=== PATIENT | female | born 1970 | race Caucasian/White ===

== ENCOUNTER 2022-12-25 12:17 | Outpatient (REF) | payer SELFPAY ==
[2022-12-25 13:23] LABS: Bilirubin Urine NEGATIVE (NEGATIVE); Blood Urine NEGATIVE (NEGATIVE); Color Urine YELLOW (YELLOW); Glucose Urine UA NEGATIVE (NEGATIVE); Ketones Urine NEGATIVE (NEGATIVE); Leukocyte Esterase Urine NEGATIVE (NEGATIVE); Nitrite Urine POSITIVE (NEGATIVE); Protein Urine NEGATIVE (NEG/TRACE); Specific Gravity Urine >=1.030 (1.005-1.025); Urobilinogen Urine 0.2 EU/dL (0.2-1.0); pH Urine 5.5 (5.0-9.0)
[2022-12-25 13:24] LABS: Clarity Urine SLIGHTLY CLOUDY (CLEAR); Urine Microscopic Indicated YES
[2022-12-25 13:31] LABS: RBC Urine NONE SEEN #/HPF (0-2); WBC Urine 0-2 #/HPF (NONE SEEN)
[2022-12-25 13:32] LABS: Bacteria Urine LARGE #/HPF (NONE SEEN); Cast Seen? NONE SEEN #/LPF (NONE SEEN); Crystals Seen? None Seen #/HPF (None Seen); Mucus Urine NONE SEEN (NONE SEEN); Squamous Epithelial Cell Urine FEW #/LPF (NONE/RARE); Urine Culture Indicated YES
== END 2022-12-25 12:18 | disposition home or self-care (01) ==
LOC: LAB 12:17
PROVIDERS: PCP Internal Medicine; Visit Provider Internal Medicine
DX: N39.0 Urinary tract infection, site not specified (principal)
CPT/HCPCS: 81001; 87086; 87150; 87186

== ENCOUNTER 2023-12-14 12:29 | Outpatient (OUT) | payer OTHER, SELFPAY ==
--- NOTE | 2023-12-14 12:31 | MM_ITS ---
Patient Name: IAN ROBBINS MR#: [id number] : 1970 Exam Date: 12/14/2023 Ordering Doctor: SHAIKH Karen KIM . RADIOLOGY REPORT PROCEDURE: MM TOMOSYNTHESIS SCREENING BI COMPARISON: MG MAMM SCREEN CHARLINE W CAD, 06/18/2017. MG MAMM SCREEN CHARLINE W CAD, 06/17/2016. INDICATIONS: Screening Calculator Name NCI Breast Cancer Risk Assessment Tool 5 Year Breast Cancer Risk Not Reported. Lifetime Breast Cancer Risk Not Reported. Personal Breast Cancer No Personal Ovarian Cancer No Treatments None Family Cancers None LOCATION: The [facility] BREAST COMPOSITION: The breasts are heterogeneously dense,which may obscure small masses. FINDINGS: DIAGNOSTIC CATEGORY 2--BENIGN FINDING: RIGHT BREAST: No significant suspicious finding. This exam includes additional mammographic views for implant evaluation and shows no visible implant abnormality. No significant change has occurred. LEFT BREAST: No significant suspicious finding. This exam includes additional mammographic views for implant evaluation and shows no visible implant abnormality. No significant change has occurred. RECOMMENDATIONS: ROUTINE MAMMOGRAM AND CLINICAL EVALUATION IN 12 MONTHS. PLEASE NOTE: A NORMAL MAMMOGRAM DOES NOT EXCLUDE THE POSSIBILITY OF BREAST CANCER. A CLINICALLY SUSPICIOUS PALPABLE LUMP SHOULD BE BIOPSIED. Dictated by: Ace Ramos M.D. on 12/14/2023 at 16:25 Approved by: Ace Ramos M.D. on 12/14/2023 at 16:28
== END 2023-12-14 12:30 | disposition home or self-care (01) ==
LOC: MAMMO 12:29
PROVIDERS: PCP Internal Medicine; Visit Provider Internal Medicine
DX: Z12.31 Encounter for screening mammogram for malignant neoplasm of breast (principal)
CPT/HCPCS: 77063; 77067

== ENCOUNTER 2025-01-09 14:30 | Outpatient (OUT) | payer OTHER, SELFPAY ==
--- OUTSIDE RECORDS SUMMARY | 2023-08-03 05:30 | XMS_ITS ---
Author Organization [facility] Address [address] [place] [id number] Care Team Providers Care Assisted Living Assistant Name Role Phone Seema Tobar Unavailable [phone] REASON FOR VISIT Recall (A) (51) Social History Sex Assigned At : Social History Observation Description Sex Assigned At Female Encounters Encounter Location Date Provider Diagnosis [facility] [address], [place] [id number] 08/03/2023 Seema Tobar Plan Of Treatment No Information Progress Notes * Denisse GALARZA MDOB: 3 (54 yo F)Acc No.[id number]:08/03/2023 Patient: Denisse CORREA Provider: Kin Tobar DDS :1970 A ge:53 Y S ex:Female Date:08/03/2023 [id number] Subjective: * Chief Complaints: * 1 . Recall (A) (53). * Medical History: Objective: * Vitals: Assessment: Plan: * Treatment: * Billing Information: * Visit Code: * Procedure Codes: * Electronic signature of Cici Tobar DDS on 01/09/2025 at 06:40 AM EDT Sign off status: Pending * Provider: Kin Tobar DDS Date: 08/03/2023 Generated for Kulwinder cameron/Tri/eTransmitting on: 0 01/09/2025 06:40 AM EDT
--- OUTSIDE RECORDS SUMMARY | 2025-01-09 13:00 | XMS_ITS | Encounter Summary ---
Author Organization [facility] Address [address] [place] [address] Care Team Providers Care Landfill Attendant Name Role Phone Seema Victoria RECRUITER COORDINATOR Unavailable Johnson Lorenz MD Primary Care Provider [phone] Reason for Visit * Reason Comments Follow-up Encounter Details Date Type Department Care Team (Late st Contact Info) Description 01/09/2025 1:00 PM EDT Office Visit [facility] [address] [place] [address] Thea Sood NP [address] [place] [address] Multiple sclerosis (HCC) (Primary Dx); Neurogenic bladder; Recurrent major depressive disorder, in full remission ; Muscle spasms of both lower extremities Social History Tobacco Use Types Packs/Day Years Used Date Smoking Tobacco: Never Passive Smoke Exposure: Never Smokeless Tobacco: Never Alcohol Use Standard Drinks/Week Comments Never 0 (1 standard drink = 0.6 oz pur e alcohol) PHQ-2 Answer Date Recorded Patient Health Questionnaire-2 Score 2 02/22/2024 Comments No Sex and Gender Information Value Date Recorded Sex Assigned at Not on file Legal Sex Female 11:40 PM EDT Gender Identity Not on file Sexual Orientation Not on file documented as of this encounter Last Filed Vital Signs Vital Sign Reading Time Taken Comments Blood Pressure 108/80 01/09/2025 1:06 PM EDT Pulse 85 01/09/2025 1:06 PM EDT Temperature 36.7 C (98.1 F) 01/09/2025 1:06 PM EDT Respiratory Rate 18 01/09/2025 1:06 PM EDT Oxygen Saturation 95% 01/09/2025 1:06 PM EDT Inhaled Oxygen Concentration - - Weight - - Height - - Body Mass Index - - documented in this encounter Patient Instructions * Patient Instructions* Thea Sood NP - 01/09/2025 1:00 PM EDT Restarted baclofen 10mg three times daily Need labs checked too documented in this encounter Progress Notes * Thea Sood NP - 01/09/2025 6:43 AM EDTAssociated Problem(s): Recurrent major depressive disorder, in full remission Current meds: wellbutrin XL, fluoxetine as well * Thea Sood NP - 01/09/2025 6:42 AM EDTAssociated Problem(s): Neurogenic bladder Has seen urology, Lin Nair tmeds: vesicare S.O. states that used to take this 2-3 times daily will need to look at med records * Thea Sood NP - 01/09/2025 6:42 AM EDTAssociated Problem(s): Multiple sclerosis (HCC) Under the care of dr Bains Current meds: lioresal, Vumerity documented in this encounter Plan of Treatment Scheduled Orders Name Type Priority Associated Diagnoses Orde r Schedule Magnesium Lab Routine Muscle spasms of both lower extremities Expected: 01/09/2025 (Approximate), Expires: 01/09/2026 documented as of this encounter Visit Diagnoses Diagnosis Multiple sclerosis (HCC)- Primary Multiple sclerosis Neurogenic bladder Neurogenic bladder, NOS Recurrent major depressive disorder, in full remission Muscle spasms of both lower extremities documented in this encounter Additional Health Concerns Assessment Noted Time PHQ-9 Depression Total Score: 8 02/22/20 24 1:00 PM EDT documented as of this encounter Care Teams Landfill Attendant Relationship Specialty Start Date End Date Johnson Lorenz MD [address] [place] [address] PCP - General Family Medicine 04/04/24 Seema Victoria NP Nurse Practitioner Family Medicine 12/28/23 documented as of this encounter
--- OUTSIDE RECORDS SUMMARY | 2025-01-09 14:33 | XMS_ITS | Clinical Summary ---
Author Organization [facility] Address [address] [place] [address] Care Team Providers Care Airline Reservationist Name Role Phone Seema Victoria NP Unavailable [phone] Johnson Lorenz MD Primary Care Provider [phone] Allergies No known active allergies Medications modafinil (Provigil) 200 MG tablet Take 200 mg by mouth in the morning. Active aspirin 81 MG EC tablet Take 81 mg by mouth in the morning. Active albuterol HFA (Ventolin HFA) 90 mcg/act inhalerIndicati ons:Wheezing Inhale 2 puffs every 4 (four) hours if needed for wheezing 18 g 11 02/22/20 24 025 Active Vumerity 231 MG capsule delayed-release 09/30/19 25 Active alendronate (Fosamax) 35 MG tabletIndicatio ns:Osteopenia, unspecified location Take 1 tablet (35 mg) by mouth every 7 (seven) days Take in the morning with a full glass of water, on an empty stomach, and do not take anything else by mouth or lie down for the next 30 min. 12 tablet 11/15/19 25 025 Active buPROPion XL (Wellbutrin XL) 150 MG 24 hr tabletIndicatio ns:Recurrent major depressive disorder, in full remission Take 1 tablet (150 mg) by mouth Daily Do not crush, chew, or split. 90 tablet 11/15/19 25 025 Active cholecalciferol (Vitamin D-3) 50 MCG (1999 UT) tabletIndicatio ns:Major depressive disorder, single episode, in full remission Take 1 tablet (50 mcg) by mouth Daily 90 tablet 11/15/19 25 025 Active montelukast (Singulair) 10 MG tabletIndicatio ns:Non-seasonal allergic rhinitis, unspecified trigger Take 1 tablet (10 mg) by mouth at bedtime 90 tablet 1 11/15/19 25 025 Active FLUoxetine (PROzac) 40 MG capsuleIndicati ons:Major depressive disorder, single episode, in full remission Take 1 capsule (40 mg) by mouth Daily 90 capsule 11/15/19 25 025 Active solifenacin (VESIcare) 5 MG tabletIndicatio ns:Neurogenic bladder Take 1 tablet (5 mg) by mouth Daily Swallow tablet whole; do not crush, chew, or split. 90 tablet 1 12/26/19 25 025 Active baclofen (Lioresal) 10 MG tabletIndicatio ns:Multiple sclerosis (HCC) Take 1 tablet (10 mg) by mouth in the morning and 1 tablet (10 mg) in the evening and 1 tablet (10 mg) before bedtime. 270 tablet 1 01/10/20 25 025 Active baclofen (Lioresal) 10 MG tabletIndicatio ns:Multiple sclerosis (HCC) Take 1 tablet (10 mg) by mouth in the morning and 1 tablet (10 mg) in the evening and 1 tablet (10 mg) before bedtime. 270 tablet 1 04/04/20 24 025 Discontinued(Re order) solifenacin (VESIcare) 5 MG tabletIndicatio ns:Neurogenic bladder Take 1 tablet (5 mg) by mouth Daily Swallow tablet whole; do not crush, chew, or split. 90 tablet 11/15/19 25 025 Discontinued Active Problems Problem Noted Date Diagnosed Date Muscle spasms of both lower extremities 01/10/20 Encounter for wellness examination 10/11/2024 Assessment & Plan (10/11/2024 7:17 AM EDT): No exam, just labs Pap smear for cervical cancer screening 10/12/19 Wheezing 02/22/2024 History of UTI 11/09/2023 Recurrent major depressive disorder, in full rem ission 11/09/2023 Assessment & Plan (01/09/2025 6:43 AM EDT): Current meds: wellbutrin XL, fluoxetine as well Assessment & Plan (10/11/2024 2:29 PM EDT): Current meds: wellbutrin XL, fluoxetine as well PHQ 9=4 Assessment & Plan (04/04/2024 8:57 AM EST): Currently taking Prozac and Wellbutrin. Feels symptoms are well controlled. Denies SI/HI. Assessment & Plan (11/09/2023 3:51 PM EDT): Doing well overall. On Prozac and Bupropion. Stable mood. Encounter for screening for malignant neoplasm o f colon 11/09/2023 Assessment & Plan (10/11/2024 7:15 AM EDT): Colon cancer screening options were discussed with patient, as well as why colon cancer screening is indicated. Options are Colonoscopy: direct visualization, every 10 years (unless indicated more frequently), risks and benefits were discussed Cologuard: every 3 years, risks and benefits were discussed , contraindications were discussed (family hx of colon cancer, colon polyps) Patient has elected to: Screening mammogram, encounter for 11/09/2023 Assessment & Plan (10/11/2024 7:15 AM EDT): Due November 2024 Chronic fatigue 05/14/2022 Assessment & Plan (11/09/2023 3:51 PM EDT): Due to MS. On modafinil. Gait instability 05/14/2022 Multiple sclerosis 05/14/2022 Assessment & Plan (01/09/2025 6:42 AM EDT): Under the care of dr Bains Current meds: lioresal, Vumerity Assessment & Plan (10/11/2024 7:13 AM EDT): Under the care of dr Bains Current meds: lioresal, Vumerity Assessment & Plan (04/04/2024 8:56 AM EST): Follows with Dr. Canales, Neurology. Currently taking Vumerity and Modafinine. She is wheelchair bound - able to stand on her feet, but does not ambulate due to unsteady gait/fear of fall. Has cognitive slowing/chronic fatigue due to MS Assessment & Plan (11/09/2023 3:49 PM EDT): Hx of MS. On Vumerity and Modafinine. Follows Dr Canales. She is wheelchair bound - able to stand on her feet, but does not ambulate due to unsteady gait/fear of fall. Has cognitive slowing/chronic fatigue due to MS. Short-term memory loss 05/14/2022 Wheelchair dependence 05/14/2022 Overview (11/09/2023): replacing diagnoses that were inactivated after the 02/15 regulatory import Neurogenic bladder 07/23/2016 Overview (11/09/2023): ==== 07/23/2016 ==== has MS. ==== 09/08/2016 ==== urinary incontinence. Workup demonstrated hyperactive or overactive bladder with uncontrolled uninhibited bladder contractions. Lower volumes. She is on Detrol 2 mg. Urodynamic study reviewed. Unreliable study. Ultrasound within the last year no hydro. Plan: Increased Detrol to 4 mg. Return to clinic. Could be headed toward Botox. Last Assessment & Plan: Still unsure whether not she is on the meds. She is with her significant other today. Negative for years. This first-time of minimum. Plan would be then diligent in persistent use of the medication over 2 months and then return to clinic in determine how we need to proceed. Assessment & Plan (01/09/2025 6:42 AM EDT): Has seen urology, Lin Nair tmeds: vesicare S.O. states that used to take this 2-3 times daily will need to look at med records Assessment & Plan (10/11/2024 5:15 PM EDT): Has seen urology, Lin Nair tmeds: vesicare S.O. states that used to take this 2-3 times daily will need to look at med records Assessment & Plan (11/09/2023 3:50 PM EDT): On Vesicare. Seems to be working for her overall. Renal cyst 07/14/2016 Overview (11/09/2023): +++++++++ 07/14/2016 ALLSCRIPTS SUMMARY +++++++++++ November 2014 Bosniak 2 cyst on MRI Subsequent ultrasound stable Bosniak 2 cyst--most recent ultrasound summer 2016 stable Last Assessment & Plan: Ordered repeat ultrasound Osteoporosis Assessment & Plan (10/11/2024 5:16 PM EDT): Current meds: fosamax DEXA: will order with mammogram in December Resolved Problems Problem Noted Date Diagnosed Date Resolved Date Pap smear of cervix not needed 10/11/2024 10/11/2024 Encounters Date Type Department Care Team Description 01/09/2025 1:00 PM EDT Office Visit [facility] [address] [place] [address] Thea Sood NP Multiple sclerosis (HCC) (Primary Dx); Neurogenic bladder; Recurrent major depressive disorder, in full remission ; Muscle spasms of both lower extremities 01/09/2025 Bamboo flowsheet [facility] [address] [place] [address] Thea Sood NP 12/26/2024 Telephone [facility] [address] [place] [address] Thea Sood NP Medication Question 12/24/2024 Refill [facility] [address] [place] [address] Thea Sood NP Neurogenic bladder 11/28/2024 Travel 11/14/2024 Refill [facility] [address] [place] [address] Thea Sood NP Osteopenia, unspecified location; Recurrent major depressive disorder, in full remission ; Major depressive disorder, single episode, in full remission ; Non-seasonal allergic rhinitis, unspecified trigger; Neurogenic bladder 11/14/2024 Telephone [facility] [address] [place] [address] Thea Sood NP 10/24/2024 Telephone [facility] [address] [place] [address] Thea Sood NP reporting a fall 10/17/2024 Telephone [facility] [address] [place] [address] Thea Sood NP 10/12/2024 Refill [facility] [address] [place] [address] Thea Sood NP Neurogenic bladder; Recurrent major depressive disorder, in full remission 10/11/2024 1:20 PM EDT Office Visit [facility] [address] [place] [address] Thea Sood NP Multiple sclerosis (HCC) (Primary Dx); Neurogenic bladder; Osteoporosis, unspecified osteoporosis type, unspecified pathological fracture presence ; Recurrent major depressive disorder, in full remission ; Screening mammogram, encounter for; Encounter for wellness examination; Pap smear for cervical cancer screening; Wheelchair dependence from Last 3 Months Immunizations Immunization Administration Dates Next Due Influenza, injectable, MDCK, preservative free, quadrivalent 04/28/2021 Family History Medical History Relation Name Comments No Known Problems Brother Alcohol abuse Father Mental illness Mother Paranoid disorder Mother No Known Problems Sister Relation Name Status Comments Brother Father Mother Sister Social History Tobacco Use Types Packs/Day Years Used Date Smoking Tobacco: Never Passive Smoke Exposure: Never Smokeless Tobacco: Never Tobacco Cessation:Counseling Given: Not Answered Alcohol Use Standard Drinks/Week Comments Never 0 (1 standard drink = 0.6 oz pur e alcohol) PHQ-2 Answer Date Recorded Patient Health Questionnaire-2 Score 2 02/22/2024 Comments No Sex and Gender Information Value Date Recorded Sex Assigned at Not on file Legal Sex Female 11:40 PM EDT Gender Identity Not on file Sexual Orientation Not on file Last Filed Vital Signs Vital Sign Reading Time Taken Comments Blood Pressure 108/80 01/09/2025 1:06 PM EDT Pulse 85 01/09/2025 1:06 PM EDT Temperature 36.7 C (98.1 F) 01/09/2025 1:06 PM EDT Respiratory Rate 18 01/09/2025 1:06 PM EDT Oxygen Saturation 95% 01/09/2025 1:06 PM EDT Inhaled Oxygen Concentration - - Weight 68 kg (150 lb) 04/04/2024 8:28 AM EST Height 152.4 cm (5') 04/04/2024 8:28 AM EST Body Mass Index 29.29 04/04/2024 8:28 AM EST Plan of Treatment Health Maintenance Due Date Last Done Comments CT Colonography 1972 Colonoscopy 1972 Colorectal Cancer Screening 1972 FIT-DNA 1972 FIT 1972 FOBT 1972 Sigmoidoscopy 1972 Pap Smear 1993 Cervical Cancer Screening 2002 HPV/Cotest 2002 Mammogram 12/13/2024 12/14/2023, 03/14/2015 Influenza Vaccine (#1) 2025 04/28/2021 Medicare Annual Wellness (AWV) 02/21/2025 02/22/2024 Procedures Procedure Name Priority Date/Time Associated Diagnosis Comments MM TOMOSYNTHESIS SCREENING BI 12/14/2023 4:28 PM EDT from Last 3 Months or Most Recently Relevant to Health Maintenance Results * MM TOMOSYNTHESIS SCREENING BI (12/14/2023 4:28 PM EDT) Anatomical Region Laterality Modality Other 12/14/2023 4:28 PM EDT Narrative 12/15/2023 9:47 AM EDT [facility] [place] [id number] Mammography Report Signed Patient: IAN FRENCH MR#: [id number] : 1970 Acct:[id number] Age/Sex: 53 / F ADM Date: 12/14/23 Loc: MAMMO Attending Dr: Shaikh Desiree Gaston Ordering Physician: Shaikh Alek Ramírez Results: Date of Service: 12/14/23 Follow Up: Procedure(s): MM tomosynthesis screening BI Accession Number(s): [id number] cc: Shaikh Alek Ramírez Patient Name: IAN FRENCH MR#: [id number] : 1970 Exam Date: 12/14/2023 Ordering Doctor: SHAIKH Karen Allison RADIOLOGY REPORT PROCEDURE: MM TOMOSYNTHESIS SCREENING BI COMPARISON: MG MAMM SCREEN CHARLINE W CAD, 06/18/2017. MG MAMM SCREEN CHARLINE W CAD, 06/17/2016. INDICATIONS: Screening Calculator Name NCI Breast Cancer Risk Assessment Tool 5 Year Breast Cancer Risk Not Reported. Lifetime Breast Cancer Risk Not Reported. Personal Breast Cancer No Personal Ovarian Cancer No Treatments None Family Cancers None LOCATION: The [facility] BREAST COMPOSITION: The breasts are heterogeneously dense,which may obscure small masses. FINDINGS: DIAGNOSTIC CATEGORY 2--BENIGN FINDING: RIGHT BREAST: No significant suspicious finding. This exam includes additional mammographic views for implant evaluation and shows no visible implant abnormality. No significant change has occurred. LEFT BREAST: No significant suspicious finding. This exam includes additional mammographic views for implant evaluation and shows no visible implant abnormality. No significant change has occurred. RECOMMENDATIONS: ROUTINE MAMMOGRAM AND CLINICAL EVALUATION IN 12 MONTHS. PLEASE NOTE: A NORMAL MAMMOGRAM DOES NOT EXCLUDE THE POSSIBILITY OF BREAST CANCER. A CLINICALLY SUSPICIOUS PALPABLE LUMP SHOULD BE BIOPSIED. Dictated by: Ace Ramos M.D. on 12/14/2023 at 16:25 Approved by: Ace Ramos M.D. on 12/14/2023 at 16:28 Dictated By: Ace Ramos M.D. Signed By: 12/15/23 0947 DD/ 1628 TD/TT: Rod Puller And Coiler: Procedure Note Radiology, Radiologist, MD - 12/15/2023 [facility] [place] [id number] Mammography Report Signed Patient: IAN FRENCH MMR#: [id number] : 1970Acct:[id number] Age/Sex: 53 / FADM Date: 12/14/23 Loc: MAMMO Attending Dr: Shaikh Desiree Gaston Ordering Physician: Shaikh Alek RamírezResults: Date of Service: 12/14/23Follow Up: Procedure(s): MM tomosynthesis screening BI Accession Number(s): [id number] cc: Shaikh Alek Ramírez Patient Name: IAN FRENCH MR#: [id number] : 1970 Exam Date: 12/14/2023 Ordering Doctor: SHAIKH Karen Allison RADIOLOGY REPORT PROCEDURE: MM TOMOSYNTHESIS SCREENING BI COMPARISON: MG MAMM SCREEN CHARLINE W CAD, 06/18/2017. MG MAMM SCREEN CHARLINE W CAD, 06/17/2016. INDICATIONS: Screening Calculator Name NCI Breast Cancer Risk Assessment Tool 5 Year Breast Cancer Risk Not Reported. Lifetime Breast Cancer Risk Not Reported. Personal Breast Cancer No Personal Ovarian Cancer No Treatments None Family Cancers None LOCATION: The [facility] BREAST COMPOSITION: The breasts are heterogeneously dense,which may obscure small masses. FINDINGS: DIAGNOSTIC CATEGORY 2--BENIGN FINDING: RIGHT BREAST: No significant suspicious finding. This exam includes additional mammographic views for implant evaluation and shows no visible implant abnormality. No significant change has occurred. LEFT BREAST: No significant suspicious finding. This exam includes additional mammographic views for implant evaluation and shows no visible implant abnormality. No significant change has occurred. RECOMMENDATIONS: ROUTINE MAMMOGRAM AND CLINICAL EVALUATION IN 12 MONTHS. PLEASE NOTE: A NORMAL MAMMOGRAM DOES NOT EXCLUDE THE POSSIBILITY OFBREAST CANCER. A CLINICALLY SUSPICIOUS PALPABLE LUMP SHOULD BE BIOPSIED. Dictated by: Ace Ramos M.D. on 12/14/2023 at 16:25 Approved by: Ace Ramos M.D. on 12/14/2023 at 16:28 Dictated By: Ace Ramos M.D. Signed By:12/15/23 0947 DD/ 1628 TD/TT: Rod Puller [employer] Coiler: us Shaikh Desiree [facility] Final Result from Last 3 Months or Most Recently Relevant to Health Maintenance [place] [address] [facility] Member Subscriber Plan / Payer (Ef fective 2023-Present) Name:Ian French Relation to Subscriber:Self Name:Ian French Payer ID:[id number] (NAIC) Type:Not on file Address: [place] [id number] [employer] MED[employer]ARE ADVANTAGE Advance Directives Documents on File Type Date Recorded Patient Bus Monitor Expl anation Power of Handicraft Or Hobby Shop Manager 02/22/2024 3:23 PM power of real estate associate attorney Care Teams Airline Reservationist Relationship Specialty Start Date End Date Johnson Lorenz MD [address] [facility] [place] [phone] PCP - General Family Medicine 04/04/24 Seema Victoria NP Nurse Practitioner Family Medicine 12/28/23
--- OUTSIDE RECORDS SUMMARY | 2025-01-09 14:33 | XMS_ITS | Encounter Summary ---
Author Organization [facility] Address [id number] [address] [place] [address] Care Team Providers Care Hand Suture Winder Name Role Phone Ashley Gale MD Primary Care Provider [phone] Reason for Visit * Reason Comments Med Refill Encounter Details Date Type Department Care Team ([facility] Contact Info) Description 03/05/2022 Refill [facility] - Family Medicine [address] [place] [address] Froylan Cline DO [address] [place] [address] Dysthymic disorder; Vitamin D deficiency, unspecified Social History Tobacco Use Types Packs/Day Years Used Date Smoking Tobacco: Never Smokeless Tobacco: Never Childcare Answer Date Recorded Childcare Unknown 10/27/2018 Employment Answer Date Recorded Employment Unknown 10/27/2018 Purpose - Life Answer Date Recorded Purpose and direction in life Unknown Comments Unknown Sex and Gender Information Value Date Recorded Sex Assigned at Not on file Legal Sex Female 12:11 PM EDT Gender Identity Not on file Sexual Orientation Not on file documented as of this encounter Miscellaneous Notes * Telephone Encounter - Froylan Cline DO - 03/05/2022 1:13 PM EDT Not a pt here documented in this encounter Plan of Treatment Upcoming Encounters Date Type Department Care Team ([facility] Contact Info) Description 01/31/2025 2:30 PM EDT Office Visit [facility] [place] [address] Aquiles Canales MD [address] [place] [address] [address] [place] [address] documented as of this encounter Visit Diagnoses Diagnosis Dysthymic disorder Vitamin D deficiency, unspecified documented in this encounter Care Teams Hand Suture Winder Relationship Specialty Start Date End Date Ashley Gale MD [address] [place], [place] [id number] PCP - General Family Medicine 10/20/17 documented as of this encounter
--- OUTSIDE RECORDS SUMMARY | 2025-01-09 14:33 | XMS_ITS | Encounter Summary ---
[facility] Organization [facility] Address [id number] [address] [place] [address] Care Team Providers Care Foundry Molder Name Role Phone Ashley Gale MD Primary Care Provider [phone] Reason for Visit * Reason Onset Date Comments Med Refill 12/26/2022 Encounter Details Date Type Department Care Team (Late st Contact Info) Description 12/26/2022 Refill [facility] [address] [place] [phone] Ramo Coleman CMA Multiple sclerosis ([facility]); Chronic fatigue; Depressed mood Social History Tobacco Use Types Packs/Day Years Used Date Smoking Tobacco: Never Smokeless Tobacco: Never Alcohol Use Standard Drinks/Week Comments Never 0 (1 standard drink = 0.6 oz pur e alcohol) PHQ-2 Answer Date Recorded Total Score 4 10/24/2022 Childcare Answer Date Recorded Childcare Unknown 10/27/2018 [...] encounter Miscellaneous Notes * Telephone Encounter - Ramo Coleman CMA - 12/26/2022 11:05 AM EDT Medication refill received via fax from [facility] Medication Requested: Modafinil 200mg tablet take one table by mouth in the morning Last seen:10/24/2022 Next appt:02/24/2023 Last filled: 11/30/2022 Medication Requested:Bupropion HCL SR 150 MG Tablet, one tablet twice daily Last Filled: 11/23/2022 * Telephone Encounter - Summer Rothman - 12/26/2022 11:05 AM EDT Received call today 12/29/22 3:12 from patient's roommate, Len (HIPAA/PHI contact), who stated that patient needs Modafinil script and is completely out of medication. I informed him that we received request late Thursday morning, 12/26/22 and clinical staff have up to 48 hours to receive message and we are closed on weekends. I told him I will route message to staff to let them know she is out ofthis medication and he voiced understanding. * Telephone Encounter - Ramo Coleman CMA - 12/26/2022 11:05 AM EDT FYI documented in this encounter Plan of Treatment Upcoming Encounters Date Type Department Care Team (Late Contact Info) Description 01/31/2025 2:30 PM EDT Office Visit [facility] [place] [place] [address] Aquiles Canales MD [address] [place] [address] [address] [place] [address] documented as of this encounter Visit Diagnoses Diagnosis Multiple sclerosis ([facility]) Multiple sclerosis Chronic fatigue Other malaise and fatigue Depressed mood documented in this encounter Additional Health Concerns Assessment Noted Time PHQ-9 Depression Total Score: 4 10/25/19 9:43 AM EDT A Body Mass Index follow-up plan has been documented for the patient 10/24/2022 5:55 PM EDT documented as of this encounter Care Teams Foundry Molder Relationship Specialty Start Date End Date Ashley Gale MD [address] [place] [address] PCP - General Family Medicine 10/20/17 documented as of this encounter
--- OUTSIDE RECORDS SUMMARY | 2025-01-09 14:33 | XMS_ITS | Encounter Summary ---
Author Organization [facility] [facility] Address [facility][id number] [address] [place] [address] Care Team Providers Care Cloud Administrator Name Role Phone Ashley Gale MD Primary Care Provider Encounter Details Date Type Department Care Team (Late st Contact Info) Description 12/12/2024 Results Follow-Up [facility] [place] [address] Aquiles Canales MD [address] [place] [address] [address], [address] [place] [address] MR brain with and without contrast, MR cervical spine with and without contrast Social History Tobacco Use Types Packs/Day Years Used Date Smoking Tobacco: Never Smokeless Tobacco: Never Alcohol Use Standard Drinks/Week Comments Never 0 (1 standard drink = 0.6 oz pur e alcohol) PHQ-2 Answer Date Recorded Total Score 0 10/25/2024 Childcare Answer Date Recorded Childcare Unknown 10/27/2018 Employment Answer Date Recorded Employment Unknown 10/27/2018 Hunger Screening Answer Date Recorded Within the past 12 months we worried whether our food would run out before we got money to buy more. Never True 10/25/2024 Within the past 12 months th e food we bought just didn't last and we didn't have money to get more. Never True 10/25/2024 Purpose - Life Answer Date Recorded Purpose and direction in life Unknown Comments Unknown Sex and Gender Information Value Date Recorded Sex Assigned at Not on file Legal Sex Female 12:11 PM EDT Gender Identity Not on file Sexual Orientation Not on file documented as of this encounter Plan of Treatment Upcoming Encounters Date Type Department Care Team (Late st Contact Info) Description 01/31/2025 2:30 PM EDT Office Visit [facility] [place] [address] [place] [address] Aquiles Canales MD [address] [place] [address] [address], [address], [address] [place] [address] documented as of this encounter Visit Diagnoses Not on filedocumented in this encounter Additional Health Concerns Assessment Noted Time PHQ-9 Depression Total Score: 0 10/26/19 25 3:33 PM EDT A Body Mass Index follow-up plan has been documented for the patient 06/30/2023 1:51 PM EST documented as of this encounter Care Teams Cloud Administrator Relationship Specialty Start Date End Date Ashley Gale MD [address] [place] [address] PCP - General Family Medicine 10/20/17 documented as of this encounter
--- OUTSIDE RECORDS SUMMARY | 2025-01-09 14:33 | XMS_ITS | Encounter Summary ---
Author Organization [employer] Address [id number] [address] [place] [address] Care Team Providers Care Warehouse Shipping Clerk Name Role Phone Ashley Gale MD Primary Care Provider [phone] Reason for Visit * Reason Comments Med Refill Encounter Details Date Type Department Care Team (Late Contact Info) Description 03/10/2022 Refill [facility] - Family Medicine [address] [place] [address] Froylan Cline, DO [address] [facility], [place] [address] Other allergy, subsequent encounter Social History Tobacco Use Types Packs/Day Years [...] Upcoming Encounters Date Type Department Care Team ([facility] Contact Info) Description 01/31/2025 2:30 PM EDT Office Visit [facility] [place] [address] Aquiles Canales MD [address] [place] [address] 101, [address], [address] [place] [address] documented as of this encounter Visit Diagnoses Diagnosis Other allergy, subsequent encounter documented in this encounter Care Teams Warehouse Shipping Clerk Relationship Specialty Start Date End Date Ashley Gale MD [address] [place] [address] PCP - General Family Medicine 10/20/17 documented as of this encounter
--- OUTSIDE RECORDS SUMMARY | 2025-01-09 14:34 | XMS_ITS | Encounter Summary ---
Author Organization [employer] Address [facility][id number] [facility] [place] [address] Care Team Providers Care Technical Customer Support Specialist Name Role Phone Ashley Gale MD Primary Care Provider [phone] Reason for Referral * Consultation (Routine) - Closed Specialty Diagnoses / Procedures Referred By Contac t Referred To Contact Psychiatry Diagnoses Depressed mood Aquiles Canales MD [address] [place] [address] [address], [address] [place] [address] Phone: tel: fax: Randa Hatch MD [address] [facility], [address] [address] Phone: tel: fax: Referral ID Status Reason Start Date Expiration Date V isits Requested Visits Authorized [id number] Closed Specialty Services Required 10/29/2022 10/29/2023 1 1 * Consultation (Routine) - Closed Specialty Diagnoses / Procedures Referred By Contac t Referred To Contact Ophthalmology Diagnoses Multiple sclerosis ([facility]) Demyelinating disease of central nervous system ([facility]) Aquiles Canales MD [address] [place] [address] 101, [address], [address] [place] [address] Phone: tel: fax: Low Granados MD [address] [address] Phone: tel: fax: Referral ID Status Reason Start Date Expiration Date V isits Requested Visits Authorized [id number] Closed Specialty Services Required 10/29/2022 10/29/2023 1 1 Reason for Visit * Reason Onset Date Comments Referral Issue 10/29/2022 Encounter Details Date Type Department Care Team (Late st Contact Info) Description 10/29/2022 Telephone [facility] [address] [place] [address] Tika Martins Referral Issue Social History Tobacco Use Types Packs/Day Years [...] encounter Miscellaneous Notes * Telephone Encounter - Tika Martins - 10/29/2022 1:54 PM EDT ECLen, stated need an updated Referral for Neurophthalmology. Need reason and diagnosis. The referral on file is dated 05/08/22. Also, the referral for psychiatry, Dr. Roland Arrington office stated they do not have anyone for consultation. Patient need to know what the next steps are. * Telephone Encounter - Ramo Coleman CMA - 10/29/2022 1:54 PM EDT Attempted to call patient no answer, no voicemail on either phone number in chart. If Patient callsback please give above message * Telephone Encounter - Ramo Coleman CMA - 10/29/2022 1:54 PM EDT Attempted to call patient again, no answer, no voicemail. Printing referrals and mailing to patient documented in this encounter Plan of Treatment Upcoming Encounters Date Type Department Care Team (Late st Contact Info) Description 01/31/2025 2:30 PM EDT Office Visit [facility] [place] [address] [place] [address] Aquiles Canales MD [address] [place] [address] 101, [address], [address] [place] [address] Scheduled Referrals Name Type Priority Associated Diagnoses Order Schedule [facility] - [place], [place] Outpatient Referral Routine Multiple sclerosis (CMS-HCC) Demyelinating disease of central nervous system (CMS-HCC) 1 Occurrences starting 10/29/2022 until 10/30/2023 Ambulatory referral to Psychiatry Outpatient Referral Routine Depressed mood 1 Occurrences starting 10/29/2022 until 10/30/2023 documented as of this encounter Visit Diagnoses Diagnosis Multiple sclerosis (CMS-HCC)- Primary Multiple sclerosis Demyelinating disease of central nervous system (CMS-HCC) Unspecified demyelinating disease of central nervous system Depressed mood documented in this encounter Additional Health Concerns Assessment Noted Time PHQ-9 Depression Total Score: 4 10/25/19 23 9:43 AM EDT A Body Mass Index follow-up plan has been documented for the patient 10/24/2022 5:55 PM EDT documented as of this encounter Care Teams Technical Customer Support Specialist Relationship Specialty Start Date End Date Ashley Gale MD [address] [place], [place] [id number] PCP - General Family Medicine 10/20/17 documented as of this encounter
--- OUTSIDE RECORDS SUMMARY | 2025-01-09 14:34 | XMS_ITS | Encounter Summary ---
Author Organization [facility] Address [id number] [address] [place] [address] Care Team Providers Care Front Office Attendant Name Role Phone Ashley Gale MD Primary Care Provider [phone] Reason for Visit * Reason Onset Date Comments Med Refill 06/26/2023 Encounter Details Date Type Department Care Team (Late st Contact Info) Description 06/26/2023 Refill [facility] [address] [place] [address] Ramo Coleman CMA Multiple sclerosis ([facility]); Depressed mood Social History Tobacco Use Types Packs/Day Years Used Date Smoking Tobacco: Never Smokeless Tobacco: Never Alcohol Use Standard Drinks/Week Comments Never 0 (1 standard drink = 0.6 oz pur e alcohol) PHQ-2 Answer Date Recorded Total Score 4 02/24/2023 Childcare Answer Date Recorded Childcare Unknown 10/27/2018 Employment Answer Date Recorded Employment Unknown 10/27/2018 Hunger Screening Answer Date Recorded Within the past 12 months we worried whether our food would run out before we got money to buy more. Never True 02/24/2023 Within the past 12 months th e food we bought just didn't last and we didn't have money to get more. Never True 02/24/2023 Purpose - Life Answer Date Recorded Purpose and direction in life Unknown Comments Unknown Sex and Gender Information Value Date Recorded Sex Assigned at Not on file Legal Sex Female 12:11 PM EDT Gender Identity Not on file Sexual Orientation Not on file documented as of this encounter Miscellaneous Notes * Telephone Encounter - Ramo Coleman CMA - 06/26/2023 12:17 PM EST XM Radiot message sent documented in this encounter Plan of Treatment Upcoming Encounters Date Type Department Care Team (Late st Contact Info) Description 01/31/2025 2:30 PM EDT Office Visit [facility] [place] [address] [place] [address] Aquiles Canales MD [address] [place] [address] 101, [address], [address] [place] [address] documented as of this encounter Visit Diagnoses Diagnosis Multiple sclerosis ([facility]) Multiple sclerosis Depressed mood documented in this encounter Additional Health Concerns Assessment Noted Time PHQ-9 Depression Total Score: 4 02/25/20 23 10:01 AM EDT A Body Mass Index follow-up plan has been documented for the patient 02/24/2023 5:53 PM EDT documented as of this encounter Care Teams Front Office Attendant Relationship Specialty Start Date End Date Ashley Gale MD [address] [place] [address] PCP - General Family Medicine 10/20/17 documented as of this encounter
--- OUTSIDE RECORDS SUMMARY | 2025-01-09 14:34 | XMS_ITS | Encounter Summary ---
Author Organization [facility] Address [address] [place] [address] Care Team Providers Care Motor Coach Driver Name Role Phone Seema Victoria NP Unavailable [phone] Johnson Lorenz MD Primary Care Provider [phone] Encounter Details Date Type Department Care Team (Late st Contact Info) Description 03/03/2024 Orders Only [facility] [address] [place] [address] Seema Victoria NP Social History Tobacco Use Types Packs/Day Years Used Date Smoking Tobacco: Never Passive Smoke Exposure: Never Smokeless Tobacco: Never Alcohol Use Standard Drinks/Week Comments Never 0 (1 standard drink = 0.6 oz pur e alcohol) PHQ-2 Answer Date Recorded Patient Health Questionnaire-2 Score 2 02/22/2024 Comments Unknown Sex and Gender Information Value Date Recorded Sex Assigned at Not on file Legal Sex Female 11:40 PM EDT Gender Identity Not on file Sexual Orientation Not on file documented as of this encounter Plan of Treatment Not on file documented as of this encounter Procedures Procedure Name Priority Date/Time Associated Diagnosis Comments SCANNED LABS Routine 03/03/2024 1:52 PM EDT documented in this encounter Results * SCANNED LABS (03/03/2024 1:52 PM EDT) Seema Victoria LARD TUB WASHER LAB CHG PERFORMABLES Fin al Result documented in this encounter Visit Diagnoses Not on filedocumented in this encounter Additional Health Concerns Assessment Noted Time PHQ-9 Depression Total Score: 8 02/22/20 24 1:00 PM EDT documented as of this encounter Care Teams Motor Coach Driver Relationship Specialty Start Date End Date Johnson Lorenz MD [address] [place] [address] PCP - General Family Medicine 04/04/24 Seema Victoria NP Nurse Practitioner Family Medicine 12/28/23 documented as of this encounter
--- OUTSIDE RECORDS SUMMARY | 2025-01-09 14:34 | XMS_ITS | Encounter Summary ---
Author Organization [facility] Address [address] [place] [address] Care Team Providers Care Patent Legal Assistant Name Role Phone Shaikh BONY Ramírez Unavailable [phone] Shaikh BONY Ramírez Primary Care Provider [phone] Johnson Lorenz MD Primary Care Provider [phone] Seema Victoria NP Unavailable [phone] Johnson Lorenz MD Primary Care Provider [phone] Encounter Details Date Type Department Care Team (Late st Contact Info) Description 12/14/2023 Clinisync Result Encounter [facility] Department Unsolicited Shaikh Ramírez MD [address] [place] [address] Social History Tobacco Use Types Packs/Day Years Used Date Smoking Tobacco: Never Passive Smoke Exposure: Never Smokeless Tobacco: Never Alcohol Use Standard Drinks/Week Comments Never 0 (1 standard drink = 0.6 oz pur e alcohol) PHQ-2 Answer Date Recorded Patient Health Questionnaire-2 Score 0 11/09/2023 Comments Unknown Sex and Gender Information Value Date Recorded Sex Assigned at Not on file Legal Sex Female 11:40 PM EDT Gender Identity Not on file Sexual Orientation Not on file documented as of this encounter Plan of Treatment Not on file documented as of this encounter Procedures Procedure Name Priority Date/Time Associated Diagnosis Comments MM TOMOSYNTHESIS SCREENING BI 12/14/2023 4:28 PM EDT documented in this encounter Results * MM TOMOSYNTHESIS SCREENING BI (12/14/2023 4:28 PM EDT) Anatomical Region Laterality Modality Other 12/14/2023 4:28 PM EDT Narrative 12/15/2023 9:47 [place] [address] Mammography Report Signed Patient: IAN FRENCH MR#: [id number] : 1970 Acct:[id number] Age/Sex: 53 / F ADM Date: 12/14/23 Loc: MAMMO Attending Dr: Shaikh Desiree Gaston Ordering Physician: Shaikh Alek Ramírez Results: Date of Service: 12/14/23 Follow Up: Procedure(s): MM tomosynthesis screening BI Accession Number(s): [id number] cc: Shaikh Alek Ramírez Patient Name: IAN FRENCH MR#: [id number] : 1970 Exam Date: 12/14/2023 Ordering Doctor: [...] Treatments None Family Cancers None LOCATION: [facility] BREAST COMPOSITION: The breasts are heterogeneously dense,which [...] Signed By: 12/15/23 0947 DD/ 1628 TD/TT: Kelp Gatherer: Procedure Note Radiology, Radiologist, MD - 12/15/2023 [facility] [place] [id number] Mammography Report Signed Patient: IAN FRENCH MMR#: [id number] : 1970Acct:[id number] Age/Sex: 53 / FADM Date: 12/14/23 Loc: MAMMO Attending Dr: Shaikh Desiree Gaston Ordering Physician: Shaikh Alek RamírezResults: Date of Service: 12/14/23Follow Up: Procedure(s): MM tomosynthesis screening BI Accession Number(s): [id number] cc: Shaikh Alek Ramírez Patient Name: IAN FRENCH MR#: [id number] : 1970 Exam Date: 12/14/2023 Ordering Doctor: [...] Treatments None Family Cancers None LOCATION: [facility] BREAST COMPOSITION: The breasts are heterogeneously dense,which [...] M.D. Signed By:12/15/23 0947 DD/ 1628 TD/TT: Kelp Gatherer: us Shaikh Desiree [facility] Final Result documented in this encounter Visit Diagnoses Not on filedocumented in this encounter Care Teams Patent Legal Assistant Relationship Specialty Start Date End Date Shaikh Ramírez MD [address] [place] [address] PCP - Devoted 09/15/22 12/16/23 Shaikh Ramírez MD [address] [place] [address] PCP - General Internal Medicine 06/23/23 12/27/23 Johnson Lorenz MD [address] [place] [address] PCP - General Family Medicine 12/28/23 03/01/24 Johnson Lorenz MD [address] [place] [address] PCP - General Family Medicine 04/04/24 Seema Victoria NP [address] [place] [address] Nurse Practitioner Family Medicine 12/28/23 documented as of this encounter
--- OUTSIDE RECORDS SUMMARY | 2025-01-09 14:34 | XMS_ITS | Encounter Summary ---
Author Organization [facility] Address [address] [place] [address] Care Team Providers Care Grants Analyst Name Role Phone Seema Victoria HAND BANDER Unavailable [phone] Johnson Lorenz MD Primary Care Provider [phone] Reason for Visit * Reason Onset Date Comments Medication Question 12/26/2024 Encounter Details Date Type Department Care Team (Late st Contact Info) Description 12/26/2024 Telephone [facility] [address] [place] [address] Thea Sood NP [address] [place] [address] Medication Question Social History Tobacco Use Types Packs/Day Years [...] encounter Miscellaneous Notes * Telephone Encounter - Alla Hernandez - 12/26/2024 3:21 PM EDT Patient's caregiver/partner is asking if you can send in a muscle relaxer for patient. She fights to be changed and is too hard to fight when changing her. etc. JN documented in this encounter Plan of Treatment Not on file documented as of this encounter Visit Diagnoses Not on filedocumented in this encounter Additional Health Concerns Assessment Noted Time PHQ-9 Depression Total Score: 8 02/22/20 24 1:00 PM EDT documented as of this encounter Care Teams Grants Analyst Relationship Specialty Start Date End Date Johnson Lorenz MD [address] [place] [address] PCP - General Family Medicine 04/04/24 Seema Victoria NP Nurse Practitioner Family Medicine 12/28/23 documented as of this encounter
--- OUTSIDE RECORDS SUMMARY | 2025-01-09 14:34 | XMS_ITS | Encounter Summary ---
Author Organization [facility] Address [address] [place] [address] Care Team Providers Care Electrotype Caster Name Role Phone Shaikh BONY Ramírez Unavailable [phone] Shaikh BONY Ramírez Primary Care Provider [phone] Johnson Lorenz MD Primary Care Provider [phone] Seema Victoria MUSEUM TECHNICIAN Unavailable [phone] Johnson Lorenz MD Primary Care Provider [phone] Encounter Details Date Type Department Care Team (Late st Contact Info) Description 12/07/2023 Orders Only [facility] [address] [place] [address] Shaikh Ramírez MD [address] [place] [address] Social History Tobacco Use Types Packs/Day Years [...] Date/Time Associated Diagnosis Comments SCANNED LABS Routine 12/07/2023 11:55 AM EDT documented in this encounter Results * SCANNED LABS (12/07/2023 11:55 AM EDT) Shaikh Desiree L[facility] LAB CHG PERFORMABLES Final Resu lt documented in this encounter Visit Diagnoses Not on filedocumented in this encounter Care Teams Electrotype Caster Relationship Specialty Start Date End Date Shaikh Ramírez MD [address] [place] [address] PCP - Devoted 09/15/22 12/16/23 Shaikh Ramírez MD [address] [place] [address] PCP - General Internal Medicine 06/23/23 12/27/23 Johnson Lorenz MD [address] [place] [address] PCP - General Family Medicine 12/28/23 03/01/24 Johnson Lorenz MD [address] [place] [address] PCP - General Family Medicine 04/04/24 Seema Victoria NP [address] [place] [address] Nurse Practitioner Family Medicine 12/28/23 documented as of this encounter
--- OUTSIDE RECORDS SUMMARY | 2025-01-09 14:34 | XMS_ITS | Encounter Summary ---
Author Organization [facility] Address [address] [place] [address] Care Team Providers Care Structural Steel Painter Name Role Phone Seema Victoria NP Unavailable [phone] Johnson Lorenz MD Primary Care Provider [phone] Encounter Details Date Type Department Care Team (Late st Contact Info) Description 03/02/2024 Orders Only [facility] [address] [place] [address] Seema Victoria NP Social History [...] Date/Time Associated Diagnosis Comments SCANNED LABS Routine 03/02/2024 1:52 PM EDT documented in this encounter Results * SCANNED LABS (03/02/2024 1:52 PM EDT) Seema Victoria TABLEMAN LAB CHG PERFORMABLES Fin al Result documented in this encounter Visit Diagnoses Not on filedocumented in this encounter Additional Health Concerns Assessment Noted Time PHQ-9 Depression Total Score: 8 02/22/20 24 1:00 PM EDT documented as of this encounter Care Teams Structural Steel Painter Relationship Specialty Start Date End Date Johnson Lorenz MD [address] [place] [address] PCP - General Family Medicine 04/04/24 Seema Victoria NP Nurse Practitioner Family Medicine 12/28/23 documented as of this encounter
--- OUTSIDE RECORDS SUMMARY | 2025-01-09 14:34 | XMS_ITS | Encounter Summary ---
Author Organization [facility] Address [facility] [id number] [address] [place] [address] Care Team Providers Care Classified Advertising Supervisor Name Role Phone Ashley Gale MD Primary Care Provider [phone] Reason for Visit * Reason Onset Date Comments VUMERITY RE-ENROLLMENT 06/15/2023 Encounter Details Date Type Department Care Team (Late st Contact Info) Description 06/15/2023 Telephone [facility] [address] [place] [address] Eva Dash VUMERITY RE-ENROLLMENT Social History Tobacco Use Types Packs/Day Years [...] encounter Miscellaneous Notes * Telephone Encounter - Eva Dash - 06/15/2023 2:31 PM EST Patients friend Lori, contacted our office stating that the VUMERITY 231 mg capsule, the pharmaceutical company is stating that she is in need of a new enrollment period. Now the medication is on hold until she can be re-enrolled. Patients friend is requesting a call back to discuss the issues they are having further. Please advise. Lori- [phone] Phone # for [facility]- [phone] * Telephone Encounter - Ramo Coleman CMA - 06/15/2023 2:31 PM EST Tried to call [facility] the number listed is disconnected. Spoke with lori he will be calling the [employer] and asking them to fax over the paperwork needed for medication. documented in this encounter Plan of Treatment Upcoming Encounters Date Type Department Care Team (Late st Contact Info) Description 01/31/2025 2:30 PM EDT Office Visit [facility] [place] [address] [place] [address] Aquiles Canales MD [address] [place] [address] [address] [place] [address] documented as of this encounter Visit Diagnoses Not on filedocumented in this encounter Additional Health Concerns Assessment Noted Time PHQ-9 Depression Total Score: 4 02/25/20 23 10:01 AM EDT A Body Mass Index follow-up plan has been documented for the patient 02/24/2023 5:53 PM EDT documented as of this encounter Care Teams Classified Advertising Supervisor Relationship Specialty Start Date End Date Ashley Gale MD [address] [place] [address] PCP - General Family Medicine 10/20/17 documented as of this encounter
--- OUTSIDE RECORDS SUMMARY | 2025-01-09 14:34 | XMS_ITS | Encounter Summary ---
Author Organization [facility] Address [facility] [id number] [address] [place] [address] Care Team Providers Care Driver Wheelchair Name Role Phone Ashley Gale MD Primary Care Provider [phone] Reason for Visit * Reason Onset Date Comments Medication Problem 03/11/2023 Encounter Details Date Type Department Care Team (Late st Contact Info) Description 03/11/2023 Telephone [facility] [address] [place] [phone] Tika Martins Medication Problem Social History Tobacco Use Types Packs/Day Years [...] * Telephone Encounter - Tika Martins - 03/11/2023 2:38 PM EDT Roommate, Len, stated medication diroximel fumarate (VUMERITY) 231 mg capsule,delayed release(DR/EC) should have gone to [facility] [phone]. Fax#: [phone] Patient will be out of medication on this THURSDAY. Script was sent to [facility]. * Telephone Encounter - Ramo Coleman CMA - 03/11/2023 2:38 PM EDT Script has been faxed, lvm for patient telling her script was faxed and to call with any questions. documented in this encounter Plan of Treatment Upcoming Encounters Date Type Department Care Team (Late st Contact Info) Description 01/31/2025 2:30 PM EDT [facility] [place] [address] [place] [address] Aquiles Canales MD [address] [place] [address], [facility] [address] [place] [address] documented as of this encounter Visit Diagnoses Diagnosis Multiple sclerosis (CMS-HCC)- Primary Multiple sclerosis Demyelinating disease of central nervous system (CMS-HCC) Unspecified demyelinating disease of central nervous system documented in this encounter Additional Health Concerns Assessment Noted Time PHQ-9 Depression Total Score: 4 02/25/20 23 10:01 AM EDT A Body Mass Index follow-up plan has been documented for the patient 02/24/2023 5:53 PM EDT documented as of this encounter Care Teams Driver Wheelchair Relationship Specialty Start Date End Date Ashley Gale MD [address] [place] [address] PCP - General Family Medicine 10/20/17 documented as of this encounter
--- OUTSIDE RECORDS SUMMARY | 2025-01-09 14:34 | XMS_ITS | Encounter Summary ---
Author Organization [facility] Address [address] [place] [address] Care Team Providers Care Petroleum Sampler Name Role Phone Seema Victoria LOW PRESSURE BOILER TENDER Unavailable [phone] Johnson Lorenz MD Primary Care Provider [phone] Encounter Details Date Type Department Care Team (Late st Contact Info) Description 01/09/2025 Bamboo flowsheet [facility] [address] [place] [id number] Thea Sood NP [address] [place] [phone] Social History Tobacco Use Types Packs/Day Years [...] documented as of this encounter Care Teams Petroleum Sampler Relationship Specialty Start Date End Date Johnson Lorenz MD [address] [place] [id number] PCP - General Family Medicine 04/04/24 Seema Victoria NP Nurse Practitioner Family Medicine 12/28/23 documented as of this encounter
--- OUTSIDE RECORDS SUMMARY | 2025-01-09 14:41 | XMS_ITS | CCD ---
Author Organization [facility] Care Team Providers Care Land Planner Name Role Phone LAUREN LEIGH Consulting Unavailable FAWWAD, YOUNG H Primary Care Unavailable LAUREN LEIGH Attending Unavailable LAUREN LEIGH Admitting Unavailable Srinath Guevara Consulting Unavailable FAWWAD, YOUNG H Primary Care Unavailable FAWWAD, YOUNG H Attending Unavailable FAWWAD, YOUNG H Admitting Unavailable FAWWAD, YOUNG H Consulting Unavailable ORANGE, DR JUVENAL Meng Consulting Unavailable FABrianWAD, YOUNG H Primary Care Unavailable BERTO FONSECA Attending Unavailable BERTO FONSECA Admitting Unavailable BERTO FONSECA Consulting Unavailable ANNA ., ALFONSO CORNEJO Consulting UnavailAicha Allison, DR MYERS Attending Unavailable AGUEDA ., DR MYERS Admitting Unavailable KRISTIN, DR DELFINA Shepherd Primary Care Unavailable BERTO CARROLL Consulting Unavailable Srinath Guevara Consulting Unavailable FAWWAD, YOUNG H Primary Care Unavailable ANT DOLL Attending Unavailable ANT DOLL Admitting Unavailable ANT DOLL Consulting Unavailable LAUREN LEIGH Consulting Unavailable CHIWWAD, YOUNG H Primary Care Unavailable LAUREN LEIGH Attending Unavailable LAUREN LEIGH Admitting Unavailable Srinath Guevara Consulting Unavailable CHIWWAD, YOUNG H Primary Care Unavailable BERTO FONSECA Attending Unavailable BERTO FONSECA Admitting Unavailable BERTO FONSECA Consulting Unavailable Srinath Guevara Consulting [facility]available [facility] Primary Care Unavailable ANT DOLL Attending Unavailable ANT DOLL Admitting Unavailable NORMA DOLLBERLY Consulting Unavailable CECYWAD, YOUNG H Primary Care Unavailable BERTO FONSECA Attending Unavailable BERTO FONSECA Admitting Unavailable DYAND, YOUNG Primary Care Physician Desiree LOVETT, Unavailable Desiree LOVETT, Primary Care Provider Kelechi LOVETT, Johnson Primary Care Provider Esme BUSINESS PROCESS ANALYST, [facility] Unavailable [phone] ESME, [place]. [facility] Primary Care P hysician ESME, [facility] UnavailLin Wright Attending Unavailable [facility] Unavail[facility] Wright Attending Unavailable Lin Ward Admitting Unavailable Kelechi LOVETT, Johnson Primary Care Provider [phone] Baljinder LOVETT, Ashley Primary Care Provider Baljinder LOVETT, Ashley Primary Care Provider [phone] Esme BUSINESS PROCESS ANALYST, [facility] Unavailable THEA SOOD Attending Unavailable SHAIKH RAMÍREZ Attending Unavailable ESME, [facility] Attending Unavailabl e VICTORIA, [facility] Attending Unavailabl e VICTORIA, [facility] Unavailabl Lin Yeager Attending Unavailable Lin Ward Attending [facility] UnavailLin Wright Attending Unavailable Lin Ward Admitting Unavailable [facility] UnavailLin Wright Referring Unavailable Lin Ward Attending Unavailable Lin Ward Attending Unavailable Lin Ward Admitting Unavailable Lin Ward Attending Unavailable THEA SOOD Primary Care Physician [phone] BEE, EHAD Attending Unavailable GALE, ASHLEY Referring Unavailable GALE, ASHLEY Primary Care Unavailable BEE, EHAD Attending Unavailable BEE, EHAD Referring Unavailable GALE, ASHLEY Primary Care Unavailable Allergies Allergy Classification Reported Allergen(s) Allergy Type Date of Onset Reaction(s) Facility (3 sources) No Known Medication Allergies; Translations: [No Known Medication Allergies] Propensity to adverse reactions (disorder) [facility] Repository Medications Current Medications Medication Drug Class(es) Dates Sig (Normalized) Sig (Original) [id number] 200 actuat albuterol 0.09 mg/actuat metered dose inhaler (15 sources) beta2-Adrenergic Agonist Start: 02-22-2024 End: 02-21-2025 take 2 puff(s) by inhalation every four hours for wheezing albuterol HFA (Ventolin HFA) 90 mcg/act inhaler Indications: Wheezing Inhale 2 puffs every 4 (four) hours if needed for wheezing 18 g 11 02/22/2024 02/21/2025 Active alendronic acid 35 mg oral tablet (20 sources) Bisphosphonate Start: 01-13-2023 End: 02-06-2025 take 1 tablet by mouth in the morning alendronate (Fosamax) 35 MG tablet Indications: Osteopenia, unspecified location Take 1 tablet (35 mg) by mouth every 7 (seven) days Take in the morning with a full glass of water, on an empty stomach, and do not take anything else by mouth or lie down for the next 30 min. 12 tablet 11/14/2024 02/06/2025 Active Start: 03-08-2022 take 1 tablet by laurel th every week alendronate (FOSAMAX) 35 mg tablet Take 1 tablet (35 mg total) by mouth once a week. 03/08/2022 Active aspirin 81 mg oral capsule (20 sources) Platelet Aggregation Inhibitor, Nonsteroidal Anti-inflammatory Drug Start: 01-13-2023 take 1 mg by mouth every twenty-four hours aspirin 81 mg oral capsule mg cap(s), Oral, q24hr, Refills(s) 0 Start Date: 01/13/23 Status: Ordered Repeat number: 1 take 1 tablet by mouth in the mo rning aspirin 81 MG EC tablet Take 81 mg by mouth in the morning. Active baclofen 10 mg oral tablet (20 sources) gamma-Aminobutyric Acid-ergic Agonist Start: 03-17-2023 End: 10-01-2024 take 1 tablet by mouth twice daily as needed for muscle spasms baclofen (LIORESAL) 10 mg tablet Indications: Multiple sclerosis (CMS-HCC) , Spasticity Take 1 tablet (10 mg total) by mouth 2 (two) times a day as needed for muscle spasms (CC: spasticity from MS). 60 tablet 5 03/17/2023 Active Start: 01-13-2023 baclofen 10 mg tablet baclofen 10 mg tablet Start Date: 01/13/23 Status: Ordered Repeat number: 1 Start: 01-13-2023 baclofen 10 mg tablet baclofen 10 mg tablet Start Date: 01/13/23 Status: Ordered 24 hr buPROPion hydrochloride 150 mg extended release oral tablet (20 sources) Aminoketone Start: 11-05-2023 End: 02-12-2025 take 1 tablet by mouth once daily buPROPion XL (Wellbutrin XL) 150 MG 24 hr tablet Indications: Recurrent major depressive disorder, in full remission Take 1 tablet (150 mg) by mouth Daily Do not crush, chew, or split. 90 tablet 11/14/2024 02/12/2025 Active Start: 06-26-2023 buPROPion SR ( WELLBUTRIN SR) 150 mg 12 hr tablet Indications: Multiple sclerosis ([facility]) , Depressed mood Take 1 tab twice daily. 60 tablet 5 06/26/2023 Active take 1 tablet by laurel th once daily buPROPion SR (Wellbutrin SR) 100 MG 12 hr tablet Take 100 mg by mouth 1 (one) time each day Do not crush, chew, or split. 0 Active BuPROPion (Eqv-Wellbutrin SR) 150 mg/12 hours oral tablet, extended release (14 sources) Start: 01-13-2023 take 1 tablet by mouth every hour BuPROPion (Eqv-Wellbutrin SR) 150 mg/12 hours oral tablet, extended release Refills(s) 0 Start Date: 01/13/23 Status: Ordered Repeat number: 1 Start: 01-13-2023 BuPROPion (Eqv -Wellbutrin SR) 150 mg/12 hours oral tablet, extended release Refills(s) 0 Start Date: 01/13/23 Status: Ordered calcium carbonate 1500 mg oral tablet (13 sources) take 1 tablet by mouth in the morning calcium carbonate (OS-DARRELL) 600 mg (1,500 mg) tablet Take 1 tablet (600 mg total) by mouth in the morning. Active cefuroxime 500 mg oral tablet (15 sources) Cephalosporin Antibacterial Start: 022 End: 024 cefuroxime 500 mg oral tablet Refills(s) 0 Start Date: 01/13/23 Status: Ordered Repeat number: 1 cholecalciferol 0.05 mg oral tablet (20 sources) Vitamin D Start: End: take 1 tablet by mouth once daily cholecalciferol (Vitamin D-3) 50 MCG (1999 UT) tablet Indications: Major depressive disorder, single episode, in full remission Take 1 tablet (50 mcg) by mouth Daily 90 tablet 11/14/2024 02/12/2025 Active Start: 02-22-2024 End: 06-27-2024 take 1 tablet by mouth once daily cholecalciferol (Vitamin D-3) 50 MCG (1999 UT) tablet Indications: Major depressive disorder, single episode, in full remission (CMS/HCC) TAKE 1 TABLET BY MOUTH DAILY 30 tablet 2 06/27/2024 Active Start: 03-10-2022 End: 02-22-2024 take 1 tablet by mouth in the morning cholecalciferol, vitamin D3, 2,000 units tablet Take 1 tablet (2,000 Units total) by mouth in the morning. 03/10/2022 Active DDM Vitamin D 2000 IU (14 sources) Start: 01-13-2023 DDM Vitamin D 2000 IU DDM Vitamin D 2000 IU Start Date: 01/13/23 Status: Ordered Repeat number: 1 Start: 01-13-2023 DDM Vitamin D 2000 IU DDM Vitamin D 2000 IU Start Date: 01/13/23 Status: Ordered Tecfidera (20 sources) Start: 01-13-2023 Tecfidera Oral , BID, Refills(s) 0 Start Date: 01/13/23 Status: Ordered Repeat number: 1 Start: 01-13-2023 Tecfidera Oral , BID, Refills(s) 0 Start Date: 01/13/23 Status: Ordered End: 10-11-2024 Dimethyl Fumarate (TECFIDERA PO) Take by mouth 10/11/2024 Discontinued (Therapy completed) Dimethyl Fumarat e (TECFIDERA PO) Take by mouth Active Dimethyl Fumarat e (TECFIDERA PO) Take by mouth 0 Active diroximel fumarate 231 mg delayed release oral capsule (20 sources) Start: 04-22-2023 End: 12-14-2024 take 2 capsules by mouth in the morning diroximel fumarate (VUMERITY) 231 mg capsule,delayed release(DR/EC) Indications: Multiple sclerosis (CMS-HCC) Take 462 mg by mouth in the morning and 462 mg before bedtime. 360 capsule 3 12/14/2024 Active Start: 01-13-2023 Vumerity 231 M G capsule delayed-release 09/29/2024 Active FLUoxetine 40 mg oral capsule (20 sources) Serotonin Reuptake Inhibitor Start: 03-10-2022 End: 02-12-2025 take 1 capsule by mouth once daily FLUoxetine (PROzac) 40 MG capsule Indications: Major depressive disorder, single episode, in full remission Take 1 capsule (40 mg) by mouth Daily 90 capsule 11/14/2024 02/12/2025 Active ibuprofen 200 mg oral tablet (14 sources) Nonsteroidal Anti-inflammatory Drug Start: 01-13-2023 take 1 mg by mouth every six hours Motrin IB 200 mg oral tablet mg tab(s), Oral, q6hr, Refills(s) 0 Start Date: 01/13/23 Status: Ordered Repeat number: 1 24 hr mirabegron 50 mg extended release oral tablet (3 sources) beta3-Adrenergic Agonist Start: 01-13-2023 take 1 tablet by mouth once daily Myrbetriq 50 mg oral tablet, extended release 50 mg = 1 tab(s), Oral, Daily, # 30 tab(s), Refills(s) 11, Pharmacy: [id number], 153, cm, 01/13/23 10:50:00 EDT, Height/Length Dosing, 74.8, kg, 01/13/23 10:50:00 EDT, Weight Dosing Start Date: 01/13/23 Status: Ordered modafinil 200 mg oral tablet (20 sources) Sympathomimetic-lik e Agent Start: 12-30-2022 End: 09-12-2024 take 1 tablet by mouth in the morning modafiniL (PROVIGIL) 200 mg tablet Indications: Multiple sclerosis (CMS-HCC) , Chronic fatigue Take 1 tablet (200 mg total) by mouth in the morning. 30 tablet 5 09/13/2024 Active montelukast 10 mg oral tablet (20 sources) Leukotriene Receptor Antagonist Start: 03-10-2022 End: 02-12-2025 take 1 tablet by mouth at bedtime montelukast (Singulair) 10 MG tablet Indications: Non-seasonal allergic rhinitis, unspecified trigger Take 1 tablet (10 mg) by mouth at bedtime 90 tablet 1 11/14/2024 02/12/2025 Active nitrofurantoin, macrocrystals 25 mg / nitrofurantoin, monohydrate 75 mg oral capsule (2 sources) Nitrofuran Antibacterial Start: 02-29-2024 End: 03-05-2024 take 1 capsule by mouth twice daily Macrobid 100 mg Cap 100 mg = 1 cap(s), Oral, BID, X 5 day(s), # 10 cap(s), Refills(s) 0, Pharmacy: [facility] #[id number], 153, cm, 12/02/23 11:10:00 EDT, Height/Length Dosing, 74, kg, 12/02/23 11:10:00 EDT, Weight Dosing Start Date: 02/29/24 Stop Date: 03/05/24 Status: Ordered Sprintec (14 sources) Start: 01-13-2023 Sprintec Oral, Daily, Refill(s) 0 Start Date: 01/13/23 Status: Ordered Repeat number: 1 Start: 01-13-2023 Sprintec Oral, Daily, Refill(s) 0 Start Date: 01/13/23 Status: Ordered sulfamethoxazole 800 mg / trimethoprim 160 mg oral tablet (2 sources) Dihydrofolate Reductase Inhibitor Antibacterial, Sulfonamide Antimicrobial Start: 02-09-2023 End: 02-12-2023 Bactrim D.S. 800 mg-160 mg Tab 1 tab(s), Oral, BID for 3 day(s), 6 tab(s), Refill(s) 0, [facility] #[id number], 153, cm, 02/05/23 10:41:00 EDT, Height/Length Dosing, 74.8, kg, 01/13/23 10:50:00 EDT, Weight Dosing Start Date: 02/09/23 Stop Date: 02/12/23 Status: Ordered Vitamin D3 2000 intl units oral tablet (14 sources) Start: 01-13-2023 Vitamin D3 200 0 intl units oral tablet Refills(s) 0 Start Date: 01/13/23 Status: Ordered Repeat number: 1 Start: 01-13-2023 Vitamin D3 200 0 intl units oral tablet Refills(s) 0 Start Date: 01/13/23 Status: Ordered Completed/Discontinued Medications Medication Drug Class(es) Dates Sig (Normalized) Sig (Original) ethinyl estradiol 0.035 mg / norgestimate 0.25 mg oral tablet (7 sources) Progestin, Estrogen End: 04-04-2024 take 1 tablet by mouth in the morning norgestimate-ethin yl estradiol (Sprintec 28) 0.25-35 MG-MCG tablet Take 1 tablet by mouth in the morning. 04/04/2024 Discontinued (Med list cleanup) naproxen 500 mg oral tablet (14 sources) Nonsteroidal Anti-inflammatory Drug End: 10-11-2024 naproxen (Naprosyn) 500 MG tablet Take 500 mg by mouth every 12 (twelve) hours if needed for mild pain 10/11/2024 Discontinued (Therapy completed) solifenacin succinate 5 mg oral tablet (20 sources) Cholinergic Muscarinic Antagonist Start: 04-04-2024 End: 03-25-2025 take 1 tablet by mouth once daily solifenacin (VESIcare) 5 MG tablet Indications: Neurogenic bladder Take 1 tablet (5 mg) by mouth Daily Swallow tablet whole; do not crush, chew, or split. 90 tablet 11/14/2024 12/25/2024 Discontinued Start: 03-17-2023 End: 09-22-2023 take 2 tablets by mouth in the morning solifenacin (VESICARE) 5 mg tablet Indications: Multiple sclerosis ([facility]) Take 2 tablets (10 mg total) by mouth in the morning. 60 tablet 5 09/22/2023 Active Problems Active Problems Problem Classification Problem Date Documented Date Episodic/Chronic Administrative/social admission (2 sources) Repeated prescription; Translations: [Encounter for issue of repeat prescription] 02-22-2024 Episodic Blindness and vision defects (2 sources) Other visual disturbances; Translations: [Blurring of visual image] Onset: 5 10-25-2024 Episodic E Codes: Adverse effects of medical drugs (1 source) Adverse effect of antineoplastic and immunosuppressive drugs, initial encounter; Translations: [Adverse effect of antineoplastic and immunosuppressive drugs, initial encounter] Onset: 06-10-202 5 Episodic Endometriosis (14 sources) Endometriosis (clinical) 01-13-2023 Chronic Malaise and fatigue (20 sources) Fatigue; Translations: [Chronic fatigue, unspecified] Onset: 2 11-09-2023 Chronic Miscellaneous mental health disorders (2 sources) Other symptoms and signs involving emotional state; Translations: [Depressed mood] Onset: 5 10-25-2024 Episodic Mood disorders (20 sources) Recurrent major depression in full remission; Translations: [Major depressive disorder, recurrent, in full remission] Onset: 4 11-09-2023 Chronic Multiple sclerosis (20 sources) Multiple sclerosis; Translations: [Multiple sclerosis] Onset: 2 Chronic Osteoporosis (19 sources) Age-related osteoporosis without current pathological fracture; Translations: [Osteoporosis] Onset: 2 Chronic Other bone disease and musculoskeletal deformities (7 sources) Osteopenia; Translations: [Other specified disorders of bone density and structure, unspecified site] 07-02-2023 Episodic Other connective tissue disease (1 source) Cramp and spasm; Translations: [Cramp and spasm] Onset: 5 Episodic Other connective tissue disease (1 source) Repeated falls; Translations: [Repeated falls] Onset: 5 Episodic Other connective tissue disease (1 source) Recurrent falls ; Translations: [Repeated falls] Onset: 5 10-25-2024 Episodic Other diseases of bladder and urethra (20 sources) Neurogenic bladder; Translations: [Neuromuscular dysfunction of bladder, unspecified] Onset: 7 11-09-2023 Chronic Other diseases of bladder and urethra (1 source) Neuromuscular dysfunction of bladder, unspecified; Translations: [Neuromuscular dysfunction of bladder, unspecified] Onset: 1 Chronic Other nervous system disorders (14 sources) Demyelinating disease of central nervous system; Translations: [Demyelinating disease of central nervous system, unspecified] Onset: 3 10-29-2022 Chronic Other nervous system disorders (1 source) Demyelination of spinal cord; Translations: [Demyelinating disease of central nervous system, unspecified] 06-30-2023 Chronic Other nervous system disorders (2 sources) Demyelinating disease of central nervous system, unspecified; Translations: [Demyelinating disease of central nervous system, unspecified] Onset: 3 Chronic Other nutritional; endocrine; and metabolic disorders (14 sources) Body mass index 30+ - obesity; Translations: [Obesity, unspecified] Onset: 2 05-14-2022 Chronic Other nutritional; endocrine; and metabolic disorders (1 source) Obesity, unspecified; Translations: [Obesity, unspecified] Onset: 2 Chronic Other screening for suspected conditions (not mental disorders or infectious disease) (20 sources) Patient encounter status; Translations: [Encounter for screening for malignant neoplasm of colon] Onset: 4 11-09-2023 Episodic Other upper respiratory disease (6 sources) Allergic rhinitis; Translations: [Other allergic rhinitis] 02-22-2024 Chronic Residual codes; unclassified (20 sources) Dependence on wheelchair; Translations: [Dependence on wheelchair] Onset: 2 11-09-2023 Chronic Residual codes; unclassified (1 source) Dependence on wheelchair; Translations: [Dependence on wheelchair] Onset: 3 Chronic Unclassified (1 source) Immunodeficiency due to drugs; 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] Onset: 5 Unclassified (1 source) manager long term care (current) use of other immunomodulators and immunosuppressants; Translations: [USP (current) use of other immunomodulators and immunosuppressants] Onset: 5 Urinary tract infections (7 sources) Urinary tract infectious disease; Translations: [Urinary tract infection, site not specified] Onset: 3 Episodic Past or Other Problems Problem Classification Problem Date Documented Da te Episodic/Chronic E Codes: Fall (1 source) Unspecified fall, initial encounter; Translations: [UNSPECIFIED FALL INITIAL ENCOUNTER] Onset: 2 Episodic Fracture of lower limb (3 sources) Other fracture of upper and lower end of right fibula, initial encounter for closed fracture; Translations: [Displaced fracture of first metatarsal bone, right foot, initial encounter for closed fracture] Onset: 2 Episodic Genitourinary symptoms and ill-defined conditions (20 sources) Urge incontinence; Translations: [Urge incontinence of urine] Onset: 7 Resolved: 7 Chronic Genitourinary symptoms and ill-defined conditions (20 sources) History of urinary tract infection; Translations: [Personal history of urinary (tract) infections] Onset: 7 Episodic Joint disorders and dislocations; trauma-related (4 sources) Dislocation of tarsometatarsal joint of right foot, initial encounter; Translations: [DISLOC TMT JOINT RT FOOT INITIAL] Onset: 2 Episodic Mood disorders (20 sources) Mood disorders Onset: 4 Resolved: 5 02-22-2024 Other aftercare (1 source) USP (current) use of aspirin; Translations: [HALFWAY CURRENT USE OF ASPIRIN] Onset: 2 Episodic Other aftercare (1 source) Other manager long term care (current) drug therapy; Translations: [OTH HALFWAY CURRENT DRUG THERAPY] Onset: 2 Episodic Other aftercare (1 source) Immunodeficiency secondary to chemotherapy ; Translations: [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[facility])] 06-30-2023 Episodic Other bone disease and musculoskeletal deformities (1 source) Other specified disorders of bone density and structure, right lower leg; Translations: [OTH D/O BONE DEN STRUCT RT LOW LEG] Onset: 2 Episodic Other connective tissue disease (4 sources) Pain in right foot; Translations: [PAIN IN RIGHT FOOT] Onset: 2 Episodic Other connective tissue disease (1 source) Spasticity; Translations: [Cramp and spasm] 06-30-2023 Episodic Other diseases of kidney and ureters (20 sources) Cyst of kidney; Translations: [Cyst of kidney, acquired] Onset: 7 11-09-2023 Episodic Other gastrointestinal disorders (1 source) Dysphagia, oropharyngeal phase; Translations: [DYSPHAGIA OROPHARYNGEAL PHASE] Onset: 2 Episodic Other gastrointestinal disorders (14 sources) Dysphagia; Translations: [Dysphagia, unspecified] Onset: 2 05-14-2022 Episodic Other gastrointestinal disorders (1 source) Dysphagia, unspecified; Translations: [Dysphagia, unspecified] Onset: 2 Episodic Other injuries and conditions due to external causes (1 source) History of falling; Translations: [HISTORY OF FALLING] Onset: 2 Episodic Other lower respiratory disease (17 sources) Wheezing; Translations: [Wheezing] Onset: 4 02-22-2024 Episodic Other nervous system disorders (20 sources) Abnormal gait; Translations: [Unsteadiness on feet] Onset: 2 11-09-2023 Episodic Other nervous system disorders (14 sources) Sensory ataxia ; Translations: [Other lack of coordination] Onset: 2 05-14-2022 Episodic Other nervous system disorders (1 source) Unsteadiness on feet; Translations: [Unsteadiness on feet] Onset: 2 Episodic Other nervous system disorders (1 source) Other lack of coordination; Translations: [Other lack of coordination] Onset: 2 Episodic Other non-traumatic joint disorders (4 sources) Pain in right ankle and joints of right foot; Translations: [PAIN IN RIGHT ANKLE] Onset: 2 Episodic Residual codes; unclassified (20 sources) Poor short-term memory ; Translations: [Other amnesia] Onset: 2 11-09-2023 Episodic Residual codes; unclassified (5 sources) Cancer cervix screening - not needed; Translations: [Procedure and treatment not carried out for other reasons] Onset: 5 Resolved: 5 10-11-2024 Episodic Unclassified (13 sources) Onset: 4 06-30-2023 Unclassified (2 sources) Patient encounter status 10-11-2024 Results Test Name Value Interpretation Reference Range Facility MR CERVICAL SPINE W WO CONTo n 12-10-2024 MR CERVICAL SPINE W WO CONT MR CERVICAL SPINE W WO CONT MR CERVICAL SPINE W WO CONT: 12/05/2024 2:39 PM Clinical: Demyelinating disease. Ataxia. Multiple falls. EXAM: MRI CERVICAL SPINE without and with contrast. Procedure: Multiplanar spin echo MRI cervical spine performed without and with Prohance IV. Comparison: MRI cervical spine 04/30/2023 Findings: Examination is markedly limited by motion artifact. Some sequences were repeated but motion artifact persisted. Cervical vertebral body heights and alignment and signal are normal. Craniocervical junction is normal. There continues to be T2 and STIR weighted signal abnormality in the brainstem at multiple locations in the cervical spine, notably at the C2 level and the C6-7 levels. These are nearly stable but difficult to compare due to significant motion on the current exam. Multilevel degenerative changes with disc bulge and posterior spurring again noted without high-grade spinal stenosis. Some levels of foraminal narrowing also nearly stable. No abnormal enhancement seen; however, enhanced sequences are more degraded from motion than the other sequences. Impression: * Multifocal cervical spinal cord signal changes from known demyelinating disease is relatively stable but difficult to compare due to extensive motion artifact. No convincing areas of abnormal enhancement. Finalized by Paul Adams MD on 12/10/2024 10:54 AM Normal [facility] MR BRAIN W WO CONTon 07-25-2 025 MR BRAIN W WO CONT MR BRAIN W WO CONT MR BRAIN W WO CONT HISTORY: Increasing falls and incoordination with balance problems. Demyelinating disease. Follow-up examination. COMPARISON: 04/30/2023 TECHNIQUE: Multisequence, multiplanar MR images of the brain were obtained. 14.34 mL of IV ProHance is used for the postcontrast part of the study FINDINGS: Evaluation is somewhat compromised due to significant motion artifacts. DWI: No diffusion signal abnormalities. Intracranial hemorrhage: None. Midline shift: None. Extra-axial spaces: Normal in size and morphology for patient's age. Ventricular system: Normal in size and morphology for patient's age. Basal cisterns: Normal in appearance. Cerebral parenchyma: Multiple foci of increased signal intensity in the periventricular region consistent with MS plaques similar to prior study with no evidence of focal restricted diffusion or postcontrast pathologic enhancement to suggest active disease. No evidence of new lesions. Cerebellum: Normal in appearance. Cerebellopontine angle: Symmetric and normal in appearance without identifiable lesions. Brainstem: Normal. Vascular system: Normal flow voids of the major cerebral vasculature. Paranasal sinuses and mastoid air cells: Clear. Visualized orbits: Symmetric and normal in appearance without identifiable lesions. Midline Structures: The corpus callosum, posterior fossa and cerebellar tonsils are normal. Multiple multiple sclerosis plaques perpendicular to the corpus callosum are similar to prior exam considering limitation due to motion artifact Osseous structures: Normal in appearance. IMPRESSION: Stable multiple sclerosis inactive plaques similar to prior study. No focal restricted diffusion or postcontrast pathologic enhancement to suggest active disease and no interval change since prior study. Somewhat limited examination due to significant motion artifacts. Finalized by Sarahi Ruiz MD on 12/09/2024 8:47 PM Normal [facility] Provider Letteron 10-20-2024 Provider Letter Provider Letter October 20, 2024 [place] [address] : 1970 Dear Denisse , We have been trying to reach you with no success. It is important that you return our call regarding a message from your provider upon receiving this letter. Also, at the time of your call, please provide us with your current information. Thank you for your prompt attention to this matter. Sincerely, [facility] [address] [place] [address] [facility] Ambulatory Visit Summaryon 0 10-18-2024 Ambulatory Visit Summary Ambulatory Visit Summary ITZEL, DENISSE Iona :1970 Visit Date:09/15/2022 Ambulatory Visit Instructions Your Care Team Primary Care Physician - THEA SOOD CNP This Is Your Medications List Misc Prescription (DDM Vitamin D 2000 IU) Misc Prescription (baclofen 10 mg tablet) alendronate (alendronate 35 mg Tab) aspirin (aspirin 81 mg oral capsule) buPROPion (BuPROPion (Eqv-Wellbutrin SR) 150 mg/12 hours oral tablet, extended release) cefuroxime (cefuroxime 500 mg oral tablet) cholecalciferol (Vitamin D3 2000 intl units oral tablet) dimethyl fumarate (Tecfidera) diroximel fumarate (Vumerity 231 mg oral delayed release capsule) ethinyl estradiol-norgestimat e (Sprintec) fluoxetine (FLUoxetine 40 mg Cap) ibuprofen (Motrin IB 200 mg oral tablet) modafinil (modafinil 200 mg Tab) montelukast (montelukast 10 mg Tab) Procedures Performed Injection of botulinum toxin type A into detrusor muscle of urinary bladder (02/16/2023), Ablation (09/01/2014), Ovarian cystectomy (2014), Breast augmentation. What to do next Scheduled Follow-Up Appointments Thursday 9:30 AM EDT Where: [facility] Thursday 10:30 AM EDT Where: [facility] Medications What How Much When Instructions Unchanged alendronate (alendronate 35 mg Tab) Unchanged aspirin (aspirin 81 mg oral capsule) By Mouth Every 24 hours Unchanged buPROPion (BuPROPion (Eqv-Wellbutrin SR) 150 mg/ 12 hours oral tablet, extended release) Unchanged cefuroxime (cefuroxime 500 mg oral tablet) Unchanged cholecalciferol (Vitamin D3 2000 intl units oral tablet) Unchanged dimethyl fumarate (Tecfidera) By Mouth 2 times a day Unchanged diroximel fumarate (Vumerity 231 mg oral delayed release capsule) By Mouth 2 times a day Unchanged ethinyl estradiol-norgestimat e (Sprintec) By Mouth Every day Unchanged fluoxetine (FLUoxetine 40 mg Cap) Unchanged ibuprofen (Motrin IB 200 mg oral tablet) By Mouth Every 6 hours Unchanged Misc Prescription (baclofen 10 mg tablet) 0 Unchanged Misc Prescription (DDM Vitamin D 2000 IU) 0 Unchanged modafinil (modafinil 200 mg Tab) Unchanged montelukast (montelukast 10 mg Tab) Allergies No Known Medication Allergies Problems Ongoing - Any problem that you are currently receiving treatment for. Endometriosis History of UTI Multiple sclerosis Urge incontinence Patient Survey You may receive a survey via text or e-mail asking about your office visit. Please share your experience with us by completing your survey. We appreciate your feedback and thank you for choosing us for your care. Normal [facility] Patient Letter [facility] October 17, 2024 DENISSE GALARZA [address] [place] [id number] : 1970 Dear Ms. Denisse Galarza, You missed your scheduled appointment on: 10/17/2024. Please note our appointment slots fill quickly. When you fail to cancel or reschedule an appointment the office is unable to fill the appointment slot that was reserved for you. In the future, we ask that you call 24 hours in advance to cancel your appointment. Our current reminder system gives you the opportunity to cancel by responding to our reminder text, phone call or email. You can also call the office to reschedule during normal business hours or use our on-line scheduling portal at your convenience. Our goal is to provide convenient and quality care to all of our patients. We appreciate your consideration regarding any future cancellations. Please call and get this appointment rescheduled as soon as able as this appointment is urgent. Sincerely, [place] [address] ext.3 [facility] Office/Clinic Noteon 09-21-2024 Urology Office/Clinic Note Urology Office/Clinic Note Chief Complaint follow up from botox HPI Staff F/u to having cystoscopy with Botox done 03/07/24. Patient brought in bladder diary from 03/10-04/10 Dx: Urge incontinence and hx of UTI Denies hematuria, denies dysuria, denies abdominal pain/flank pain BBSQ: 19 PVR: 141 History of Present Illness Tests reviewed: reviewed UA, PVR, operative note, voiding diary I have reviewed the previous health record information and history for this patient from Dr. Ward. I have reviewed and verified the staff HPI to be accurate for this encounter. Review of Systems PHQ Score Initial Depression Screen Score: 0 SCORE ROS - Provider Constitutional: denies weight loss, denies hot flashes. Eyes: denies eye problems. Gastrointestinal: denies nausea, denies vomiting. Cardiovascular: denies chest pain or angina. Integumentary: no dryness Musculoskeletal: denies musculoskeletal symptoms. ENMT: denies otolaryngeal symptoms. Respiratory: no shortness of breath. Heme/Lymph: denies easy bleeding tendency, denies easy bruising tendency. Psychiatric: no confusion, no anxiety. Genitourinary: See HPI. Physical Exam Vitals & Measurements T: 36.1 ???C(Temporal Artery) HR: 67(Peripheral) RR: 16 BP: 115/81 HT: 60 in HT: 153 cm WT: 162.04 lb WT: 73.5 kg BMI: 31.4 General Appearance: alert , no acute distress, well nourished, well developed female. Assessment/Plan 54 yo WF initially referred by Dr. Ramírez for urge incontinence here for follow-up Hx of multiple sclerosis resulting in memory impairment, dysphagia, poor balance, b/l LE weakness. Currently in wheelchair. Sees Neurology ([facility]). Patient's partner/caregiver reports pt's neurologist does not think she has MS (believes it is neural scar tissue), has upcoming appt. Present w/ partner today, POA, caregiver and historian 1. Urge incontinence (N39.41: Urge incontinence) S/p Botox 100u 02/16/23 and 03/07/24. PVR (cc): 01/13/23 - 83 04/15/23 - 131 12/02/23 - unable to perform bladder scan due to being out for maintenance 09/21/24 - 141 BBS 19 (16). Failed Myrbetriq 50mg qd due to cost. Took Vesicare previously. Had improvement initially after most recent Botox she thinks. However urinary sxs have become bothersome again, pt unable to indicate exactly when sxs worsened. Feels she is leaking more, changing depends more. UA today negative for blood and infection. Per voiding diary (completed after Botox), pt voiding q1.5-2hrs. However voiding diary appears incomplete as there are periods that pt did not void over a 12 hour period despite patient saying she did. Again discussed SNM and risks/benefits in detail. Risk of not properly controlling or being responsive to implant effects given pt's cognitive impairment. Difficult for her to explain her symptoms, chronicity or bother. Educated pt and partner on stage I and II, and care associated with it, various batteries. Pt is willing to redo voiding diary as this is necessary to complete prior to proceeding with SNM. Discussed repeat Botox while waiting to proceed with SNM, however will need voiding diary while off of botox. Mentioned increased dosage however has risk of urinary retention. Pt would like to proceed with another Botox, no change in dose. -Repeat voiding diary over 3 days, will continue to reassess to see if she is able to do this appropriately -Will schedule Botox 100u. The procedural risks, benefits, details, and treatment alternatives have been discussed with the patient. These include bleeding, infection, continued problems with overactive bladder, inability to empty the bladder which could require an indwelling catheter or need for in/out catheterization to empty the bladder, and need for repeat procedures over time (usually lasts up to six months), as well as fatigue and insomnia, among others. There is a minimal risk of Botox entering the blood stream and causing neurological problems, which is quite rare. Full informed consent has been obtained. Will order Local anesthesia. Follow-up With When Contact Information Ed LOVETT, Lin Casanova, URL, [facility] [address], [place] [address]- [phone] Additional Instructions: sched Botox Patient Education Botulinum Toxin Bladder Injection Sacral Nerve Stimulator Implantation I, Briseyda Mejia, personally scribed for Dr. Ward on 09/21/2024 11:13:33. . Documentation recorded by the scribeBriseyda, accurately reflects the services(s) I performed and decisions made by me. Authenticated by Dr. Ward on 09/21/2024 13:48:10. Problem List/Past Medical History Ongoing Endometriosis History of UTI Multiple sclerosis Urge incontinence Historical No qualifying data Procedure/Surgical History Injection of botulinum toxin type A into detrusor muscle of urinary bladder (02/16/2023), Ablation (09/01/2014), Ovarian cystectomy (2014), Breast augmentation. Medications alendr (more content not included)... Normal [facility] Comment on above: Result Comment: Elec tronically Signed By: Lin Ward MD\.br\Date and Time Signed: 09/21/24 13:49 EDT Inpatient Patient Summaryon 03-07-2024 Inpatient Patient Summary Inpatient Patient Summary [address] [address] Clinical Summary Person Information Name: DENISSE GALARZA Age: 53 Years : 1970 Sex: Female PCP: MARISEL VICTORIA Marital Status: Single Race: White Ethnicity: Non- or Language: Barbadian Visit Id: Visit Reason: URGE INCONTINENCE Speciality: Acuity: Enc Type: Outpatient Med Service: Surgery Arrival: 03/07/2024 07:29:54 Discharge: Dispo Type: Address: [place] [id number] Provider Notes: Diagnosis: Urge incontinence Problems Active History of UTI Urge incontinence Endometriosis Multiple sclerosis Smoking Status: Functional Status: Sensory Deficits: History of Falls: Mobility Assistance Prior to Admission: ADLs: Current Level of Assistance for Self-Care/Mobility: Cognitive Status: Allergies No Known Medication Allergies Laboratory or Other Results This Visit (last charted value for your 03/07/2024 visit) No Laboratory or Other Results This Visit Measurements: Height: Weight: Blood Pressure: Not Valued / Not Valued BMI: Procedures No Procedures Documented Immunizations No Immunizations Documented This Visit Final Med List: alendronate (alendronate 35 mg Tab) aspirin (aspirin 81 mg oral capsule) By Mouth every 24 hours. buPROPion (BuPROPion (Eqv-Wellbutrin SR) 150 mg/12 hours oral tablet, extended release) cefuroxime (cefuroxime 500 mg oral tablet) cholecalciferol (Vitamin D3 2000 intl units oral tablet) dimethyl fumarate (Tecfidera) By Mouth 2 times a day. diroximel fumarate (Vumerity 231 mg oral delayed release capsule) By Mouth 2 times a day. ethinyl estradiol-norgestimat e (Sprintec) By Mouth every day. fluoxetine (FLUoxetine 40 mg Cap) ibuprofen (Motrin IB 200 mg oral tablet) By Mouth every 6 hours. Misc Prescription (baclofen 10 mg tablet) 0. Misc Prescription (DDM Vitamin D 2000 IU) 0. modafinil (modafinil 200 mg Tab) montelukast (montelukast 10 mg Tab) Care Team Members: Attending Physician: Lin Ward MD Consulting Physician: Referring Physician: Lin Ward MD Follow up: With: Address: When: Lin Ward [address] [place], [place] [address], [place] [address], [address] [phone] Business (1) Comments: Call for followup appointment to discuss Axonics if desired, bring voiding diary Patient Education Information: EU - Cystoscopy with Botox Injection Discharge Instructions (CUSTOM) Rosa Maria [facility] Main OR Intraoperative Recor don 03-07-2024 Main OR Intraoperative Record Main OR Intraoperative Record IntraOp Document Type FTURO Summary Primary Physician: Lin Ward MD Finalized Date/Time: 03/07/24 09:20:19 Pt. Name: DENISSE GALARZA /Sex: 1970 Female Med Rec #: [id number] Physician: Lin Ward MD Financial #: [id number] Pt. Type: O Room/Bed: / Admit/Disch: 03/07/24 07:29:54 - Institution: Case Times FTURO Entry 1 Patient Times In Room 03/07/24 08:51:00 Out Room 03/07/24 09:14:00 Procedure Times Start 03/07/24 09:01:00 Stop 03/07/24 09:06:00 Anesthesia Times Last Modified By: Tamela Lopez RN 03/07/24 09:14:47 Case Attendance FTURO Entry 1 Entry 2 Entry 3 Case Attendee Lin Ward MD, RN, María Elena Moeller Role Performed Surgeon - Primary Sales Representative Health Insurance - Primary Scrub - Primary Time In 03/07/24 08:51:00 03/07/24 08:51:00 03/07/24 08:51:00 Time Out 03/07/24 09:14:00 03/07/24 09:14:00 03/07/24 09:14:00 Procedure CYSTOSCOPY LOCAL BOTOX CYSTOSCOPY LOCAL BOTOX CYSTOSCOPY LOCAL BOTOX INJECTION(.) INJECTION(.) INJECTION(.) Comments Last Modified By: Tamela Lopez RN, RN, Tamela Edgar RN 03/07/24 09:14:48 03/07/24 09:14:48 03/07/24 09:14:48 Surgical Procedures FTURO Entry 1 Procedure Description Procedure CYSTOSCOPY LOCAL BOTOX Modifiers . INJECTION Surgeon Description CYSTOSCOPY WITH BOTOX 100 UNITS Primary Procedure Yes Primary Surgeon Lin Ward MD Start 03/07/24 09:01:00 Stop 03/07/24 09:06:00 Anesthesia Type Local Surgical Service Urology Wound Class 2 - Clean-Contaminated Last Modified By: Tamela Lopez RN 03/07/24 09:14:49 General Comments: BOTOX 100 UNITS LOT # [id number], EXPIRES 11/2025. DIGNA BRAGA General Case Data FTURO Pre-Care Text: Classifies surgical wound, implements aseptic technique, initiates traffic control Entry 1 Case Information OR URO 1 FT Case Level None Wound Class 2 - Clean-Contaminated Specialty Urology Preop Diagnosis URGE INCONTINENCE Postop Same As Preop Yes Postop Diagnosis URGE INCONTINENCE Outcomes Met? Yes Last Modified By: Tamela Lopez RN 03/07/24 09:03:03 Post-Care Text: The patient is free from signs and symptoms of infection EU IntraOp - FTURO Pre-Care Text: Implements protective measures prior to operative or invasive procedure, confirms identity before the operative or invasive procedure, verifies operative procedure, surgical site, and laterality Entry 1 EU Perioperative Protocols Procedure(s) CYSTOSCOPY LOCAL BOTOX Patient Identity Birthday, ID Band INJECTION(.) Verified (select at Check, Patient least 2): Participation Consents / H and P H&P, Surgery/Procedure Operative Site N/A Verified Consent Marking Verified Surgical Site Yes Laterality Verified n/a Verified Procedure Verified Yes Correct Patient Yes Position Verified Availability Equipment, Medication Time Out Ed LOVETT, Lin Casanova, Verified (If Participants Tamela Lopez RN, Applicable) María Elena Bae Time Out Complete 03/07/24 09:01:00 Allergies Reviewed? Yes Allergies Reviewed Self/Patient With Body Position Low Lithotomy Prep Area PERINEUM Prep Agents Betasept, Saline Rinse Skin. Condition Intact, Bertrand, Warm, & Dry Additional None Specimens Collected Vitals - EU Blood Pressure 124/76 Pulse 68 bpm Respirations 18 br/min SPO2 97 % EBL 0 I&O - EU Total Intake 0 mL Total Output 0 mL Outcomes Met? Yes Last Modified By: Tamela Lopez RN 03/07/24 09:01:40 Post-Care Text: The patient is free from signs and symptoms of injury caused by extraneous objects Sign Out FTURO Entry 1 Before Patient Leaves OR Nurse verbally Yes Nurse verbally n/a confirms with the confirms with the team the name of team that the procedure(s) instrument, sponge, recorded and needle counts are correct (or N/A) Nurse verbally n/a Nurse verbally n/a confirms with the confirms with the team how the team whether there specimen is labeled are any equipment (including patient problems to be name), if applicable addressed Sign Out Complete 03/07/24 09:06:00 Last Modified By: Tamela Lopez RN 03/07/24 09:06:26 Case Comments Finalized By: Tamela Lopez RN Document Signatures Signed By: Tamela Lopez RN 03/07/24 09:20 Normal [facility] Main OR Preoperative Recordo n 03-07-2024 Main OR Preoperative Record Main OR Preoperative Record Holding Area Document Type FTURO Summary Primary Physician: Lin Ward MD Finalized Date/Time: 03/07/24 08:44:40 Pt. Name: DENISSE GALARZA /Sex: 1970 Female Med Rec #: [id number] Physician: Lin Ward MD Financial #: [id number] Pt. Type: O Room/Bed: / Admit/Disch: 03/07/24 07:29:54 - Institution: Case Times Holding FTURO Pre-Care Text: Verifies consent for planned procedure, identifies individual values and wishes concerning care, includes family members in perioperative teaching Secures patient's records' belongings, and valuables, maintains patient's dignity and privacy, and maintains patient confidentiality Entry 1 In Holding 03/07/24 08:05:00 Outcomes Met? Yes Last Modified By: Roxana Ivory LPN 03/07/24 08:09:09 Post-Care Text: The patient participates in decisions affecting his or her perioperative plan of care The patient's right to privacy is maintained Surgery Checklist FTURO Entry 1 Patient Birthday, ID Band Procedure History and Physical, Identification: Check, Patient Verification: Surgical Consent, With Participation Patient NPO after Midnight: No Personal Items black purse Comment: Limitations: stand pivot/ whhelchair Complaints of Pain: No Skin Integrity Intact, Bertrand, Warm, & Dry Vitals - EU Blood Pressure 124/70 Pulse 68 bpm Respirations 18 br/min SPO2 97 % Additional None RN Reviewed Yes Specimens Collected Last Modified By: Tamela Lopez RN 03/07/24 08:44:39 Finalized By: Tamela Lopez RN Document Signatures Signed By: Roxana Ivory LPN 03/07/24 08:11 Tamela Lopez RN 03/07/24 08:44 Normal [facility] Operative Reporton Operative Report Operative Report Patient: DENISSE GALARZA Age: 53 years Sex: Female : 1970 Associated Diagnoses: None Author: Lin Ward MD Procedure Operative Information Details: Date/ Time: 03/07/2024 09:11:00. Pre-Op Dx: Urge incontinence ([id number] N39.41, Discharge, Medical). Post-Op Dx: Same. Anesthesia Type: Local. Procedure: Local Cystoscopy with botox injection, 100 units. Complications: None. Risks/Benefits/Inform ed Consent: Surgical risks, benefits, details of the procedure have been explained to the patient, Full informed consent has been obtained. Intraoperative Information Prepped: Patient is brought back to the endoscopy suite, Female Prep (Patient is placed in modified dorso/lithotomy position, 5 cc 2% Xylocaine Jelly is placed per Urethra, Straight cath inserted to obtain urine specimen, 60 cc 2% Xylocaine liquid inserted into bladder, 5 additional cc 2% Xylocaine Jelly is placed per Urethra, Patient in sitting position for 20 min dwell), Urine Specimen Results Negative for infection, Patient prepped in the usual fashion with Betadine solution, After waiting several minutes the Cystoscope is introduced. Procedure: The trigone was identified and evaluated. The bladder was instilled with enough saline to achieve adequate visualization for the injections. The needle was inserted approximately 2 mm into the detrusor. A total of 11 injections with 1 ml volume was delivered at each site, total 100 units including 1 ml saline flush at the end, evenly spaced out throughout the bladder taking care to avoid the ureteral orficies. There was excellent hemostasis at the end of the procedure. The cystoscope was removed and the patient tolerated the procedure well without immediate complications. . The Urethra is: Normal. The Bladder is: Normal, Trabeculated 2-3 trabeculations, right superior wide mouth diverticulum, No bladder tumors, lesions, stones or foreign bodies.. Postoperative Information Discharge: Patient is discharged home with antibiotic coverage, Follow up arranged. Follow up with voiding diaries (provided) to discuss Axonics.Pt has no recollection of wanting to discuss this, was from pt's roommate. Pt's roommate was previously told to us as and POA. Pt states ok to discuss her medical care with him, however did not think he was POA. Pt/roommate to bring documentation for POA if he is to make/sign medical consents due to pts poor memory. . Normal [facility] Comment on above: Result Comment: Elec tronically Signed By: Lin Ward MD\.br\Date and Time Signed: 03/07/24 10:16 EDT Outpatient Surgery Discharge Instructionon 03-07-2024 Outpatient Surgery Discharge Instruction Outpatient Surgery Discharge Instruction [address] [address] Patient Discharge Instructions PERSON INFORMATION Name: DENISSE GALARZA Date of : 1970 Current Date: 03/07/2024 09:10:18 PHYSICIANS Admitting Physician: Lin Ward MD Comment: Discharge Diagnosis: Urge incontinence DENISSE GALARZA has been given the following list of follow-up instructions, prescriptions, and patient education materials: IF UNABLE TO CONTACT YOUR PHYSICIAN AND YOU FEEL IT IS AN EMERGENCY, GO TO THE NEAREST EMERGENCY ROOM OR CALL 911 Follow up: With: Address: When: Lin Ward [address] [place] [address], [address] [employer] [place] [phone] [facility] (1) Comments: Call for followup appointment to discuss Axonics if desired, bring voiding diary Comment: PATIENT EDUCATION INFORMATION Instructions: Cystoscopy with Botox injection ? Voiding after the procedure: there may be some pain, burning, urgency, frequency and blood tinged urine following the procedure. These symptoms usually resolve within 2-5 days. Drink the amount of fluid it takes to keep the urine pink to yellow or clear in color. Drinking enough water and fluids will help to ease any discomfort after your procedure. ? It may take a few days to a week to notice a gradual improvement in the overactive bladder symptoms. ? If you are having problems that seem out of the ordinary, please call. ? If unable to contact your physician and you feel it is an emergency, go to the nearest emergency room or call 911 ? Do not lift more than fifteen pounds for 1-2 days. If you see a lot of blood, you probably did too much. ? Diet ? you may resume your normal diet. ? Pain control ? You may take extra strength Tylenol or Motrin for discomfort. ? Call if you have a fever over 100 degrees. I, DENISSE GALARZA, have received the attached patient education materials/instruction s and have verbalized understanding: May we do a follow up call? Yes No I was present when discharge instructions were given Patient Signature Date Clinican/Nurse Signature Date You may receive a survey from Nehemias Gonzalez asking you to rate your care experience. Your feedback is important and will help us understand what we do well and how we can improve the quality of care we provide to you, your loved ones and our community. It?s an honor to serve you. Thank you for choosing [facility] Normal [facility] Provider Letteron 03-04-2024 Provider Letter Provider Letter March 04, 2024 DENISSE GALARZA [address] [place] [address] : 1970 Dear Denisse Galarza, We have been trying to reach you with no success. It is important that you return our call regarding your results upon receiving this letter. Also, at the time of your call, please provide us with your current information. Thank you for your prompt attention to this matter. Sincerely, Lin Ward M.D. [facility] [address] [place] [phone] [facility] C Urineon 03-02-2024 Bacteria identified Cx Nom (U) Microbiology PROCEDURE: Urine Culture [R1] SOURCE: U CleanCatch BODY SITE: COLLECTED DATE/TIME: 02/29/2024 13:59 EDT RECEIVED DATE/TIME: 02/29/2024 19:31 EDT START DATE/TIME: 02/29/2024 19:31 EDT FREE TEXT SOURCE: Ed LOVETT, Lin Ward MD, Lin Casanova FINAL REPORTS Final Report [] Verified Date/Time: 03/02/2024 10:14 EDT >100,000 cfu/ml Escherichia coli SUSCEPTIBILITY RESULTS LEGEND: S=Susceptible, N/R=Not Reported, Blank=Data not available, or drug not advisable or tested, I=Intermediate, ESBL=Extended spectrum beta-lactamase, R=Resistant, TFG=Thymidine-depende nt strain, NORMA=Beta-lactamase positive, ELOINA=mcg/m;(mg/L), S*=Predicted susceptible interp, R*=Predicted resistant interp EC Antibiotic ELOINA Dilutn ELOINA Interp Ampicillin >16 R Ampicillin/ 16/8 I Sulbactam Aztreonam <=4 S Cefazolin 4 S Cefepime <=2 S Ceftazidime <=1 S Ceftazidime/ <=8 S Avibactam Ceftriaxone <=1 S Cefuroxime 8 S Ciprofloxacin <=0.25 S Ertapenem <=0.5 S Gentamicin >8 R Levofloxacin <=0.5 S Meropenem <=1 S Nitrofurantoin <=32 S Piperacillin/ <=8 S Tazobactam Tetracycline >8 R Tobramycin 4 S Trimethoprim/ >2/38 R Sulfa Performing Locations R1: This test was performed at: [facility], [address] [place] [address], [id number] , , [facility] Comment on above: Performed By: #### [id number] #### [facility] [address] [place] [id number] Interdisciplinary Note - Soc ial Workeron 12-18-2023 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 Chart notes that patient wanted a referral to psych, however referral is not seen in chart. This SW sent referral to [facility] for follow up. SW will remain available. Normal [facility] C Urineon 12-04-2023 Bacteria identified Cx Nom (U) Microbiology PROCEDURE: Urine Culture [R1] SOURCE: U Random BODY SITE: COLLECTED DATE/TIME: 12/02/2023 11:56 EDT RECEIVED DATE/TIME: 12/02/2023 17:54 EDT START DATE/TIME: 12/02/2023 17:54 EDT FREE TEXT SOURCE: Ed LOVETT, Lin Ward MD, Lin Casanova FINAL REPORTS Final Report [] Verified Date/Time: 12/04/2023 09:31 EDT >100,000 cfu/ml Escherichia coli SUSCEPTIBILITY RESULTS LEGEND: S=Susceptible, N/R=Not Reported, Blank=Data not available, or drug not advisable or tested, I=Intermediate, ESBL=Extended spectrum beta-lactamase, R=Resistant, TFG=Thymidine-depende nt strain, NORMA=Beta-lactamase positive, ELOINA=mcg/m;(mg/L), S*=Predicted susceptible interp, R*=Predicted resistant interp EC Antibiotic ELOINA Dilutn ELOINA Interp Ampicillin >16 R Ampicillin/ 16/8 I Sulbactam Aztreonam <=4 S Cefazolin <=2 S Cefepime <=2 S Ceftazidime <=1 S Ceftazidime/ <=8 S Avibactam Ceftriaxone <=1 S Cefuroxime <=4 S Ciprofloxacin <=0.25 S Ertapenem <=0.5 S Gentamicin >8 R Levofloxacin <=0.5 S Meropenem <=1 S Nitrofurantoin <=32 S Piperacillin/ <=8 S Tazobactam Tetracycline >8 R Tobramycin 4 S Trimethoprim/ >2/38 R Sulfa Performing Locations R1: This test was performed at: [facility], [address] [place] [address], [id number] , , [facility] Comment on above: Performed By: #### [id number] #### [facility] [address] [place] [address] Urology Office/Clinic Noteon 12-02-2023 Urology Office/Clinic Note Urology Office/Clinic Note Chief Complaint 6m HPI Staff 53 year old female patient presents today for a 8 month follow up. Previous Dx: urge incontinence, history of UTIs. S/P Botox 100 u 02/16/23 *VESIcare dc'd at time of last encounter. Does not notice any changes.. PVR 05/13/24- 131ml Denies UTI since last encounter. Denies current pain and burning. Still leaking. With urgency/activity & w/o awareness. Per pt's POA, motivation is the reason for leaking. Pt states she wants to be more motivated. Also blames the leaking on aging. Did have + Depression screening. Does want to have referral to Psych. ([employer] should be reaching out to her based on screening performed) History of Present Illness Tests reviewed: UA I have reviewed the previous health record information and history for this patient from Dr. Ward. I have reviewed and verified the staff HPI to be accurate for this encounter. Review of Systems PHQ Score Initial Depression Screen Score: 6 SCORE Detailed Depression Screen Score: 13 Total Depression Screen Score: 19 ROS - Provider Constitutional: denies weight loss, denies hot flashes. Eyes: denies eye problems. Gastrointestinal: denies nausea, denies vomiting. Cardiovascular: denies chest pain or angina. Integumentary: no dryness Musculoskeletal: denies musculoskeletal symptoms. ENMT: denies otolaryngeal symptoms. Respiratory: no shortness of breath. Heme/Lymph: denies easy bleeding tendency, denies easy bruising tendency. Psychiatric: no confusion, no anxiety. Genitourinary: See HPI. Physical Exam Vitals & Measurements HR: 84(Peripheral) RR: 16 BP: 103/73 HT: 60 in HT: 153 cm WT: 74 kg WT: 162.8 lb BMI: 31.61 General Appearance: alert , no acute distress, well nourished, well developed female. Wheelchair, slow speech Assessment/Plan 53 yo WF initially referred by Dr. Ramírez for urge incontinence here for follow-up Hx of multiple sclerosis resulting in memory impairment, dysphagia, poor balance, b/l LE weakness. Currently in wheelchair. Sees Neurology ([facility]). Present w/ today, POA, caregiver and historian 1. Urge incontinence (N39.41: Urge incontinence) S/p Botox 100u 02/16/23. PVR (cc): 01/13/23 - 83 04/15/23 - 131 12/02/23 - unable to perform bladder scan due to being out for maintenance BBS 16 (22). Failed Myrbetriq 50mg qd due to cost. Stopped Vesicare at prior OV. Fred Botox helped initially but is starting to wear off. Feels frequency and leakage are starting to worsen again, its been 8 mths Would like to repeat Botox at this time. Inquired if worsening urinary sxs was related to age. States she was able to wait hours to void in the past. Educated pt this can cause bladder damage. Sacral nerve modulation (SNM) was discussed for treatment of urinary urge incontinence, urgency-frequency syndrome, and non-obstructive urinary retention refractory to conventional therapy. Achieved by direct stimulation of the S3 sacral nerve by placing a metal lead into the nerve. It helps to modulate the reflexes that influence the bladder, sphincter and pelvic floor. Mild electrical pulses help to improve normal voiding function. The first stage is the implantation of a temporary lead and if >50% improvement in voiding diaries for the 1-2 week trial period, the permanent lead and implant are inserted. Efficacy rates are close to 60-90% for urgency urinary incontinence. Advised pt a voiding diary would need done prior. -Will schedule repeat Botox 100U. The procedural risks, benefits, details, and treatment alternatives have been discussed with the patient. These include bleeding, infection, continued problems with overactive bladder, inability to empty the bladder which could require an indwelling catheter or need for in/out catheterization to empty the bladder, and need for repeat procedures over time (usually lasts up to six months), as well as fatigue and insomnia, among others. There is a minimal risk of Botox entering the blood stream and causing neurological problems, which is quite rare. Full informed consent has been obtained. Will order Local anesthesia. -Submit urine sample prior to leaving office today - Positive nitrites, will send for culture and treat prior to botox -Increase fluids -Timed Voids -Regular BM's -Consider SNM. Educational pamphlets provided. 2. History of UTI (Z87.440: Personal history of urinary (tract) infections) + cultures: 04/28/22- >100k E Coli 12/25/22- >100k E Coli Pt denies any infections. -Increase fluids, bowel regimen. Consider adding supplements if UTIs persist after #1 -Asx today, will treat based on culture given upcoming botox Follow-up With When Contact Information Ed LOVETT, Lin Casanova, URL, [facility] [address] [place] [phone] Additional Instructions: sched Botox Patient Education Botulinum Toxin Bladder Injection Urinary Incontinence I, Briseyda Mejia, personally scribed for Dr. Ward on (more content not included)... Normal [facility] Comment on above: Result Comment: Elec tronically Signed By: Ed LOVETT, Lin Casanova\.br\Date and Time Signed: 12/02/23 12:02 EDT URINALYSISOrdered By: Jessica loyola on 02-09-2023 Bacteria LM Ql (Urine sed) 3+ /HPF Invalid Interpretation Code Trace/HPF [facility] UA Auto SS Bilirubin Ql (U) Negative (02/09/23 11:42 AM) Normal Negative [facility] UA Auto SS Clarity (U) Cloudy *ABN* (02/09/23 11:42 AM) Invalid Interpretation Code Clear [facility] UA Auto SS Color (U) Yellow (02/09/23 11:42 AM) Normal Yellow [facility] UA Auto SS Crystals LM Ql (Urine sed) Present (02/09/23 11:42 AM) Normal [facility] UA Auto SS Epithelial cells.squamous LM.HPF (Urine sed) [#/Area] 3-4 /HPF Normal 0-2/HPF [facility] UA Aut o SS Glucose Test strip (U) [Mass/Vol] Negative (02/09/23 11:42 AM) Normal Negative [facility] UA Auto SS Hemoglobin Ql (U) Negative (02/09/23 11:42 AM) Normal Negative [facility] UA Auto SS Ketones (U) [Mass/Vol] Negative (02/09/23 11:42 AM) Normal Negative [facility] UA Auto SS [place].plasma/Lithiu m.RBC (Bld) [Mass ratio] 0-3 /HPF Normal 0-3/HPF [facility] UA Auto SS Mucus Ql (Urine sed) Trace (02/09/23 11:42 AM) Normal [facility] UA Auto SS Nitrite Ql (U) Positive *ABN* (02/09/23 11:42 AM) Invalid Interpretation Code Negative [facility] UA Auto SS pH (U) 7.0 *NA* (02/09/23 11:42 AM) Invalid Interpretation Code 5.0 - 9.0 [facility] U[facility] Auto SS Protein (U) [Mass/Vol] Negative (02/09/23 11:42 AM) Normal Negative [facility] UA Auto SS Specific gravity (U) [Rel density] 1.020 *NA* (02/09/23 11:42 AM) Invalid Interpretation Code 1.005 - 1.030 [facility] UA Auto SS UA Spec Desc Clean Catch (02/09/23 11:42 AM) Normal [facility] UA Auto SS Urobilinogen Qn (U) [id number] {Yissel'U}/dL Normal 0.0 - 1.0 EU/dL [facility] UA Auto SS WBC Auto Ql (U) Negative (02/09/23 11:42 AM) Normal Negative [facility] UA Auto SS WBC LM.HPF (Urine sed) [#/Area] 6-15 /HPF Invalid Interpretation Code 0-5/HPF [facility] UA Auto SS CULTURE URINEon 04-30-2022 CULTURE URINE Isolate 1 Escherichia coli >100,000 cfu/mL of ORGANISM 1 Escherichia coli ANTIBIOTIC M.I.C RX STATUS Ampicillin <=2 S F Ampicillin/Sulbactam <=2 S F Piperacillin/Tazobact am <=4 S F Cefazolin <=4 S F Ceftazidime <=1 S F Ceftriaxone <=1 S F Ertapenem <=0.5 S F Imipenem <=0.25 S F Amikacin 4 S F Gentamicin <=1 S F Tobramycin <=1 S F Ciprofloxacin <=0.25 S F Levofloxacin <=0.12 S F Nitrofurantoin <=16 S F Trimethoprim/Sulfamet hoxazole <=20 S F Normal [facility] Comment on above: Performed By: #### U RCX ####[facility] [address] [place], [place] [address]VhDr. Robby George CBC AUTO DIFFon 04-28-2022 BASO # 0.0 103/ul Normal 0.0-0.1 [facility] Comment on above: Performed By: #### C BC #### [facility] [address] [place], [place] [address] Dr. Robby George Basophils/100 WBC (Bld) 0.6 % Normal 0.2-2.0 [facility] Comment on above: Performed By: #### C BC #### [facility] [address] [place] [address] Dr. Robby George EO # 0.2 103/ul Normal 0.0-0.7 [facility] Comment on above: Performed By: #### C BC #### [facility] [address] [place] [address] Dr. Robby George Eosinophils/100 WBC (Bld) 7.0 % Normal 0.9-7.0 [facility] Comment on above: Performed By: #### C BC #### [facility] [address] [place] [address] Dr. Robby George Erythrocyte distribution width (RBC) [Ratio] 13.2 % Normal 11.0-15.0 [facility] Comment on above: Performed By: #### C BC #### [facility] [address] [place] [address] Dr. Robby George Hematocrit (Bld) [Volume fraction] 43.5 % Normal 36.0-48.0 [facility] Comment on above: Performed By: #### C BC #### [facility] [address] [place] [address] Dr. Robby George Hemoglobin (Bld) [Mass/Vol] 14.8 g/dL Normal 12.0-16.0 [facility] Comment on above: Performed By: #### C BC #### [facility] [address] [place] [address] Dr. Robby George IG # 0.01 10e3/ul Normal 0.00-0.03 [facility] Comment on above: Performed By: #### C BC #### [facility] [address] [place] [address] Dr. Robby George IG % 0.3 % Normal 0.0-0.5 [facility] Comment on above: Performed By: #### C BC #### [facility] [address] [place] [address] Dr. Robby George LYMPH # 0.4 103/ul Critically low 1.2-3.[address] [facility] Comment on above: Performed By: #### C BC #### [facility] [address] [place] [address] Dr. Robby George Lymphocytes/100 WBC (Bld) 11.3 % Critically low 20.5-60.0 [facility] Comment on above: Performed By: #### C BC #### [facility] [address] [place] [address] Dr. Robby George MANUAL DIFF REQ NO Normal [facility] Comment on above: Performed By: #### C BC #### [facility] [address] [place] [address] Dr. Robby George MCH (RBC) [Entitic mass] 28.0 pg Normal 26.7-34.0 [facility] Comment on above: Performed By: #### C BC #### [facility] [address] [place] [address] Dr. Robby George MCHC (RBC) [Mass/Vol] 34.0 g/dL Normal 29.9-35.2 [facility] Comment on above: Performed By: #### C BC #### [facility] [address] [place] [address] Dr. Robby George MCV (RBC) [Entitic vol] 82.4 fL Normal 81.0-99.0 [facility] Comment on above: Performed By: #### C BC #### [facility] [address] [place] [address] Dr. Robby George MONO # 0.4 103/ul Normal 0.3-0.8 [facility] Comment on above: Performed By: #### C BC #### [facility] [address] [place] [address] Dr. Robby Georeg Monocytes/100 WBC (Bld) 11.6 % Normal 1.7-12.0 [facility] Comment on above: Performed By: #### C BC #### [facility] [address] [place] [address] Dr. Robby George NEUT # 2.3 103/ul Normal 1.4-6.5 [facility] Comment on above: Performed By: #### C BC #### [facility] [address] [place] [address] Dr. Robby George Neutrophils/100 WBC (Bld) 69.2 % Normal 43.0-75.0 [facility] Comment on above: Performed By: #### C BC #### [facility] [address] [place] [address] Dr. Robby George Platelet mean volume (Bld) [Entitic vol] 8.4 fL Critically low 9.5-13.5 [facility] Comment on above: Performed By: #### C BC #### [facility] [address] [place] [address] Dr. Robby George PLT 235 103/ul Normal 150-450 [facility] Comment on above: Performed By: #### C BC #### [facility] [address] [place] [address] Dr. Robby George RBC 5.28 106/ul Normal 4.20-5.40 [facility] Comment on above: Performed By: #### C BC #### [facility] [address] [place] [address] Dr. Robby George WBC 3.3 103/ul Critically low 4.0-11.[address] [facility] Comment on above: Performed By: #### C BC #### [facility] [address] [place] [address] Dr. Robby George PROF 14(COMP METB)on 022 Albumin [Mass/Vol] 4.2 g/dL Normal 3.4-5.[address] [facility] Comment on above: Performed By: #### C MP #### [facility] [address] [place] [address] Dr. Robby George Albumin/Globulin [Mass ratio] 1.1 {ratio} Normal [facility] Comment on above: Performed By: #### C MP #### [facility] [address] [place] [address] Dr. Robby George ALP [Catalytic activity/Vol] 118 U/L Critically high 46-116 [facility] Comment on above: Performed By: #### C MP #### [facility] [address] [place] [address] [address] Robby George ALT [Catalytic activity/Vol] 37 U/L Normal 14-59 [facility] Comment on above: Performed By: #### C MP #### [facility] [address] [place] [address] [address] Robby George Anion gap [Moles/Vol] 9.0 mmol/L Normal [facility] Comment on above: Performed By: #### C MP #### [facility] [address] [place] [address] [address] Robby George AST [Catalytic activity/Vol] 20 U/L Normal 15-37 [facility] Comment on above: Performed By: #### C MP #### [facility] [address] [place] [address] [address] Robby George Bilirubin [Mass/Vol] 0.4 mg/dL Normal 0.2-1.0 [facility] Comment on above: Performed By: #### C MP #### [facility] [address] [place] [address] [address] Robby George Calcium [Mass/Vol] 9.4 mg/dL Normal 8.5-10.[address] [facility] Comment on above: Performed By: #### C MP #### [facility] [address] [place] [address] [address] Robby George Chloride [Moles/Vol] 101 mmol/L Normal 98-107 [facility] Comment on above: Performed By: #### C MP #### [facility] [address] [place] [address] [address] Robby George CO2 [Moles/Vol] 30.6 mmol/L Normal 21.0-32.0 [facility] Comment on above: Performed By: #### C MP #### [facility] [address] [place] [address] [address] Robby George Creatinine [Mass/Vol] 0.66 mg/dL Normal 0.55-1.02 [facility] Comment on above: Performed By: #### C MP #### [facility] [address] [place] [address] [address] Robby George EGFR-AF BRITISH >60 Normal >=60 [facility] Comment on above: Performed By: #### C MP #### [facility] [address] [place] [address] [address] Robby George EGFR-NON AF BRITISH >60 Normal >=60 [facility] Comment on above: Performed By: #### C MP #### [facility] [address] [place] [address] [address] Robby George Globulin (S) [Mass/Vol] 3.9 g/dL Normal [facility] Comment on above: Performed By: #### C MP #### [facility] [address] [place] [address] [address] Robby George Glucose [Mass/Vol] 84 mg/dL Normal 74-106 [facility] Comment on above: Performed By: #### C MP #### [facility] [address] [place] [address] [address] Robby George Potassium [Moles/Vol] 3.6 mmol/L Normal 3.5-5.1 [facility] Comment on above: Performed By: #### C MP #### [facility] [address] [place] [address] [address] Robby George Protein [Mass/Vol] 8.1 g/dL Normal 6.4-8.2 [facility] Comment on above: Performed By: #### C MP #### [facility] [address] [place] [address] [address] Robby George Sodium [Moles/Vol] 137 mmol/L Normal 136-145 [facility] Comment on above: Performed By: #### C MP #### [facility] [address] [place] [address] [address] Robby George Urea nitrogen [Mass/Vol] 18.0 mg/dL Normal 7.0-18.0 [facility] Comment on above: Performed By: #### C MP #### [facility] [address] [place] [address] [address] Robby George Urea nitrogen/Creatinine [Mass ratio] 27.3 mg/mg Normal [facility] Comment on above: Performed By: #### C MP #### [facility] [address] [place] [address] [address] Robby George UA RANDOMon 04-28-2022 Bilirubin Ql (U) Negative Normal NEGATIVE [facility] Comment on above: Performed By: #### U A ####[facility] [address] [place], [place] [address]Dr. Robby George Clarity (U) CLOUDY Abnormal CLEAR [facility] Comment on above: Performed By: #### U A ####[facility] [address] [place], [place] [address]Dr. Robby George Color (U) LT. YELLOW Normal YELLOW [facility] Comment on above: Performed By: #### U A ####[facility] [address] [place], [place] [address]Dr. Robby George Glucose Ql (U) Negative Normal NEGATIVE [facility] Comment on above: Performed By: #### U A ####[facility] [address] [place], [place] [address]Dr. Robby George Hemoglobin Ql (U) Negative Normal NEGATIVE [facility] Comment on above: Performed By: #### U A ####[facility] [address] [place], [place] [address]Dr. Robby George Ketones Ql (U) Negative Normal NEGATIVE [facility] Comment on above: Performed By: #### U A ####[facility] [address] [place], [place] [address]Dr. Robby George LEUKOCYTES SMALL Abnormal NEGATIVE [facility] Comment on above: Performed By: #### U A ####[facility] [address] [place], [place] [address]Dr. Robby George Nitrite Ql (U) Positive Abnormal NEGATIVE [facility] Comment on above: Performed By: #### U A ####[facility] [address] [place], [place] [address]Dr. Robby George pH (U) 6.0 [pH] Normal 5-9 [facility] Comment on above: Performed By: #### U A ####[facility] [address] [place] [address]Dr. Robby George SPEC GRAVITY 1.025 Normal 1.005-<=1.025 [facility] Comment on above: Performed By: #### U A ####[facility] [address] [place] [address]Dr. Robby George UA PROTEIN Negative Normal NEGATIVE/ TRACE [facility] Comment on above: Performed By: #### U A ####[facility] [address] [place] [address]Dr. Robby George Urobilinogen Qn (U) 0.2 {Yissel'U}/dL Normal 0.2 - 1. 0 [facility] Comment on above: Performed By: #### U A ####[facility] [address] [place], [place] [address]Dr. Robby George XR DEXA BONE DENSITYon 10-31 XR DEXA BONE DENSITY EXAMINATION: XR DEX A BONE DENSITY, 10/31/2021 8:07 AM EDT HISTORY: Senile osteoporosis COMPARISON: None. TECHNIQUE: Dual-energy X-ray absorptiometry (DEXA) bone density study performed for the axial skeleton. FINDINGS: SPINE ANALYSIS: Average bone mineral density is 0.957 g/cm2. T-score (standard deviation relative to young adult mean): -1.9 . HIP ANALYSIS: Lowest bone mineral density is within the left femoral neck, 0.671 g/cm2. T-score (standard deviation relative to young adult mean): -2.6 . IMPRESSION: World [employer] Classification: Osteoporosis - High Fracture Risk Electronically authenticated by: SRINATH GUEVARA Date: 2021-10-31 16:24 Normal [facility] XR MODIFIED BARIUM SWALLOWon 10-31-2021 XR MODIFIED BARIUM SWALLOW EXAMINATION: XR MODIFIED BARIUM SWALLOW HISTORY: Oropharyngeal dysphagia COMPARISON: No relevant comparison available. TECHNIQUE: A swallowing evaluation was performed with fluoroscopy in the usual manner. Standard level fluoroscopic mode of operation utilized. FINDINGS: ORAL PHASE: Normal deglutition. PHARYNGEAL PHASE: Normal swallowing. ASPIRATION: None. STRUCTURE: Normal. No visible obstruction, stricture, or dilatation. OTHER: Negative. IMPRESSION: 1. Normal examination. 2. Please see speech pathologist's report for further discussion and recommendations. Electronically authenticated by: SRINATH GUEVARA Date: 2021-10-31 16:26 Normal [facility] CBC W MANUAL DIFFon 10-23-19 22 ATYPICAL LYMPH # Normal [facility] Comment on above: Performed By: #### C BCMAN #### [facility] [address] [place] [address] Dr. Robby George ATYPICAL LYMPH % Normal [facility] Comment on above: Performed By: #### C BCMAN #### [facility] [address] [place] [address] Dr. Robby George BAND # Normal 0.0-0.3 [facility] Comment on above: Performed By: #### C BCMAN #### [facility] [address] [place] [address] Dr. Robby George BAND % Normal 0-5 [facility] Comment on above: Performed By: #### C BCMAN #### [facility] [address] [place] [address] Dr. Robby George BASOM # 0.00 103/ul Normal 0.00-0.10 [facility] Comment on above: Performed By: #### C BCMAN #### [facility] [address] [place] [address] Dr. Robby George BASOM % 0.0 % Critically low 0.2-2.0 [facility] Comment on above: Performed By: #### C BCMAN #### [facility] [address] [place] [address] Dr. Robby George BLAST # Normal [facility] Comment on above: Performed By: #### C BCMAN #### [facility] [address] [place] [address] Dr. Robby George BLAST % Normal [facility] Comment on above: Performed By: #### C BCMAN #### [facility] [address] [place] [address] Dr. Robby George CORRECTED WBC Normal 4.0-11.0 [facility] Comment on above: Performed By: #### C BCKJ #### [facility] [address] [address] [address] Robby George EOS # 0.15 103/ul Normal 0.00-0.70 [facility] Comment on above: Performed By: #### C BCKJ #### [facility] [address] [address] [address] Robby George EOS% 4.0 % Normal 0.9-7.0 [facility] Comment on above: Performed By: #### C LAI #### [facility] [address] [address] [address] Robby George HCT 42.0 % Normal 36.0-48.0 [facility] Comment on above: Performed By: #### C LAI #### [facility] [address] [place] [address] Dr. Robby George HGB 14.3 g/dl Normal 12.0-16.0 [facility] Comment on above: Performed By: #### C LAI #### [facility] [address] [address] [address] Robby George LYMPHM # 0.52 103/ul Critically low 1.20-3.80 [facility] Comment on above: Performed By: #### C LAI #### [facility] [address] [address] [address] Robby George LYMPHM% 14.0 % Critically low 20.5-60.0 [facility] Comment on above: Performed By: #### C BCKJ #### [facility] [address] [address] [address] Robby George MCH 28.5 pg Normal 26.7-34.0 [facility] Comment on above: Performed By: #### C LAI #### [facility] [address] [place] [address] Dr. Robby George MCHC 34.0 g/dl Normal 29.9-35.2 [facility] Comment on above: Performed By: #### C BCMAN #### [facility] [address] [place] [address] Dr. Robby George MCV 83.7 fL Normal 81.0-99.0 [facility] Comment on above: Performed By: #### C DANNYMAN #### [facility] [address] [place] [address] Dr. Robby George METAMYELOCYTE # Normal [facility] Comment on above: Performed By: #### C LAI #### [facility] [address] [place] [address] Dr. Robby George METAMYELOCYTE % Normal [facility] Comment on above: Performed By: #### C ALI #### [facility] [address] [place] [address] Dr. Robby George MONOM# 0.41 103/ul Normal 0.30-0.80 [facility] Comment on above: Performed By: #### C LAI #### [facility] [address] [place] [address] Dr. Robby George MONOM% 11.0 % Normal 1.7-12.0 [facility] Comment on above: Performed By: #### C LAI #### [facility] [address] [place] [address] Dr. Robby George MPV 8.6 fL Critically low 9.5-13.[address] [facility] Comment on above: Performed By: #### C LAI #### [facility] [address] [place] [address] Dr. Robby George MYELOCYTE # Normal [facility] Comment on above: Performed By: #### C LAI #### [facility] [address] [place] [address] Dr. Robby George MYELOCYTE % Normal [facility] Comment on above: Performed By: #### C LAI #### [facility] [address] [place] [address] Dr. Robby George NRBC Normal [facility] Comment on above: Performed By: #### C LAI #### [facility] [address] [place] [address] Dr. Robby George PLT 220 103/ul Normal 150-450 [facility] Comment on above: Performed By: #### C LAI #### [facility] [address] [place] [address] Dr. Robby George RBC 5.02 106/ul Normal 4.20-5.40 [facility] Comment on above: Performed By: #### C LAI #### [facility] [address] [place] [address] Dr. Robby George RDW 13.4 % Normal 11.0-15.0 [facility] Comment on above: Performed By: #### C LAI #### [facility] [address] [place] [address] Dr. Robby George SEG # 2.63 103/ul Normal 1.40-6.50 [facility] Comment on above: Performed By: #### C LAI #### [facility] [address] [place] [address] Dr. Robby George SEG % 71.0 % Normal 43.0-75.0 [facility] Comment on above: Performed By: #### C LAI #### [facility] [address] [place] [address] Dr. Robby George WBC 3.7 103/ul Critically low 4.0-11.[address] [facility] Comment on above: Performed By: #### C LAI #### [facility] [address] [place] [address] Dr. Robby George PROF 14(COMP METB)on 022 Albumin [Mass/Vol] 4.3 g/dL Normal 3.4-5.[address] [facility] Comment on above: Performed By: #### C MP #### [facility] [address] [place] [address] Dr. Robby George Albumin/Globulin [Mass ratio] 1.2 {ratio} Normal [facility] Comment on above: Performed By: #### C MP #### [facility] [address] [place] [address] Dr. Robby George ALP [Catalytic activity/Vol] 126 U/L Critically high 46-116 [facility] Comment on above: Performed By: #### C MP #### [facility] [address] [address] [address] Robby George ALT [Catalytic activity/Vol] 39 U/L Normal 14-59 [facility] Comment on above: Performed By: #### C MP #### [facility] [address] [address] [address] Robby George Anion gap [Moles/Vol] 15.2 mmol/L Normal [facility] Comment on above: Performed By: #### C MP #### [facility] [address] [address] [address] Robby George AST [Catalytic activity/Vol] 16 U/L Normal 15-37 [facility] Comment on above: Performed By: #### C MP #### [facility] [address] [address] [address] Robby George Bilirubin [Mass/Vol] 0.4 mg/dL Normal 0.2-1.0 [facility] Comment on above: Performed By: #### C MP #### [facility] [address] [address] [address] Robby George Calcium [Mass/Vol] 9.3 mg/dL Normal 8.5-10.[address] [facility] Comment on above: Performed By: #### C MP #### [facility] [address] [address] [address] Robby George Chloride [Moles/Vol] 103 mmol/L Normal 98-107 [facility] Comment on above: Performed By: #### C MP #### [facility] [address] [address] [address] Robby George CO2 [Moles/Vol] 25.6 mmol/L Normal 21.0-32.0 [facility] Comment on above: Performed By: #### C MP #### [facility] [address] [address] [address] Robby George Creatinine [Mass/Vol] 0.58 mg/dL Normal 0.55-1.02 [facility] Comment on above: Performed By: #### C MP #### [facility] [address] [address] [address] Robby George EGFR-AF BRITISH >60 Normal >=60 [facility] Comment on above: Performed By: #### C MP #### [facility] [address] [address] [address] Robby George EGFR-NON AF BRITISH >60 Normal >=60 [facility] Comment on above: Performed By: #### C MP #### [facility] [address] [address] [address] Robby George Globulin (S) [Mass/Vol] 3.5 g/dL Normal [facility] Comment on above: Performed By: #### C MP #### [facility] [address] [place] [address] Dr. Robby George Glucose [Mass/Vol] 84 mg/dL Normal 74-106 [facility] Comment on above: Performed By: #### C MP #### [facility] [address] [address] [address] Robby George Potassium [Moles/Vol] 3.8 mmol/L Normal 3.5-5.1 [facility] Comment on above: Performed By: #### C MP #### [facility] [address] [place] [address] Dr. Robby George Protein [Mass/Vol] 7.8 g/dL Normal 6.4-8.2 [facility] Comment on above: Performed By: #### C MP #### [facility] [address] [place] [address] Dr. Robby George Sodium [Moles/Vol] 140 mmol/L Normal 136-145 [facility] Comment on above: Performed By: #### C MP #### [facility] [address] [address] [address] Robby George Urea nitrogen [Mass/Vol] 13.0 mg/dL Normal 7.0-18.0 [facility] Comment on above: Performed By: #### C MP #### [facility] [address] [address] [address] Robby George Urea nitrogen/Creatinine [Mass ratio] 22.4 mg/mg Normal [facility] Comment on above: Performed By: #### C MP #### [facility] [id number] Robby George CT ANKLE RT WO CONon 022 CT ANKLE RT WO CON EXAMINATION: CT ANKL E RT WO CON HISTORY: Traumatic dislocation of tarsometatarsal joint COMPARISON: No relevant comparison available. TECHNIQUE: Multi-planar CT images were created without IV contrast. Dose reduction techniques were achieved by using automated exposure control and/or adjustment of mA and/or kV according to patient size and/or use of iterative reconstruction technique. FINDINGS: BONES: Nondisplaced slightly comminuted fracture of the distal fibula near the diametaphyseal junction. Large corner fracture from the proximal plantar corner of the first metatarsal. Comminuted fracture of the second metatarsal at the proximal diametaphyseal junction extending into the articular surface. Several tiny fragments along the plantar medial distal margin of the lateral cuneiform. No fracture of the third metatarsal. SOFT TISSUES: Soft tissue swelling of the foot and ankle. No radio opaque foreign body. EFFUSION: None visible. OTHER: Negative. IMPRESSION: 1. Multiple acute, nondisplaced fractures as detailed above. 2. Prominent soft tissue swelling and edema of the foot and ankle. Electronically authenticated by: SRINATH GUEVARA Date: 2021-10-04 16:40 Normal [facility] PREG HCG QUALon 09-19-2021 , QUAL Negative Normal NEGATIVE [facility] Comment on above: Performed By: #### P REG ####[facility] [address] [id number] Robby George XR FOOT RT MIN 3 VIEWSon XR FOOT RT MIN 3 VIEWS EXAM: XR FOOT RT MIN 3 VIEWS HISTORY: Unspecified fall COMPARISON: None. TECHNIQUE: 3 views of the right foot were obtained. FINDINGS: There is a minimally displaced small fracture fragment seen along the medial aspect of the base of the first metatarsal bone. This may involve the articular surface at the joint space. An additional fracture is present involving the proximal metaphysis of the second metatarsal bone. The distal fracture fragment is displaced 2 mm laterally. The fracture lines do not extend to the articular surface at the tarsometatarsal joint. There is no other evidence of an acute fracture or dislocation. The remainder the joint spaces are intact. Soft tissue swelling is seen diffusely about the mid and distal foot. IMPRESSION: There is a fracture seen at the base of the first metatarsal bone, extending to the articular surface. There is additional fracture with slight displacement of the proximal aspect of the second metatarsal bone, without apparent extension to an articular surface. No other acute fracture is identified. Diffuse soft tissue swelling is noted. If further evaluation is clinically indicated then perhaps a CT study of the foot utilizing thin sections and three-dimensional rendering with be helpful. Electronically authenticated by: BERTO CARROLL Date: 2021-09-19 18:08 Normal [facility] XR TIB_FIB RT 2Von 2 XR TIB_FIB RT 2V EXAM: XR TIB_FIB RT 2V HISTORY: Unspecified fall COMPARISON: None. TECHNIQUE: AP and lateral views of the tibia and fibula were obtained. FINDINGS: There is no evidence of an acute fracture or dislocation. No significant osseous abnormality is identified. The joint spaces at the knee and ankle are intact. No abnormal soft tissue calcifications are present. IMPRESSION: No acute fracture, dislocation or significant degenerative change. Electronically authenticated by: BERTO CARROLL Date: 2021-09-19 18:03 Normal [facility] Complete Blood Count Auto Di ffon 12-11-2020 Basophils (Bld) [#/Vol] 0.0 10*3/uL Normal 0.0-0.2 [facility] Comment on above: Result Comment: PERF ORMED BY: [place] [address] PATHOLOGIST BODY SANDER ALBARO UNGER M.D. Performed By: #### C BC, CMP #### [address] Basophils/100 WBC (Bld) 0.7 % Normal . [facility] Comment on above: Performed By: #### C BC, CMP #### [facility] [address] Eosinophils (Bld) [#/Vol] 0.1 10*3/uL Normal 0.0-0.45 [facility] Comment on above: Performed By: #### C BC, CMP #### [facility] [address] [place] [address] [place] Eosinophils/100 WBC (Bld) 2.9 % Normal . [facility] Comment on above: Performed By: #### C BC, CMP #### [facility] [address] Erythrocyte distribution width (RBC) [Ratio] 13.6 % Normal 11.9-15.3 [facility] Comment on above: Performed By: #### C BC, CMP #### [facility] [address] Hematocrit (Bld) [Volume fraction] 41.9 % Normal 34.0-46.4 [facility] Comment on above: Performed By: #### C BC, CMP #### [facility] [address] Hemoglobin (Bld) [Mass/Vol] 14.2 g/dL Normal 11.8-15.4 [facility] Comment on above: Performed By: #### C BC, CMP #### [facility] [address] Lymphocytes (Bld) [#/Vol] 0.8 10*3/uL Low 1.00-4.8 [facility] Comment on above: Performed By: #### C BC, CMP #### [facility] [address] [place] [address] [place] Lymphocytes/100 WBC (Bld) 18.2 % Normal . [facility] Comment on above: Performed By: #### C BC, CMP #### [facility] [address] [place] [address] [place] MCH (RBC) [Entitic mass] 28.0 pg Normal 24.7-34.3 [facility] Comment on above: Performed By: #### C BC, CMP #### [facility] [address] MCV (RBC) [Entitic vol] 82.5 fL Normal 80-100 [facility] Comment on above: Performed By: #### C BC, CMP #### [facility] [address] [id number] [place] Mean Corpuscular HGB Conc 33.9 g/dL Normal 32.0-35.0 [facility] Comment on above: Performed By: #### C BC, CMP #### [facility] [address] [place] [address] [place] Monocytes (Bld) [#/Vol] 0.5 10*3/uL Normal 0.0-0.8 [facility] Comment on above: Performed By: #### C BC, CMP #### [facility] [address] [id number] [place] Monocytes/100 WBC (Bld) 11.5 % Normal . [facility] Comment on above: Performed By: #### C BC, CMP #### [facility] [address] [place] [address] [place] Neutrophils (Bld) [#/Vol] 3.1 10*3/uL Normal 1.8-7.7 [facility] Comment on above: Performed By: #### C BC, CMP #### [facility] [address] [id number] [place] Neutrophils/100 WBC (Bld) 66.7 % Normal . [facility] Comment on above: Performed By: #### C BC, CMP #### [facility] [address] [id number] [place] Nucleated RBC/100 WBC (Bld) [Ratio] 0.1 % Normal 0-0.5 [facility] Comment on above: Performed By: #### C BC, CMP #### [facility] [address] [id number] [place] Platelet mean volume (Bld) [Entitic vol] 6.7 fL Normal 6.3-10.7 [facility] Comment on above: Performed By: #### C BC, CMP #### [facility] [address] [id number] [place] Platelets (Bld) [#/Vol] 265 10*3/uL Normal 150-450 [facility] Comment on above: Performed By: #### C BC, CMP #### [facility] [address] RBC (Bld) [#/Vol] 5.08 10*6/uL High 3.60-5.00 [facility] Comment on above: Performed By: #### C BC, CMP #### [facility] [address] WBC (Bld) [#/Vol] 4.6 10*3/uL Normal 4.5-11.0 [facility] Comment on above: Performed By: #### C BC, CMP #### [facility] [address] Comprehensive Metabolic Pane johan 12-11-2020 Albumin [Mass/Vol] 4.1 g/dL Normal 3.2-5.5 [facility] Comment on above: Performed By: #### C BC, CMP #### [facility] [address] [place] [address] Albumin/Globulin [Mass ratio] 1.5 {ratio} Normal [facility] Comment on above: Performed By: #### C BC, CMP #### [address] ALP [Catalytic activity/Vol] 97 U/L High 32-92 [facility] Comment on above: Performed By: #### C BC, CMP #### [facility] [address] [place] [address] ALT [Catalytic activity/Vol] 18 U/L Normal 10-60 [facility] Comment on above: Performed By: #### C BC, CMP #### [facility] [address] [place], [place] [id number] [facility] AST [Catalytic activity/Vol] 18 U/L Normal 10-42 [facility] Comment on above: Performed By: #### C BC, CMP #### [facility] [address] [place] [address] Bilirubin [Mass/Vol] 0.7 mg/dL Normal 0.3-1.[address] [facility] Comment on above: Performed By: #### C BC, CMP #### [facility] [address] Calcium [Mass/Vol] 9.6 mg/dL Normal 8.2-10.2 [facility] Comment on above: Performed By: #### C BC, CMP #### [facility] [address] Chloride [Moles/Vol] 101 mmol/L Normal 95-[address] [facility] Comment on above: Performed By: #### C BC, CMP #### [facility] [address] CO2 [Moles/Vol] 22.7 mmol/L Normal 22.0-30.0 [facility] Comment on above: Performed By: #### C BC, CMP #### [address] Creatinine [Mass/Vol] 0.63 mg/dL Normal 0.44-1.03 [facility] Comment on above: Performed By: #### C BC, CMP #### [address] Creatinine Clr Calc Pharmacy 97.99 [facility] Comment on above: Result Comment: PERF ORMED BY: [place] [address] PATHOLOGIST BODY SANDER ALBARO UNGER M.D. Performed By: #### C BC, CMP #### [address] Estimated GFR ( Loree > 60 [facility] Comment on above: Result Comment: GFR estimated reference range: According to KDOQI guidelines, <60 ml/min/1.73m2 is sufficient to diagnose a patient with chronic kidney disease. Performed By: #### C BC, CMP #### [address] Estimated GFR (Non- Am > 60 [facility] Comment on above: Performed By: #### C BC, CMP #### [place] [address] [place] Globulin (S) [Mass/Vol] 2.7 g/dL Normal [facility] Comment on above: Performed By: #### C BC, CMP #### [facility] [address] Glucose [Mass/Vol] 97 mg/dL Normal 70-100 [facility] Comment on above: Result Comment: [place] Glucose Reference Range is dependent on time and content of last meal. Glucose of more than 200 mg/dL in a nonstressed, ambulatory subject supports the diagnosis of Diabetes Mellitus. ADA recommended reference range Performed By: #### C BC, CMP #### [facility] [address] Potassium [Moles/Vol] 4.0 mmol/L Normal 3.5-5.1 [facility] Comment on above: Performed By: #### C BC, CMP #### [facility] [address] [place] [address] [place] Protein [Mass/Vol] 6.8 g/dL Normal 6.1-7.9 [facility] Comment on above: Performed By: #### C BC, CMP #### [facility] [address] [place] [address] [place] Sodium [Moles/Vol] 136 mmol/L Normal 136-146 [facility] Comment on above: Performed By: #### C BC, CMP #### [facility] [address] [id number] [place] Urea nitrogen [Mass/Vol] 13 mg/dL Normal 9-23 [facility] Comment on above: Performed By: #### C BC, CMP #### [facility] [address] MR thoracic spine wo/w conon 12-11-2020 MR thoracic spine wo/w con [facility] [place] [address] [place] [address] MRI Report Signed Patient: Denisse Galarza MR#: [id number] 56 : 1970 Acct:[id number] Age/Sex: 50 / F ADM Date: 12/11/20 Loc: MR Room: Type: [facility] Attending Dr: Lauren Leigh PA-C Ordering Provider: Lauren Leigh PAC Date of Service: 12/11/20 MR/MR thoracic spine wo/w con: [id number] Copies to: Lauren Leigh PAC MR thoracic spine wo/w con 12/11/2020 1:23 PM SIGNS AND SYMPTOMS: Personal history of multiple sclerosis, follow-up PROTOCOL: Multiplanar multisequence MR images of the thoracic spine were obtained with and without IV contrast. CONTRAST: 13 mL of intravenous ProHance COMPARISON: 12/02/2018 FINDINGS: The bones of the thoracic spine are in anatomic alignment. There is anterior wedging of the T4 vertebral body similar to the prior exam. There is preservation of vertebral body heights and intervertebral disc spaces, otherwise. The marrow signal is within normal limits. There is increased T2 signal within the cord at T7 and at the T9 and T10 levels similar to the prior exam. There is also increased T2 signal at the T12 vertebral body level. This is better visualized on the current exam, possibly secondary to use of a 3 Giana imaging system. No epidural or paraspinous fluid collection is appreciated. The visualized paraspinous soft tissues are within normal limits. There is no abnormal postcontrast enhancement. Incidental note is made of a simple cyst in the right renal cortex which is unchanged when compared to the prior exam. This requires no further follow-up. At T1-T2: There is a normal disc, central canal, and neural foramen. At T2-T3: There is a normal disc, central canal, and neural foramen. At T3-T4: There is a normal disc, central canal, and neural foramen. At T4-T5: There is a normal disc, central canal, and neural foramen. At T5-T6: There is a normal disc, central canal, and neural foramen. At T6-T7: There is a normal disc, central canal, and neural foramen. At T7-T8: There is a normal disc, central canal, and neural foramen. At T8-T9: There is a normal disc, central canal, and neural foramen. At T9-T10: There is a normal disc, central canal, and neural foramen. At T10-T11: There is a normal disc, central canal, and neural foramen. At T11-T12: There is a normal disc, central canal, and neural foramen. At T12-L1: There is a normal disc, central canal, and neural foramen. MR/MR thoracic spine wo/w con IMPRESSION: There is increased T2 signal within the cord at T7 and at the T9 and T10 levels similar to the prior exam. There is also increased T2 signal at the T12 vertebral body level. This is better visualized on the current exam, possibly secondary to use of a 3 Giana imaging system. No definite new demyelinating lesions. No abnormal postcontrast enhancement. Impression dictated by: Jason Harding M.D.12/11/2020 4:20 PM Dictation Location: [place] [address] Transcribed By: [facility] 12/11/20 1620 Dictated By: Jason Harding II, MD 12/11/20 1608 Signed By: 12/11/20 1620 [facility] MR head/brain wo/w conon MR head/brain wo/w con [facility] [place] [address] MRI Report Signed Patient: Denisse Galarza MR#: [id number] 56 : 1970 Acct:[id number] Age/Sex: 50 / F ADM Date: 12/08/20 Loc: Room: Type: [facility] Attending Dr: Lauren Leigh PA-C Ordering Provider: Lauren PANDYA Date of Service: 12/08/20 MR/MR head/brain wo/w con: G35 Copies to: aLuren Leigh PAC MR head/brain wo/w con 12/08/2020 7:42 AM SIGN AND SYMPTOMS: History of multiple sclerosis, follow-up PROTOCOL: Multiplanar multisequence MR images of the brain were obtained with and without IV contrast. CONTRAST: 13 mL of intravenous ProHance COMPARISON: 01/06/2020 FINDINGS: Extra axial spaces: There is similar diffuse volume loss. Hemorrhage: None. Ventricular system: Within normal limits. Basal cisterns: Within normal limits and not effaced. Cerebral parenchyma: Similar demyelinating lesions are noted in the periventricular and subcortical white matter as well as the corpus callosum. There is no diffusion restriction or abnormal postcontrast enhancement to suggest active demyelination. No new demyelinating plaques are appreciated. Midline shift: None.. Cerebellum: Within normal limits. Brainstem: Similar T2 and T2 FLAIR hyperintense foci are noted in the brainstem and midbrain. OTHER: Calvarium: Normal marrow signal. Vascular system: Satisfactory flow voids within the anterior and posterior circulation. Visualized Paranasal sinuses: Within normal limits. Visualized Orbits: Within normal limits. Visualized upper cervical spine: Within normal limits. Sella and skull base: Within normal limits. MR/MR head/brain wo/w con IMPRESSION: Unchanged demyelinating disease without evidence of disease progression or active demyelination on the current study. No acute intracranial pathology. Impression dictated by: Jason Harding M.D.12/08/2020 10:29 AM Dictation Location: [place] [address] Transcribed By: [facility] 12/08/20 1029 Dictated By: Jason Harding II, MD 12/08/20 1022 Signed By: 12/08/20 1029 Normal [facility] XR pre/post mri xrayon 12-08 XR pre/post mri xray [facility] [place] [address] MRI Report Signed Patient: Denisse Galarza MR#: [id number] 56 : 1970 Acct:[id number] Age/Sex: 50 / F ADM Date: 12/08/20 Loc: MR Room: Type: [facility] Attending Dr: Lauren Leigh PA-C Ordering Provider: Lauren PANDYA Date of Service: 12/08/20 MR/MR cervical spine wo/w con: G35 ([id number]) XR/XR pre/post mri xray: G35 Copies to: Lauren Leigh PAC MR cervical spine wo/w con, XR pre/post mri xray 12/08/2020 7:42 AM SIGNS AND SYMPTOMS: History of multiple sclerosis, follow-up PROTOCOL: Multiplanar multisequence MR images of the cervical spine were obtained with and without IV contrast. Lateral and bilateral oblique radiographs of the cervical spine were obtained. CONTRAST: 13 mL of intravenous ProHance COMPARISON: 11/12/2018 FINDINGS: Radiographs of the cervical spine: There is straightening of the normal cervical lordosis with preservation of vertebral body heights. There is mild disc height loss at C5-C6 and C6-C7 with minimal anterior osteophyte formation. There is mild uncovertebral joint spurring and facet hypertrophy contributing to neural foraminal narrowing predominantly at C4-C5 and C5-C6. MRI cervical spine: Images are compromised by patient movement. Disc height loss and alignment is as noted above. This preservation of vertebral body heights. 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 The marrow signal is within normal limits. There are similar areas of increased T2 and STIR signal measuring approximately 1 cm in length at the C2-C3 intervertebral disc level and approximately 5 mm in length at the C5-C6 intervertebral disc level. No epidural or paraspinous fluid collection is appreciated. The visualized paraspinous soft tissues are within normal limits. The prevertebral soft tissues are within normal limits. At C2-C3: There is a normal disc, central canal, and neural foramen. At C3-C4: There is a broad-based disc bulge with facet hypertrophy contributing to mild left neural foraminal narrowing. At C4-C5: There is uncovertebral joint spurring left greater than right contributing to moderate left and mild right neural foraminal narrowing. At C5-C6: There is uncovertebral joint spurring contributing to mild bilateral neural foraminal narrowing. At C6-C7: There is a normal disc, central canal, and neural foramen. At C7-T1: There is a normal disc, central canal, and neural foramen. MR/MR cervical spine wo/w con IMPRESSION: There are similar areas of increased T2 and STIR signal measuring approximately 1 cm in length at the C2-C3 intervertebral disc level and approximately 5 mm in length at the C5-C6 intervertebral disc level. No evidence of disease progression. No abnormal postcontrast enhancement. Degenerative changes are noted similar to the prior exam. Impression dictated by: Jason Harding M.D.12/08/2020 10:16 AM Dictation Location: [place] [address] Transcribed By: [facility] 12/08/20 1016 Dictated By: Jason Harding II, MD 12/08/20 1009 Signed By: 12/08/20 1016 [facility] Vital Signs Date Time Vital Sign Value Performing Clinician [place] 10-11-2024 13:47-0400 Body temperature 97.81 [degF] Thea Sood BUSINESS PROCESS ANALYST Work Phone: [facility] 10-11-2024 13:47-0400 Diastolic blood pressure 74 mm[Hg] Thea Sood BUSINESS PROCESS ANALYST Work Phone: [facility] 10-11-2024 13:47-0400 Heart rate 91 /min Thea Sood BUSINESS PROCESS ANALYST Work Phone: [facility] 10-11-2024 13:47-0400 Respiratory rate 18 /min Thea Sood BUSINESS PROCESS ANALYST Work Phone: [facility] 10-11-2024 13:47-0400 SaO2% (BldA) [Mass fraction] 98 % Thea Sood BUSINESS PROCESS ANALYST Work Phone: [facility] 10-11-2024 13:47-0400 Systolic blood pressure 102 mm[Hg] Thea Sood BUSINESS PROCESS ANALYST Work Phone: [facility] 04-04-2024 08:28-0500 Body height 152.4 cm Marisel Victoria BUSINESS PROCESS ANALYST Work Phone: [facility] 04-04-2024 08:28-0500 Body mass index (BMI) [Ratio] 29.29 kg/m2 Mairsel Victoria BUSINESS PROCESS ANALYST Work Phone: [facility] 04-04-2024 08:28-0500 Body temperature 96.69 [degF] Marisel Victoria BUSINESS PROCESS ANALYST Work Phone: [facility] 04-04-2024 08:28-0500 Body weight 68.04 kg Marisel Victoria BUSINESS PROCESS ANALYST Work Phone: [facility] 04-04-2024 08:28-0500 Diastolic blood pressure 70 mm[Hg] Marisel Victoria BUSINESS PROCESS ANALYST Work Phone: [facility] 04-04-2024 08:28-0500 Heart rate 84 /min Marisel Victoria BUSINESS PROCESS ANALYST Work Phone: [address]2024 08:28-0500 Respiratory rate 16 /min Marisel Victoria BUSINESS PROCESS ANALYST Work Phone: [facility] 04-04-2024 08:28-0500 SaO2% (BldA) [Mass fraction] 95 % Marisel Victoria BUSINESS PROCESS ANALYST Work Phone: [facility] 04-04-2024 08:28-0500 Systolic blood pressure 110 mm[Hg] Marisel Victoria BUSINESS PROCESS ANALYST Work Phone: [facility] 02-22-2024 13:25-0400 Body temperature 97.7 [degF] Marisel Victoria BUSINESS PROCESS ANALYST Work Phone: [facility] 02-22-2024 13:25-0400 Diastolic blood pressure 74 mm[Hg] Marisel Victoria BUSINESS PROCESS ANALYST Work Phone: [facility] 02-22-2024 13:25-0400 Heart rate 81 /min Marisel Victoria BUSINESS PROCESS ANALYST Work Phone: [facility] 02-22-2024 13:25-0400 SaO2% (BldA) [Mass fraction] 97 % Marisel Victoria BUSINESS PROCESS ANALYST Work Phone: [facility] 02-22-2024 13:25-0400 Systolic blood pressure 110 mm[Hg] Marisel Victoria BUSINESS PROCESS ANALYST Work Phone: [facility] 12-02-2023 11:04-0400 Blood Pressure Location Lin Lue [facility] 12-02-2023 11:04-0400 Diastolic blood pressure 73 mm[Hg] Lin Lue [facility] 12-02-2023 11:04-0400 Heart rate 84 /min Lin Lue [facility] 12-02-2023 11:04-0400 Respiratory rate 16 /min Lin Lue [facility] 12-02-2023 11:04-0400 Systolic blood pressure 103 mm[Hg] Lin Lue [facility] 06-30-2023 12:50-0500 Body height 152.4 cm Aquiles Canales MD Work Phone: [facility] 06-30-2023 12:50-0500 Body mass index (BMI) [Ratio] 30.47 kg/m2 Aquiles Canales MD Work Phone: [facility] 06-30-2023 12:50-0500 Body weight 70.76 kg Aquiles Canales MD Work Phone: [facility] 06-30-2023 12:50-0500 Diastolic blood pressure 69 mm[Hg] Aquiles Canales MD Work Phone: [facility] 06-30-2023 12:50-0500 Heart rate 84 /min Aquiles Canales MD Work Phone: [facility] 06-30-2023 12:50-0500 Systolic blood pressure 136 mm[Hg] Aquiles Canales MD Work Phone: [facility] 04-15-2023 11:26-0500 Blood Pressure Location Lin Lue [facility] 04-15-2023 11:26-0500 Diastolic blood pressure 74 mm[Hg] Lin Lue [facility] 04-15-2023 11:26-0500 Heart rate 80 /min Lin Lue [facility] 04-15-2023 11:26-0500 Respiratory rate 16 /min Lin Lue [facility] 04-15-2023 11:26-0500 Systolic blood pressure 130 mm[Hg] Lin Ward [facility] 01-13-2023 10:37-0400 Blood Pressure Location ALLA TAYLOR [facility] 01-13-2023 10:37-0400 Diastolic blood pressure 86 mm[Hg] ALLA TAYLOR [facility] 01-13-2023 10:37-0400 Heart rate 73 /min ALAL TAYLOR [facility] 01-13-2023 10:37-0400 Systolic blood pressure 120 mm[Hg] ALLA TAYLOR [facility] Encounters Encounter Date Encounter Type Care Provider Facility Start: 12-24-2024 End: 12-25-2024 Refill Thea Sood BUSINESS PROCESS ANALYST Work Phone: [facility] Comment on above: Neurogenic bladder Start: 12-13-2024 End: 12-14-2024 Telephone encounter Milly Reich [facility], A Department of [facility] Comment on above: Med Refill Start: 12-05-2024 End: 12-05-2024 ambulatory [facility] Start: 11-14-2024 End: 11-14-2024 Refill Thea Sood BUSINESS PROCESS ANALYST Work Phone: [facility] Comment on above: Osteopenia, unspecif ied location; Recurrent major depressive disorder, in full remission ; Major depressive disorder, single episode, in full remission ; Non-seasonal allergic rhinitis, unspecified trigger; Neurogenic bladder Start: 10-25-2024 End: 10-25-2024 ambulatory [facility] Start: 10-18-2024 End: 10-18-2024 ambulatory Lin Ward Facility:[facility] Start: 10-18-2024 End: 10-18-2024 Patient encounter procedure Lin MonsonEstefany Martinezlondon [facility] Start: 10-17-2024 ambulatory MARISEL VICTORIA Fa cility:[facility] Start: 10-12-2024 End: 10-12-2024 Refill Thea Sood NP Work Phone: [facility] Comment on above: Neurogenic bladder; Recurrent major depressive disorder, in full remission (CMS/HCC) Start: 10-11-2024 End: 10-11-2024 ambulatory THEA SOOD Not Available Start: 10-11-2024 End: 10-11-2024 Office outpatient visit 25 minutes Thea Sood NP Work Phone: [facility] Comment on above: Multiple sclerosis ( CMS/HCC) (Primary Dx); Neurogenic bladder; Osteoporosis, unspecified osteoporosis type, unspecified pathological fracture presence (CMS/HCC); Recurrent major depressive disorder, in full remission (CMS/HCC); Screening mammogram, encounter for; Encounter for wellness examination; Pap smear for cervical cancer screening; Wheelchair dependence Start: 10-11-2024 End: 10-11-2024 Patient encounter status Thea Sood NP Work Phone: [facility] Start: 09-26-2024 End: 09-26-2024 Refill Johnson Lorenz MD Work Phone: [facility] Comment on above: Neurogenic bladder; Osteopenia, unspecified location; Recurrent major depressive disorder, in full remission (CMS/HCC) Start: 09-21-2024 End: 10-25-2024 Pre-admission assessment Lin Ward [facility] Start: 09-21-2024 End: 09-21-2024 ambulatory MARISEL VICTORIA Facility:[facility] Start: 09-12-2024 End: 09-13-2024 Refill La John [facility], [facility] Department of [facility] Comment on above: Multiple sclerosis ( [facility]); Chronic fatigue Start: 08-09-2024 End: 08-09-2024 Telephone encounter [facility]ren[facility] Lopes [facility] Start: 07-18-2024 End: 07-20-2024 Refill Jessica Forte [facility] Comment on above: Multiple sclerosis ( [facility]) Start: 06-30-2024 End: 07-04-2024 Refill Marisel Victoria BUSINESS PROCESS ANALYST Work Phone: [facility] Comment on above: Neurogenic bladder Start: 06-28-2024 End: 06-28-2024 Refill Desirae Gonzalez MA [facility] Comment on above: Non-seasonal allergi c rhinitis, unspecified trigger Start: 06-26-2024 End: 06-27-2024 Refill Marisel Victoria BUSINESS PROCESS ANALYST Work Phone: [facility] Comment on above: Major depressive dis order, single episode, in full remission ([facility]) Start: 04-07-2024 End: 04-07-2024 Refill Marisel Victoria BUSINESS PROCESS ANALYST Work Phone: [facility] Comment on above: Major depressive dis order, single episode, in full remission ([facility] Start: 04-04-2024 End: 04-04-2024 Bamboo flowsheet Marisel Victoria BUSINESS PROCESS ANALYST Work Phone: [facility] Start: 04-04-2024 End: 04-04-2024 Bamboo flowsheet Marisel Victoria BUSINESS PROCESS ANALYST Work Phone: [facility] Start: 04-04-2024 End: 04-04-2024 Office outpatient visit 15 minutes Marisel Victoria BUSINESS PROCESS ANALYST Work Phone: [facility] Comment on above: Multiple sclerosis ( CMS/HCC) (Primary Dx); Recurrent major depressive disorder, in full remission (CMS/HCC); Osteopenia, unspecified location; Major depressive disorder, single episode, in full remission (CMS/HCC); Non-seasonal allergic rhinitis, unspecified trigger; Neurogenic bladder Start: 04-04-2024 End: 04-04-2024 ambulatory MARISEL VICTORIA Not Available Start: 03-07-2024 End: 03-07-2024 ambulatory Lin IonaEstefany Ward Facility:[facility] Start: 03-07-2024 End: 03-07-2024 Patient encounter procedure Lin Ward [facility] Start: 02-29-2024 End: 02-29-2024 ambulatory MARISEL VICTORIA Facility:[facility] Start: 02-29-2024 End: 02-29-2024 Lab Drop off Lin MonsonEstefany Ward [facility] Start: 02-29-2024 End: 02-29-2024 ambulatory MARISEL VICTORIA Facility: [facility] Start: 02-29-2024 End: 02-29-2024 Patient encounter procedure Lin MonsonEstefany Ed [facility] Start: 02-22-2024 End: 02-22-2024 Bamboo flowsheet Marisel Victoria BUSINESS PROCESS ANALYST Work Phone: [facility] Start: 02-22-2024 End: 02-22-2024 Bamboo flowsheet Marisel Victoria BUSINESS PROCESS ANALYST Work Phone: [facility] Start: 02-22-2024 End: 02-22-2024 Patient encounter procedure Marisel Victoria BUSINESS PROCESS ANALYST Work Phone: [facility] Comment on above: Encounter for medica tion refill (Primary Dx); Encounter for Medicare annual wellness exam; Osteopenia, unspecified location; Multiple sclerosis ([facility]); Recurrent major depressive disorder, in full remission ([facility]); Major depressive disorder, single episode, in full remission ([facility]); Non-seasonal allergic rhinitis, unspecified trigger; Wheezing Start: 02-22-2024 End: 02-22-2024 ambulatory MARISEL VICTORIA Not Available Start: 02-16-2024 End: 02-17-2024 Refill Hyun Darby MD Work Phone: [facility] Comment on above: Multiple sclerosis ( [facility]) (Primary Dx); Chronic fatigue Start: 02-02-2024 End: 02-03-2024 Telephone encounter Karen [facility] Comment on above: 05/06 Bee Start: 01-12-2024 End: 01-14-2024 Refill Tika Martins [facility] Comment on above: Multiple sclerosis ( [facility]); Chronic fatigue Med Refill Start: 12-02-2023 End: 12-22-2023 Pre-admission assessment Lin Ward [facility] Start: 12-02-2023 End: 12-02-2023 ambulatory Lin Ward Facility:[facility] Start: 12-02-2023 End: 12-02-2023 Lab Drop off Lin Ward [facility] Start: 12-02-2023 End: 12-02-2023 ambulatory Lin Ward Facility:[facility] Start: 12-02-2023 End: 12-02-2023 Patient encounter procedure Lin Ward [facility] Start: 11-09-2023 End: 11-09-2023 ambulatory SHAIKH DESIREE Not Available Start: 11-04-2023 End: 11-11-2023 Telephone encounter Karen [facility] Comment on above: 12/24 Bee Start: 09-30-2023 End: 09-30-2023 Telephone encounter Tika [facility] Comment on above: Valid Contact Info Start: 09-22-2023 End: 09-22-2023 [facility]ill [facility] Comment on above: Multiple sclerosis ( CMS-HCC) Start: 07-02-2023 Orders Only Shaikh Desiree LOVETT Work Phone: [facility] Comment on above: Osteopenia, unspecif ied location (Primary Dx) Start: 07-01-2023 Refill Alla Chi [facility] Comment on above: Multiple sclerosis ( CMS-HCC); Chronic fatigue Start: 06-30-2023 End: 06-30-2023 Office outpatient visit 40 minutes Ehad Bee LOVETT Work Phone: [facility] Comment on above: Multiple sclerosis ( CMS-HCC) (Primary Dx); Obesity (BMI 30-39.9); Dysphagia, unspecified type; Demyelinating disease of central nervous system (CMS-HCC); Neurogenic bladder; Wheelchair confinement status; Gait instability; Sensory ataxia; Chronic fatigue; Short-term memory loss; Spasticity; 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 Start: 03-18-2023 End: 03-18-2023 Patient encounter procedure Lin Ward [facility] Start: 02-16-2023 End: 02-16-2023 Patient encounter procedure Lin Ward [facility] Start: 02-09-2023 End: 02-09-2023 Lab Drop off ALLA TAYLOR [facility] Start: 02-09-2023 End: 02-09-2023 Patient encounter procedure Lin Ward [facility] Start: 01-13-2023 End: 01-13-2023 Patient encounter procedure ALLA TAYLOR [facility] Start: 11-04-2022 End: 11-04-2022 Patient encounter procedure ALLA TAYLOR [facility] Start: 04-28-2022 End: 04-29-2022 ambulatory LAUREN LEIGH Facility:[facility] Start: 04-02-2022 ambulatory SHAIKH Avi Darby y:[facility] Start: 01-09-2022 End: 01-10-2022 ambulatory Srinath Guevara Facility:[facility] Start: 12-11-2021 End: 12-12-[address] JUVENAL BAPTISTE Facility:[facility] Start: 11-01-2021 End: 11-02-2021 ambulatory Srinath Guevara Facility:[facility] Start: 10-31-2021 End: 11-01-2021 ambulatory Srinath Guevara Facility:[facility] Start: 10-22-2021 End: 10-23-2021 ambulatory LAUREN LEIGH Facility:[facility] Start: 10-04-2021 End: 10-05-2021 ambulatory Srinath Guevara Facility:[facility] Start: 09-19-2021 End: 09-19-2021 ambulatory ALFONSO CASTILLO . Facility: Procedures Date Procedure Procedure Detail Performing Clinician Start: 10-25-2024 Follow-up visit Follow-up EHAD AF REEN Start: 10-25-2024 Adult depression scr eening assessment Milly Reich Start: 12-14-2023 Mammography Marisel Mukesh lorraine WU Work Phone: Start: 02-24-2023 Adult depression scr eening assessment Aquiles Canales MD Work Phone: Start: 02-16-2023 Injection of botulin um toxin type A into detrusor muscle of urinary bladder Lin Ward Start: 03-14-2015 Mammography Shaikh Cecy pereira MD Work Phone: Start: 09-01-2014 Destructive procedure J GISELLE TAYLOR Start: 05-18-2014 Excision of cyst of ovary ALLA TAYLOR Augmentation mammoplasty RUDY TAYLOR Plan of Treatment Date Care Activity Detail Author Start: 12-05-2025 Adult BMI Screening Adult BMI Screen ing [facility] Start: 10-25-2025 Depression Screening Depression Scre ening [facility] [employer] Start: 10-25-2025 Tobacco Screening Tobacco Screening [facility] [employer] Start: 02-21-2025 Medicare Annual Well ness (AWV) Medicare Annual Wellness (AWV) [facility] Start: 01-31-2025 End: 01-31-2025 Patient encounter procedure 01/31/2025 2:30 PM EDT Office Visit [facility] [place] [address] Aquiles Canales MD [address] [place] [address] [address] [place] [address] [facility] [place] Start: 01-16-2025 [facility] Start: 01-09-2025 End: 01-09-2025 Patient encounter procedure 01/09/2025 1:00 PM EDT Office Visit [facility] [address] [place] [id number] Thea Sood, BRY[place] [address] [place] [address] [facility] Start: 12-14-2024 End: 12-11-2025 MG Breast - bilateral Screening Bilateral screening mammogram Imaging Routine Screening mammogram, encounter for Expected: 12/14/2024 (Approximate), Expires: 12/11/2025 [facility] Comment on above: Expected: 12/14/2024 (Approximate), Expires: 12/11/2025 Start: 12-13-2024 End: 10-11-2025 DXA Skeletal system Views for bone density DEXA bone density Imaging Routine Osteoporosis, unspecified osteoporosis type, unspecified pathological fracture presence ([facility]) Expected: 12/13/2024 (Approximate), Expires: 10/11/2025 [facility] Comment on above: Expected: 12/13/2024 (Approximate), Expires: 10/11/2025 Start: 12-13-2024 Screening for malign ant neoplasm of breast Mammogram [facility] Start: 11-28-2024 End: 11-28-2024 Patient encounter procedure 11/28/2024 1:20 PM EDT Office Visit [facility] B[facility] OB [address] [place], [place] [address] Jason Engle DO [address] [place], [place] [id number] [facility] Start: 11-14-2024 Influenza vaccination Influenza Vacc ine (#1) [facility] Comment on above: Postponed from 01/16 (Patient Refused) Start: 10-25-2024 End: 10-25-2024 Patient encounter procedure [facility] [place] Start: 10-11-2024 End: 10-11-2025 CBC W Auto Differential panel - Blood CBC and differential Lab Routine Encounter for wellness examination Expected: 10/11/2024 (Approximate), Expires: 10/11/2025 [facility] Work Phone: Comment on above: Expected: 10/11/2024 (Approximate), Expires: 10/11/2025 Start: 10-11-2024 End: 10-11-2025 Comprehensive metabolic 2000 panel - Serum or Plasma Comprehensive metabolic panel Lab Routine Encounter for wellness examination Expected: 10/11/2024 (Approximate), Expires: 10/11/2025 [facility] Comment on above: Expected: 10/11/2024 (Approximate), Expires: 10/11/2025 Start: 10-11-2024 End: 10-11-2025 Lipid 1996 panel - Serum or Plasma Lipid panel Lab Routine Encounter for wellness examination Expected: 10/11/2024 (Approximate), Expires: 10/11/2025 [facility] Comment on above: Expected: 10/11/2024 (Approximate), Expires: 10/11/2025 Start: 10-11-2024 End: 10-11-2025 Thyrotropin [Units/volume] in Serum or Plasma TSH Lab Routine Encounter for wellness examination Expected: 10/11/2024 (Approximate), Expires: 10/11/2025 [facility] Comment on above: Expected: 10/11/2024 (Approximate), Expires: 10/11/2025 Start: 10-11-2024 End: 10-11-2024 Patient encounter procedure 10/11/2024 1:20 PM EDT Office Visit [facility] [address] [place] [address] Thea Sood NP [address] [place] [address] [facility] Start: 10-03-2024 End: 10-03-2024 Patient encounter procedure 10/03/2024 9:00 AM EDT Office Visit [facility] [address] [place] [address] Marisel Victoria NP [address] [place] [address] [facility] Start: 06-30-2024 Adult BMI Follow Up Plan Adult BMI Follow Up Plan [facility] Start: 02-13-2025 Adult BMI Screening Adult BMI Screen ing [facility] Start: 06-30-2024 Tobacco Screening Tobacco Screening [facility] Start: 05-06-2024 End: 05-06-2024 Patient encounter procedure 05/06/2024 2:00 PM EST [facility] [address] [place] [phone] Aquiles Canales MD [address] [place] [address], [address] [address] [facility] Start: 04-04-2024 End: 04-04-2024 Patient encounter procedure 04/04/2024 8:30 AM EST Office Visit [facility] [address] [place] [phone] Marisel Victoria NP [address] [place] [phone] [facility] Start: 02-25-2024 Adult BMI Follow Up Plan Adult BMI Follow Up Plan [facility] Start: 02-25-2024 [facility] Start: 02-22-2024 End: 02-22-2024 Patient encounter procedure 02/22/2024 1:30 PM EDT Office Visit [facility] [address] [place] [phone] Marisel Victoria NP [address] [place] [phone] Arrived [facility] Comment on above: Arrived Start: 01-17-2024 COVID-19 Vaccine ( season) COVID-19 Vaccine ( season) [facility] Start: 01-17-2024 COVID-19 Vaccine ( season) COVID-19 Vaccine ( season) [facility] Start: 01-17-2024 Influenza vaccination N [facility] Start: 12-25-2023 End: 12-25-2023 Patient encounter procedure 12/25/2023 2:00 PM EDT Office Visit [facility] [address] [place] [phone] Aquiles Canales MD [address] [place] [address], [address] [place] [phone] [facility] Start: 08-10-2023 End: 08-10-2023 Patient encounter procedure 08/10/2023 1:30 PM EDT Office Visit [facility] [address] [place] [phone] Shaikh Ramírez MD [address] [place] [phone] [facility] Start: 01-16-2023 COVID-19 Vaccine ( season) COVID-19 Vaccine ( season) [facility] Start: 01-16-2023 Influenza vaccination [facility] Start: 2022 Administration of varicella zoster vaccine Zoster (Shingles) Vaccine (1 of 2) [facility] Start: 03-14-2016 Screening for malign ant neoplasm of breast Mammogram [facility] Start: 2002 Screening for malign ant neoplasm of cervix [facility] Start: 1993 Screening for malign ant neoplasm of cervix Pap Smear [facility] Start: 1991 DTaP,Tdap and Td Vaccines (1 - Tdap) DTaP,Tdap and Td Vaccines (1 - Tdap) [facility] Start: 1972 Medicare Annual Well ness (AWV) Medicare Annual Wellness (AWV) [facility] Start: 1972 Screening for malign ant neoplasm of colon [facility] CBC W Auto Different ial panel - Blood CBC and differential Lab Routine Multiple sclerosis (CMS/HCC) Neurogenic bladder Ordered: 04/04/2024 [facility] Work Phone: Comment on above: Ordered: 04/04/2024 Comprehensive metabo lic 2000 panel - Serum or Plasma Comprehensive metabolic panel Lab Routine Multiple sclerosis (CMS/HCC) Neurogenic bladder Ordered: 04/04/2024 [facility] Comment on above: Ordered: 04/04/2024 Immunizations Immunization Date Immunization Notes Care Provider Chi salazar 04-28-2021 influenza virus vaccine, unspecified formulation ALLA TAYLOR [facility] 04-28-2021 Influenza, injectabl e, Madin Lisa Canine Kidney, preservative free, quadrivalent Mariselitalo Starkk BUSINESS PROCESS ANALYST Work Phone: [facility] 10-26-2020 SARS-CoV-2 (COVID-19 ) mRNA-1273 vaccine ALLA TAYLOR [facility] 09-28-2020 SARS-CoV-2 (COVID-19 ) mRNA-1273 vaccine ALLA TAYLOR [facility] Payers Date Payer Category Payer Medicare (Managed Care) [employer]IC[employer] ADVANTAGE [id number] 2024 Medicare HMO [id number] 2023 Private Health Insurance [id number] 2023 Private Health Insurance [id number] 2022 Unknown [id number] 1.13.693.2 .[id number] 2022 Unknown [id number] 1972 Unknown [id number] 2.16.840.1.381167.3.579.2 .593 1972 Unknown [id number] 2.16.840.1.319552.3.579.2 .593 1972 Unknown [id number] 2.16.840.1.048782.3.579.2 .593 1972 Unknown [id number] 2.16.840.1.633104.3.579.2 .593 1972 Unknown [id number] 2.16.840.1.221649.3.579.2 .593 1972 Unknown [id number] 2.16.840.1.642854.3.579.2 .593 1972 Unknown [id number] 2.16.840.1.384132.3.579.2 .593 1972 Unknown [id number] 2.16.840.1.416427.3.579.2 .593 1972 Unknown [id number] 2.16.840.1.866252.3.579.2 .593 1972 Unknown [id number] 2.16.840.1.586102.3.579.2 .727 1972 Unknown [id number] 2.16.840.1.663229.3.579.2 .727 1972 Unknown [id number] 2.16.840.1.632105.3.579.2 .1259 1972 Unknown [id number] 2.16.840.1.270497.3.579.2 .1259 1972 Unknown [id number] 2.16.840.1.076816.3.579.2 .1259 1972 Unknown [id number] 2.16.840.1.697027.3.579.2 .1259 1972 Unknown [id number] 2.16.840.1.023526.3.579.2 .727 1972 Unknown [id number] 2.16.840.1.878979.3.579.2 .727 1972 Unknown [id number] 2.16.840.1.483894.3.579.2 .727 1972 Unknown [id number] 2.16.840.1.228020.3.579.2 .727 1972 Unknown [id number] 2.16.840.1.538497.3.579.2 .727 1972 Unknown [id number] 2.16.840.1.441148.3.579.2 .727 1972 Unknown [id number] 2.16.840.1.799063.3.579.2 .1286 1972 Unknown [id number] 2.16.840.1.560131.3.579.2 .1286 1972 Unknown [id number] 2.16.840.1.474694.3.579.[address] .[address] [facility] MEDICARE DEVOTED [employer] MEDICARE ADVANTAGE [id number] Effective for all dates [phone] [address] [place] [address] [id number] .7.3.355675.315 Unknown [id number] Social History Date Type Detail Facility Tobacco smoking status [facility] Start: 06-29-2023 End: 02-22-2024 Sex Assigned At Female [facility] Start: 01-13-2023 End: 11-09-2023 Tobacco smoking status Never smoked tobacco (finding) [facility] [place] Tobacco smoking status Never [facility] Start: 06-29-2023 End: 02-22-2024 History of Social function [facility] Start: 1970 Sex Assigned At Not on file P [facility] Start: 05-14-2022 End: 11-09-2023 Tobacco use and exposure Smokeless tobacco non-user [facility] Start: 11-09-2023 End: 10-11-2024 Alcoholic beverage intake Lifetime non-drinker (finding) [facility] Start: 12-21-2014 Sex Female (finding) [facility] NEGATED: Highlighted rowStart: NINF History of tobacco use Passive smoker [facility] Functional Status Date Assessment Result Facility 03-07-2024 Functional Status N/A [facility] 12-02-2023 Functional Status N/A [facility] 04-15-2023 Functional Status N/A [facility] 01-13-2023 Functional Status N/A [facility] Clinical Notes 11-01-2021 to 12-13-2024 Telephone Encounter - Milly Reich - 12/13/2024 1:22 PM EDTTelephone Encounter - Alla Chi CMA - 12/13/2024 1:22 PM EDTTelephone Encounter - Aquiles Canales MD - 12/13/2024 1:22 PM EDT Note Date & Type Note Facility 12-13-2024 Miscellaneous Notes Medication Refill request: Medication Name and Strength: diroximel fumarate (VUMERITY) 231 mg capsule,delayed release(DR/EC) Current dose & Frequency: Patient takes 462 mg by mouth in the morning and 462 mg before bedtime Pharmacy Name: [facility] Mail Delivery Request was made by: Patient's roommate Len Follow up appointment: 01/31/2025 Please review, Thanks Refills were sent! documented in this encounter [facility] 12-13-2024 Telephone encounter Note Medication Refill request: Medication Name and Strength: diroximel fumarate (VUMERITY) 231 mg capsule,delayed release(DR/EC) Current dose & Frequency: Patient takes 462 mg by mouth in the morning and 462 mg before bedtime Pharmacy Name: [facility] Mail Delivery Request was made by: Patient's roommate Len Follow up appointment: 01/31/2025 [facility] 12-13-2024 Telephone encounter Note Please review, Thanks [facility] 12-13-2024 Telephone encounter Note Refills were sent! [facility] 10-11-2024 History of Present illness Narrative Botox procedure next week. Pt is suppose to get atb from dr norma ward and start that the day before her procedure Pt is needing refill on all medications. Solifenacin 5mg was 2 tablets daily now 1 tablet daily can pt go back to two Images from the original note were not included. Denisse Galarza is a 54 y.o. female presents with chief complaint of Multiple Sclerosis HPI: Depression/anxiety: takes wellbutrin and floxetine as well, controls sxs , no SI/HI/hallucinations Multiple Sclerosis This is a chronic problem. The current episode started more than 1 year ago. The problem occurs daily. The problem has been waxing and waning. Associated symptoms include a change in bowel habit, fatigue, myalgias and urinary symptoms. Pertinent negatives include no abdominal pain, arthralgias, chest pain, chills, congestion, coughing, fever, headaches, joint swelling, nausea, rash, sore throat or vomiting. Nothing aggravates the symptoms. Treatments tried: sees neurology. The treatment provided moderate relief. SUBJECTIVE: MEDICATIONS: Current Outpatient Medications Medication Instructions albuterol HFA (Ventolin HFA) 90 mcg/act inhaler 2 puffs, Inhalation, Every 4 hours PRN alendronate (FOSAMAX) 35 mg, Oral, Every 7 days, Take in the morning with a full glass of water, on an empty stomach, and do not take anything else by mouth or lie down for the next 30 min. aspirin 81 mg, Daily baclofen (LIORESAL) 10 mg, Oral, 3 times daily buPROPion XL (WELLBUTRIN XL) 150 mg, Oral, Daily, Do not crush, chew, or split. cholecalciferol (Vitamin D-3) 50 MCG (1999 UT) tablet Oral, Daily FLUoxetine (PROZAC) 40 mg, Oral, Daily modafinil (PROVIGIL) 200 mg, Daily montelukast (SINGULAIR) 10 mg, Oral, Nightly solifenacin (VESICARE) 5 mg, Oral, Daily, Swallow tablet whole; do not crush, chew, or split. Vumerity 231 MG capsule delayed-release ALLERGIES: No Known Allergies REVIEW OF SYMPTOMS: Review of Systems Constitutional: Positive for fatigue. Negative for appetite change, chills and fever. HENT: Negative for congestion, ear pain and sore throat. Eyes: Negative for pain, discharge, redness and visual disturbance. Respiratory: Negative for cough, shortness of breath and wheezing. Cardiovascular: Negative for chest pain, palpitations and leg swelling. Gastrointestinal: Positive for change in bowel habit. Negative for abdominal pain, blood in stool, constipation, diarrhea, nausea and vomiting. Genitourinary: Negative for difficulty urinating, dysuria and frequency. Musculoskeletal: Positive for myalgias. Negative for arthralgias, back pain and joint swelling. Skin: Negative for rash and wound. Neurological: Negative for dizziness, tremors, seizures, syncope and headaches. Psychiatric/Behavioral: Negative for behavioral problems, self-injury and suicidal ideas. The patient is not nervous/anxious. Hematological: Does not bruise/bleed easily. Endocrine: Negative for polydipsia, polyphagia and polyuria. Allergic/Immunologic: Negative for environmental allergies and food allergies. PAST MEDICAL HISTORY Past Medical History: Diagnosis Date Allergic rhinitis Ambulatory dysfunction At high risk for falls Bipolar disorder Depression (CMS/HCC) Endometriosis Fatigue Lisfranc dislocation, right, subsequent encounter Memory impairment Multiple sclerosis (CMS/HCC) Oropharyngeal dysphagia Osteoporosis (CMS/HCC) Other closed fracture of distal end of right fibula with routine healing, subsequent encounter Right ankle pain Right fibular fracture Right foot pain Urge incontinence Vitamin D deficiency Past Surgical History: Procedure Laterality Date SECTION, LOW TRANSVERSE SECTION, LOW TRANSVERSE SECTION, LOW TRANSVERSE FEMINIZING AUGMENTATION MAMMOPLASTY x2 OTHER SURGICAL HISTORY Ablation, Endometriosis implants OVARIAN CYST REMOVAL Right family history includes Alcohol abuse in her father; Mental illness in her mother; No Known Problems in her brother and sister; Paranoid disorder in her mother. OBJECTIVE: Visit Vitals BP 102/74 Pulse 91 Temp 97.8 F (Temporal) Resp 18 SpO2 98% OB Status No Periods Smoking Status Never Physical Exam Vitals and nursing note reviewed. Constitutional: General: She is not in acute distress. Appearance: Normal appearance. HENT: Head: Normocephalic and atraumatic. Right Ear: External ear normal. Left Ear: External ear normal. Nose: Nose normal. Mouth/Throat: Mouth: Mucous membranes are moist. Eyes: Extraocular Movements: Extraocular movements intact. Conjunctiva/sclera: Conjunctivae normal. Neck: Vascular: No carotid bruit. Cardiovascular: Rate and Rhythm: Normal rate and regular rhythm. Pulses: Normal pulses. Heart sounds: Normal heart sounds. Pulmonary: Effort: Pulmonary effort is normal. Breath sounds: Normal breath sounds. No wheezing or rhonchi. Abdominal: General: Bowel sounds are normal. There is no distension. Palpations: Abdomen is soft. There is no mass. Tenderness: There is no abdominal tenderness. Musculoskeletal: Cervical back: Normal range of motion and neck supple. Right lower leg: No edema. Left lower leg: No edema. Comments: In a W/C Generalized weakness to UE/LE Lymphadenopathy: Cervical: No cervical adenopathy. Skin: General: Skin is warm and dry. Capillary Refill: Capillary refill takes 2 to 3 seconds. Findings: No rash. Neurological: General: No focal deficit present. Mental Status: She is alert and oriented to person, place, and time. Psychiatric: Mood and Affect: Mood normal. Behavior: Behavior normal. Thought Content: Thought content normal. Judgment: Judgment normal. ASSESSMENT AND PLAN: No follow-ups on file. Problem List Items Addressed This Visit Multiple sclerosis ([facility]) - Primary Under the care of dr Bains Current meds: lioresal, Vumerity Relevant Orders Ambulatory referral to Home Health Neurogenic bladder Has seen urology, Lin Nair tmeds: vesicare S.O. states that used to take this 2-3 times daily will need to look at med records Relevant Orders Ambulatory referral to Home Health Wheelchair dependence Relevant Orders Ambulatory referral to Home Health Recurrent major depressive disorder, in full remission ([facility]) Current meds: wellbutrin XL, fluoxetine as well PHQ 9=4 Screening mammogram, encounter for Due November 2024 Relevant Orders Bilateral screening mammogram Osteoporosis ([facility]) Current meds: fosamax DEXA: will order with mammogram in December Relevant Orders DEXA bone density Encounter for wellness examination No exam, just labs Relevant Orders CBC and differential Comprehensive metabolic panel Lipid panel TSH Pap smear for cervical cancer screening Relevant Orders Ambulatory referral to Obstetrics / Gynecology Associated Problem(s): Encounter for wellness examination No exam, just labs Associated Problem(s): Screening mammogram, encounter for Due November 2024 Associated Problem(s): Encounter for screening for malignant neoplasm of colon Colon cancer screening options were discussed with patient, as well as why colon cancer screening is indicated. Options are Colonoscopy: direct visualization, every 10 years (unless indicated more frequently), risks and benefits were discussed Cologuard: every 3 years, risks and benefits were discussed , contraindications were discussed (family hx of colon cancer, colon polyps) Patient has elected to: Associated Problem(s): Recurrent major depressive disorder, in full remission (CMS/HCC) Current meds: wellbutrin XL, fluoxetine as well PHQ 9=4 Associated Problem(s): Osteoporosis (CMS/HCC) Current meds: fosamax DEXA: will order with mammogram in December Associated Problem(s): Neurogenic bladder Has seen urology, Lin Nair tmeds: vesicare S.O. states that used to take this 2-3 times daily will need to look at med records Associated Problem(s): Multiple sclerosis (CMS/HCC) Under the care of dr Bains Current meds: lioresal, Vumerity documented in this encounter [facility] 10-11-2024 Instructions Thea Sood NP - 10/11/2024 1:20 PM EDT I will send orders for Bone Density test and Mammogram: due late November ([facility]) I will order Home Health for evaluation Referred to SOCIAL AND HUMAN SERVICES ASSISTANT: Dr Engle in [place] for PAP smear Labs: fasting 8 hours documented in this encounter [facility] 09-21-2024 Note Patient Education Urology Botulinum Toxin Bladder Injection A botulinum toxin bladder injection is a procedure to treat an overactive bladder. During the procedure, a drug called botulinum toxin is injected into the bladder through a long, thin needle. This drug relaxes the bladder muscles and reduces overactivity. You may need this procedure if your medicines are not working or you cannot take them. The procedure may be repeated as needed. The treatment is done once and it usually lasts for 6 months. Your health care provider will monitor you to see how well you respond. Tell a health care provider about: ??? Any allergies you have. ??? All medicines you are taking, including vitamins, herbs, eye drops, creams, and vlvi-qia-iucapxm medicines. ??? Any problems you or family members have had with anesthetic medicines. ??? Any bleeding problems you have. ??? Any surgeries you have had. ??? Any medical conditions you have. ??? Any previous reactions to a botulinum toxin injection. ??? Any symptoms of urinary tract infection. These include chills, fever, a burning feeling when passing urine, and needing to pass urine often. ??? Whether you are or may be . What are the risks? Generally this is a safe procedure. However, problems may occur, including: ??? Not being able to pass urine. If this happens, you may need to have your bladder emptied with a thin tube (urinary catheter). ??? Bleeding. ??? Urinary tract infection. ??? Allergic reaction to the botulinum toxin. ??? Pain or burning when passing urine. ??? Damage to nearby structures or organs. What happens before the procedure? When to stop eating and drinking Follow instructions from your health care provider about what you may eat and drink before your procedure. These may include: ??? 8 hours before the procedure ? Stop eating most foods. Do not eat meat, fried foods, or fatty foods. ? Eat only light foods, such as toast or crackers. ? All liquids are okay except energy drinks and alcohol. ??? 6 hours before the procedure ? Stop eating. ? Drink only clear liquids, such as water, clear fruit juice, black coffee, plain tea, and sports drinks. ? Do not drink energy drinks or alcohol. ??? 2 hours before the procedure ? Stop drinking all liquids. ? You may be allowed to take medicines with small sips of water. If you do not follow your health care provider's instructions, your procedure may be delayed or canceled. Medicines Ask your health care provider about: ??? Changing or stopping your regular medicines. This is especially important if you are taking diabetes medicines or blood thinners. ??? Taking medicines such as aspirin and ibuprofen. These medicines can thin your blood. Do not take these medicines unless your health care provider tells you to take them. ??? Taking jwtb-kcv-kkwvmnj medicines, vitamins, herbs, and supplements. General instructions ??? Ask your health care provider what steps will be taken to help prevent infection. These steps may include: ? Removing hair at the procedure site. ? Washing skin with a germ-killing soap. ? Taking antibiotic medicine. ??? If you will be going home right after the procedure, plan to have a responsible adult: ? Take you home from the hospital or clinic. You will not be allowed to drive. ? Care for you for the time you are told. What happens during the procedure? You will be asked to empty your bladder. ??? An IV will be inserted into one of your veins. ??? You will be given one or more of the following: ? A medicine to help you relax (sedative). ? A medicine to numb the area (local anesthetic). ? A medicine to make you fall asleep (general anesthetic). ??? A long, thin scope called a cystoscope will be passed into your bladder through the part of the body that carries urine from your bladder (urethra). ??? The cystoscope will be used to fill your bladder with water. ??? A long needle will be passed through the cystoscope and into the bladder. ??? The botulinum toxin will be injected into your bladder. It may be injected into multiple areas of your bladder. ??? The cystoscope will be removed and your bladder will be emptied with a urinary catheter. The procedure may vary among health care providers and hospitals. What can I expect after the procedure? After your procedure, it is common to have: ??? Blood-tinged urine. ??? Burning or soreness when you pass urine. Follow these instructions at home: Medicines ??? Take xyhq-hzf-mvlqdsx and prescription medicines only as told by your health care provider. ??? If you were prescribed an antibiotic medicine, take it as told by your health care provider. Do not stop using the antibiotic even if you start to feel better. General instructions ??? If you were given a sedative during the procedure, (more content not included)... [facility] 09-12-2024 Miscellaneous Notes Medication Refill request: Medication Name and Strength:modafiniL (PROVIGIL) 200 mg tablet Current dose & Frequency:Take 1 tablet (200 mg total) by mouth in the morning. actually taking - not what is listed on the prescription label 30 day or 90 day supply preferred:30 Pharmacy Name:[facility] Mail Delivery - [facility] [address] If already on preferred pharmacy list - name only If new pharmacy - specify address & phone number Request was made by: Roxana with pharmacy [phone] RN reviewed refill request for Provigil. Dosage and directions verified. Prescription pended for physician to review and sign. Last appt: 06/30/23 Next appt: 10/25/24 ([place] patient) Last refilled: 08/02/24 Last prescription: 02/17/24 30 day supply with 5 refills documented in this encounter [facility] 09-12-2024 Telephone encounter Note Medication Refill request: Medication Name and Strength:modafiniL (PROVIGIL) 200 mg tablet Current dose & Frequency:Take 1 tablet (200 mg total) by mouth in the morning. actually taking - not what is listed on the prescription label 30 day or 90 day supply preferred:30 Pharmacy Name:[facility] - [facility] [address] If already on preferred pharmacy list - name only If new pharmacy - specify address & phone number Request was made by: Roxana with pharmacy [phone] [facility] 09-12-2024 Telephone encounter Note RN reviewed refill request for Provigil. Dosage and directions verified. Prescription pended for physician to review and sign. Last appt: 06/30/23 Next appt: 10/25/24 ([place] patient) Last refilled: 08/02/24 Last prescription: 02/17/24 30 day supply with 5 refills [facility] 08-09-2024 Miscellaneous Notes Faxed printed prescription of Vumerity 231 mg ER/EC [facility] ([place], [place]) documented in this encounter [facility] 08-09-2024 Telephone encounter Note Faxed printed prescription of Vumerity 231 mg ER/EC to [facility] ([place], [place]) [facility] 07-18-2024 Miscellaneous Notes Medication Refill request: Medication Name and Strength:diroximel fumarate (VUMERITY) 231 mg capsule,delayed release(DR/EC) Current dose & Frequency: Take 462 mg by mouth in the morning and 462 mg before bedtime. 30 day or 90 day supply preferred: Pharmacy Name: [facility] - [place], [place] - [address] [facility] [address] Hours: Not open 24 hours Request was made by: Patient friend Len RN reviewed refill request for Vumerity. Dosage and directions verified. Prescription pended for physician to review and sign. Last appt: 06/30/23 Next appt: 10/25/24 Last refilled: not listed Last prescription: 01/13/24 90 day with 3 refills documented in this encounter [facility] 07-18-2024 Telephone encounter Note Medication Refill request: Medication Name and Strength:diroximel fumarate (VUMERITY) 231 mg capsule,delayed release(DR/EC) Current dose & Frequency: Take 462 mg by mouth in the morning and 462 mg before bedtime. 30 day or 90 day supply preferred: Pharmacy Name: [facility] - [place], [place] - [address] [place] [phone] Hours: Not open 24 hours Request was made by: Patient friend Len [facility] 07-18-2024 Telephone encounter Note RN reviewed refill request for Vumerity. Dosage and directions verified. Prescription pended for physician to review and sign. Last appt: 06/30/23 Next appt: 10/25/24 Last refilled: not listed Last prescription: 01/13/24 90 day with 3 refills [facility] 04-04-2024 History of Present illness Narrative Associated Problem(s): Recurrent major depressive disorder, in full remission (CMS/HCC) Currently taking Prozac and Wellbutrin. Feels symptoms are well controlled. Denies SI/HI. Associated Problem(s): Multiple sclerosis (CMS/HCC) Follows with Dr. Canales, Neurology. Currently taking Vumerity and Modafinine. She is wheelchair bound - able to stand on her feet, but does not ambulate due to unsteady gait/fear of fall. Has cognitive slowing/chronic fatigue due to MS Images from the original note were not included. Subjective Patient ID: Denisse Galarza is a 53 y.o. female who presents for Follow-up. HPI Specialists: Neurology- Dr. Canales MS: Depression: Currently taking Prozac and Wellbutrin. Feels symptoms are well control,ed. Denies SI/HI. Review of Systems Constitutional: Negative for activity change, appetite change, chills, diaphoresis, fatigue, fever and unexpected weight change. HENT: Negative for congestion, ear pain, rhinorrhea, sinus pressure, sinus pain, sneezing, sore throat, trouble swallowing and voice change. Eyes: Negative for visual disturbance. Respiratory: Negative for cough, chest tightness, shortness of breath and wheezing. Cardiovascular: Negative for chest pain, palpitations and leg swelling. Gastrointestinal: Negative for abdominal distention, abdominal pain, blood in stool, constipation, diarrhea and vomiting. Genitourinary: Negative for decreased urine volume, dysuria, flank pain, frequency, hematuria and urgency. Musculoskeletal: Negative for arthralgias, gait problem, joint swelling and myalgias. Skin: Negative for rash. Neurological: Negative for dizziness, tremors, syncope, weakness, light-headedness and headaches. Psychiatric/Behavioral: Negative for decreased concentration and suicidal ideas. The patient is not nervous/anxious. Hematological: Does not bruise/bleed easily. Endocrine: Negative for cold intolerance, heat intolerance, polydipsia, polyphagia and polyuria. Objective Physical Exam Vitals reviewed. Constitutional: Appearance: Normal appearance. HENT: Head: Normocephalic and atraumatic. Right Ear: Tympanic membrane normal. Left Ear: Tympanic membrane normal. Nose: Nose normal. Mouth/Throat: Mouth: Mucous membranes are moist. Pharynx: Oropharynx is clear. Eyes: Pupils: Pupils are equal, round, and reactive to light. Cardiovascular: Rate and Rhythm: Normal rate and regular rhythm. Pulses: Normal pulses. Heart sounds: Normal heart sounds. Pulmonary: Effort: Pulmonary effort is normal. Breath sounds: Normal breath sounds. Abdominal: General: Abdomen is flat. Bowel sounds are normal. Palpations: Abdomen is soft. Musculoskeletal: General: Normal range of motion. Cervical back: Normal range of motion. Skin: General: Skin is warm and dry. Capillary Refill: Capillary refill takes less than 2 seconds. Neurological: General: No focal deficit present. Mental Status: She is alert and oriented to person, place, and time. Motor: Weakness present. Comments: Decreased muscle strength in BLE; Baseline for pt Psychiatric: Mood and Affect: Mood normal. Behavior: Behavior normal. Assessment/Plan Problem List Items Addressed This Visit Multiple sclerosis ([facility]) - Primary Follows with Dr. Canales, Neurology. Currently taking Vumerity and Modafinine. She is wheelchair bound - able to stand on her feet, but does not ambulate due to unsteady gait/fear of fall. Has cognitive slowing/chronic fatigue due to MS Relevant Medications baclofen (Lioresal) 10 MG tablet Neurogenic bladder Relevant Medications solifenacin (VESIcare) 5 MG tablet Recurrent major depressive disorder, in full remission ([facility]) Currently taking Prozac and Wellbutrin. Feels symptoms are well controlled. Denies SI/HI. Relevant Medications buPROPion XL (Wellbutrin XL) 150 MG 24 hr tablet Other Visit Diagnoses Osteopenia, unspecified location Relevant Medications alendronate (Fosamax) 35 MG tablet Major depressive disorder, single episode, in full remission ([facility]) Relevant Medications cholecalciferol (Vitamin D-3) 50 MCG (1999 UT) tablet FLUoxetine (PROzac) 40 MG capsule Non-seasonal allergic rhinitis, unspecified trigger Relevant Medications montelukast (Singulair) 10 MG tablet documented in this encounter [facility] 03-07-2024 Hospital Discharge instructions Patient Education 03/07/2024 09:10:16 EU - Cystoscopy with Botox Injection Discharge Instructions (CUSTOM) Cystoscopy with Botox injection Voiding after the procedure: there may be some pain, burning, urgency, frequency and blood tinged urine following the procedure. These symptoms usually resolve within 2-5 days. Drink the amount of fluid it takes to keep the urine pink to yellow or clear in color. Drinking enough water and fluids will help to ease any discomfort after your procedure. It may take a few days to a week to notice a gradual improvement in the overactive bladder symptoms. If you are having problems that seem out of the ordinary, please call. If unable to contact your physician and you feel it is an emergency, go to the nearest emergency room or call 911 Do not lift more than fifteen pounds for 1-2 days. If you see a lot of blood, you probably did too much. Diet you may resume your normal diet. Pain control You may take extra strength Tylenol or Motrin for discomfort. Call if you have a fever over 100 degrees. Follow Up Care 02/01/2024 10:06:25 With:Lin Ward Address: [facility] [place] [address] [phone] Business (1) When: Unknown Comments:Call for followup appointment to discuss [employer] if desired, bring voiding diary [facility] 03-07-2024 Note Patient Education Cystoscopy with Botox injection ? Voiding after the procedure: there may be some pain, burning, urgency, frequency and blood tinged urine following the procedure. These symptoms usually resolve within 2-5 days. Drink the amount of fluid it takes to keep the urine pink to yellow or clear in color. Drinking enough water and fluids will help to ease any discomfort after your procedure. ? It may take a few days to a week to notice a gradual improvement in the overactive bladder symptoms. ? If you are having problems that seem out of the ordinary, please call. ? If unable to contact your physician and you feel it is an emergency, go to the nearest emergency room or call 911 ? Do not lift more than fifteen pounds for 1-2 days. If you see a lot of blood, you probably did too much. ? Diet ? you may resume your normal diet. ? Pain control ? You may take extra strength Tylenol or Motrin for discomfort. ? Call if you have a fever over 100 degrees. [facility] 02-22-2024 History of Present illness Narrative Images from the original note were not included. Subjective : Chief Complaint: Denisse Galarza is an 53 y.o. female here for an annual wellness visit. I have reviewed and reconciled the history and medication list with the patient today. Current Outpatient Medications Medication Sig Dispense Refill alendronate (Fosamax) 35 MG tablet Take 1 tablet (35 mg) by mouth every 7 (seven) days Take in the morning with a full glass of water, on an empty stomach, and do not take anything else by mouth or lie down for the next 30 min. 12 tablet 1 aspirin 81 MG EC tablet Take 81 mg by mouth in the morning. baclofen (Lioresal) 10 MG tablet Take 1 tablet (10 mg) by mouth in the morning and 1 tablet (10 mg) in the evening and 1 tablet (10 mg) before bedtime. 270 tablet 1 buPROPion XL (Wellbutrin XL) 150 MG 24 hr tablet Take 1 tablet (150 mg) by mouth Daily Do not crush, chew, or split. 90 tablet 0 cholecalciferol 50 MCG (2000 UT) tablet Take 2,000 Units by mouth in the morning. Dimethyl Fumarate (TECFIDERA PO) Take by mouth FLUoxetine (PROzac) 40 MG capsule Take 1 capsule (40 mg) by mouth Daily 90 capsule 1 modafinil (Provigil) 200 MG tablet Take 200 mg by mouth in the morning. montelukast (Singulair) 10 MG tablet Take 1 tablet (10 mg) by mouth at bedtime 90 tablet 1 naproxen (Naprosyn) 500 MG tablet Take 500 mg by mouth every 12 (twelve) hours if needed for mild pain norgestimate-ethinyl estradiol (Sprintec 28) 0.25-35 MG-MCG tablet Take 1 tablet by mouth in the morning. solifenacin (VESIcare) 5 MG tablet Take 5 mg by mouth in the morning. Swallow tablet whole; do not crush, chew, or split.. No current facility-administered medications for this visit. Review of Systems Constitutional: Negative for activity change, appetite change, chills, diaphoresis, fatigue, fever and unexpected weight change. HENT: Negative for congestion, ear pain, rhinorrhea, sinus pressure, sinus pain, sneezing, sore throat, trouble swallowing and voice change. Eyes: Negative for visual disturbance. Respiratory: Positive for wheezing. Negative for cough, chest tightness and shortness of breath. Reports intermittent wheezing with secondhand smoke Cardiovascular: Negative for chest pain, palpitations and leg swelling. Gastrointestinal: Negative for abdominal distention, abdominal pain, blood in stool, constipation, diarrhea and vomiting. Genitourinary: Negative for decreased urine volume, dysuria, flank pain, frequency, hematuria and urgency. Musculoskeletal: Negative for arthralgias, gait problem, joint swelling and myalgias. Skin: Negative for rash. Neurological: Negative for dizziness, tremors, syncope, weakness, light-headedness and headaches. Psychiatric/Behavioral: Negative for decreased concentration and suicidal ideas. The patient is not nervous/anxious. Hematological: Does not bruise/bleed easily. Endocrine: Negative for cold intolerance, heat intolerance, polydipsia, polyphagia and polyuria. List of current healthcare providers: Patient Care Team: Johnson Lorenz MD as PCP - General (Family Medicine) Marisel Victoria NP as Nurse Practitioner (Family Medicine) Medicare Annual Visit Over the past 2 weeks, how often have you been bothered by any of the following problems? Little interest or pleasure in doing things: Not at all Feeling down, depressed, or hopeless: More than half the days Patient Health Questionnaire-2 Score: 2 Over the past 2 weeks, how often have you been bothered by any of the following problems? Trouble falling or staying asleep, or sleeping too much: Several days Feeling tired or having little energy: Nearly every day Poor appetite or overeating: Several days Feeling bad about yourself - or that you are a failure or have let yourself or your family down: Several days Trouble concentrating on things, such as reading the newspaper or watching television: Not at all Moving or speaking so slowly that other people could have noticed? Or the opposite - being so fidgety or restless that you have been moving around a lot more than usual.: Not at all Thoughts that you would be better off or hurting yourself in some way: Not at all Patient Health Questionnaire-9 Score: 8 John Fall Risk History of Falling, Immediate or Within 3 Months: Yes Secondary Diagnosis: Yes Ambulatory Aid: Crutches/cane/walker Intravenous Therapy/Heparin Lock: No Gait/Transferring: Impaired Mental Status: Oriented to own ability John Fall Risk Score: 75 Health Risk Assessment Form Do you need help eating, bathing, using the toilet, dressing, or getting around your home?: No Can you prepare your own meals?: No Can you do your own housework without help?: Yes Can you shop for groceries or clothes without help?: Yes Do you exercise for about 20 minutes 3 or more days a week?: No How confident are you that you can control and manage most of your health problems?: Somewhat confident Can you mange your money, credit cards and accounts, pay bills and taxes?: No Cognitive Screening Self Assessment: No overt cognitive deficiency is apparent by direct observation Three Word Registration: Sujit, Nation, Finger Clock Drawing: Partial Clock - 1 Three Word Recall: 0 words correct - 0 Total Score (0-5 Points): 1 Cognitive Screening Not Completed: Cognitive impairment present Pain Assessment Pain Score: 0 - No pain Advance Care Planning Do you have a living will?: Yes Do you have a medical power of enamel dipper?: Yes Who is your medical power of enamel dipper?: Len Guadalupe Objective : BP 110/74 Pulse 81 Temp 97.7 F (Temporal) SpO2 97% No results found. Physical Exam Vitals reviewed. Constitutional: Appearance: Normal appearance. HENT: Head: Normocephalic and atraumatic. Right Ear: Tympanic membrane normal. Left Ear: Tympanic membrane normal. Nose: Nose normal. Mouth/Throat: Mouth: Mucous membranes are moist. Pharynx: Oropharynx is clear. Eyes: Pupils: Pupils are equal, round, and reactive to light. Cardiovascular: Rate and Rhythm: Normal rate and regular rhythm. Pulses: Normal pulses. Heart sounds: Normal heart sounds. Pulmonary: Effort: Pulmonary effort is normal. Breath sounds: Normal breath sounds. Abdominal: General: Abdomen is flat. Bowel sounds are normal. Palpations: Abdomen is soft. Musculoskeletal: General: Normal range of motion. Cervical back: Normal range of motion. Skin: General: Skin is warm and dry. Capillary Refill: Capillary refill takes less than 2 seconds. Neurological: Mental Status: She is alert and oriented to person, place, and time. Mental status is at baseline. Motor: Weakness present. Gait: Gait abnormal. Psychiatric: Mood and Affect: Mood normal. Behavior: Behavior normal. Assessment/Plan : The following health maintenance schedule was reviewed with the patient and provided in printed form in the after visit summary: Health Maintenance Topic Date Due Colorectal Cancer Screening Never done Cervical Cancer Screening Never done Influenza Vaccine (1) 01/17/2024 Mammogram 12/13/2024 Advance Care Planning Has advanced care directives-scanned into chart today; No orders of the defined types were placed in this encounter. Electronically signed by Marisel Victoria NP on February 22, 2024 documented in this encounter [facility] 02-02-2024 Miscellaneous Notes Patient's appointment needs to be rescheduled at this time due to provider out of clinic. Called and left message Date: 05/06 Provider: Dr Canales Rescheduling Instructions: move to same time on 05/03/24 2nd attempt: [employer] attempted to contact patient once more and leave a voicemail instructing them to call us back at [phone] to reschedule their upcoming appointment that has been cancelled due to their provider being out of office this day. Unable to reach patient or leave a voicemail - received an automated message stating voicemail box is full. documented in this encounter [facility] 02-02-2024 Telephone encounter Note Patient's appointment needs to be rescheduled at this time due to provider out of clinic. Called and left message Date: 05/06 Provider: Dr Canales Rescheduling Instructions: move to same time on 05/03/24 [facility] 02-02-2024 Telephone encounter Note 2nd attempt: [employer] attempted to contact patient once more and leave a voicemail instructing them to call us back at [phone] to reschedule their upcoming appointment that has been cancelled due to their provider being out of office this day. Unable to reach patient or leave a voicemail - received an automated message stating voicemail box is full. [facility] 01-12-2024 Miscellaneous Notes Medication Refill request: Medication Name and Strength: diroximel fumarate (VUMERITY) 231 mg capsule,delayed release(/EC) Current dose & Frequency: 2 tablets in the morning and two tablets in the afternoon 30 day or 90 day supply preferred: 90 Pharmacy Name: [facility] Request was made by: Len JOHNSON). Patient has 5 days left. [employer] [facility] called to confirm that a medication refill request was obtained. [employer] confirmed that the clinical staff is working on the medication refill. Rx for modafinil 200 mg, 30 day supply with no refill sent electronically It looks like the initial request is for Vumerity Rx for Vumerity printed and signed. Vumerity prescription faxed to [facility] at [phone]. Fax confirmation received. Message in routing comment: PA request received on CMM under yo # [id number] This is Dr Uriarte patient, Dr Pereira is covering for him. Apparently modafinil needs a PA. YO: [id number] Received a call from [employer] in regards to previous message below. Pharmacy is requesting refill be sent over to them IVAN patient is currently almost out of medication. Please advise To clarify (since there are 2 medications mentioned below) [facility] was calling regarding Vumerity. Spoke with Dahlia at [facility] to inform them we faxed a prescription yesterday. Dahlia states they did not get it. Spoke with Henrietta [facility] to provide verbal order from the written prescription so patient care is not delayed: Vumerity 213 mg cap. Take 2 caps (462 mg ) BID, #360 for 90 days + 3 refills. documented in this encounter [facility] 01-12-2024 Telephone encounter Note Medication Refill request: Medication Name and Strength: diroximel fumarate (VUMERITY) 231 mg capsule,delayed release(/YULY) Current dose & Frequency: 2 tablets in the morning and two tablets in the afternoon 30 day or 90 day supply preferred: 90 Pharmacy Name: [facility] Request was made by: Len (YULY). Patient has 5 days left[facility] Telephone encounter Note [employer] called to confirm that a medication refill request was obtained. [employer] confirmed that the clinical staff is working on the medication refill. [facility] 01-12-2024 Telephone encounter Note Rx for modafinil 200 mg, 30 day supply with no refill sent electronically [facility] Work Phone: 01-12-2024 Telephone encounter Note It looks like the initial request is for Vumerity [facility] 01-12-2024 Telephone encounter Note Rx for Vumerity printed and signed. [facility] 01-12-2024 Telephone encounter Note Vumerity prescription faxed to [facility] at [phone]. Fax confirmation received. Message in routing comment: PA [facility] under yo # [id number] [facility] [employer] [facility] 01-12-2024 Telephone encounter Note This is Dr Uriarte patient, Dr Pereira is covering for him. Apparently modafinil needs a PA. YO: [id number] [facility] [employer] [facility] 01-12-2024 Telephone encounter Note Received a call from [employer] in regards to previous message below. Pharmacy is requesting refill be sent over to them IVAN patient is currently almost out of medication. Please advise [facility] 01-12-2024 Telephone encounter Note To clarify (since there are 2 medications mentioned below) [facility] was calling regarding Vumerity. Spoke with Dahlia at [facility] to inform them we faxed a prescription yesterday. Dahlia states they did not get it. Spoke with Henrietta [facility] to provide verbal order from the written prescription so patient care is not delayed: Vumerity 213 mg cap. Take 2 caps (462 mg ) BID, #360 for 90 days + 3 refills. [facility] 01-12-2024 Miscellaneous Notes Medication Refill request: Medication Name and Strength: modafiniL (PROVIGIL) 200 mg tablet Current dose & Frequency: One tablet once a day 30 day or 90 day supply preferred: 30 NEW Pharmacy Name: [facility] Request was made by: Len (YULY). Len stated patient only has one dosage left. documented in this encounter [facility] 01-12-2024 Telephone encounter Note Medication Refill request: Medication Name and Strength: modafiniL (PROVIGIL) 200 mg tablet Current dose & Frequency: One tablet once a day 30 day or 90 day supply preferred: 30 NEW Pharmacy Name: [facility] Request was made by: ALEX Harrington). Len stated patient only has one dosage left. [facility] 12-02-2023 Hospital Discharge instructions Patient Education 12/02/2023 11:31:46 Botulinum Toxin Bladder Injection Botulinum Toxin Bladder Injection A botulinum toxin bladder injection is a procedure to treat an overactive bladder. During the procedure, a drug called botulinum toxin is injected into the bladder through a long, thin needle. This drug relaxes the bladder muscles and reduces overactivity. You may need this procedure if your medicines are not working or you cannot take them. The procedure may be repeated as needed. The treatment is done once and it usually lasts for 6 months. Your health care provider will monitor you to see how well you respond. Tell a health care provider about: Any allergies you have. All medicines you are taking, including vitamins, herbs, eye drops, creams, and awdg-qyf-lbgdvkv medicines. Any problems you or family members have had with anesthetic medicines. Any bleeding problems you have. Any surgeries you have had. Any medical conditions you have. Any previous reactions to a botulinum toxin injection. Any symptoms of urinary tract infection. These include chills, fever, a burning feeling when passing urine, and needing to pass urine often. Whether you are or may be . What are the risks? Generally this is a safe procedure. However, problems may occur, including: Not being able to pass urine. If this happens, you may need to have your bladder emptied with a thin tube (urinary catheter). Bleeding. Urinary tract infection. Allergic reaction to the botulinum toxin. Pain or burning when passing urine. Damage to nearby structures or organs. What happens before the procedure? When to stop eating and drinking Follow instructions from your health care provider about what you may eat and drink before your procedure. These may include: 8 hours before the procedure ?Stop eating most foods. Do not eat meat, fried foods, or fatty foods. ?Eat only light foods, such as toast or crackers. ?All liquids are okay except energy drinks and alcohol. 6 hours before the procedure ?Stop eating. ?Drink only clear liquids, such as water, clear fruit juice, black coffee, plain tea, and sports drinks. ?Do not drink energy drinks or alcohol. 2 hours before the procedure ?Stop drinking all liquids. ?You may be allowed to take medicines with small sips of water. If you do not follow your health care provider's instructions, your procedure may be delayed or canceled. Medicines Ask your health care provider about: Changing or stopping your regular medicines. This is especially important if you are taking diabetes medicines or blood thinners. Taking medicines such as aspirin and ibuprofen. These medicines can thin your blood. Do not take these medicines unless your health care provider tells you to take them. Taking upht-jjq-ktepieh medicines, vitamins, herbs, and supplements. General instructions Ask your health care provider what steps will be taken to help prevent infection. These steps may include: ?Removing hair at the procedure site. ?Washing skin with a germ-killing soap. ?Taking antibiotic medicine. If you will be going home right after the procedure, plan to have a responsible adult: ?Take you home from the hospital or clinic. You will not be allowed to drive. ?Care for you for the time you are told. What happens during the procedure? You will be asked to empty your bladder. An IV will be inserted into one of your veins. You will be given one or more of the following: ?A medicine to help you relax (sedative). ?A medicine to numb the area (local anesthetic). ?A medicine to make you fall asleep (general anesthetic). A long, thin scope called a cystoscope will be passed into your bladder through the part of the body that carries urine from your bladder (urethra). The cystoscope will be used to fill your bladder with water. A long needle will be passed through the cystoscope and into the bladder. The botulinum toxin will be injected into your bladder. It may be injected into multiple areas of your bladder. The cystoscope will be removed and your bladder will be emptied with a urinary catheter. The procedure may vary among health care providers and hospitals. What can I expect after the procedure? After your procedure, it is common to have: Blood-tinged urine. Burning or soreness when you pass urine. Follow these instructions at home: Medicines Take ytvd-bqi-tfhvjcz and prescription medicines only as told by your health care provider. If you were prescribed an antibiotic medicine, take it as told by your health care provider. Do not stop using the antibiotic even if you start to feel better. General instructions If you were given a sedative during the procedure, it can affect you for several hours. Do not drive or operate machinery until your health care provider says that it is safe. Drink enough fluid to keep your urine pale yellow. Return to your normal activities as told by your health care provider. Ask your health care provider what activities are safe for you. Keep all follow-up visits. Contact a health care provider if you have: A fever or chills. Blood-tinged urine for more than one day after your procedure. Worsening pain or burning when you pass urine. Pain or burning when passing urine for more than two days after your procedure. Trouble emptying your bladder. Get help right away if you: Have bright red blood in your urine. Are unable to pass urine. Summary A botulinum toxin bladder injection is a procedure to treat an overactive bladder. This is generally a safe procedure. However, problems may occur, including not being able to pass urine, bleeding, infection, pain, and an allergic reaction to the botulinum toxin. You will be told when to stop eating and drinking, and what medicines to change or stop. Follow instructions carefully. After the procedure, it is common to have blood in your urine and to have soreness or burning when passing urine. Contact a health care provider if you have a fever, blood in your urine for more than a few days, or trouble passing urine. Get help right away if you have bright red blood in your urine, or if you are unable to pass urine. This information is not intended to replace advice given to you by your health care provider. Make sure you discuss any questions you have with your health care provider. Document Revised: 11/08/2021 Document Reviewed: 11/08/2021 [employer] ([employer]) Patient Education 2022 [employer]. 12/02/2023 11:27:21 Urinary Incontinence Urinary Incontinence Urinary incontinence refers to a condition in which a person is unable to control where and when to pass urine. A person with this condition will urinate involuntarily. This means that the person urinates when he or she does not mean to. What are the causes? This condition may be caused by: Medicines. Infections. Constipation. Overactive bladder muscles. Weak bladder muscles. Weak pelvic floor muscles. These muscles provide support for the bladder, intestine, and, in women, the uterus. Enlarged prostate in men. The prostate is a gland near the bladder. When it gets too big, it can pinch the urethra. With the urethra blocked, the bladder can weaken and lose the ability to empty properly. Surgery. Emotional factors, such as anxiety, stress, or post-traumatic stress disorder (PTSD). Spinal cord injury, nerve injury, or other neurological conditions. Pelvic organ prolapse. This happens in women when organs move out of place and into the vagina. This movement can prevent the bladder and urethra from working properly. What increases the risk? The following factors may make you more likely to develop this condition: Age. The older you are, the higher the risk. Obesity. Being physically inactive. and childbirth. Menopause. Diseases that affect the nerves or spinal cord. Long-term, or chronic, coughing. This can increase pressure on the bladder and pelvic floor muscles. What are the signs or symptoms? Symptoms may vary depending on the type of urinary incontinence you have. They include: A sudden urge to urinate, and passing urine involuntarily before you can get to a bathroom (urge incontinence). Suddenly passing urine when doing activities that force urine to pass, such as coughing, laughing, exercising, or sneezing (stress incontinence). Needing to urinate often but urinating only a small amount, or constantly dribbling urine (overflow incontinence). Urinating because you cannot get to the bathroom in time due to a physical disability, such as arthritis or injury, or due to a communication or thinking problem, such as Alzheimer's disease (functional incontinence). How is this diagnosed? This condition may be diagnosed based on: Your medical history. A physical exam. Tests, such as: ?Urine tests. ?X-rays of your kidney and bladder. ?Ultrasound. ?CT scan. ?Cystoscopy. In this procedure, a health care provider inserts a tube with a light and camera (cystoscope) through the urethra and into the bladder to check for problems. ?Urodynamic testing. These tests assess how well the bladder, urethra, and sphincter can store and release urine. There are different types of urodynamic tests, and they vary depending on what the test is measuring. To help diagnose your condition, your health care provider may recommend that you keep a log of when you urinate and how much you urinate. How is this treated? Treatment for this condition depends on the type of incontinence that you have and its cause. Treatment may include: Lifestyle changes, such as: ?Quitting smoking. ?Maintaining a healthy weight. ?Staying active. Try to get 150 minutes of moderate-intensity exercise every week. Ask your health care provider which activities are safe for you. ?Eating a healthy diet. ?Avoid high-fat foods, like fried foods. ?Avoid refined carbohydrates like white bread and white rice. ?Limit how much alcohol and caffeine you drink. ?Increase your fiber intake. Healthy sources of fiber include beans, whole grains, and fresh fruits and vegetables. Behavioral changes, such as: ?Pelvic floor muscle exercises. ?Bladder training, such as lengthening the amount of time between bathroom breaks, or using the bathroom at regular intervals. ?Using techniques to suppress bladder urges. This can include distraction techniques or controlled breathing exercises. Medicines, such as: ?Medicines to relax the bladder muscles and prevent bladder spasms. ?Medicines to help slow or prevent the growth of a man's prostate. ?Botox injections. These can help relax the bladder muscles. Treatments, such as: ?Using pulses of electricity to help change bladder reflexes (electrical nerve stimulation). ?For women, using a medical technologist prn to prevent urine leaks. This is a small, tampon-like, disposable device that is inserted into the urethra. ?Injecting collagen or carbon beads (bulking agents) into the urinary sphincter. These can help thicken tissue and close the bladder opening. ?Surgery. Follow these instructions at home: Lifestyle Limit alcohol and caffeine. These can fill your bladder quickly and irritate it. Keep yourself clean to help prevent odors and skin damage. Ask your health care provider about special skin creams and cleansers that can protect the skin from urine. Consider wearing pads or adult diapers. Make sure to change them regularly, and always change them right after experiencing incontinence. General instructions Take zngz-gyn-gzxmkww and prescription medicines only as told by your health care provider. Use the bathroom about every 3 4 hours, even if you do not feel the need to urinate. Try to empty your bladder completely every time. After urinating, wait a minute. Then try to urinate again. Make sure you are in a relaxed position while urinating. If your incontinence is caused by nerve problems, keep a log of the medicines you take and the times you go to the bathroom. Keep all follow-up visits. This is important. Where to find more information [employer] [place] [employer]estive [employer] Kidney Diseases: www.niddk.nih.gov [employer] [employer]: www.urologyhealth.org Contact a health care provider if: You have pain that gets worse. Your incontinence gets worse. Get help right away if: You have a fever or chills. You are unable to urinate. You have redness in your groin area or down your legs. Summary Urinary incontinence refers to a condition in which a person is unable to control where and when to pass urine. This condition may be caused by medicines, infection, weak bladder muscles, weak pelvic floor muscles, enlargement of the prostate (in men), or surgery. Factors such as older age, obesity, and childbirth, menopause, neurological diseases, and chronic coughing may increase your risk for developing this condition. Types of urinary incontinence include urge incontinence, stress incontinence, overflow incontinence, and functional incontinence. This condition is usually treated first with lifestyle and behavioral changes, such as quitting smoking, eating a healthier diet, and doing regular pelvic floor exercises. Other treatment options include medicines, bulking agents, medical devices, electrical nerve stimulation, or surgery. This information is not intended to replace advice given to you by your health care provider. Make sure you discuss any questions you have with your health care provider. Document Revised: 12/07/2020 Document Reviewed: 12/07/2020 [employer] ([employer]) Patient Education 2022 [employer]. Follow Up Care 04/15/2023 12:07:01 With:Ed LOVETT, Lin Casanova, URL, [facility] Address: [address], [place] [phone] [phone] When: Unknown Comments:bran [facility] 12-02-2023 Note Patient Education Urology Botulinum Toxin Bladder Injection A botulinum toxin bladder injection is a procedure to treat an overactive bladder. During the procedure, a drug called botulinum toxin is injected into the bladder through a long, thin needle. This drug relaxes the bladder muscles and reduces overactivity. You may need this procedure if your medicines are not working or you cannot take them. The procedure may be repeated as needed. The treatment is done once and it usually lasts for 6 months. Your health care provider will monitor you to see how well you respond. Tell a health care provider about: ? Any allergies you have. ? All medicines you are taking, including vitamins, herbs, eye drops, creams, and hqag-lwr-hvdiffy medicines. ? Any problems you or family members have had with anesthetic medicines. ? Any bleeding problems you have. ? Any surgeries you have had. ? Any medical conditions you have. ? Any previous reactions to a botulinum toxin injection. ? Any symptoms of urinary tract infection. These include chills, fever, a burning feeling when passing urine, and needing to pass urine often. ? Whether you are or may be . What are the risks? Generally this is a safe procedure. However, problems may occur, including: ? Not being able to pass urine. If this happens, you may need to have your bladder emptied with a thin tube (urinary catheter). ? Bleeding. ? Urinary tract infection. ? Allergic reaction to the botulinum toxin. ? Pain or burning when passing urine. ? Damage to nearby structures or organs. What happens before the procedure? When to stop eating and drinking Follow instructions from your health care provider about what you may eat and drink before your procedure. These may include: ? 8 hours before the procedure ? Stop eating most foods. Do not eat meat, fried foods, or fatty foods. ? Eat only light foods, such as toast or crackers. ? All liquids are okay except energy drinks and alcohol. ? 6 hours before the procedure ? Stop eating. ? Drink only clear liquids, such as water, clear fruit juice, black coffee, plain tea, and sports drinks. ? Do not drink energy drinks or alcohol. ? 2 hours before the procedure ? Stop drinking all liquids. ? You may be allowed to take medicines with small sips of water. If you do not follow your health care provider's instructions, your procedure may be delayed or canceled. Medicines Ask your health care provider about: ? Changing or stopping your regular medicines. This is especially important if you are taking diabetes medicines or blood thinners. ? Taking medicines such as aspirin and ibuprofen. These medicines can thin your blood. Do not take these medicines unless your health care provider tells you to take them. ? Taking pfcw-net-yxjzgim medicines, vitamins, herbs, and supplements. General instructions ? Ask your health care provider what steps will be taken to help prevent infection. These steps may include: ? Removing hair at the procedure site. ? Washing skin with a germ-killing soap. ? Taking antibiotic medicine. ? If you will be going home right after the procedure, plan to have a responsible adult: ? Take you home from the hospital or clinic. You will not be allowed to drive. ? Care for you for the time you are told. What happens during the procedure? ? You will be asked to empty your bladder. ? An IV will be inserted into one of your veins. ? You will be given one or more of the following: ? A medicine to help you relax (sedative). ? A medicine to numb the area (local anesthetic). ? A medicine to make you fall asleep (general anesthetic). ? A long, thin scope called a cystoscope will be passed into your bladder through the part of the body that carries urine from your bladder (urethra). ? The cystoscope will be used to fill your bladder with water. ? A long needle will be passed through the cystoscope and into the bladder. ? The botulinum toxin will be injected into your bladder. It may be injected into multiple areas of your bladder. ? The cystoscope will be removed and your bladder will be emptied with a urinary catheter. The procedure may vary among health care providers and hospitals. What can I expect after the procedure? After your procedure, it is common to have: ? Blood-tinged urine. ? Burning or soreness when you pass urine. Follow these instructions at home: Medicines ? Take ojvj-hhh-ndjjetq and prescription medicines only as told by your health care provider. ? If you were prescribed an antibiotic medicine, take it as told by your health care provider. Do not stop using the antibiotic even if you start to feel better. General instructions ? If you were given a sedative during the procedure, it can affect you for several hours. Do not drive or operate machinery (more content not included)... [facility] 11-04-2023 Miscellaneous Notes Patient's appointment needs to be rescheduled at this time due to provider out of clinic. Called and left message Date: 12/24 Provider: Dr Canales Rescheduling Instructions: next available 2nd attempt: Frozen [employer] Maker attempted to contact patient once more and leave a voicemail instructing them to call us back at [phone] to reschedule their upcoming appointment that has been cancelled due to their provider being out of office this day. Patient answered call but call immediately disconnected. Please see scheduling instructions below. 3rd and final attempt: Frozen [employer] Maker unable to make contact with patient by phone - Appointment has been cancelled / reschedule request letter mailed to patient requesting a call back so we are able to schedule them in for a follow up appointment and update their contact information. Letter mailed to patient on: 11/11/2023 - MMV. documented in this encounter [facility] 11-04-2023 Telephone encounter Note Patient's appointment needs to be rescheduled at this time due to provider out of clinic. Called and left message Date: 12/24 Provider: Dr Canales Rescheduling Instructions: next available [facility] 11-04-2023 Telephone encounter Note 2nd attempt: Frozen [employer] Maker attempted to contact patient once more and leave a voicemail instructing them to call us back at [phone] to reschedule their upcoming appointment that has been cancelled due to their provider being out of office this day. Patient answered call but call immediately disconnected. Please see scheduling instructions below. [facility] 11-04-2023 Telephone encounter Note 3rd and final attempt: Frozen [employer] Maker unable to make contact with patient by phone - Appointment has been cancelled / reschedule request letter mailed to patient requesting a call back so we are able to schedule them in for a follow up appointment and update their contact information. Letter mailed to patient on: 11/11/2023 - MMV. [facility] 09-30-2023 Miscellaneous Notes [facility] to see if there was an additional phone# to contact patient. Frozen [employer] Maker verified the phone# is the only contact information we have. Monique voiced understanding. documented in this encounter [facility] 09-30-2023 Telephone encounter Note Monique, [facility] [place], called to see if there was an additional phone# to contact patient. [employer]zen [employer] Maker verified the phone# is the only contact information we have. Monique voiced understanding. [facility] 09-22-2023 Miscellaneous Notes Medication refill request received via fax from [facility] Medication solifenacin 10 mg Last filled: 06/24/23 Last ssen: 07/01/23 Next appt: 12/25/23 documented in this encounter [facility] 09-22-2023 Telephone encounter Note Medication refill request received via fax from [facility] Medication solifenacin 10 mg Last filled: 06/24/23 Last ssen: 07/01/23 Next appt: 12/25/23 [facility] 07-01-2023 Miscellaneous Notes [facility] [place] [place]. Medication: MODAFINIL 200 MG TAB SIG: Take 1 tablet daily Patient last seen in clinic on 06/30/23 documented in this encounter [facility] 07-01-2023 Telephone encounter Note [facility] [place] [place]. Medication: MODAFINIL 200 MG TAB SIG: Take 1 tablet daily Patient last seen in clinic on 06/30/23 [facility] 06-30-2023 History of Present illness Narrative Images from the original note were not included. [address] [place] [id number] Patient: Denisse Galarza Date of : 1970 Encounter Date: 06/30/2023 Patient Care Team: Ashley Gale MD as PCP - General (Family Medicine) Jason Parker MD as Referring Physician (Neurology) DEDRICK Blas as Nurse Practitioner (Neurology) History of Present Illness: The patient is a 52 y.o. female, an established patient, and is here for management of MS. She is currently accompanied to the clinic by her significant other. She was last seen in clinic on 02/24/2023. Summary of Condition: The patient is a right-handed female with past medical history of osteoporosis, anxiety, depression, who presents to the neurology clinic today for management of central nervous system demyelination syndrome. Patient reports being diagnosed with MS based off clinical history and radiographic evidence and 2017. She reports subacute onset of gait instability and short-term memory problems roughly 10 years ago. The problem seemed to get worse gradually with the passage of time, however patient denies having acute or subacute clinical exacerbations as far she remembers. About 5-6 years ago she apparently had subacute onset of right-sided weakness, worsening of gait and short-term memory. Subsequently saw a neurologist at [facility], diagnosed her with multiple sclerosis based off MRI brain and spine findings. MRI brain with without contrast from October 2015 showed moderate to severe burden of demyelinating lesions within the supratentorial(ovoid lesions perpendicular to the lateral ventricles, callosal lesions with callosal thinning) and infratentorial(right and left ventral aurelio, left brachium pontis, left medulla) brain. Mild cortical atrophy was seen. No enhancing lesion was present to suggest acute demyelination at the time of the scan. MRI cervical spine from October 2015 showed multifocal signal abnormalities within the cervical spinal cord, most focal at the C2 level. No enhancing lesion is present to suggest acute demyelination. MRI thoracic spine from October 2015 shows multifocal signal abnormalities within the thoracic spine. No enhancing lesion was present to suggest acute demyelination. She was eventually started on Tecfidera as disease modifying therapy for MS. She was on it for about 1.5- 2 years, and was getting it through a financial program provided by the company producing Tecfidera. Eventually had to stop taking the Tecfidera as the drug program coverage apparently ran out. She was then started on Vumerity, roughly 2 years ago, and is currently on 462 mg b.i.d.. Denies having any exacerbations since being on the Vumerity. Had been following up with Dr. Ford at [facility], however recently requested to change neurologists. Was eventually referred to me by her PCP. MS checklist 06/30/2023: - Dx: [id number]. Based off clinical history and MRI scans. No csf studies have been performed, per patient.. - initial symptoms: Subacute onset of gait instability/stumbling, and short-term memory problems roughly 10 years ago. - MS DMT: Currently on Vumerity p.o. 462 mg b.i.d., has been on it since 2020. Currently getting the medication through Free drug program. Without the drug program her co-pay for the month is at least 450 dollars. She would not be able to afford the medication if the drug program stops covering for it. Was previously on Tecfidera, which had to be switched as the free drug program ran out. After reviewing previous neurology notes, it seems she was having significant leukopenia with Tecfidera. She was taken off of it, and as soon as her WBC count normalized, she was started on Vemurity in mid-2020. There was 2 periods, in early 2020 and between December 2017 and September 2018, where she was off all DMT's. Currently having some problems with getting Vemurity approved by her insurance. [employer] recently changed certain policies, and it appears for the patient to obtain her current disease modifying therapy. For some weird reason, the patient was sent a letter advising that the patient does not enroll in next years patient assistance program as she will not be approved. They recommended that she reach out to them when she was left with just a few tablets of Vemurity for further instructions. Unfortunately they were never informed about how they were going to get the medication after the supply had ended. - currently on disability. Patient uses a wheelchair and automated scooter for outdoor ambulation, uses a walker for indoor ambulation.. Does not drive. Is fairly independent with ADLs and IADLs, except for managing finances, outdoor transportation. - Memory/cognition/fatigue/depress ion: Reports subacute onset of short-term memory problems roughly 10 years ago. Seemed to get significantly worse roughly 5 years ago, with the last reported exacerbation for MS. Her significant other helps her with keeping track of appointments, and other tasks. Has longstanding history of depression and anxiety, currently on fluoxetine 40 mg q.h.s., bupropion SR 150 mg bid. Patient's reports mood has been better over the last 6 months. Patient has not been able to establish care with a psychologist/psychiatrist. The clinic for which the referral was provided a few months ago, was not accepting new patients anymore. Gait/falls/motor: Patient uses a wheelchair and automated scooter for outdoor ambulation, uses a walker for indoor ambulation.. Does not drive. Is fairly independent with ADLs and IADLs, except for managing finances, outdoor transportation. Since starting baclofen 10 mg b.i.d. has reported mild improvement in ease of walking. Denies having any falls since the last clinic visit. Previously had home health care services with PT/OT. However the sessions eventually . Bowel/bladder: Has had Hyperactive/neurogenic bladder for more than 5 years. Is currently taking solifenacin 10 mg q.d., was previously on oxybutynin, tolterodine which seemed to help mildly at best. Since increasing the dose of solifenacin, the frequency and severity of urgency and associated incontinence has decreased significantly. Patient has continued to wear diapers for involuntary urinary leakage, which is usually not that much in quantity. Hyperactive bladder does not seem to cause significant pain for the patient. Patient has established care with a urologist in [place], and had her 1st session of Botox for bladder spasms on the 16 of February. Since that time the patient and have reported decreased urinary incontinence in to the adult diapers. Goes back to see urology for a possible 2nd Botox session in November 2023. - chronic fatigue/lethargy: Currently well controlled on modafinil 200 mg q.d.. - Dysphagia: Reports having difficulty swallowing with liquids. Speech evaluation 2 years ago, and was recommended to not use straws for liquids. Appears to have been stable since the last clinic visit. Denies any choking or aspiration - Driving: Does not drive. - Work: Unemployed: On disability - Exercise: Does not exercise regularly. Appears to have a sedentary lifestyle and attributes that to chronic gait instability and spasticity affecting the right side. Is currently doing PT/OT with home health care services. - over the last 5 years has noticed spasticity/muscle spasms affecting the right upper and lower extremity which tend to come on as the patient tries to use the right-sided extremities. Is currently on baclofen 10 mg b.i.d.prn and reports mild improvement in spasticity. - denies any new neurological symptoms or worsening of previous neurological deficits since the last clinic visit. Currently denies any neck pain, blurred vision, visual field loss, a, nausea, vomiting, chest pain, shortness of breath, fever, rash, abdominal complaints, difficulty initiating and maintaining sleep, behavioral disturbances, hallucinations, agitation, impulsive behavior, suicidal thoughts. - Patient was able to see Dr Granados in the [facility] on 12/04/2022. Patient was identified to have Mild decrease in retinal nerve fiber layer suggestive of optic nerve atrophy, bilaterally. He documents presence of dysconjugate pursuit and a bilateral internuclear ophthalmoplegia.. No specific treatments are available. Visual acuity OD 20/30, OS 20/40. Mild temporal pallor identified in bilateral optic nerves. MRI brain with and without contrast 05/29/2022: IMPRESSION: * Multiple areas of white matter signal abnormality which appears similar in the cerebrum with suggestion of new or more prominent lesion in the left cerebral peduncle. There is also involvement of the posterior fossa and partially visualized cervical spinal cord. This has a typical appearance for demyelinating disease. * No definite diffusion restriction or abnormal postcontrast enhancement is noted to suggest active demyelination. * hyperintensity in the left cerebral peduncle was also seen on the MRI brain from 2016 however it appears to be more prominent with the most recent scan. Of note the patient was off DMT's for a few months in 2020. MRI brain with and without contrast 04/30/2023: Impression: Overall, comparison to the prior 05/29/2022 MR of the brain is limited because of different scanning parameters. There is been no definite new lesion. There is no pathologic contrast enhancement to suggest an acute abnormality MRI cervical spine with without contrast 04/30/2023: Impression: Is difficult to compare the current examination with the prior 2016 examination, which was of lower technical quality. At least 2 areas of abnormal signal within the cord are grossly stable. There may be a new area of abnormal signal in the dorsal left C7 area that was not definitely seen on the prior examination. There is no pathologic contrast enhancement within the cord on the current study. Deformity of the T4 vertebral body is again noted. Review records from previous neurologist([facility]); - Patient was apparently off Tecfidera between December 2017 and September 2018 due to unknown reasons. Subsequent MRI brain with without contrast from October 2018 showed increased white matter lesions and signs of active demyelination. MRI of the C and T-spine at the time did not show signs of active demyelination however did show increased white matter lesions. Subsequent MRI scans(latest from November 2020) of the brain, C-spine and T-spine not shown progression of white matter disease ever since she has been on the Vemurity. - It seems she was having significant leukopenia/lymphopenia with Tecfidera. She was taken off of it, and as soon as her WBC count normalized, she was started on Vemurity in mid-2020. Last CBC from October 2020 shows WBC count of 2.5 x10E9/L, absolute neutrophil count 1.5 x10E9/L, absolute lymphocyte count 0.7 x10E9/L. She was asked to get CBC and CMP at the last clinic visit however has not been do. - patient has apparently had a polysomnogram for evaluation of chronic fatigue and excessive daytime sleepiness which did not show any evidence of AMY. Currently on modafinil 200 mg q.d.. - 72 hour ambulatory EEG monitoring from January 2019 was a normal study. Allergies: Patient has no known allergies. Review of Relevant Patient Questionnaires: HIT 6: No data to display PHQ-9: 02/24/2023 10:01 AM 10/24/2022 9:43 AM 05/14/2022 1:14 PM PM AMB PHQ 9 Little interest or pleasure in doing things 1 1 1 Feeling down, depressed, or hopeless 1 1 0 Trouble falling or staying asleep, or sleeping too much 1 0 1 Feeling tired or having little energy 1 0 1 Poor appetite or overeating 0 0 1 Feeling bad about yourself - or that you are a failure or have let yourself or your family down 0 0 0 Trouble concentrating on things, such as reading the newspaper or watching television 0 1 0 Moving or speaking so slowly that other people could have noticed. Or the opposite - being so fidgety or restless that you have been moving around a lot more than usual 0 1 0 Thoughts that you would be better off , or of hurting yourself in some way 0 0 0 Total Score 4 4 4 If you checked off any problems, how difficult have these problems made it for you to do your work, take care of things at home, or get along with other people? Not difficult at all Not difficult at all Not difficult at all PHQ-15: No data to display TOMÁS-7: No data to display PTSD: No data to display [place]: No data to display MELIA-10: No data to display Past Medical, Family, Surgical, and Social History Update: The following portions of the patient's history were reviewed and updated as appropriate: allergies, current medications, past family history, past medical history, past social history, past surgical history and problem list. Past Medical History: Diagnosis Date Cholelithiases Depression MS (multiple sclerosis) ([facility]) Ovarian cyst Renal cyst Urge incontinence History reviewed. No pertinent family history. Past Surgical History: Procedure Laterality Date BREAST SURGERY augmentation SECTION Current Outpatient Medications Medication Sig Dispense Refill alendronate (FOSAMAX) 35 mg tablet Take 1 tablet (35 mg total) by mouth once a week. aspirin (KHALIF LOW DOSE ASPIRIN) 81 mg Take 1 tablet (81 mg total) by mouth in the morning. baclofen (LIORESAL) 10 mg tablet Take 1 tablet (10 mg total) by mouth 2 (two) times a day as needed for muscle spasms (CC: spasticity from MS). 60 tablet 5 buPROPion SR (WELLBUTRIN SR) 150 mg 12 hr tablet Take 1 tab twice daily. 60 tablet 5 calcium carbonate (OS-DARRELL) 600 mg (1,500 mg) tablet Take 1 tablet (600 mg total) by mouth in the morning. cholecalciferol, vitamin D3, 2,000 units tablet Take 1 tablet (2,000 Units total) by mouth in the morning. diroximel fumarate (VUMERITY) 231 mg capsule,delayed release(DR/EC) Take 462 mg by mouth in the morning and 462 mg before bedtime. 360 capsule 3 FLUoxetine (PROzac) 40 mg capsule Take 1 capsule (40 mg total) by mouth in the morning. modafiniL (PROVIGIL) 200 mg tablet Take 1 tablet (200 mg total) by mouth in the morning. 30 tablet 5 montelukast (SINGULAIR) 10 mg tablet Take 1 tablet (10 mg total) by mouth nightly. solifenacin (VESICARE) 5 mg tablet Take 2 tablets (10 mg total) by mouth in the morning. 60 tablet 5 No current facility-administered medications for this visit. (All medications reviewed and updated by provider since last office visit or hospitalization) Tobacco History: Social History Tobacco Use Smoking Status Never Smokeless Tobacco Never (If patient a smoker, smoking cessation counseling offered) Social History: Social History Substance and Sexual Activity Alcohol Use Never Review of Systems: 14 systems were reviewed and negative except those mentioned in HPI . Physical Exam: Vitals: Vitals: 06/30/23 1250 BP: 136/69 Pulse: 84 Weight: 70.8 kg (156 lb) Height: 152.4 cm (5') Patient consulted for exercise: encouragement to exercise. Neurological Physical Exam: Physical Exam: Mental Status: Orientation: Oriented. Level of consciousness: alert. Follows commands: 3 step. Knowledge: good. Short-term memory not intact and long-term memory not intact. Vocabulary is normal. Memory: Repeats 3 of 3 objects. Attention span is normal. Concentration is normal. Speech: Normal quality and patient has normal vocabulary. Language: Normal. No anomia, no paraphasic errors and not repetition impaired. Cranial Nerves: CN II: Visual manuel full to confrontation. CN II - Visual Acuity: Normal in right eye and left eye. Pupils: Relative afferent pupillary defect absent. CN III, IV, : CN III: PERRLA, no ptosis and no ALVA. Pupils: right pupil regular and left pupil regular. Pupil Size: right = left. Pupil reactivity: Right and left pupil constrict(s) to light. Right and left pupil appropriately dilates in dark. Consensual response intact on right and Consensual response intact on left. Nystagmus: Gaze induced horizontal nystagmus.. ALVA: partial left ALVA and Mild limitation of left eye on abduction. CN V: Facial sensation intact to pin. CN VII: lower facial weakness on right. Mild right-sided nasolabial fold flattening.. CN VIII: CN VIII normal. Hearing intact. CN IX, X: CN IX and X normal. CN XI: CN XI normal. CN XII: CN XII normal. Tongue protrudes midline. Cranial Nerve comments: Smooth and saccadic pursuits are hypometric. . Motor: Muscle Bulk: Normal. Muscle Tone: Right upper extremity spasticity present. Right lower extremity spasticity present. Left lower extremity spasticity present. Power: Normal strength throughout. Right arm pronator drift. Bradykinesia: None. Fasciculations: No Myotonia: No myotonia. Sensory: Light touch normal in upper and lower extremities. Vibration normal in upper and lower extremities. Proprioception: Normal in upper and lower extremities. Pinprick normal in upper and lower extremities. Gait/Coord/DTR: Abnormal Gait: unsteady, apratic and abnormal gait. Unable to tandem walk, unable to heel walk on right, unable to heel walk on left, and . Coordination: Balance is poor. Romberg's sign: falls with eyes closed. Finger to nose normal on right. Finger to nose abnormal on left. Tremor: Absent. Involuntary Movements: no abnormal movement. Myoclonus: None. Reflexes: Right brachioradialis 3+ Left brachioradialis 2+ Right biceps 3+ Left biceps 2+ Right patellar 3+ Left patellar 3+ Right achilles 4+ Left achilles 3+ Right plantar equivocal Left plantar equivocal Right Osorio reflex absent and left Osorio reflex absent Right ankle clonus present. Left ankle clonus absent. Right pendular knee jerk absent and left pendular knee jerk absent. General Exam: Constitutional: Overweight . Eyes: Normal appearance, no icterus. Right Ear: Hearing normal. Left Ear: Hearing normal. Neck: Normal appearance. Cardiovascular: Normal rate and regular rhythm. Skin: Warm and dry Psychiatric: Normal mood/affect, good eye contact, behaving normally, normal thought content, normal judgment and psychomotor slowing. Musculoskeletal: No tenderness noted in cervical spine and thoracic spinePulmonary: Effort: Pulmonary effort is normal. Data Reviewed: Lab Results Component Value Date CREATININE 0.63 10/29/2020 BUN 14 10/29/2020 K 3.8 10/29/2020 CL 104 10/29/2020 CO2 27 10/29/2020 Lab Results Component Value Date WBC 2.5 (L) 10/29/2020 HGB 14.3 10/29/2020 HCT 39.9 10/29/2020 MCV 84 10/29/2020 PLT 205 10/29/2020 Lab Results Component Value Date ALT 22 10/29/2020 AST 19 10/29/2020 ALKPHOS 85 10/29/2020 No results found for: INR , PROTIME No results found for: PTT Diagnostic Study Results: Refer to HPI Assessment and Plan: Denisse was seen today for follow-up. 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 Her clinical syndrome seems to have started with subacute onset of gait instability and short-term memory problems, roughly 10 years ago. The deficits seemed to be gradually progressive. She was subsequently diagnosed with remitting relapsing form of multiple sclerosis in 2015, when she had presented with right-sided weakness, worsening gait, neurogenic bladder, worsening fatigue and cognitive function. MRI brain, C-spine and T-spine had shown evidence of moderate to severe white matter disease suggestive of central demyelination. She was started on disease modifying therapy, Tecfidera at the time and had been on it mid 2019. There were 2 periods of time, between December 2017 and September 2018, when she was off Tecfedira due to unforeseen reasons: With subsequent MRI brain from October 2018 showing worsening of white matter lesions and active inflammation/demyelination. Per patient's significant other, he recalls that the patient had worsening of right-sided weakness and right facial droop at the time. The Tecfidera was eventually resumed and she has not had any clinical exacerbations since that time. The Tecfidera had to be switched to Vemurity mid-2020, due to persistent lymphopenia/leukopenia, last CBC from October 2020 showed WBC count of 2.5 x10E9/L, absolute neutrophil count 1.5 x10E9/L, absolute lymphocyte count 0.7 x10E9/L. Per notes from his previous neurologist, subsequent MRI brain, C and T-spine(most recent ones from October-November 2020) had not shown evidence of worsening demyelination radiographically. The patient was eventually referred to me for further management of MS. She was seen as a new patient in the neurology clinic on 05/14/2022. At the initial clinic visit, she was recommended to get a repeat MRI brain with & without contrast. I personally reviewed the MRI brain scans, and did not see a significant change in white matter lesions compared to the MRI brain scan from 2016. Unfortunately the MRI scans between 2015 and 2022 are not available the PACS system, however the reports are available under the medial link. Radiologist suggest new lesion in the left cerebral peduncle in the midbrain, however a less prominent hyperintensity was present in the left cerebral peduncle the scan on 2015 as well. Based on the reports from 12/08/2020 of the MRI brain with without contrast, ordered by the previous neurologist at [facility], the patient had midbrain lesions at that time. In addition, clinically the patient denies new neurological symptoms or worsening of previous neurological deficits since the last clinic visit to suggest that she had an exacerbation. MRI brain from May 2022 does not show evidence of active inflammation/abnormal enhancement. The patient had repeat MRI brain and MRI cervical spine on 04/30/2023 which did not show any evidence of it matter disease progression or active inflammation. At this point I believe the patient's central demyelination syndrome is fairly well controlled on Vemurity. * Has longstanding history of depression and anxiety, Currently on fluoxetine 40 mg q.h.s., bupropion SR 150 mg bid. Patient's reports mood has been better over the last 3 months. Patient has not been able to establish care with a psychologist/psychiatrist. Was reminded to do that as soon as possible. * Has had Hyperactive/neurogenic bladder for more than 5 years. Has had Hyperactive/neurogenic bladder for more than 5 years. Is currently taking solifenacin 10 mg q.d., was previously on oxybutynin, tolterodine which seemed to help mildly at best. Since increasing the dose of solifenacin, the frequency and severity of urgency and associated incontinence has decreased significantly. Patient has continued to wear diapers for involuntary urinary leakage, which is usually not that much in quantity. Hyperactive bladder does not seem to cause significant pain for the patient. Patient has established care with a urologist in [place], and had her 1st session of Botox for bladder spasms on the 16 of February. Since that time the patient and have reported decreased urgency/urinary incontinence in to the adult diapers. They go back to urology for reassessment for a 2nd Botox session in November 2023 * over the last 5 years has noticed spasticity/muscle spasms affecting the right upper and lower extremity which tend to come on as the patient tries to use the right-sided extremities. Is currently on baclofen 10 mg b.i.d. p.r.n. and reports mild improvement in spasticity after starting the medication. Currently having some problems with getting Vemurity approved by her insurance. [employer] recently changed certain policies, and it appears for the patient to obtain her current disease modifying therapy. For some weird reason, the patient was sent a letter advising that the patient does not enroll in next years patient assistance program as she will not be approved. They recommended that she reach out to them when she was left with just a few tablets of Vemurity for further instructions. Unfortunately they were never informed about how they were going to get the medication after the supply had ended. Current neurological examination has been stable and continues to shows mild right-sided facial droop, normal strength and sensation in all 4 extremities, mild left upper extremity dysmetria on [id number] testing, mild to moderate spasticity in right upper/right lower/left lower extremities, significant sensory ataxia on standing up. She is currently on a wheelchair, however can use a walker and/or an automated scooter at home. She is fairly independent with ADLs and IADLs, can bathe herself and dress herself. Is currently not driving. Needs some assistance from her significant other, for managing finances, medications supervision, remembering appointments and other tasks Clinical impression: Relapsing remitting MS versus secondary progressive MS Recommendations: - continue Vemurity EC, PO, 462 mg b.i.d.. Patient does not appear to have any side effects at this time. Unfortunately, at this point the patient is having some difficulty with continuing the current disease modifying therapy. I have reached out to Our social research assistant at [facility] to see if they can assist. I have advised the patient's fiancee to contact [employer]/insurance to get a concrete answer as to how exactly the Vemurity will be represcribed., or if it can be represcribed at all. It would be a travesty to change her disease modifying therapy, especially as it seems to be working well. - patient reminded to blood drawn for CBC and CMP. - continue solifenacin 10 mg q.d.. Regular follow-up with urology Clinic for Botox for overactive bladder and urinary urgency. - will have repeat OCT/RN\FL in 2 years to look for progression of disease. - advised regular exercise, avoiding sedentary lifestyle. Patient has been strongly encouraged to avoid sedentary lifestyle and try to be more mobile at home. - patient reminded to see psychiatrist/psychologist at [facility]. - continue baclofen 10 mg b.i.d. p.r.n. for spasticity. - supportive care. - continue modafinil 200 mg q.d.. - regular follow-up with PCP. - disability placard provided on request. - return to neurology clinic in 4-6 months. Problem List Digestive Obesity (BMI 30-39.9) Dysphagia Nervous and Auditory Multiple sclerosis (CMS-HCC) - Primary Demyelinating disease of central nervous system (CMS-HCC) Genitourinary Urologic disorder Overview +++++++++ 07/14/2016 ALLSCRIPTS SUMMARY +++++++++++ May 2015 addressed left ovarian cyst. Patient sees Dr. Torres. She was to follow up with Dr. Torres ==== 07/23/2016 ==== Did not f/u. Will send to [facility] Neurogenic bladder Overview ==== 07/23/2016 ==== has MS. ==== 09/08/2016 ==== urinary incontinence. Workup demonstrated hyperactive or overactive bladder with uncontrolled uninhibited bladder contractions. Lower volumes. She is on Detrol 2 mg. Urodynamic study reviewed. Unreliable study. Ultrasound within the last year no hydro. Plan: Increased Detrol to 4 mg. Return to clinic. Could be headed toward Botox. Other Wheelchair confinement status Overview replacing diagnoses that were inactivated after the 02/15 regulatory import Gait instability Sensory ataxia Chronic fatigue Short-term memory loss Follow-up: 4 months. Aquiles Canales MD Vascular Neurologist [facility] ([facility]) I have personally participated in the care of this patient. I have reviewed all pertinent clinical information, including history, physical exam, investigation results and plan. I spent 40 minutes caring for this patient, and more than 50% of that time was spent on counseling the patient/analysis evaluator/care team and coordinating care. Important Notice: This note was created with the assistance of a speech recognition program. While intending to generate a timely document that accurately reflects the content of the encounter, no guarantee can be provided that every grammatical or spelling mistake has been or will be identified or corrected. Thank you for your understanding. documented in this encounter [facility] 04-15-2023 Hospital Discharge instructions Patient Education 04/15/2023 11:48:50 Kegel Exercises Kegel Exercises Kegel exercises can help strengthen your pelvic floor muscles. The pelvic floor is a group of muscles that support your rectum, small intestine, and bladder. In females, pelvic floor muscles also help support the uterus. These muscles help you control the flow of urine and stool (feces). Kegel exercises are painless and simple. They do not require any equipment. Your provider may suggest Kegel exercises to: Improve bladder and bowel control. Improve sexual response. Improve weak pelvic floor muscles after surgery to remove the uterus (hysterectomy) or after , in females. Improve weak pelvic floor muscles after prostate gland removal or surgery, in males. Kegel exercises involve squeezing your pelvic floor muscles. These are the same muscles you squeeze when you try to stop the flow of urine or keep from passing gas. The exercises can be done while sitting, standing, or lying down, but it is best to vary your position. Ask your health care provider which exercises are safe for you. Do exercises exactly as told by your health care provider and adjust them as directed. Do not begin these exercises until told by your health care provider. Exercises How to do Kegel exercises: 1.Squeeze your pelvic floor muscles tight. You should feel a tight lift in your rectal area. If you are a female, you should also feel a tightness in your vaginal area. Keep your stomach, buttocks, and legs relaxed. 2.Hold the muscles tight for up to 10 seconds. 3.Breathe normally. 4.Relax your muscles for up to 10 seconds. 5.Repeat as told by your health care provider. Repeat this exercise daily as told by your health care provider. Continue to do this exercise for at least 4 6 weeks, or for as long as told by your health care provider. You may be referred to a physical therapist who can help you learn more about how to do Kegel exercises. Depending on your condition, your health care provider may recommend: Varying how long you squeeze your muscles. Doing several sets of exercises every day. Doing exercises for several weeks. Making Kegel exercises a part of your regular exercise routine. This information is not intended to replace advice given to you by your health care provider. Make sure you discuss any questions you have with your health care provider. Document Revised: 09/12/2021 Document Reviewed: 09/12/2021 [employer] ([employer]) Patient Education 2022 [employer]. Follow Up Care 03/18/2023 10:02:42 With:Ed LOVETT, JUVE Glez, URO Address: When:Within 6 Month(s) [facility] [place] 02-16-2023 Hospital Discharge instructions Patient Education 02/16/2023 08:47:48 EU - Cystoscopy with Botox Injection Discharge Instructions (CUSTOM) Cystoscopy with Botox injection Voiding after the procedure: there may be some pain, burning, urgency, frequency and blood tinged urine following the procedure. These symptoms usually resolve within 2-5 days. Drink the amount of fluid it takes to keep the urine pink to yellow or clear in color. Drinking enough water and fluids will help to ease any discomfort after your procedure. It may take a few days to a week to notice a gradual improvement in the overactive bladder symptoms. If you are having problems that seem out of the ordinary, please call. If unable to contact your physician and you feel it is an emergency, go to the nearest emergency room or call 911 Do not lift more than fifteen pounds for 1-2 days. If you see a lot of blood, you probably did too much. Diet you may resume your normal diet. Pain control You may take extra strength Tylenol or Motrin for discomfort. Call if you have a fever over 100 degrees. Follow Up Care 01/22/2023 15:23:33 With:Lin Ward Address: [address], [place] [address] [phone] [facility] ([employer] [address] [place] [address] Katheryn, [address] [phone]- [phone] Business (1) When: Unknown Comments:Office to schedule follow up in 1 month with [facility] 01-13-2023 Hospital Discharge instructions Patient Education 01/13/2023 11:09:03 Urinary Incontinence Urinary Incontinence Urinary incontinence refers to a condition in which a person is unable to control where and when to pass urine. A person with this condition will urinate involuntarily. This means that the person urinates when he or she does not mean to. What are the causes? This condition may be caused by: Medicines. Infections. Constipation. Overactive bladder muscles. Weak bladder muscles. Weak pelvic floor muscles. These muscles provide support for the bladder, intestine, and, in women, the uterus. Enlarged prostate in men. The prostate is a gland near the bladder. When it gets too big, it can pinch the urethra. With the urethra blocked, the bladder can weaken and lose the ability to empty properly. Surgery. Emotional factors, such as anxiety, stress, or post-traumatic stress disorder (PTSD). Spinal cord injury, nerve injury, or other neurological conditions. Pelvic organ prolapse. This happens in women when organs move out of place and into the vagina. This movement can prevent the bladder and urethra from working properly. What increases the risk? The following factors may make you more likely to develop this condition: Age. The older you are, the higher the risk. Obesity. Being physically inactive. and childbirth. Menopause. Diseases that affect the nerves or spinal cord. Long-term, or chronic, coughing. This can increase pressure on the bladder and pelvic floor muscles. What are the signs or symptoms? Symptoms may vary depending on the type of urinary incontinence you have. They include: A sudden urge to urinate, and passing urine involuntarily before you can get to a bathroom (urge incontinence). Suddenly passing urine when doing activities that force urine to pass, such as coughing, laughing, exercising, or sneezing (stress incontinence). Needing to urinate often but urinating only a small amount, or constantly dribbling urine (overflow incontinence). Urinating because you cannot get to the bathroom in time due to a physical disability, such as arthritis or injury, or due to a communication or thinking problem, such as Alzheimer's disease (functional incontinence). How is this diagnosed? This condition may be diagnosed based on: Your medical history. A physical exam. Tests, such as: ?Urine tests. ?X-rays of your kidney and bladder. ?Ultrasound. ?CT scan. ?Cystoscopy. In this procedure, a health care provider inserts a tube with a light and camera (cystoscope) through the urethra and into the bladder to check for problems. ?Urodynamic testing. These tests assess how well the bladder, urethra, and sphincter can store and release urine. There are different types of urodynamic tests, and they vary depending on what the test is measuring. To help diagnose your condition, your health care provider may recommend that you keep a log of when you urinate and how much you urinate. How is this treated? Treatment for this condition depends on the type of incontinence that you have and its cause. Treatment may include: Lifestyle changes, such as: ?Quitting smoking. ?Maintaining a healthy weight. ?Staying active. Try to get 150 minutes of moderate-intensity exercise every week. Ask your health care provider which activities are safe for you. ?Eating a healthy diet. ?Avoid high-fat foods, like fried foods. ?Avoid refined carbohydrates like white bread and white rice. ?Limit how much alcohol and caffeine you drink. ?Increase your fiber intake. Healthy sources of fiber include beans, whole grains, and fresh fruits and vegetables. Behavioral changes, such as: ?Pelvic floor muscle exercises. ?Bladder training, such as lengthening the amount of time between bathroom breaks, or using the bathroom at regular intervals. ?Using techniques to suppress bladder urges. This can include distraction techniques or controlled breathing exercises. Medicines, such as: ?Medicines to relax the bladder muscles and prevent bladder spasms. ?Medicines to help slow or prevent the growth of a man's prostate. ?Botox injections. These can help relax the bladder muscles. Treatments, such as: ?Using pulses of electricity to help change bladder reflexes (electrical nerve stimulation). ?For women, using a medical technologist prn to prevent urine leaks. This is a small, tampon-like, disposable device that is inserted into the urethra. ?Injecting collagen or carbon beads (bulking agents) into the urinary sphincter. These can help thicken tissue and close the bladder opening. ?Surgery. Follow these instructions at home: Lifestyle Limit alcohol and caffeine. These can fill your bladder quickly and irritate it. Keep yourself clean to help prevent odors and skin damage. Ask your health care provider about special skin creams and cleansers that can protect the skin from urine. Consider wearing pads or adult diapers. Make sure to change them regularly, and always change them right after experiencing incontinence. General instructions Take [id number] and prescription medicines only as told by your health care provider. Use the bathroom about every 3 4 hours, even if you do not feel the need to urinate. Try to empty your bladder completely every time. After urinating, wait a minute. Then try to urinate again. Make sure you are in a relaxed position while urinating. If your incontinence is caused by nerve problems, keep a log of the medicines you take and the times you go to the bathroom. Keep all follow-up visits. This is important. Where to find more information [employer] [place] of [employer] and Digestive and Kidney Diseases: www.niddk.nih.gov [employer] [employer]: www.urologyhealth.org Contact a health care provider if: You have pain that gets worse. Your incontinence gets worse. Get help right away if: You have a fever or chills. You are unable to urinate. You have redness in your groin area or down your legs. Summary Urinary incontinence refers to a condition in which a person is unable to control where and when to pass urine. This condition may be caused by medicines, infection, weak bladder muscles, weak pelvic floor muscles, enlargement of the prostate (in men), or surgery. Factors such as older age, obesity, and childbirth, menopause, neurological diseases, and chronic coughing may increase your risk for developing this condition. Types of urinary incontinence include urge incontinence, stress incontinence, overflow incontinence, and functional incontinence. This condition is usually treated first with lifestyle and behavioral changes, such as quitting smoking, eating a healthier diet, and doing regular pelvic floor exercises. Other treatment options include medicines, bulking agents, medical devices, electrical nerve stimulation, or surgery. This information is not intended to replace advice given to you by your health care provider. Make sure you discuss any questions you have with your health care provider. Document Revised: 12/07/2020 Document Reviewed: 12/07/2020 [employer] ([employer]) Patient Education 2022 [employer]. Follow Up Care 11/05/2022 14:34:58 With:BRANDON STEWART, ALLA Callahan, URL Address: [address] [place] [address] When: Unknown [facility] 01-10-2022 Note PROCEDURE: XR ANKLE RT MIN 3 VIEWS, XR FOOT RT MIN 3 VIEWS HISTORY: Pain of right ankle joint ; follow-up distal right fibula fracture and right second metatarsal fracture. COMPARISON: XR right ankle and foot 12/11/2021 FINDINGS: BONES:Normal alignment of the distal fibula fracture increasing density of the fracture line and surrounding callus. Normal appearing tibiotalar joint. Normal alignment with increasing density of the base of second metatarsal fracture. SOFT TISSUES:No visible soft tissue swelling. EFFUSION:None visible. OTHER: Negative. IMPRESSION: 1. Ongoing bone healing of the right distal fibula fracture and base of second metatarsal fracture. Electronically authenticated by: SRINATH GUEVARA Date: 2022-01-10 09:50 [facility] 01-10-2022 Note PROCEDURE: XR ANKLE RT MIN 3 VIEWS, XR FOOT RT MIN 3 VIEWS HISTORY: Pain of right ankle joint ; follow-up distal right fibula fracture and right second metatarsal fracture. COMPARISON: XR right ankle and foot 12/11/2021 FINDINGS: BONES:Normal alignment of the distal fibula fracture increasing density of the fracture line and surrounding callus. Normal appearing tibiotalar joint. Normal alignment with increasing density of the base of second metatarsal fracture. SOFT TISSUES:No visible soft tissue swelling. EFFUSION:None visible. OTHER: Negative. IMPRESSION: 1. Ongoing bone healing of the right distal fibula fracture and base of second metatarsal fracture. Electronically authenticated by: SRINATH GUEVARA Date: 2022-01-10 09:50 [facility] 12-12-2021 Note PROCEDURE: XR ANKLE RT MIN 3 VIEWS, XR FOOT RT MIN 3 VIEWS COMPARISON: 11/01/2021 HISTORY: Pain of right ankle joint FINDINGS: BONES:Again demonstrated is a fracture of the distal fibular diaphysis with moderate periosteal reaction. Lucency identified along the base of the second metatarsal likely extending to the proximal articular surface. Mixed lytic and sclerotic changes consistent with healing. No new fracture or dislocation. Permeative pattern of the bones with cortical thinning suggests development of osteopenia. SOFT TISSUES:Mild soft tissue swelling EFFUSION:None visible. OTHER: Negative. IMPRESSION: Healing distal fibular and second metatarsal fractures Osteopenia Electronically authenticated by: JUVENAL BAPTISTE Date: 2021-12-12 06:39 [facility] 12-12-2021 Note PROCEDURE: XR ANKLE RT MIN 3 VIEWS, XR FOOT RT MIN 3 VIEWS COMPARISON: 11/01/2021 HISTORY: Pain of right ankle joint FINDINGS: BONES:Again demonstrated is a fracture of the distal fibular diaphysis with moderate periosteal reaction. Lucency identified along the base of the second metatarsal likely extending to the proximal articular surface. Mixed lytic and sclerotic changes consistent with healing. No new fracture or dislocation. Permeative pattern of the bones with cortical thinning suggests development of osteopenia. SOFT TISSUES:Mild soft tissue swelling EFFUSION:None visible. OTHER: Negative. IMPRESSION: Healing distal fibular and second metatarsal fractures Osteopenia Electronically authenticated by: JUVENAL BAPTISTE Date: 2021-12-12 06:39 [facility] 11-01-2021 Note PROCEDURE: XR ANKLE RT MIN 3 VIEWS, XR FOOT RT MIN 3 VIEWS HISTORY: Pain of right ankle joint COMPARISON: XR tib-fib right 09/19/2021, XR foot right 09/19/2021 FINDINGS: BONES:Subacute distal fibular fracture with slight medial displacement, and prominent callus formation consistent with ongoing bone healing. Unremarkable ankle joint. Normal alignment and partial ossification of the previously seen fracture line at base of second metatarsal. SOFT TISSUES:No visible soft tissue swelling. EFFUSION:None visible. OTHER: Negative. IMPRESSION: 1. Alignment is maintained and there is ongoing bone healing of the distal fibular fracture and second metatarsal fracture. Electronically authenticated by: SRINATH GUEVARA Date: 2021-11-01 17:48 [facility] 11-01-2021 Note PROCEDURE: XR ANKLE RT MIN 3 VIEWS, XR FOOT RT MIN 3 VIEWS HISTORY: Pain of right ankle joint COMPARISON: XR tib-fib right 09/19/2021, XR foot right 09/19/2021 FINDINGS: BONES:Subacute distal fibular fracture with slight medial displacement, and prominent callus formation consistent with ongoing bone healing. Unremarkable ankle joint. Normal alignment and partial ossification of the previously seen fracture line at base of second metatarsal. SOFT TISSUES:No visible soft tissue swelling. EFFUSION:None visible. OTHER: Negative. IMPRESSION: 1. Alignment is maintained and there is ongoing bone healing of the distal fibular fracture and second metatarsal fracture. Electronically authenticated by: SRINATH GUEVARA Date: 2021-11-01 17:48 [facility] Evaluation + Plan note No data available for this section [facility] Evaluation + Plan note Future Appointments Appointment Date:03/10/2023 03:00:00 PM Scheduled Provider:ALLA TAYLOR PA-C Location:[facility] Appointment Type:URO Office Visit [facility] Evaluation + Plan note Future Appointments Appointment Date:02/13/2023 08:15:00 AM Scheduled Provider: Location:[facility] Appointment Type:Urology CALL PAT FT Appointment Date:02/16/2023 08:30:00 AM Scheduled Provider: Location:[facility] Appointment Type:Urology FT [facility] Evaluation + Plan note Future Appointments Appointment Date:02/13/2023 08:15:00 AM Scheduled Provider: Location:[facility] Appointment Type:Urology CALL PAT FT Appointment Date:02/16/2023 08:30:00 AM Scheduled Provider: Location:[facility] Appointment Type:Urology FT Diagnostic Tests PendingUrine Culture 02/09/23 [facility] Evaluation + Plan note Future Appointments Appointment Date:03/18/2023 10:45:00 AM Scheduled Provider:Lin Ward MD Location:[facility] Appointment Type:URO Office Visit [facility] Evaluation + Plan note Future Appointments Appointment Date:04/15/2023 11:00:00 AM Scheduled Provider:Lin Ward MD Location:[facility] Appointment Type:URO Office Visit [facility] Evaluation + Plan note Future Appointments Appointment Date:12/02/2023 10:45:00 AM Scheduled Provider:Lin Ward MD Location:[facility] Appointment Type:URO Office Visit [facility] Evaluation + Plan note Future Appointments Appointment Date:12/18/2023 11:30:00 AM Scheduled Provider: Location:[facility] Appointment Type:Urology CALL PAT FT Appointment Date:12/21/2023 10:30:00 AM Scheduled Provider: Location:[facility] Appointment Type:Urology FT [facility] Evaluation + Plan note Future Appointments Appointment Date:12/18/2023 11:30:00 AM Scheduled Provider: Location:[facility] Appointment Type:Urology CALL PAT FT Appointment Date:12/21/2023 10:30:00 AM Scheduled Provider: Location:[facility] Appointment Type:Urology FT Diagnostic Tests PendingUrine Culture 12/02/23 [facility] Evaluation + Plan note Future Appointments Appointment Date:03/02/2024 11:00:00 AM Scheduled Provider: Location:[facility] Appointment Type:Urology CALL PAT FT Appointment Date:03/07/2024 08:30:00 AM Scheduled Provider: Location:[facility] Appointment Type:Urology FT Diagnostic Tests PendingUrine Culture 02/29/24 [facility] Evaluation + Plan note Future Appointments Appointment Date:03/02/2024 11:00:00 AM Scheduled Provider: Location:[facility] Appointment Type:Urology CALL PAT FT Appointment Date:03/07/2024 08:30:00 AM Scheduled Provider: Location:[facility] Appointment Type:Urology FT [facility] Evaluation + Plan note Future Appointments Appointment Date:10/21/2024 09:30:00 AM Scheduled Provider: Location:[facility] Appointment Type:Urology CALL PAT FT Appointment Date:10/24/2024 10:30:00 AM Scheduled Provider: Location:[facility] Appointment Type:Urology FT [facility] Evaluation note Diagnosis Osteopenia, unspecified location- Primary [facility] Diagnosis Encounter for medication refill- Primary Encounter for Medicare annual wellness exam Osteopenia, unspecified location Multiple sclerosis (CMS/HCC) Multiple sclerosis Recurrent major depressive disorder, in full remission (CMS/HCC) Major depressive disorder, single episode, in full remission (CMS/HCC) Major depressive disorder, single episode in full remission Non-seasonal allergic rhinitis, unspecified trigger Wheezing [facility] Diagnosis Multiple sclerosis (CMS/HCC)- Primary Multiple sclerosis Neurogenic bladder Neurogenic bladder, NOS Recurrent major depressive disorder, in full remission (CMS/HCC) Chronic fatigue Other malaise and fatigue Screening mammogram, encounter for Encounter for screening for malignant neoplasm of colon Multiple sclerosis (CMS/HCC)- Primary Multiple sclerosis Recurrent major depressive disorder, in full remission (CMS/HCC) Osteopenia, unspecified location Major depressive disorder, single episode, in full remission (CMS/HCC) Major depressive disorder, single episode in full remission Non-seasonal allergic rhinitis, unspecified trigger Neurogenic bladder Neurogenic bladder, NOS Major depressive disorder, single episode, in full remission (CMS/HCC) Major depressive disorder, single episode in full remission [facility] Diagnosis Multiple sclerosis (CMS/HCC)- Primary Multiple sclerosis Neurogenic bladder Neurogenic bladder, NOS Recurrent major depressive disorder, in full remission (CMS/HCC) Chronic fatigue Other malaise and fatigue Screening mammogram, encounter for Encounter for screening for malignant neoplasm of colon Multiple sclerosis (CMS/HCC)- Primary Multiple sclerosis Recurrent major depressive disorder, in full remission (CMS/HCC) Osteopenia, unspecified location Major depressive disorder, single episode, in full remission (CMS/HCC) Major depressive disorder, single episode in full remission Non-seasonal allergic rhinitis, unspecified trigger Neurogenic bladder Neurogenic bladder, NOS [facility] Diagnosis Multiple [facility] (CMS-HCC) Multiple sclerosis [facility] Multiple [facility] (CMS/HCC)- Primary Multiple sclerosis Neurogenic bladder Neurogenic bladder, NOS Recurrent major depressive disorder, in full remission (CMS/HCC) Chronic fatigue Other malaise and fatigue Screening mammogram, encounter for Encounter for screening for malignant neoplasm of colon Multiple sclerosis (CMS/HCC)- Primary Multiple sclerosis Recurrent major depressive disorder, in full remission (CMS/HCC) Osteopenia, unspecified location Major depressive disorder, single episode, in full remission (CMS/HCC) Major depressive disorder, single episode in full remission Non-seasonal allergic rhinitis, unspecified trigger Neurogenic bladder Neurogenic bladder, NOS Non-seasonal allergic rhinitis, unspecified trigger [facility] Diagnosis Multiple sclerosis (CMS-HCC)- Primary Multiple sclerosis Obesity (BMI 30-39.9) Dysphagia, unspecified type Demyelinating disease of central nervous system (CMS-HCC) Unspecified demyelinating disease of central nervous system Neurogenic bladder Neurogenic bladder, NOS Wheelchair confinement status Wheelchair dependence Gait instability Abnormality of gait Sensory ataxia Lack of coordination Chronic fatigue Other malaise and fatigue Short-term memory loss Memory loss Spasticity Abnormal involuntary movements 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) Other demyelinating diseases of central nervous system Urologic disorder Unspecified disorder of urethra and urinary tract [facility] Diagnosis Multiple sclerosis (CMS-HCC) Multiple sclerosis Chronic fatigue Other malaise and fatigue [facility] Diagnosis Multiple sclerosis (CMS-HCC)- Primary Multiple sclerosis Chronic fatigue Other malaise and fatigue [facility] Diagnosis Multiple sclerosis (CMS/HCC)- Primary Multiple sclerosis Neurogenic bladder Neurogenic bladder, NOS Recurrent major depressive disorder, in full remission (CMS/HCC) Chronic fatigue Other malaise and fatigue Screening mammogram, encounter for Encounter for screening for malignant neoplasm of colon Multiple sclerosis (CMS/HCC)- Primary Multiple sclerosis Recurrent major depressive disorder, in full remission (CMS/HCC) Osteopenia, unspecified location Major depressive disorder, single episode, in full remission (CMS/HCC) Major depressive disorder, single episode in full remission Non-seasonal allergic rhinitis, unspecified trigger Neurogenic bladder Neurogenic bladder, NOS Neurogenic bladder Neurogenic bladder, NOS [facility] Diagnosis Neurogenic bladder- Primary Neurogenic bladder, NOS Neurogenic bladder- Primary Neurogenic bladder, NOS Renal cyst Unspecified congenital cystic kidney disease Neurogenic bladder- Primary Neurogenic bladder, NOS Renal cyst Unspecified congenital cystic kidney disease Neurogenic bladder- Primary Neurogenic bladder, NOS Multiple sclerosis (CMS-HCC) Multiple sclerosis [facility] Diagnosis Neurogenic bladder- Primary Neurogenic bladder, NOS Neurogenic bladder- Primary Neurogenic bladder, NOS Renal cyst Unspecified congenital cystic kidney disease Neurogenic bladder- Primary Neurogenic bladder, NOS Renal cyst Unspecified congenital cystic kidney disease Neurogenic bladder- Primary Neurogenic bladder, NOS Multiple sclerosis (CMS-HCC) Multiple sclerosis Chronic fatigue Other malaise and fatigue [facility] Diagnosis Multiple sclerosis (CMS/HCC)- Primary Multiple sclerosis Neurogenic bladder Neurogenic bladder, NOS Recurrent major depressive disorder, in full remission (CMS/HCC) Chronic fatigue Other malaise and fatigue Screening mammogram, encounter for Encounter for screening for malignant neoplasm of colon Multiple sclerosis (CMS/HCC)- Primary Multiple sclerosis Recurrent major depressive disorder, in full remission (CMS/HCC) Osteopenia, unspecified location Major depressive disorder, single episode, in full remission (CMS/HCC) Major depressive disorder, single episode in full remission Non-seasonal allergic rhinitis, unspecified trigger Neurogenic bladder Neurogenic bladder, NOS Neurogenic bladder Neurogenic bladder, NOS Osteopenia, unspecified location Recurrent major depressive disorder, in full remission (CMS/HCC) [facility] Diagnosis Multiple sclerosis (CMS/HCC)- Primary Multiple sclerosis Neurogenic bladder Neurogenic bladder, NOS Recurrent major depressive disorder, in full remission (CMS/HCC) Chronic fatigue Other malaise and fatigue Screening mammogram, encounter for Encounter for screening for malignant neoplasm of colon Multiple sclerosis (CMS/HCC)- Primary Multiple sclerosis Recurrent major depressive disorder, in full remission (CMS/HCC) Osteopenia, unspecified location Major depressive disorder, single episode, in full remission (CMS/HCC) Major depressive disorder, single episode in full remission Non-seasonal allergic rhinitis, unspecified trigger Neurogenic bladder Neurogenic bladder, NOS Multiple sclerosis (CMS/HCC)- Primary Multiple sclerosis Neurogenic bladder Neurogenic bladder, NOS Osteoporosis, unspecified osteoporosis type, unspecified pathological fracture presence (CMS/HCC) Recurrent major depressive disorder, in full remission (CMS/HCC) Screening mammogram, encounter for Encounter for wellness examination Pap smear for cervical cancer screening Screening for malignant neoplasm of the cervix Wheelchair dependence [facility] Diagnosis Multiple sclerosis (CMS/HCC)- Primary Multiple sclerosis Neurogenic bladder Neurogenic bladder, NOS Recurrent major depressive disorder, in full remission (CMS/HCC) Chronic fatigue Other malaise and fatigue Screening mammogram, encounter for Encounter for screening for malignant neoplasm of colon Multiple sclerosis (CMS/HCC)- Primary Multiple sclerosis Recurrent major depressive disorder, in full remission (CMS/HCC) Osteopenia, unspecified location Major depressive disorder, single episode, in full remission (CMS/HCC) Major depressive disorder, single episode in full remission Non-seasonal allergic rhinitis, unspecified trigger Neurogenic bladder Neurogenic bladder, NOS Multiple sclerosis (CMS/HCC)- Primary Multiple sclerosis Neurogenic bladder Neurogenic bladder, NOS Osteoporosis, unspecified osteoporosis type, unspecified pathological fracture presence (CMS/HCC) Recurrent major depressive disorder, in full remission (CMS/HCC) Screening mammogram, encounter for Encounter for wellness examination Pap smear for cervical cancer screening Screening for malignant neoplasm of the cervix Wheelchair dependence Neurogenic bladder Neurogenic bladder, NOS Recurrent major depressive disorder, in full remission (CMS/HCC) [facility] Diagnosis Multiple sclerosis (HCC)- Primary Multiple sclerosis Neurogenic bladder Neurogenic bladder, NOS Recurrent major depressive disorder, in full remission Chronic fatigue Other malaise and fatigue Screening mammogram, encounter for Encounter for screening for malignant neoplasm of colon Multiple sclerosis (HCC)- Primary Multiple sclerosis Recurrent major depressive disorder, in full remission Osteopenia, unspecified location Major depressive disorder, single episode, in full remission Major depressive disorder, single episode in full remission Non-seasonal allergic rhinitis, unspecified trigger Neurogenic bladder Neurogenic bladder, NOS Multiple sclerosis (HCC)- Primary Multiple sclerosis Neurogenic bladder Neurogenic bladder, NOS Osteoporosis, unspecified osteoporosis type, unspecified pathological fracture presence Recurrent major depressive disorder, in full remission Screening mammogram, encounter for Encounter for wellness examination Pap smear for cervical cancer screening Screening for malignant neoplasm of the cervix Wheelchair dependence Osteopenia, unspecified location Recurrent major depressive disorder, in full remission Major depressive disorder, single episode, in full remission Major depressive disorder, single episode in full remission Non-seasonal allergic rhinitis, unspecified trigger Neurogenic bladder Neurogenic bladder, NOS [facility] Diagnosis Neurogenic bladder- Primary Neurogenic bladder, NOS Neurogenic bladder- Primary Neurogenic bladder, NOS Renal cyst Unspecified congenital cystic kidney disease Neurogenic bladder- Primary Neurogenic bladder, NOS Renal cyst Unspecified congenital cystic kidney disease Neurogenic bladder- Primary Neurogenic bladder, NOS Multiple sclerosis (CMS-HCC) Multiple sclerosis [facility] Diagnosis Multiple sclerosis (HCC)- Primary Multiple sclerosis Neurogenic bladder Neurogenic bladder, NOS Recurrent major depressive disorder, in full remission Chronic fatigue Other malaise and fatigue Screening mammogram, encounter for Encounter for screening for malignant neoplasm of colon Multiple sclerosis (HCC)- Primary Multiple sclerosis Recurrent major depressive disorder, in full remission Osteopenia, unspecified location Major depressive disorder, single episode, in full remission Major depressive disorder, single episode in full remission Non-seasonal allergic rhinitis, unspecified trigger Neurogenic bladder Neurogenic bladder, NOS Multiple sclerosis (HCC)- Primary Multiple sclerosis Neurogenic bladder Neurogenic bladder, NOS Osteoporosis, unspecified osteoporosis type, unspecified pathological fracture presence Recurrent major depressive disorder, in full remission Screening mammogram, encounter for Encounter for wellness examination Pap smear for cervical cancer screening Screening for malignant neoplasm of the cervix Wheelchair dependence Neurogenic bladder Neurogenic bladder, NOS [facility] No data available for this section [facility] InstructionsNot on filedocumented in this encounter [facility] filed[facility]ed in [facility] filedocumented in [facility] filedocumented in this encounter [facility] filedocumented in this encounter [facility] filedocumented in this [facility] filedocumented in [facility] No data available for this section [facility] Summary Purpose Family History No Family History Records FoundNo Family History Records Found No data available for this section No data available for this section No data available for this section No data available for this section No data available for this section No Family History Records Found No data available for this section No data available for this section No data available for this section No Family History Records FoundNo Family History Records Found No data available for this section No Family History Records FoundNo Family History Records FoundNo Family History Records Found No data available for this section No Family History Records Found No data available for this section No Family History Records Found Advance Directives Documents on File Type Date Recorded 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 Power of Parts Representative 02/22/2024 3:23 PM power of enamel dipper Documents on File Type Date Recorded 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 Power of Parts Representative 02/22/2024 3:23 PM power of enamel dipper Reason for Referral Specialty Diagnoses / Procedures Referred By Contac t Referred To Contact Diagnoses Multiple sclerosis ([facility]) Wheelchair dependence Demyelinating disease of the spinal cord ([facility]) Procedures Disability/Handicap Aquiles Zamarripa MD [address] [place] [address], [address] [address] Referral ID Status Reason Start Date Expiration Date V isits Requested Visits Authorized [id number] Pending Review 06/30/2023 06/29/2024 1 1 Additional Source Comments INFORMATION SOURCE (unrecogn ized section and content) DATE CREATED AUTHOR 06/16/2021 [facility] DATE CREATED AUTHOR AUTHOR'S ORGANIZ ATION 07/08/2022 [facility] DATE CREATED AUTHOR AUTHOR'S ORGANIZ ATION 12/07/2023 [facility] DATE CREATED AUTHOR AUTHOR'S ORGANIZ ATION 03/04/2024 [facility] DATE CREATED AUTHOR AUTHOR'S ORGANIZ ATION 03/06/2024 [facility] DATE CREATED AUTHOR AUTHOR'S ORGANIZ ATION 10/14/2024 [facility] DATE CREATED AUTHOR AUTHOR'S ORGANIZ ATION 10/19/2024 [facility] DATE CREATED AUTHOR AUTHOR'S ORGANIZ ATION 10/21/2024 [facility] DATE CREATED AUTHOR AUTHOR'S ORGANIZ ATION 10/27/2024 [facility] DATE CREATED AUTHOR AUTHOR'S ORGANIZ ATION 12/11/2024 [facility] Patient Care team informatio n (unrecognized section and content) Land Planner Relationship Specialty Start Date End Date Shaikh Ramírez MD [address] [facility] [place] [phone] PCP - Devoted 02/15/23 Shaikh Ramírez MD [address] [place] [phone] PCP - General Internal Medicine 06/23/23 Land Planner Relationship Specialty Start Date End Date Johnson Lorenz MD [address] [place] [phone] PCP - General Family Medicine 12/28/23 Marisel Victoria NP [address] [place] [phone] Nurse Practitioner Family Medicine 12/28/23 Land Planner Relationship Specialty Start Date End Date Johnson Lorenz MD [address] [place] [phone] PCP - General Family Medicine 12/28/23 Marisel Victoria NP [address] [place] [phone] Nurse Practitioner Family Medicine 12/28/23 Land Planner Relationship Specialty Start Date End Date Johnson Lorenz MD [address] [place] [phone] PCP - General Family Medicine 04/04/24 Marisel Victoria NP [address] [place] [address] Nurse Practitioner Family Medicine 12/28/23 Land Planner Relationship Specialty Start Date End Date Johnson Lorenz MD [address] [place] [phone] PCP - General Family Medicine 04/04/24 Marisel Victoria NP [address] [place] [address] Nurse Practitioner Family Medicine 12/28/23 Land Planner Relationship Specialty Start Date End Date Johnson Lorenz MD [address] [place] [phone] PCP - General Family Medicine 04/04/24 Marisel Victoria NP [address] [place] [address] Nurse Practitioner Family Medicine 12/28/23 Land Planner Relationship Specialty Start Date End Date Ashley Gale MD [address] [place] [address] PCP - General Family Medicine 10/20/17 Land Planner Relationship Specialty Start Date End Date Ashley Gale MD [address] [place] [address] PCP - General Family Medicine 10/20/17 Land Planner Relationship Specialty Start Date End Date Ashley Gale MD [address] [place] [address] PCP - General Family Medicine 10/20/17 Land Planner Relationship Specialty Start Date End Date Ashley Gale MD [address] [place] [address] PCP - General Family Medicine 10/20/17 Land Planner Relationship Specialty Start Date End Date Ashley Gale MD [address] [place] [address] PCP - General Family Medicine 10/20/17 Land Planner Relationship Specialty Start Date End Date Ashley Gale MD [address] [place] [address] PCP - General Family Medicine 10/20/17 Land Planner Relationship Specialty Start Date End Date Ashley Gale MD [address] [place] [address] PCP - General Family Medicine 10/20/17 Land Planner Relationship Specialty Start Date End Date Ashley Gale MD [address] [place] [address] PCP - General Family Medicine 10/20/17 Land Planner Relationship Specialty Start Date End Date Johnson Lorenz MD [address] [place] [phone] PCP - General Family Medicine 04/04/24 Marisel Victoria NP Nurse Practitioner Family Medicine 12/28/23 Land Planner Relationship Specialty Start Date End Date Johnson Lorenz MD [address] [place] [phone] PCP - General Family Medicine 04/04/24 Marisel Victoria NP Nurse Practitioner Family Medicine 12/28/23 Land Planner Relationship Specialty Start Date End Date Johnson Lorenz MD [address] [place] [phone] PCP - General Family Medicine 04/04/24 Marisel Victoria NP Nurse Practitioner Family Medicine 12/28/23 Land Planner Relationship Specialty Start Date End Date Johnson Lorenz MD [address] [place] [phone] PCP - General Family Medicine 04/04/24 Marisel Victoria NP Nurse Practitioner Family Medicine 12/28/23 Land Planner Relationship Specialty Start Date End Date Ashley Gale MD [address] [place], [place] [phone] PCP - General [facility] 10/20/17 Land Planner Relationship Specialty Start Date End Date Johnson Lorenz MD [address] [place] [phone] PCP - General [facility] 04/04/24 Marisel Victoria NP Nurse Practitioner [facility] Medicine 12/28/23 Reason for Visit (unrecogniz ed section and content) Reason Comments Annual Exam Medicare wellness Reason Comments Med Refill Reason Comments Follow-up Reason Onset Date Comments Med Refill 09/22/2023 Reason Onset Date Comments Med Refill 06/28/2024 Reason Onset Date Comments Valid Contact Info 09/30/2023 Reason Comments Follow-up Patient presents for follow up, Patient is starting to have left leg shake in the morning, would like to talk about prescriptions, and needs handicap placard. Patient has had Botox shot in bladder, it seemed to help some. [facility] [place]. Reason Onset Date Comments Med Refill 07/01/2023 Reason Onset Date Comments 12/24 Bee 11/04/2023 Reason Onset Date Comments Med Refill 01/12/2024 Reason Onset Date Comments 05/06 Bee 02/02/2024 Reason Onset Date Comments Med Refill 07/18/2024 Reason Onset Date Comments Med Refill 09/12/2024 Reason Onset Date Comments Med Refill 09/26/2024 Reason Comments Multiple Sclerosis Reason Onset Date Comments Med Refill 10/12/2024 Reason Onset Date Comments Med Refill 11/14/2024 Reason Onset Date Comments Med Refill 12/13/2024 FOR RECORDS PERTAINING TO PATIENTS WHO ARE OR HAVE BEEN ENROLLED IN A CHEMICAL DEPENDENCY/SUBSTANCEABUSE PROGRAM, SOME INFORMATION MAY BE OMITTED. This clinical summary was aggregated from multiple sources. Caution should be exercised in using it in the provision of clinical care. This summary normalizes information from multiple sources, and as a consequence, information in this document may materially change the coding, format and clinical context of patient data. In addition, data may be omitted in some cases. CLINICAL DECISIONS SHOULD BE BASED ON THE PRIMARY CLINICAL RECORDS. [facility] [employer] provides no warranty or guarantee of the accuracy or completeness of information in this document.
[2025-01-09 15:08] LABS: Hematocrit 42.8 % (36.0-48.0); Hemoglobin 14.6 g/dL (12.0-16.0); Immature Granulocytes Abs Auto 0.02 10^3/uL (0.00-0.03); Immature Granulocytes Pct Auto 0.3 % (0.0-0.5); Lymphocytes Absolute Auto 0.4 10^3/uL (1.2-3.8); Mean Corpuscular HGB Conc 34.1 g/dL (29.9-35.2); Mean Corpuscular Hemoglobin 28.3 pg (26.7-34.0); Mean Corpuscular Volume 83.1 fL (81.0-99.0); Platelet Count 245 10^3/uL (150-450); Red Blood Count 5.15 10^6/uL (4.20-5.40); White Blood Count 6.8 10^3/uL (4.0-11.0)
[2025-01-09 15:27] LABS: Alanine Aminotransferase 31 U/L (14-59); Albumin Globulin Ratio 1.2; Albumin Level 4.1 g/dL (3.4-5.0); Alkaline Phosphatase 105 U/L (46-116); Anion Gap 12.8; Aspartate Amino Transferase 17 U/L (15-37); Blood Urea Nitrogen 13.0 mg/dL (7.0-18.0); Calcium 9.0 mg/dL (8.5-10.1); Carbon Dioxide 26.3 mmol/L (21.0-32.0); Chloride 106 mmol/L (98-107); Cholesterol 237 mg/dL (<=200); Estimated GFR (African America >60 (>=60 mL/min/1.73m^2); Estimated GFR (Non-African Ame >60 (>=60 mL/min/1.73m^2); Globulin 3.5 g/dL; Glucose 84 mg/dL (74-106); HDL Cholesterol 46 mg/dL (40-60); Magnesium 1.8 mg/dL (1.8-2.4); Potassium 4.1 mmol/L (3.5-5.1); Sodium 141 mmol/L (136-145); Thyroid Stimulating Hormone 2.336 uIU/mL (0.358-3.740); Total Protein 7.6 g/dL (6.4-8.2); Triglycerides 123 mg/dL (<=150); VLDL CHOLESTEROL 24.6 mg/dL
== END 2025-01-09 14:31 | disposition home or self-care (01) ==
LOC: LAB 14:31
PROVIDERS: PCP Nurse Practitioner; Visit Provider Nurse Practitioner
DX: Z00.00 Encounter for general adult medical examination without abnormal findings (principal); M62.838 Other muscle spasm
CPT/HCPCS: 36415; 80053; 80061; 83735; 84443; 85025

== ENCOUNTER 2025-04-11 10:47 | Emergency (ER) | payer MEDICARE, SELFPAY ==
[2025-04-11] VITALS (14 sets, daily range): BP systolic 118–124; BP diastolic 80–83; PULSE 85–96; TEMP 36.4–36.7; O2SAT 95–98; BMI 28.3
--- NOTE | 2025-04-11 10:59 | XR_ITS ---
[facility] [place] [id number] Patient Name: IAN ROBBINS MRN: [id number] date: 1970 Sex: F Assigned Patient Location: ER Current Patient Location: ER Accession/Order Number: [id number] Exam Date: 04/11/2025 11:05 Report Date: 04/11/2025 11:22 At the request of: LYNDA WESTON MD Procedure: XR chest 1V PORTABLE AP ERECT CHEST 1050 hours CLINICAL HISTORY: Weakness. Urinary tract infection. COMPARISON: None Evaluation is slightly limited by body habitus and position. The heart is top normal in size. There is no vascular congestion. No focal consolidation is seen. There is no sizable effusion or pneumothorax. The osseous structures are intact. XR/XR chest 1V IMPRESSION: NO ACUTE FINDINGS Impression dictated by: Malgorzata Worthy M.D. 04/11/2025 11:22 AM Dictation Location: [place] [address] Electronically authenticated by: [id number] Y Date: 04/11/2025 11:22
--- NOTE | 2025-04-11 10:59 | ECG_ITS ---
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
--- NOTE | 2025-04-11 11:00 | ED.GENADUL1 ---
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 She is a poor historian. She does not know what year it is and she is not certain of her age. She does not seem to be a good historian. She was transported here by paramedics. Apparently home care nurses took out her catheter for the monthly change and they put a new 1 in but no urine came out so they took it back out. Related Data Home Medications ?Medication ?Instructions ?Recorded ?Confirmed alendronate 35 mg tablet 35 mg PO QWEEK 04/11/25 04/11/25 aspirin 81 mg tablet,delayed 81 mg PO DAILY 04/11/25 04/11/25 release (Adult Aspirin Regimen) baclofen 10 mg tablet 10 mg PO Q12H 04/11/25 04/11/25 bupropion HCl 150 mg 24 hr tablet, 150 mg PO QDAY 04/11/25 04/11/25 extended release calcium carbonate (Calcium 500) 500 mg PO DAILY 04/11/25 04/11/25 diroximel fumarate 231 mg 462 mg PO BID 04/11/25 04/11/25 capsule,delayed release (Vumerity) fluoxetine 40 mg capsule 40 mg PO QDAY 04/11/25 04/11/25 modafinil 200 mg tablet 200 mg PO QDAY 04/11/25 04/11/25 montelukast 10 mg tablet 10 mg PO .qhs 04/11/25 04/11/25 niacin 500 mg tablet,extended 500 mg PO DAILY 04/11/25 04/11/25 release nystatin 100,000 unit/gram topical 1 applic topical QDAY 04/11/25 04/11/25 powder solifenacin 5 mg tablet 5 mg PO QDAY 04/11/25 04/11/25 Previous Rx's ?Medication ?Instructions ?Recorded cephalexin 500 mg capsule 500 mg PO TID 10 days #30 caps 04/11/25 Allergies Allergy/AdvReac Type Severity Reaction Status Date / Time No Known Drug Allergies Allergy Verified 04/11/25 10:48 Review of Systems ROS Narrative Not obtainable, not fully oriented PFSH PFSH Social History (System 12/14/23 @ 13:23 by Randa Dlae) Little interest or pleasure in doing things: not at all Feeling down, depressed, or hopeless: not at all Exam Narrative Exam Narrative: Nurses note and vital signs reviewed General:The patient appears in no apparent distress.Patient is resting comfortably on cart. Skin:Warm, dry, no pallor noted.There is no rash noted. Head:Normocephalic, atraumatic Eye: Normal conjunctiva, no drainage Ears, Nose, Mouth, and Throat: oral mucosa is slightly dry. Nares patent. Cardiovascular:Regular Rate and Rhythm Respiratory:Patient is in no distress, no accessory muscle use, lungs are clear to auscultation, no wheezing, rales or rhonchi GI: Soft and nontender Musculoskeletal: Lower extremities have some contractures Neurological: Awake and alert. She knows her name. She is not certain of her age, she reported 54-quirino and she does not know the year. She knows where she is Psychiatric:Cooperative Constitutional Vital Signs, click to edit/add: Last Vital Signs Temp 98.1 F 04/11/25 10:50 Pulse 88 04/11/25 10:50 Resp 16 04/11/25 10:50 BP 118/80 04/11/25 10:50 Pulse Ox 96 04/11/25 10:50 O2 Del Method Room Air 04/11/25 10:50 Course Vital Signs Vital signs: Vital Signs Temperature 98.1 F 04/11/25 10:50 Pulse Rate 88 04/11/25 10:50 Respiratory Rate 16 04/11/25 10:50 Blood Pressure 118/80 04/11/25 10:50 Pulse Oximetry 96 04/11/25 10:50 Oxygen Delivery Method Room Air 04/11/25 10:50 Temperature 98.1 F 04/11/25 10:50 Pulse Rate 88 04/11/25 10:50 Respiratory Rate 16 04/11/25 10:50 Blood Pressure 118/80 04/11/25 10:50 Pulse Oximetry 96 04/11/25 10:50 Oxygen Delivery Method Room Air 04/11/25 10:50 Medical Decision Making MDM Narrative Medical decision making narrative: UTI is identified and she was given IV Rocephin and prescribed Keflex. She was also given Diflucan. Nurse noted when they placed her Ta catheter that she had a thick white discharge. She does not require admission in the hospital and findings are discussed thoroughly with the patient. Differential Diagnosis Differential Diagnosis: UTI, Ta catheter problem, dehydration Lab Data Lab results reviewed: Yes I reviewed the patient's lab results Labs: Lab Results 04/11/25 04/11/25 Range/Units 11:00 12:00 WBC 6.9 (4.0-11.0) 10^3/uL RBC 4.70 (4.20-5.40) 10^6/uL Hgb 13.4 (12.0-16.0) g/dL Hct 39.0 (36.0-48.0) % MCV 83.0 (81.0-99.0) fL MCH 28.5 (26.7-34.0) pg MCHC 34.4 (29.9-35.2) g/dL RDW 13.2 (11.0-15.0) % Plt Count 277 (150-450) 10^3/uL MPV 8.9 L (9.5-13.5) fL Seg Neuts % (Manual) 81.0 H (43.0-75.0) Lymphocytes % (Manual) 2.0 L (20.5-60.0) % Monocytes % (Manual) 11.0 (1.7-12.0) % Eosinophils % (Manual) 5.0 (0.9-7.0) % Basophils % (Manual) 1.0 (0.2-2.0) % Neutrophils # (Manual) 5.58 (1.4-6.5) 10^3/uL Lymphocytes # (Manual) 0.13 L (1.20-3.80) 10^3/uL Monocytes # (Manual) 0.75 (0.30-0.80) 10^3/uL Eosinophils # (Manual) 0.34 (0.00-0.70) 10^3/uL Basophils # (Manual) 0.06 (0.00-0.10) 10^3/uL Sodium 141 (136-145) mmol/L Potassium 3.8 (3.5-5.1) mmol/L Chloride 103 (98-107) mmol/L Carbon Dioxide 28.3 (21.0-32.0) mmol/L Anion Gap 13.5 BUN 12.0 (7.0-18.0) mg/dL Creatinine 0.55 (0.55-1.02) mg/dL Est GFR ( Amer) >60 (>=60 mL/min/1.73m^2) Est GFR (Non-Af Amer) >60 (>=60 mL/min/1.73m^2) BUN/Creatinine Ratio 21.8 Glucose 89 (74-106) mg/dL Calcium 9.7 (8.5-10.1) mg/dL Urine Color Lt. yellow (YELLOW) Urine Clarity Cloudy A (CLEAR) Urine pH 7.5 (5.0-9.0) Ur Specific [place] 1.025 (1.005-1.025) Urine Protein >=300 A (NEG/TRACE) mg/dL Urine Glucose (UA) Negative (NEGATIVE) mg/dL Urine Ketones Negative (NEGATIVE) mg/dL Urine Occult Blood Large A (NEGATIVE) Urine Nitrite Positive A (NEGATIVE) Urine Bilirubin Negative (NEGATIVE) Urine Urobilinogen 1.0 (0.2-1.0) EU/dL Ur Leukocyte Esterase Large A (NEGATIVE) Urine RBC 5-10 A (0-2) #/HPF Urine WBC 75-100 A (NONE SEEN) #/HPF Ur Squamous Epith Cells Rare (NONE/RARE) #/LPF Urine Crystals None seen (None Seen) #/HPF Urine Bacteria Large A (NONE SEEN) #/HPF Urine Casts None seen (NONE SEEN) #/LPF Urine Mucus Trace A (NONE SEEN) Ur Culture Indicated? Yes-[facility] Discharge Plan Discharge Chief Complaint: Urogenital-Female Clinical Impression: Urinary tract infection, At catheter problem Patient Disposition: Home, Self-Care Time of Disposition Decision: 12:54 Condition: Good Mode of Transportation: Private Vehicle Prescriptions / Home Meds: New cephalexin 500 mg capsule 500 mg PO TID 10 Days Qty: 30 0RF No Action alendronate 35 mg tablet 35 mg PO QWEEK baclofen 10 mg tablet 10 mg PO Q12H bupropion HCl 150 mg tablet extended release 24 hr 150 mg PO QDAY Vumerity 231 mg capsule,delayed release(DR/EC) 462 mg PO BID fluoxetine 40 mg capsule 40 mg PO QDAY modafinil 200 mg tablet 200 mg PO QDAY montelukast 10 mg tablet 10 mg PO .qhs nystatin 100,000 unit/gram powder 1 applic TOPICAL QDAY solifenacin 5 mg tablet 5 mg PO QDAY niacin 500 mg tablet extended release 500 mg PO DAILY aspirin [Adult Aspirin Regimen] 81 mg tablet,delayed release (DR/EC) 81 mg PO DAILY calcium carbonate [Calcium 500] 500 mg calcium (1,250 mg) tablet,chewable 500 mg PO DAILY Print Language: Luxembourgish Instructions: Urinary Tract Infection in Women (ED), Catheter-associated Urinary Tract Infection (ED) Referrals: Thea Sood NP [Primary Care Provider, Family Practice] - 1 week
[2025-04-11 11:12] LABS: Hematocrit 39.0 % (36.0-48.0); Hemoglobin 13.4 g/dL (12.0-16.0); Mean Corpuscular HGB Conc 34.4 g/dL (29.9-35.2); Mean Corpuscular Hemoglobin 28.5 pg (26.7-34.0); Mean Corpuscular Volume 83.0 fL (81.0-99.0); Platelet Count 277 10^3/uL (150-450); Red Blood Count 4.70 10^6/uL (4.20-5.40); White Blood Count 6.9 10^3/uL (4.0-11.0)
[2025-04-11 11:22] LABS: Chloride 103 mmol/L (98-107); Potassium 3.8 mmol/L (3.5-5.1); Sodium 141 mmol/L (136-145)
[2025-04-11 11:23] LABS: Anion Gap 13.5; Blood Urea Nitrogen 12.0 mg/dL (7.0-18.0); Calcium 9.7 mg/dL (8.5-10.1); Carbon Dioxide 28.3 mmol/L (21.0-32.0); Estimated GFR (African America >60 (>=60 mL/min/1.73m^2); Estimated GFR (Non-African Ame >60 (>=60 mL/min/1.73m^2); Glucose 89 mg/dL (74-106)
[2025-04-11 11:59] LABS: Basophils Abs Manual 0.06 10^3/uL (0.00-0.10); Basophils Percent Manual 1.0 % (0.2-2.0); Eosinophils Absolute Manual 0.34 10^3/uL (0.00-0.70); Eosinophils Percent Manual 5.0 % (0.9-7.0); Lymphocytes Absolute Manual 0.13 10^3/uL (1.20-3.80); Lymphocytes Percent Manual 2.0 % (20.5-60.0); Monocytes Absolute Manual 0.75 10^3/uL (0.30-0.80); Monocytes Percent Manual 11.0 % (1.7-12.0); Segmented Neut Absolute Manual 5.58 10^3/uL (1.4-6.5); Segmented Neutrophils % Manual 81.0 (43.0-75.0)
[2025-04-11] MEDS: 0.9 % SODIUM CHLORIDE 1,000 ML 1000 ML IV (12:02)
--- OUTSIDE RECORDS SUMMARY | 2025-04-11 12:02 | XMS_ITS | Clinical Summary ---
Author Organization [employer] [facility] Address [id number] [address] [place] [address] Care Team Providers Care Medical Reception Name Role Phone Aquiles Canales MD Primary Care Provider [phone] Allergies No known active allergies Medications MedicationSigDispense QuantityRefillsLast FilledStart DateEnd DateStatus cholecalciferol, vitamin D3, 2,000 units tablet Take 1 tablet (2,000 Units total) by mouth in the morning.03/10/2022ctive montelukast (SINGULAIR) 10 mg tablet Take 1 tablet (10 mg total) by mouth nightly.03/10/2022ctive FLUoxetine (PROzac) 40 mg capsule Take 1 capsule (40 mg total) by mouth in the morning.03/10/2022ctive alendronate (FOSAMAX) 35 mg tablet Take 1 tablet (35 mg total) by mouth once a week.03/08/2022ctive aspirin (KHALIF LOW DOSE ASPIRIN) 81 mg Take 1 tablet (81 mg total) by mouth in the morning.Active calcium carbonate (OS-DARRELL) 600 mg (1,500 mg) tablet Take 1 tablet (600 mg total) by mouth in the morning.Active buPROPion SR (WELLBUTRIN SR) 150 mg 12 hr tablet Indications:Multiple sclerosis,Depressed moodTake 1 tab twice daily. 60 tablet ctive solifenacin (VESICARE) 5 mg tablet Indications:Multiple sclerosisTake 2 tablets (10 mg total) by mouth in the morning. 60 tablet ctive diroximel fumarate (VUMERITY) 231 mg capsule,delayed release(DR/EC) Indications:Multiple sclerosisTake 462 mg by mouth in the morning and 462 mg before bedtime. 360 capsule 5Active baclofen (LIORESAL) 10 mg tablet Indications:Demyelinating disease of central nervous system (CMS-HCC),Spasticity ,Multiple sclerosisTake 2 tablets (20 mg total) by mouth 3 (three) times a day. 60 tablet 5Active LORazepam (ATIVAN) 1 mg tablet Indications:Claustrophobia,AnxietyTake 1 tablet 60 minutes before the scheduled MRI scan, and if needed take the secondary tablet just before the scan. 2 tablet 5Active modafiniL (PROVIGIL) 200 mg tablet Indications:Multiple sclerosis,Chronic fatigueTake 1 tablet (200 mg total) by mouth in the morning. 30 tablet 5115Active modafiniL (PROVIGIL) 200 mg tablet Indications:Multiple sclerosis,Chronic fatigueTake 1 tablet (200 mg total) by mouth in the morning. 30 tablet Discontinued(Reorder) Active Problems ProblemNoted DateDiagnosed DateWeakness of both lower aalftaaxlxf50/16/2025Falls udxjaodjbb40/10/2025Depressed mood10/25/2024lurred vision, right eye10/25/2024 Demyelinating disease of central nervous tjcvmu3810/29/2022Multiple sclerosis 2Obesity (BMI 30-39.9)05/14/2022Wheelchair confinement jnmftr1205/14/2022 Overview (02/15/2023): replacing diagnoses that were inactivated after the 02/15 regulatory import Djgwmrfdk01/28/2022Gait xobuzitaxxn91/28/2022ensory fyzwrc2905/14/2022hronic pvdywgv3205/14/2022hort-term memory loss05/14/2022Neurogenic ulwhsbg8507/23/2016 Overview (09/08/2016): ==== 07/23/2016 ==== has MS. ==== 09/08/2016 ==== urinary incontinence. Workup demonstrated hyperactive or overactive bladder with uncontrolled uninhibited bladder contractions. Lower volumes. She is on Detrol 2 mg. Urodynamic study reviewed. Unreliable study. Ultrasound within the last year no hydro. Plan: Increased Detrol to 4 mg. Return to clinic. Could be headed toward Botox. Assessment & Plan (03/18/2017 3:43 PM EDT): Still unsure whether not she is on the meds. She is with her significant other today. Negative for years. This first-time of minimum. Plan would be then diligent in persistent use of the medication over 2 months and then return to clinic in determine how we need to proceed. Assessment & Plan (02/04/2017 3:59 PM EDT): Patient poor recollection regarding medications. Therefore she is to bring all of her medications next appointment. This way we can see if she is on tolterodine or not. Then determine how to proceed Assessment & Plan (12/08/2016 1:23 PM EDT): Does not take Detrol LA. Still with urgent urge incontinence. Plan: Obtain baseline serum studies and repeat ultrasound. Return to clinic. Discuss anticholinergic versus Botox at that time. Assessment & Plan (09/08/2016 1:38 PM EDT): Does return to clinic 3 months Renal cyst07/14/2016 Overview (02/04/2017): +++++++++ 07/14/2016 ALLSCRIPTS SUMMARY +++++++++++ November 2014 Bosniak 2 cyst on MRI Subsequent ultrasound stable Bosniak 2 cyst--most recent ultrasound summer 2016 stable Assessment & Plan (12/08/2016 1:23 PM EDT): Ordered repeat ultrasound Urologic yacigpws06/27/2017 Overview (07/23/2016): +++++++++ 07/14/2016 ALLSCRIPTS SUMMARY +++++++++++ May 2015 addressed left ovarian cyst. Patient sees Dr. Torres. She was to follow up with Dr. Torres ==== 07/23/2016 ==== Did not f/u. Will send to [facility] Resolved Problems ProblemNoted DateDiagnosed DateResolved DateMixed stress and urge urinary xkdgbunkauzq84 Overview (07/23/2016): +++++++++ 07/14/2016 ALLSCRIPTS SUMMARY +++++++++++ Workup ordered ==== 07/23/2016 ==== was not completed will reorder Encounters DateTypeDepartmentCare XjgmTtyongxpgof25/24/2025Telephone [facility], [facility] Department of [facility] [address] [place] [address] Tamela Waldrop 03/24/2025Refill [facility], [facility] Department of [facility] [address] [place] [phone] [phone] Milly Reich Multiple sclerosis; Chronic pqqssax3703/20/2025 12:32 PM EST - 03/20/2025 11:59 PM ESTHospital Encounter [facility] [address] [place] [phone] Aquiles Canales MD Demyelinating disease of central nervous system ([facility]-HCC); Neurogenic bladder; Weakness of both lower extremities Discharge Disposition: Home03/20/20255133Ztxleq43/28/2025Lab Requisition [facility] - Lab [address] [place] [phone] Lin Ward MD Unspecified symptoms and signs involving the genitourinary system; Unspecified abnormal findings in urine; Urinary tract infection, site not mxvvfohqk12/27/2025 12:20 PM EDT - 03/13/2025 3:07 PM EDTEmergency [facility] Emergency [address] [place] [phone] Discharge Disposition: Left Without Ispyfqatt79/27/2025Telephone [facility], [facility] Department of [facility] [address] [place] [phone] Inocencio Maradiaga Jnnxiymp04/27/2210Plivor87/24/2025Telephone [facility], [facility] Department of [facility] [address] [place] [phone] Lady Metcalf 02/03/2025Results Follow-Up [facility] [place] [address] [place] [address] Aquiles Canales MD Urinalysis, Urine juppizf6401/31/2025 2:30 PM EDTOffice Visit [facility] [place] [address] [place] [address] Aquiles Canales MD Demyelinating disease of central nervous system (CMS-HCC) (Primary Dx); Dysphagia, unspecified type; Neurogenic bladder; Wheelchair confinement status; Gait instability; Sensory ataxia; Chronic fatigue; Spasticity; Immunosuppressed due to chemotherapy; Depressed mood; Falls frequently; Short-term memory loss; Weakness of both lower extremities; Multiple sclerosis; Dysuria; Acute cystitis without /16/2025Travelfrom Last 3 Months Family History RelationNameStatusCommentsFatherAliveMotherAlive Social History Tobacco UseTypesPacks/DayYears UsedDateSmoking Tobacco: NeverSmokeless Tobacco: Never Tobacco Cessation:Counseling Given: Not Answered Alcohol UseStandard Drinks/WeekCommentsNever0 (1 standard drink = 0.6 oz pure alcohol)PHQ-2AnswerDate RecordedTotal Yehzh2905ChildcareAnswerDate EbomagotWfvmrveaaKgucpgg90/12/2019EmploymentAnswerDate RecordedEmploymentUnknown 10/27/2018Hunger ScreeningAnswerDate RecordedWithin the past 12 months we worried whether our food would run out before we got money to buy more.Never True03/13/2025Within the past 12 months the food we bought just didn't last and we didn't have money to get more.Never True03/13/2025Purpose - LifeAnswerDate RecordedPurpose and direction in ikgmKsejccr79/11/2021CommentsUnknownSex and Gender InformationValueDate RecordedSex Assigned at BirthNot on fileLegal CohKurrtz31/06/2015 12:11 PM EDTGender IdentityNot on fileSexual OrientationNot on file Last Filed Vital Signs Vital SignReadingTime TakenCommentsBlood Ycbadvhr207/801 12:47 PM EDT Cxqis2398/27/2025 12:47 PM WULTtceutahmdb60.5 ??C (97.7 ??F)03/13/2025 12:47 PM EDTRespiratory Fjzy1102 12:47 PM EDTOxygen Gibuuzynup11%03/13/2025 12:47 PM EDTInhaled Oxygen Concentration--Knlshj38 kg (130 lb)03/20/2025 1:14 PM EST Psdaoj297.4 cm (5')03/13/2025 12:47 PM EDTBody Mass Index25.391 12:47 PM EDT Plan of Treatment Health MaintenanceDue DateLast DoneCommentsDTaP,Tdap and Td Vaccines (1 - Tdap) 1991Zoster (Shingles) Vaccine (1 of 2)1991Pap Smear1993COVID- 19 Vaccine (3 - Moderna risk series)/03/2021, 09/28/2020Influenza Aypgxtm31/epression Cnlhsremp20/dult BMI Follow Up Plan/Tobacco Scxadvnqz06/dult BMI Xyvbmtcqm48 Medical Devices Not on file Procedures Procedure NamePriorityDate/TimeAssociated DiagnosisCommentsMR BRAIN W WO CONT Uvxwoji6803/20/2025 2:58 PM EST Demyelinating disease of central nervous system (CMS-HCC) Neurogenic bladder Weakness of both lower extremities JVHFQTXZWEFvnoujq52/28/2025 2:10 PM EDT Unspecified symptoms and signs involving the genitourinary system Unspecified abnormal findings in urine Urinary tract infection, site not specified URINE LACESZQHyylnzv66/28/2025 2:10 PM EDT Unspecified symptoms and signs involving the genitourinary system Unspecified abnormal findings in urine Urinary tract infection, site not specified GGSOECEYIVVvndttt38/16/2025 4:16 PM EDT Dysuria URINE YYLIDWSHjhfwnc62/16/2025 4:16 PM EDT Dysuria from Last 3 Months Results * MR brain with and without contrast (03/20/2025 2:58 PM EST)Anatomical Region LateralityModalityNeuro, Head, Head and Neck, Neuro CoveraN/AMagnetic ResonanceSpecimen (Source)Anatomical Location / LateralityCollection Method / VolumeCollection TimeReceived Time03/20/2025 3:13 PM EST Narrative 03/20/2025 3:16 PM EST EXAM: MR BRAIN W WO CONT TECHNIQUE: Routine multiplanar multisequence MR imaging of the brain was performed prior to and following the uneventful administration of intravenous contrast. CLINICAL HISTORY: Worsening weakness and spasticity in legs. Multiple sclerosis. COMPARISON: 12/05/2024 FINDINGS: There has been no significant interval change in extensive chronic plaques of demyelination throughout the brain. There is no pathologic enhancement associated with any of the chronic white matter abnormalities or elsewhere throughout the brain. There is no enhancing intracranial mass or mass effect. There is no shift of the midline structures and the basal cisterns remain patent. There is no evidence for ventricular outflow obstruction. The sue-white matter differentiation is preserved.There is no restricted diffusion. The paranasal sinuses are well aerated. The mastoids are clear. IMPRESSION: 1. Stable MRI of the brain, with redemonstration of very extensive chronic plaques of demyelination. There is no pathologic enhancement associated with any of the white matter abnormalities or elsewhere throughout the brain. There is no enhancing intracranial mass or mass effect. 2. No evidence for an acute infarct. Finalized by Chato Membreno MD on 03/20/2025 3:16 PM Procedure Note Chato Membreno MD - 03/20/2025 EXAM: MR BRAIN W WO CONT TECHNIQUE: Routine multiplanar multisequence MR imaging of the brain was performed prior to and following the uneventful administration ofintravenous contrast. CLINICAL HISTORY: Worsening weakness and spasticity in legs. Multiplesclerosis. COMPARISON: 12/05/2024 FINDINGS: There has been no significant interval change in extensive chronic plaquesof demyelination throughout the brain. There is no pathologic enhancementassociated with any of the chronic white matter abnormalities or elsewherethroughout the brain. There is no enhancing intracranial mass or mass effect. There is no shift of the midline structures and the basal cisternsremain patent. There is no evidence for ventricular outflow obstruction.The sue-white matter differentiation is preserved. There is no restricteddiffusion. The paranasal sinuses are well aerated. The mastoids areclear. IMPRESSION: 1. Stable MRI of the brain, with redemonstration of very extensive chronic plaques of demyelination. There is no pathologic enhancement associatedwith any of the white matter abnormalities or elsewhere throughout thebrain. There is no enhancing intracranial mass or mass effect. 2. No evidence for an acute infarct. Finalized by Chato Membreno MD on 03/20/2025 3:16 PM Authorizing ProviderResult TypeResult StatusEhad Ally MDG MRI ORDERABLES Final Result * (ABNORMAL) Urinalysis (03/14/2025 2:10 PM EDT) Only the most recent of2 resultswithin the time period is included. ComponentValueRef RangeTest MethodAnalysis TimePerformed AtPathologist Signature EMQALKofiwuXsdhkb09/28/2025 7:43 PM [facility] TURBIDITYCloudy(A)Clear03/14/2025 7:43 PM [facility] SPECIFIC GRAVITY1.0251.003 - 1.2731103/14/2025 7:43 PM [facility]USNITRITENegativeNegative03/14/2025 7:43 PM [facility]USPH,URINE6.55.0 - 8.510 7:43 PM EDTPKNOX COMMUNITY HOSPITALLEUKOCYTE ESTERASEModerate(A)Eyhdsehi90/28/2025 7:43 PM EDT [facility]ENTERPROTEIN100 mg/dL(A)Yumphcse34/28/2025 7:43 PM EDWVUMEDICINE HARRISON COMMUNITY HOSPITALKETONES (URINE)Trace(A)Sbvnxevi29/28/2025 7:43 PM EDWVUMEDICINE HARRISON COMMUNITY HOSPITALUROBILINOGEN1.0 eu/dL0.2 eu/dL, 1.0 eu/dL03/14/2025 7:43 PM EDTPKNOX COMMUNITY HOSPITALBILIRUBIN (URINE)DaehsdruRznhtxqw00/28/2025 7:43 PM [facility] BLOOD/HGBLarge(A)Ywksusby38/28/2025 7:43 PM [facility] CAMPUSCA OXALATE CRYSTALSPresent(A)None03/14/2025 7:43 PM [facility] CAMPUSR.B.CELLS96(H)0 - 7:43 PM EDTRINITY HEALTH SYSTEM WEST CAMPUSQUAMOUS SKHGFJQYGM21 - 7:43 PM [facility] CAMPUSW.B.CELLS82(H)0 - 7:43 PM [facility] CAMPUSGLUCOSE (URINE)NegativeNegative, 250 mg/dL03/14/2025 7:43 PM [facility]USpecimen (Source)Anatomical Location / LateralityCollection Method / VolumeCollection TimeReceived TimeUrine Urine / Ryeogqq7703/14/2025 2:10 PM EDT1 3:26 PM EDT Narrative [facility] - 03/14/2025 7:43 PM EDT Urine received without preservative. Delays in transport may affect results. Interpret with caution. A clinical correlation is recommended. Authorizing ProviderResult TypeResult StatusLin BREWSTER ORDERABLESFinal ResultPerforming OrganizationAddressCity/State/ZIP CodePhone Number [facility] [address] [place] [address], [place] * (ABNORMAL) Urine culture (03/14/2025 2:10 PM EDT) Only the most recent of2 resultswithin the time period is included. ComponentValueRef RangeTest MethodAnalysis TimePerformed AtPathologist Signature CULTURE RESULTS>100,000 CFU/mL Escherichia coli(A)03/16/2025 1:17 PM [facility] LABORATORYSpecimen (Source)Anatomical Location / Laterality Collection Method / VolumeCollection TimeReceived TimeUrineUrine / Unknown 03/14/2025 2:10 PM EDT1 3:26 PM EDT Narrative OrganismAntibioticMethodSusceptibilityEscherichia coliAmpicillin >=32.0: Resistant Escherichia coliAMP/SULBACTAM 16: Intermediate Escherichia coliPIPERACIL/TAZOBACTAM <=4.0: Susceptible Escherichia coliCefazolin (non-urinary) 4.0: Intermediate Escherichia coliCefazolin (urinary) 4.0: Susceptible Escherichia coliCeftriaxone <=0.25: Susceptible Escherichia coliGentamicin >=16.0: Resistant Escherichia coliCiprofloxacin <=0.06: Susceptible Escherichia coliLevofloxacin <=0.12: Susceptible Escherichia coliNitrofurantoin <=16.0: Susceptible Escherichia coliTrimethoprim + Sulfamethoxazole >=16.0: Resistant Authorizing ProviderResult TypeResult StatusLin Ward MDMICROBIOLOGY - GENERAL ORDERABLESFinal ResultPerforming OrganizationAddressCity/State/ZIP CodePhone Number [facility] [address] [place] [address], [place] [phone] from Last 3 Months Insurance Care Teams Team MemberRelationshipSpecialtyStart DateEnd Date Aquiles Canales MD [address] [place] [address] PCP - XupsmwjBkxrafayz22/27/25
--- OUTSIDE RECORDS SUMMARY | 2025-04-11 12:02 | XMS_ITS | Encounter Summary ---
Author Organization [facility] Sys tem Address [id number] [address] [place] [address] Care Team Providers Care Closing Agent Name Role Phone Aquiles Canales MD Primary Care Provider [phone] Encounter Details DateTypeDepartmentCare Team (Latest Contact Info)Vdcnybwkaxf32/19/2025Results Follow-Up [facility] [place] [address] Aquiles Canales MD [address] [place] [address] [address] [place] [address] Urinalysis, Urine culture Social History Tobacco UseTypesPacks/DayYears UsedDateSmoking Tobacco: NeverSmokeless Tobacco: NeverAlcohol UseStandard Drinks/WeekCommentsNever0 (1 standard drink = 0.6 oz pure alcohol)PHQ-2AnswerDate RecordedTotal Tldem1355ChildcareAnswerDate UyrrfxqpBxbsgymmxDraaqdb05/12/2019EmploymentAnswerDate RecordedEmploymentUnknown 10/27/2018Hunger ScreeningAnswerDate RecordedWithin the past 12 months we worried whether our food would run out before we got money to buy more.Never True03/13/2025Within the past 12 months the food we bought just didn't last and we didn't have money to get more.Never True03/13/2025Purpose - LifeAnswerDate RecordedPurpose and direction in menzLhejdxt46/11/2021CommentsUnknownSex and Gender InformationValueDate RecordedSex Assigned at BirthNot on fileLegal VysBvhlbu50/06/2015 12:11 PM EDTGender IdentityNot on fileSexual OrientationNot on filedocumented as of this encounter Progress Notes * Aquiles aCnales MD - 02/03/2025 3:33 PM EDT Abnormal result. Patient has a UTI 2/2 E Coli. Sent a script for nitrofurantoin for 7 days to her pharmacy. Please let patient or her significant other know know. Thanks * Alla Chi CMA - 02/03/2025 3:33 PM EDT Called and informed patients Spouse. documented in this encounter Plan of Treatment Not on file documented as of this encounter Visit Diagnoses Not on filedocumented in this encounter Additional Health Concerns AssessmentNoted TimePHQ-9 Depression Total Score: 3:33 PM EDTA Body Mass Index follow-up plan has been documented for the ggxcesl4701/31/2025 10:19 PM EDTdocumented as of this encounter Care Teams Team MemberRelationshipSpecialtyStart DateEnd Date Aquiles Canales MD [place] [address] PCP - KlhcgbiVksmayobd26/27/25documented as of this encounter
--- OUTSIDE RECORDS SUMMARY | 2025-04-11 12:02 | XMS_ITS | Clinical Summary ---
Author Organization [facility] Address [address] [place] [address] Care Team Providers Care Manager Clinic Name Role Phone Seema Victoria NP Unavailable [phone] Johnson Lorenz MD Primary Care Provider [phone] Tutu Joyner MD Unavailable [phone] Allergies No known active allergies Medications MedicationSigDispense QuantityRefillsLast FilledStart DateEnd DateStatus modafinil (Provigil) 200 MG tablet Take 200 mg by mouth in the morning.Active aspirin 81 MG EC tablet Take 81 mg by mouth in the morning.Active albuterol HFA (Ventolin HFA) 90 mcg/act inhaler Indications:WheezingInhale 2 puffs every 4 (four) hours if needed for wheezing 18 g 1114Active Vumerity 231 MG capsule delayed-release 5Active alendronate (Fosamax) 35 MG tablet Indications:Osteopenia, unspecified locationTake 1 tablet (35 mg) by mouth every 7 (seven) days Take in the morning with a full glass of water,on an empty stomach, and do not take anything else by mouth or lie down for the next 30 min. 12 tablet 5Active buPROPion XL (Wellbutrin XL) 150 MG 24 hr tablet Indications:Recurrent major depressive disorder, in full remissionTake 1 tablet (150 mg) by mouth Daily Do not crush, chew, or split. 90 tablet 5Active montelukast (Singulair) 10 MG tablet Indications:Non-seasonal allergic rhinitis, unspecified triggerTake 1 tablet (10 mg) by mouth at bedtime 90 tablet 5Active FLUoxetine (PROzac) 40 MG capsule Indications:Major depressive disorder, single episode, in full remissionTake 1 capsule (40 mg) by mouth Daily 90 capsule 5Active solifenacin (VESIcare) 5 MG tablet Indications:Neurogenic bladderTake 1 tablet (5 mg) by mouth Daily Swallow tablet whole; do not crush, chew, or split. 90 tablet 5Active baclofen (Lioresal) 10 MG tablet Indications:Multiple sclerosisTake 1 tablet (10 mg) by mouth in the morning and 1 tablet (10 mg) in the evening and 1 tablet (10 mg) before bedtime. 270 tablet 5Active Active Problems ProblemNoted DateDiagnosed DateMuscle spasms of both lower cqbcytdgvyb56/25/2025 Assessment & Plan (01/09/2025 2:40 PM EDT): Will get the bacolfen ordered correctly, not sure if she has been getting this or not Will reach out to Neurology as well Encounter for wellness opwdobkrhuc66/27/2025 Assessment & Plan (10/11/2024 7:17 AM EDT): No exam, just labs Pap smear for cervical cancer oceistydb84/27/9096Vtgwdxjb31/07/2024History of UTI4Recurrent major depressive disorder, in full lnpvkvogw14/24/2024 Assessment & Plan (01/09/2025 6:43 AM EDT): [...] mood. Encounter for screening for malignant neoplasm of colon11/09/2023 Assessment & Plan (10/11/2024 7:15 AM EDT): [...] Patient has elected to: Screening mammogram, encounter for11/09/2023 Assessment & Plan (10/11/2024 7:15 AM EDT): Due November 2024 Chronic ajwjxet0005/14/2022 Assessment & Plan (11/09/2023 3:51 PM EDT): Due to MS. On modafinil. Gait uqalmufptyx82/28/2022Multiple dkouqiawu15/28/2022 Assessment & Plan (01/09/2025 6:42 AM EDT): Under the care of dr Bains Current meds: licristino Vumerity Assessment & Plan (10/11/2024 7:13 AM EDT): Under the care of dr Bains Current meds: liyvonal Vumerity Assessment & Plan (04/04/2024 8:56 AM [...] is wheelchair bound - able to stand onher feet, but does not ambulate due to unsteady gait/fear of fall. Has cognitive slowing/chronic fatigue due to MS. Short-term memory loss05/14/2022Wheelchair saemyzmspv02/28/2022 Overview (11/09/2023): replacing diagnoses that were inactivated after the 02/15 regulatory import Neurogenic rhxzrnk5907/23/2016 Overview (11/09/2023): ==== 07/23/2016 ==== has MS. [...] to be working for her overall. Renal cyst07/14/2016 Overview (11/09/2023): +++++++++ 07/14/2016 ALLSCRIPTS SUMMARY +++++++++++ November 2014 Bosniak 2 cyst on MRI Subsequent ultrasound stable Bosniak 2 cyst--most recent ultrasound summer 2016 stable Last Assessment & Plan: Ordered repeat ultrasound Osteoporosis Assessment & Plan (10/11/2024 5:16 PM EDT): Current meds: fosamax DEXA: will order with mammogram in December Resolved Problems ProblemNoted DateDiagnosed DateResolved DatePap smear of cervix not needed Encounters DateTypeDepartmentCare OozcUryqlewfzce22/25/2025 1:00 PM EDTOffice Visit [facility] [address] [place] [address] Thea Sood NP Muscle spasms of both lower extremities (Primary Dx); Multiple sclerosis (HCC); Neurogenic bladder; Recurrent major depressive disorder, in full remission ; Wheelchair kbmkhaommw31/25/2025Clinisync Result Encounter [facility] Unsolicited Thea Sood NP 5Bamboo flowsheet [facility] [address] [place] [address] Thea Sood NP from Last 3 Months Immunizations ImmunizationAdministration DatesNext DueInfluenza, injectable, MDCK, preservative free, zexdorkkybkc05/12/2021 Family History Medical HistoryRelationNameCommentsNo Known ProblemsBrotherAlcohol abuseFather Mental illnessMotherParanoid disorderMotherNo Known ProblemsSisterRelationName StatusCommentsBrotherFatherMotherSister Social History Tobacco UseTypesPacks/DayYears UsedDateSmoking Tobacco: NeverPassive Smoke Exposure: NeverSmokeless Tobacco: Never Tobacco Cessation:Counseling Given: Not Answered Alcohol UseStandard Drinks/WeekCommentsNever0 (1 standard drink = 0.6 oz pure alcohol)PHQ-2AnswerDate RecordedPatient Health Questionnaire-2 Wgoiw212 CommentsNoSex and Gender InformationValueDate RecordedSex Assigned at BirthNot on fileLegal CexIlyrxm96/15/2023 11:40 PM EDTGender IdentityNot on file Sexual OrientationNot on file Last Filed Vital Signs Vital SignReadingTime TakenCommentsBlood Vcxuxqyv207/80001/09/2025 1:06 PM EDT Ldmlo423701/09/2025 1:06 PM WVTGulcostbjkm27.7 ??C (98.1 ??F)01/09/2025 1:06 PM EDTRespiratory Vmqs118401/09/2025 1:06 PM EDTOxygen Njpgrnmsfg15%01/09/2025 1:06 PM EDTInhaled Oxygen Concentration--Jszgjn32 kg (150 lb)04/04/2024 8:28 AM EST Lsukji760.4 cm (5')04/04/2024 8:28 AM ESTBody Mass Index29.29106/04/2023 8:28 AM EST Plan of Treatment Health MaintenanceDue DateLast DoneCommentsCT Rwejyvhfbjud66/24/1973Colonoscopy 1972Colorectal Cancer Nhkdeyrwb52/24/1973FIT-DNA1972FIT1972 FOBT1972 0673Onsmqqshrkpwi40/24/1973Pneumococcal Vaccine: Pediatrics (0 to 5 Years) and At-Risk Patients (6 to 64 Years) (1 of 2 - PCV)1991Pap Smear 1993Cervical Cancer Khngfnzqz61/24/2003HPV/Jgyjaw4507/11/2002COVID-19 Vaccine (3 - Moderna risk series)/03/2021, 09/28/2020Mammogram , 03/14/2015Influenza Vaccine (#1)/04/2021 Medicare Annual Wellness (AWV) Procedures Procedure NamePriorityDate/TimeAssociated DiagnosisCommentsALL THYROID STIM YMIOXTWHkdzuem85/25/2025 2:42 PM EDT ALL LIPID PROFILE (FASTING)Gtxgyiw9201/09/2025 2:42 PM EDT ALL OFEVOMKGLVqvxjgs37/25/2025 2:42 PM EDT [facility] CMP (CMP) (FOR REMOTE CRITICAL ACCESS HOSPITAL USE)Invqzrv6901/09/2025 2:42 PM EDT ALL CBC WITH AUTO QXIFNprchrd42/25/2025 2:42 PM EDT MM TOMOSYNTHESIS SCREENING BI12/14/2023 4:28 PM EDT from Last 3 Months or Most Recently Relevant to Health Maintenance Results * [facility] CMP (CMP) (FOR REMOTE CRITICAL ACCESS HOSPITAL USE) (01/09/2025 2:42 PM EDT)ComponentValueRef RangeTest MethodAnalysis TimePerformed AtPathologist SafbfmzvgAMEUUH269644 - 145 mmol/LTBHPOTASSIUM4.13.5 - 5.1 mmol/NOYNEJYTUWLN94086 - 107 mmol/LTBH CARBON FFSHJFX76.321.0 - 32.0 mmol/LTBHANION GAP12.6JJUOGZZQDQ9595 - 106 mg/dL TBHBLOOD UREA ESBRIRSY98.07.0 - 18.0 mg/dLTBHCREATININE0.590.55 - 1.02 mg/dL TBHTBH EGFR-AF MARSHALLESE>60>=60 mL/min/1.73m 2TBHTBH EGFR-NON AF MARSHALLESE>60 >=60 mL/min/1.73m 2TBHBUN CREATININE RATIO22.2RQTDLTDILS7.08.5 - 10.1 mg/dLTBH BILIRUBIN TOTAL0.50.2 - 1.0 mg/dLTBHASPARTATE AMINO GLFWPHGHCYB6449 - 37 U/L TBHALANINE JKGHVQJYLZJELLNF3411 - 59 U/LTBHALKALINE AQZQOHYEPNC17762 - 116 U/L TBHTOTAL PROTEIN7.66.4 - 8.2 g/dLTBHALBUMIN LEVEL4.13.4 - 5.0 g/dLTBHGLOBULIN 3.5g/dLTBHALBUMIN GLOBULIN RATIO1.2TBHSpecimen (Source)Anatomical Location / LateralityCollection Method / VolumeCollection TimeReceived Time01/09/2025 2:42 PM EDT01/09/2025 2:42 PM EDT Narrative [facility] - 01/09/2025 3:32 PM EDT Authorizing ProviderResult TypeResult StatusLiMercy Fitzgerald HospitalLINISYNCFinal ResultPerforming OrganizationAddressCity/State/ZIP CodePhone Number [facility] * ALL THYROID STIM HORMONE (01/09/2025 2:42 PM EDT)ComponentValueRef RangeTest MethodAnalysis TimePerformed AtPathologist SignatureTHYROID STIMULATING HORMONE2.3360.358 - 3.740 uIU/mLTBHSpecimen (Source)Anatomical Location / LateralityCollection Method / VolumeCollection TimeReceived Time01/09/2025 2:42 PM EDT01/09/2025 2:42 PM EDT Narrative [facility] - 01/09/2025 3:32 PM EDT Authorizing ProviderResult TypeResult StatusLiMercy Fitzgerald HospitalLINISYNCLifebrite Community Hospital Of [facility] ResultPerforming OrganizationAddressCity/State/ZIP CodePhone Number [facility] * ALL MAGNESIUM (01/09/2025 2:42 PM EDT)ComponentValueRef RangeTest Method Analysis TimePerformed AtPathologist SignatureMAGNESIUM1.81.8 - 2.4 mg/dLTBH Specimen (Source)Anatomical Location / LateralityCollection Method / Volume Collection TimeReceived Time01/09/2025 2:42 PM EDT01/09/2025 2:42 PM EDT [facility] - 01/09/2025 3:32 PM EDT Authorizing ProviderResult TypeResult StatusLiMercy Fitzgerald HospitalLINISYNCFinal ResultPerforming OrganizationAddressCity/State/ZIP CodePhone Number [facility] * (ABNORMAL) ALL LIPID PROFILE (FASTING) (01/09/2025 2:42 PM EDT)ComponentValue Ref RangeTest MethodAnalysis TimePerformed AtPathologist Signature ATPGQWQDUHKOO198<=150 mg/yXSBXNXZHDHIIBTZ233(H)<=200 mg/dLTBHHDL LBPCWEUYSNA41 40 - 60 mg/dLTBHComment: > or =60 mg/dl - LOW CARDIOVASCULAR RISK <40 mg/dl - HIGH CARDIOVASCULAR RISK LDL CHOLESTEROL HXCBDEHSTX686.0mg/dLTBHComment: <100 mg/dl OPTIMAL 100-129 mg/dl NEAR OR ABOVE OPTIMAL 130-159 mg/dl BORDERLINE HIGH 160-189 mg/dl HIGH >190 mg/dl VERY HIGH VLDL ELZFUXCPOGG76.6mg/dLTBHCHOL HDL RATIO5.2TBHComment: 3.3 - 4.4 ?? LOW RISK 4.4 - 7.1 ?? AVERAGE RISK 7.1 - 11.0 ??MODERATE RISK >11.0 HIGH RISK Specimen (Source)Anatomical Location / LateralityCollection Method / Volume Collection TimeReceived Time01/09/2025 2:42 PM EDT01/09/2025 2:42 PM EDT Narrative [facility] - 01/09/2025 3:32 PM EDT Authorizing ProviderResult TypeResult StatusLisa [facility] NPCLINISYNCFinal ResultPerforming OrganizationAddressCity/State/ZIP CodePhone Number [facility] * (ABNORMAL) ALL CBC WITH AUTO DIFF (01/09/2025 2:42 PM EDT)ComponentValueRef RangeTest MethodAnalysis TimePerformed AtPathologist SignatureTB WBC6.84.0 - 11.0 10 3/uLTBHTBH RBC5.154.20 - 5.40 10 6/uLTBHTBH HGB14.612.0 - 16.0 g/dLTBH TB HCT42.836.0 - 48.0 %TBHTBH MCV83.181.0 - 99.0 fLTBHTBH MCH28.326.7 - 34.0 pgTBHTBH MCHC34.129.9 - 35.2 g/dLTBHTBH RDW13.211.0 - 15.0 %TBHTBH ADT773472 - 450 10 3/uLTBHTBH MPV9.59.5 - 13.5 fLTBHNEUTROPHILS PERCENT AUTO87.4(H)43.0 - 75.0 %TBHLYMPHOCYTES PERCENT AUTO5.7(L)20.5 - 60.0 %TBHMONOCYTES PERCENT AUTO 4.51.7 - 12.0 %TBHTBH EO %1.80.9 - 7.0 %TBHBASOPHILS PERCENT AUTO0.30.2 - 2.0 %TBHIMMATURE GRANULOCYTES PCT AUTO0.30.0 - 0.5 %TBHNEUTROPHILS ABSOLUTE AUTO 6.01.4 - 6.5 10 3/uLTBHLYMPHOCYTES ABSOLUTE AUTO0.4(L)1.2 - 3.8 10 3/uLTBH MONOCYTES ABSOLUTE AUTO0.30.3 - 0.8 10 3/uLTBHTBH EO #0.10.0 - 0.7 10 3/uLTBH BASOPHILS ABSOLUTE AUTO0.00.0 - 0.1 10 3/uLTBHIMMATURE GRANULOCYTES ABS AUTO 0.020.00 - 0.03 10 3/uLTBHSpecimen (Source)Anatomical Location / Laterality Collection Method / VolumeCollection TimeReceived Time01/09/2025 2:42 PM EDT 01/09/2025 2:42 PM EDT Narrative [facility] - 01/09/2025 3:09 PM EDT Authorizing ProviderResult TypeResult StatusLisa Aichholz NPCLINISYNCFinal ResultPerforming OrganizationAddressCity/State/ZIP CodePhone Number [facility] * MM TOMOSYNTHESIS SCREENING BI (12/14/2023 4:28 PM EDT)Anatomical Region LateralityModalityOtherSpecimen (Source)Anatomical Location / Laterality Collection Method / VolumeCollection TimeReceived Time12/14/2023 4:28 PM EDT Narrative 12/15/2023 9:[address] [facility] ?[address] ? [place] [address] ? Mammography Report ? Signed ? Patient: MANOLO,DENISSE M ?MR#: [id number] ?? : 1970 ?Acct:[id number] ?? Age/Sex: 53 / F ?ADM Date: 12/14/23 ?? Loc: MAMMO ? Attending Dr: Shaikh Desiree Gaston ? Ordering Physician: Shaikh Alek Kim ?Results: ? Date of Service: 12/14/23 ?Follow Up: ? Procedure(s): MM tomosynthesis screening BI ?? Accession Number(s): [id number] ? cc: Shaikh Alek Kim ? Patient Name: ? DENISSE FRENCH ? MR#: [id number] ? : 1970 ? Exam Date: 12/14/2023 ?? Ordering Doctor: SHAIKH Karen KIM . ? RADIOLOGY REPORT ? PROCEDURE: ? MM TOMOSYNTHESIS SCREENING BI ? COMPARISON: ? MG MAMM SCREEN CHARLINE W CAD, 06/18/2017. ??MG MAMM SCREEN CHARLINE W ?? CAD, 06/17/2016. ? INDICATIONS: ? Screening ? Calculator Name ? NCI Breast Cancer Risk Assessment Tool ?? 5 Year Breast Cancer Risk ? Not Reported. ?? Lifetime Breast Cancer Risk ? Not Reported. ?? Personal Breast Cancer ?No ?? Personal Ovarian Cancer ? No ?? Treatments ? None ?? Family Cancers ? None ? LOCATION: ? [facility] ? BREAST COMPOSITION: ? The breasts are heterogeneously dense,which may ?? obscure small masses. ? FINDINGS: ? DIAGNOSTIC CATEGORY 2--BENIGN FINDING: ? RIGHT BREAST: ??No significant suspicious finding. ??This exam includes ?? additional mammographic views for implant evaluation and shows no visible ?? implant abnormality. ??No significant change has occurred. ? LEFT BREAST: ??No significant suspicious finding. ??This exam includes ?? additional mammographic views for implant evaluation and shows no visible ?? implant abnormality. ??No significant change has occurred. ? RECOMMENDATIONS: ? ROUTINE MAMMOGRAM AND CLINICAL EVALUATION IN 12 MONTHS. ? PLEASE NOTE: ??A NORMAL MAMMOGRAM DOES NOT EXCLUDE THE POSSIBILITY OF BREAST ?? CANCER. ??A CLINICALLY SUSPICIOUS PALPABLE LUMP SHOULD BE BIOPSIED. ? Dictated by: Ace Ramos M.D. on 12/14/2023 at 16:25 ? Approved by: Ace Ramos M.D. on 12/14/2023 at 16:28 ? Dictated By: ?Ace Ramos M.D. ? Signed By: ?12/14/ 0947 ? DD/ 1628 ? TD/TT: ? Iron Worker Apprentice: Procedure Note Radiology, Radiologist, MD - 12/15/2023 [place] [address] Mammography Report Signed Patient: DENISSE FRENCH MMR#: [id number] : 1970Acct:[id number] Age/Sex: 53 / FADM Date: 12/14/23 Loc: MAMMO Attending Dr: Shaikh Desiree Gaston Ordering Physician: Shaikh Alek KimResults: Date of Service: 12/14/23Follow Up: Procedure(s): MM tomosynthesis screening BI Accession Number(s): [id number] cc: Shaikh Alek Kim Patient Name: DENISSE FRENCH MR#: [id number] : 1970 Exam Date: 12/14/2023 Ordering Doctor: SHAIKH Karen KIM . RADIOLOGY REPORT PROCEDURE: MM TOMOSYNTHESIS SCREENING BI COMPARISON: MG MAMM SCREEN CHARLINE W CAD, 06/18/2017. MG MAMM SCREEN CHARLINE W CAD, 06/17/2016. INDICATIONS: Screening Calculator Name NCI Breast Cancer Risk Assessment Tool 5 Year Breast Cancer Risk Not Reported. Lifetime Breast Cancer Risk Not Reported. Personal Breast Cancer No Personal Ovarian Cancer No Treatments None Family Cancers None LOCATION: [facility] BREAST COMPOSITION: The breasts are [...] M.D. Signed By:12/15/23 0947 DD/ 1628 TD/TT: Iron Worker Apprentice: Authorizing ProviderResult TypeResult StatusShaikh Fawwad MDCLINISYNC IMAGING Final Result from Last 3 Months or Most Recently Relevant to Health Maintenance Insurance Advance Directives TypeDate RecordedPatient RepresentativeExplanationPower of Ekirhkcq74/7/2024 3:23 PMpower of title attorney Care Teams Team MemberRelationshipSpecialtyStart DateEnd Date Johnson Lorenz MD [address] [place] [address] PCP - GeneralFamily Bhdqdofu90/18/24 Tutu Joyner MD [address] [place] [address] PCP - [employer]12/17/23 Seema Victoria NP Nurse PractitionerPam Health [facility]ty [facility] Medicine12/28/23
--- OUTSIDE RECORDS SUMMARY | 2025-04-11 12:03 | XMS_ITS | Encounter Summary ---
Author Organization [facility] tem Address [id number] [address] [place] [address] Care Team Providers Care Coding Team Lead Name Role Phone Aquiles Canales MD Primary Care Provider [phone] Encounter Details DateTypeDepartmentCare Team (Latest Contact Info)Sstagmuqcmt97/24/2025Telephone [facility] Neurology, A Department of [facility] [address] [facility] [address] [place] [address] Tamela Waldrop Social History Tobacco UseTypesPacks/DayYears UsedDateSmoking Tobacco: NeverSmokeless Tobacco: NeverAlcohol UseStandard Drinks/WeekCommentsNever0 (1 standard drink = 0.6 oz pure alcohol)PHQ-2AnswerDate RecordedTotal Fdiws4015ChildcareAnswerDate JhykuvatAgkjopoosGxbpsqn92/12/2019EmploymentAnswerDate RecordedEmploymentUnknown 10/27/2018Hunger ScreeningAnswerDate RecordedWithin the past 12 months we worried whether our food would run out before we got money to buy more.Never True03/13/2025Within the past 12 months the food we bought just didn't last and we didn't have money to get more.Never True03/13/2025Purpose - LifeAnswerDate RecordedPurpose and direction in pxnpWzgmiex22/11/2021CommentsUnknownSex and Gender InformationValueDate RecordedSex Assigned at BirthNot on fileLegal WexPjclmi67/06/2015 12:11 PM EDTGender IdentityNot on fileSexual OrientationNot on filedocumented as of this encounter Miscellaneous Notes * Telephone Encounter - Tamela Waldrop - 04/10/2025 10:36 AM EST Conduit Worker received a call from patients roommate regarding patient medication diroximel fumarate (VUMERITY) 231 mg capsule,delayed release(/EC). Roommate informed that the insurance expressed will need a prior authorization for 2025 in order for the medication to be covered. Please advise. Prescription specialist [phone]. Thank you so much. documented in this encounter Plan of Treatment Not on file documented as of this encounter Visit Diagnoses Not on filedocumented in this encounter Additional Health Concerns AssessmentNoted TimePHQ-9 Depression Total Score: 3:33 PM EDTA Body Mass Index follow-up plan has been documented for the bwamemc0301/31/2025 10:19 PM EDTdocumented as of this encounter Care Teams Team MemberRelationshipSpecialtyStart DateEnd Date Aquiles Canales MD [address] [place] [address] PCP - UhxlsznLkgmumcun23/27/25documented as of this encounter
--- OUTSIDE RECORDS SUMMARY | 2025-04-11 12:04 | XMS_ITS | CCD ---
Author Organization [facility] Care Team Providers Care Manager Of Broadcast Content Name Role Phone LAUREN LEIGH Consulting Unavailable FAWWAD, YOUNG H Primary Care Unavailable LAUREN LEIGH Attending Unavailable LAUREN LEIGH Admitting Unavailable Srinath Guevara Consulting Unavailable FAWWAD, YOUNG H Primary Care Unavailable FAWWAD, YOUNG H Attending Unavailable FAWWAD, YOUNG H Admitting Unavailable FAWWAD, YOUNG H Consulting Unavailable LAKE ARTHUR, DR JUVENAL Meng Consulting Unavailable FAWWAD, YOUNG H Primary Care Unavailable BERTO FONSECA [...] DOLL Consulting Unavailable LAUREN LEIGH Consulting Unavailable FAWWAD, YOUNG H Primary Care Unavailable LAUREN LEIGH Attending Unavailable LAUREN LEIGH Admitting Unavailable Srinath Guevara Consulting Unavailable CECYWAD, YOUNG H Primary Care Unavailable BERTO FONSECA Attending Unavailable BERTO FONSECA Admitting Unavailable BERTO FONSECA Consulting Unavailable Srinath Guevara Consulting Unavailable DR AILIN FUENTES Primary Care Unavailable ANT DOLL Attending Unavailable ANT DOLL Admitting Unavailable ANT DOLL Consulting Unavailable FAWWAD, YOUNG H Primary Care Unavailable BERTO FONSECA Attending Unavailable BERTO FONSECA Admitting Unavailable SHAIKH RAMÍREZ Primary Care Physician Desiree LOVETT, Unavailable Desiree LOVETT, Young Primary Care Provider Kelechi LOVETT, Johnson Primary Care Provider Esme SENIOR TRAINING AND DEVELOPMENT REP, [facility] Unavailable [phone] [facility] P hysician ESME, [facility] Care Unavailabl Lin [facility]ager [facility] Lin Ward Attending Unavailable Lin Ward Admitting Unavailable Kelechi LOVETT, Johnson Primary Care Provider [phone] Baljinder LOVETT, Ashley Primary Care Provider Baljinder LOVETT, Ashley Primary Care Provider Esme SENIOR TRAINING AND DEVELOPMENT REP, [facility] Unavailable Lin Ward Attending Unavailable Lin Ward Admitting Unavailable Lin Ward Attending Unavailable THEA SOOD Primary Care Physician [phone] THEA SOOD Attending Unavailable THEA SOOD Attending Unavailable MARISEL VICTORIA Attending Unavailabl e MARISLE VICTORIA Attending Unavailabl e Emily DORoxana Primary Care Provider [phone] Natty Worrell APRN Attending Provider BEE, EHAD Attending Unavailable GALE, ASHLEY Referring Unavailable GALE, ASHLEY Primary Care Unavailable BEE, EHAD Attending Unavailable GALE, ASHLEY Referring Unavailable GALE, ASHLEY Primary Care Unavailable Lin Ward Attending Unavailable ESME MARISEL Primary Care UnavailLin Wright Admitting Unavailable Lin Ward Attending Unavailable Lin Ward Referring [facility] Unavail[facility] e Lin Ward MEstefany Attending Unavailable [facility] Primary Care Unavailabl e MichelleeLin M. Attending Unavailable LueRizwanahy M. Attending Unavailable Lue, Lin M. Admitting Unavailable Lue, Lin M. Attending Unavailable LueLin M. Referring Unavailable Lue, Lin M. Admitting Unavailable LueLin M. Attending Unavailable MichelleeLin M. Referring Unavailable Shaikh Ramírez MD Unavailable Shaikh Ramírez MD Primary Care Provider Johnson Lorezn MD Primary Care Provider [phone] Esme , [facility] Unavailable Johnson Lorenz MD Primary Care Provider [phone] Johnson Lorenz MD Unavailable BEE, EHAD Attending Unavailable BEE, EHAD Referring Unavailable GALE, ASHLEY Primary Care Unavailable BEE, EHAD Referring Unavailable GALE, ASHLEY Primary Care Unavailable BEE, EHAD Attending Unavailable BEE, EHAD Referring Unavailable BEE, EHAD Primary Care Unavailable BEE, EHAD Attending Unavailable BEE, EHAD Referring Unavailable BEE, EHAD Primary Care Unavailable BEE, EHAD Attending Unavailable BEE, EHAD Referring Unavailable BEE, EHAD Primary Care Unavailable BEE, EHAD Primary Care Unavailable BEE, EHAD Attending Unavailable BEE, EHAD Referring Unavailable BEE, EHAD Primary Care Unavailable Allergies Allergy ClassificationReported Allergen(s)Allergy TypeDate of OnsetReaction(s) Facility (3 sources)No Known Medication Allergies; Translations: [No Known Medication Allergies]Propensity to adverse reactions (disorder)[facility] Medications Current Medications MedicationDrug Class(es)DatesSig (Normalized)Sig (Original)[id number] 200 actuat albuterol 0.09 mg/actuat metered dose inhaler (19 sources)beta2-Adrenergic AgonistStart: 02-22-2024 End: 03-70-2926slkf 2 puff(s) by inhalation every four hours for wheezing albuterol HFA (Ventolin HFA) 90 mcg/act inhaler Indications: Wheezing Inhale 2 puffs every 4 (four)hours if needed for wheezing 18 g 11 02/22/2024 02/21/2025 Activealendronic acid 35 mg oral tablet (20 sources)BisphosphonateStart: 01-13-2023 End: 82-99-6588Igiphqjeefr 35 mg tablet Active MG PO February 01, 2025 12:00am Complies with drug therapyStart: 28-43-8543ugoz 1 tablet by mouth every weekalendronate (FOSAMAX) 35 mg tablet Take 1 tablet (35 mg total) by mouth once a week. 03/08/2022 Activeaspirin 81 mg delayed release oral tablet (20 sources)Platelet Aggregation Inhibitor, Nonsteroidal Anti-inflammatory Drug Start: 70-66-0536Bzqkbln (Adult Low Dose Aspirin) 81 mg tablet,delayed release (DR/EC) Active 81 MG PO Daily February 01, 2025 12:00am Complies with drug therapyStart: 17-82-7214csxf 1 mg by mouth every twenty-four hoursaspirin 81 mg oral capsule mg cap(s), Oral, q24hr, Refills(s) 0 Start Date: 01/13/23 Status: OrderedRepeat number: 1baclofen 10 mg oral tablet (20 sources)gamma-Aminobutyric Acid-ergic AgonistStart: 86-00-8791rdei 2 tablets by mouth three times dailybaclofen (LIORESAL) 10 mg tablet Indications: Demyelinating disease of central nervous system (CMS-HCC) , Spasticity , Multiple sclerosis Take 2 tablets (20 mg total) by mouth 3 (three) times a day. 60 tablet 5 01/31/2025 ActiveStart: 03-17-2023 End: 18-64-0056lhna 1 tablet by mouth twice daily as needed for muscle spasms baclofen (LIORESAL) 10 mg tablet Indications: Multiple sclerosis , Spasticity Take 1 tablet (10 mg total) by mouth 2 (two) times a day as needed for muscle spasms (CC: spasticity from MS). 60 tablet 5 03/17/2023 01/31/2025 Discontinued (Reorder)Start: 92-80-5641iwbzxnav 10 mg tablet baclofen 10 mg tablet Start Date: 01/13/23 Status: Ordered Repeat number: 1Start: 41-91-8524aqvgtgbb 10 mg tablet baclofen 10 mg tablet Start Date: 01/13/23 Status: Mmyqrbe47 hr buPROPion hydrochloride 150 mg extended release oral tablet (20 sources)AminoketoneStart: 14-28-1620feiu 1 tablet by mouth every twenty-four hoursBupropion Hcl 150 mg tablet extended release 24 hr Active MG PO February 01, 2025 12:00am Complies with drug therapyStart: 11-05-2023 End: 23-07-9305sgjr 1 tablet by mouth once dailybuPROPion XL (Wellbutrin XL) 150 MG 24 hr tablet Indications: Recurrent major depressive disorder, in full remission Take 1 tablet (150 mg) by mouth Daily Do not crush, chew, or split. 90 tablet 11/14/2024 02/12/2025 ActiveStart: 84-94-8382xqQMGFilq SR (WELLBUTRIN SR) 150 mg 12 hr tablet Indications: Multiple sclerosis , Depressed mood Take 1 tab twice daily. 60 tablet 5 06/26/2023 Activetake 1 tablet by mouth once daily buPROPion SR (Wellbutrin SR) 100 MG 12 hr tablet Take 100 mg by mouth 1 (one) time each day Do not crush, chew, or split. 0 ActiveBuPROPion (Eqv-Wellbutrin SR) 150 mg/12 hours oral tablet, extended release (15 sources)Start: 70-60-0946gerq 1 tablet by mouth every hourBuPROPion (Eqv- Wellbutrin SR) 150 mg/12 hours oral tablet, extended release Refills(s) 0 Start Date: 01/13/23 Status: Ordered Repeat number: 1Start: 98-20-2143CqSOPBjfx (Eqv- Wellbutrin SR) 150 mg/12 hours oral tablet, extended release Refills(s) 0 Start Date: 01/13/23 Status: Orderedcalcium carbonate 1500 mg oral tablet (17 sources)take 1 tablet by mouth in the morningcalcium carbonate (OS-DARRELL) 600 mg (1,500 mg) tablet Take 1 tablet (600 mg total) by mouth in the morning. Activecefuroxime 500 mg oral tablet (16 sources)Cephalosporin AntibacterialStart: 05-01-2022 End: 52-61-4926hbtnkrueqd 500 mg oral tablet Refills(s) 0 Start Date: 01/13/23 Status: Ordered Repeat number: 1cholecalciferol 0.05 mg oral tablet (20 sources)Vitamin DStart: 06-27-2024 End: 56-90-0131kxwf 1 tablet by mouth once dailycholecalciferol (Vitamin D-3) 50 MCG (1999) tablet Indications: Major depressive disorder, single episode, in full remission Take 1 tablet (50 mcg) by mouth Daily 90 tablet 11/14/2024 02/12/2025 ActiveStart: 02-22-2024 End: 77-86-4483hsgu 1 tablet by mouth once dailycholecalciferol (Vitamin D-3) 50 MCG (1999 UT) tablet Indications: Major depressive disorder, single episode, in full remission (CMS/HCC) TAKE 1 TABLET BY MOUTH DAILY 30 tablet 2 06/27/2024 ActiveStart: 03-10-2022 End: 34-75-8705zqtt 1 tablet by mouth in the morningcholecalciferol, vitamin D3, 2,000 units tablet Take 1 tablet (2,000 Units total) by mouth in the morning. 03/10/2022 ActiveDDM Vitamin D 2000 IU (14 sources)Start: 82-78-6213KUM Vitamin D 2000 IU DDM Vitamin D 2000 IU Start Date: 01/13/23 Status: Ordered Repeat number: 1Start: 53-93-3146WZY Vitamin D 2000 IU DDM Vitamin D 2000 IU Start Date: 01/13/23 Status: OrderedTecfidera (20 sources)Start: 38-58-5289Xudiadgmq Oral, BID, Refills(s) 0 Start Date: 01/13/23 Status: Ordered Repeat number: 1Start: 37-68-5276Xzimkrjon Oral, BID, Refills(s) 0 Start Date: 01/13/23 Status: Ordered End: 81-74-5096Zguzxwdz Fumarate (TECFIDERA PO) Take by mouth 10/11/2024 Discontinued (Therapy completed)Dimethyl Fumarate (TECFIDERA PO) Take by mouth ActiveDimethyl Fumarate (TECFIDERA PO) Take by mouth 0 Activediroximel fumarate 231 mg delayed release oral capsule (20 sources)Start: 74-83-9254vvry 2 capsules by mouth in the morningdiroximel fumarate (VUMERITY) 231 mg capsule,delayed release(DR/EC) Indications: Multiple sclerosisTake 462 mg by mouth in the morning and 462 mg before bedtime. 360 capsule 3 01/26/2025 ActiveStart: 04-22-2023 End: 79-14-1412qnwi 2 capsules by mouth in the morningdiroximel fumarate (VUMERITY) 231 mg capsule,delayed release(DR/EC) Indications: Multiple sclerosis Take 462 mg by mouth in the morning and 462 mg before bedtime. 360 capsule 3 07/20/2024 12/14/2024 Discontinued (Reorder)Start: 17-83-8249Sanetcnhh Fumarate (Vumerity) 231 mg capsule,delayed release(DR/EC) Active MG PO February 01, 2025 12:00am Complies with drug therapyFLUoxetine 40 mg oral capsule (20 sources)Serotonin Reuptake InhibitorStart: 03-10-2022 End: 80-66-1670depm 1 capsule by mouth in the morningFLUoxetine (PROzac) 40 mg capsule Take 1 capsule (40 mg total) by mouth in the morning. 03/10/2022 Active ibuprofen 200 mg oral tablet (15 sources)Nonsteroidal Anti-inflammatory DrugStart: 00-15-5684okpm 1 mg by mouth every six hoursMotrin IB 200 mg oral tablet mg tab(s), Oral, q6hr, Refills(s) 0 Start Date: 01/13/23 Status: Ordered Repeat number: 124 hr mirabegron 50 mg extended release oral tablet (3 sources)beta3-Adrenergic AgonistStart: 36-50-7527jkla 1 tablet by mouth once dailyMyrbetriq 50 mg oral tablet, extended release 50 mg = 1 tab(s), Oral, Daily, # 30 tab(s), Refills(s) 11, Pharmacy: [facility], 153, cm, 01/13/23 10:50:00 EDT, Height/Length Dosing, 74.8, kg, 01/13/23 10:50:00 EDT, Weight Dosing Start Date: 01/13/23 Status: Orderedmodafinil 200 mg oral tablet (20 sources)Sympathomimetic-like AgentStart: 12-30-2022 End: 48-23-7243glha 1 tablet by mouth in the morningmodafiniL (PROVIGIL) 200 mg tablet Indications: Multiple sclerosis , Chronic fatigue Take 1 tablet (200 mg total) by mouth in the morning. 30 tablet 5 09/13/2024 Activemontelukast 10 mg oral tablet (20 sources)Leukotriene Receptor AntagonistStart: 03-10-2022 End: 13-31-9903ifcu 1 tablet by mouth once dailymontelukast (SINGULAIR) 10 mg tablet Take 1 tablet (10 mg total) by mouth nightly. 03/10/2022 Active nitrofurantoin, macrocrystals 25 mg / nitrofurantoin, monohydrate 75 mg oral capsule (3 sources)Nitrofuran AntibacterialStart: 02-01-2025 End: 59-89-1260ppgb 1 capsule by mouth twice daily in the morningMacrobid 100 mg Cap 100 mg = 1 cap(s), Oral, BID, Start in the morning the day prior to procedure.,X 5 day(s), # 10 cap(s), Refills(s) 0, Pharmacy: [facility], 153, cm, 09/21/24 10:25:00 EDT, Height/Length Dosing, 73.5, kg, 09/21/24 10:25:00 EDT, Weight Dosing Start Date: 02/01/25 Stop Date: 02/06/25 Status: Ordered Quantity: 10.0 Unit: cap(s) Repeat number: 1Start: 02-29-2024 End: 32-89-7936avry 1 capsule by mouth twice dailyMacrobid 100 mg Cap 100 mg = 1 cap(s), Oral, BID, X 5 day(s), # 10 cap(s), Refills(s) 0, Pharmacy: [facility], 153, cm, 12/02/23 11:10:00 EDT, Height/Length Dosing, 74, kg, 12/02/23 11:10:00 EDT, Weight Dosing Start Date: 02/29/24 Stop Date: 03/05/24 Status: Orderedsolifenacin succinate 5 mg oral tablet (20 sources)Cholinergic Muscarinic AntagonistStart: 04-04-2024 End: 57-82-4352Swzecqbienh 5 mg tablet Active MG PO February 01, 2025 12:00am Complies with drug therapyStart: 03-17-2023 End: 57-68-6970lfkw 2 tablets by mouth in the morningsolifenacin (VESICARE) 5 mg tablet Indications: Multiple sclerosis Take 2 tablets (10 mg total) by mouth in the morning. 60 tablet 5 09/22/2023 ActiveSprintec (14 sources)Start: 13-18-8626Kjrusgsc Oral, Daily, Refill(s) 0 Start Date: 01/13/23 Status: Ordered Repeat number: 1Start: 45-17-9295Zghqjzsb Oral, Daily, Refill(s) 0 Start Date: 01/13/23 Status: Orderedsulfamethoxazole 800 mg / trimethoprim 160 mg oral tablet (2 sources)Dihydrofolate Reductase Inhibitor Antibacterial, Sulfonamide AntimicrobialStart: 02-09-2023 End: 62-47-3465Rtaqubg D.S. 800 mg-160 mg Tab 1 tab(s), Oral, BID for 3 day(s), 6 tab(s), Refill(s) 0, [facility], 153, cm, 02/05/23 10:41:00 EDT, Height/Length Dosing, 74.8, kg, 01/13/23 10:50:00 EDT, Weight Dosing Start Date: 02/09/23 Stop Date: 02/12/23 Status: OrderedVitamin D3 2000 intl units oral tablet (15 sources)Start: 47-93-3850Jebagrn D3 2000 intl units oral tablet Refills(s) 0 Start Date: 01/13/23 Status: Ordered Repeat number: 1Start: 79-94-9494Cfishox D3 2000 intl units oral tablet Refills(s) 0 Start Date: 01/13/23 Status: Ordered Completed/Discontinued Medications MedicationDrug Class(es)DatesSig (Normalized)Sig (Original)ethinyl estradiol 0.035 mg / norgestimate 0.25 mg oral tablet (7 sources)Progestin, Estrogen End: 11-51-6591dhmm 1 tablet by mouth in the morningnorgestimate-ethinyl estradiol (Sprintec 28) 0.25-35 MG-MCG tablet Take 1 tablet by mouth in the mor marisol. 04/04/2024 Discontinued (Med list cleanup)naproxen 500 mg oral tablet (14 sources)Nonsteroidal Anti-inflammatory Drug End: 54-04-4824vjbkcotp (Naprosyn) 500 MG tablet Take 500 mg by mouth every 12 (twelve) hours if needed for mild pain 10/11/2024 Discontinued (Therapy completed) Problems Active Problems Problem ClassificationProblemDateDocumented DateEpisodic/Chronic Administrative/social admission (2 sources)Repeated prescription; Translations: [Encounter for issue of repeat prescription]57-15-9086MbskjjxpZkachne disorders (1 source)Anxiety; Translations: [Anxiety disorder, unspecified]02-01-2025 ChronicBlindness and vision defects (8 sources)Blurring of visual image; Translations: [Other visual disturbances] Onset: 566460-48-3166VyninqlrEpbhzjququvre (15 sources)Endometriosis (clinical)76-28-2459YoizjnbDpzxkzc and fatigue (20 sources)Fatigue; Translations: [Chronic fatigue, unspecified]Onset: 941430-83-7143JmjnfgtXjhuazysramfj mental health disorders (8 sources)Depressed mood; Translations: [Other symptoms and signs involving emotional state]Onset: 262095-49-2898ZwrdjoouHfjt disorders (20 sources)Recurrent major depression in full remission; Translations: [Major depressive disorder, recurrent, in full remission]Onset: ChronicMultiple sclerosis (20 sources)Multiple sclerosis; Translations: [Multiple sclerosis]Onset: 14-39-1193VpqhigeQexqwyfbrtpa (20 sources)Age-related osteoporosis without current pathological fracture; Translations: [Osteoporosis]Onset: 83-25-3222UsdjznbUtmgq aftercare (3 sources)Immunodeficiency secondary to chemotherapy ; Translations: [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[facility]-H[facility])]17-19-9232BkhzamcxJhwhu bone disease and musculoskeletal deformities (7 sources)Osteopenia; Translations: [Other specified disorders of bone density and structure, unspecified site]48-44-3629NpgtqxbqJwsps circulatory disease (1 source)History of cerebrovascular accident; Translations: [Personal history of transient ischemic attack (TIA), and cerebral infarction without residual deficits]17-10-7815PzouxsrwOwjhl connective tissue disease (4 sources)Spasticity; Translations: [Cramp and spasm]43-81-6381NrgewfxqJmzao connective tissue disease (7 sources)Recurrent falls ; Translations: [Repeated falls]Onset: 10-25-2024 25-12-3347NhgyxqgbXwdnw connective tissue disease (6 sources)Spasm; Translations: [Other muscle spasm]Onset: EpisodicOther connective tissue disease (7 sources)Other symptoms and signs involving the musculoskeletal system; Translations: [Other musculoskeletalsymptoms referable to limbs]Onset: 830691-02-2903CybktbfwIxysq diseases of bladder and urethra (20 sources)Neurogenic bladder; Translations: [Neuromuscular dysfunction of bladder, unspecified]Onset: 726370-33-5936NoedewxQdenx diseases of bladder and urethra (2 sources)Neuromuscular dysfunction of bladder, unspecified; Translations: [Neuromuscular dysfunction of bladder, unspecified]Onset: 80-57-1105PitzgptBskir gastrointestinal disorders (20 sources)Dysphagia; Translations: [Dysphagia, unspecified]Onset: 05-14-2022 05-94-6945VhdxnauuSqyqz nervous system disorders (20 sources)Demyelinating disease of central nervous system; Translations: [Demyelinating disease of central nervous system, unspecified]Onset: 10-29-2022 36-69-1713IjmhuihTyqle nervous system disorders (1 source)Demyelination of spinal cord; Translations: [Demyelinating disease of central nervous system, unspecified]58-36-9865KygqejoNzdfw nervous system disorders (2 sources)Demyelinating disease of central nervous system, unspecified; Translations: [Demyelinating disease of central nervous system, unspecified] Onset: 39-72-0076DvnmhilGxrbf nervous system disorders (20 sources)Sensory ataxia ; Translations: [Other lack of coordination]Onset: 725076-16-2088IpxznbgqYqewb nutritional; endocrine; and metabolic disorders (19 sources)Body mass index 30+ - obesity; Translations: [Obesity, unspecified] Onset: 606475-88-9964CbxzvnqGnycx nutritional; endocrine; and metabolic disorders (1 source)Obesity, unspecified; Translations: [Obesity, unspecified]Onset: 59-53-4214WbqyilpXzgao skin disorders (2 sources)Eruption; Translations: [Rash and other nonspecific skin eruption] Onset: 80-51-4033NoxoxmohYfisr upper respiratory disease (6 sources)Allergic rhinitis; Translations: [Other allergic rhinitis]02-22-2024 ChronicResidual codes; unclassified (20 sources)Dependence on wheelchair; Translations: [Dependence on wheelchair] Onset: 659713-55-4726BmogeurCgctarhz codes; unclassified (1 source)Dependence on wheelchair; Translations: [Dependence on wheelchair] Onset: 72-67-6568DtscmpnGxyfoapzukox (4 sources)Multiple sclerosis; Translations: [Multiple sclerosis]Onset: 966702-07-4303LetymclGnbdnjovvbee (1 source)Immunodeficiency due to drugs; 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]Onset: 86-61-0641Xwzqyrbsjslj (1 source)residential (current) use of other immunomodulators and immunosuppressants; Translations: [residential (current) use of other immunomodulators and immunosuppressants]Onset: 90-16-4872Zpnqxqdvfbrj (1 source)Urinary Catheter Insertion or CheckOnset: 49-37-6242Qdevuguadedq (1 source)catheter issueOnset: 45-62-3899Nhqhcqk tract infections (7 sources)Urinary tract infectious disease; Translations: [Urinary tract infection, site not specified]Onset: 30-53-3791Hfkuaotb Past or Other Problems Problem ClassificationProblemDateDocumented DateEpisodic/ChronicE Codes: Adverse effects of medical drugs (1 source)Adverse effect of antineoplastic and immunosuppressive drugs, initial encounter; Translations: [Adverse effect of antineoplastic and immunosuppressive drugs, initial encounter]Onset: 60-63-9873ThpsobndO Codes: Fall (1 source)Unspecified fall, initial encounter; Translations: [UNSPECIFIED FALL INITIAL ENCOUNTER]Onset: 74-49-2181TzgaehlgXcckzvnp of lower limb (3 sources)Other fracture of upper and lower end of right fibula, initial encounter for closed fracture; Translations: [Displaced fracture of first metatarsal bone, right foot, initial encounter for closed fracture]Onset: 27-15-0802UjusyjldCzcqmqlxqgxpr symptoms and ill-defined conditions (20 sources)Urge incontinence; Translations: [Urge incontinence of urine]Onset: 07-14-2016 Resolved: 12-32-1649FkmxuybHugmalotjghng symptoms and ill-defined conditions (20 sources)History of urinary tract infection; Translations: [Personal history of urinary (tract) infections]Onset: 76-07-2537SoadntvsOhsgm disorders and dislocations; trauma-related (4 sources)Dislocation of tarsometatarsal joint of right foot, initial encounter; Translations: [DISLOC TMT JOINT RT FOOT INITIAL]Onset: 10-04-2021 EpisodicMood disorders (20 sources)Mood disordersOnset: 02-22-2024 Resolved: Other aftercare (1 source)residential (current) use of aspirin; Translations: [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 MANAGER CURRENT USE OF ASPIRIN]Onset: 36-92-0611NgppviwsPfscg aftercare (1 source)Other long term care pharmacist (current) drug therapy; Translations: [OTH LONGTERM CURRENT DRUG THERAPY]Onset: 98-81-7901EbtghnkmHurxr bone disease and musculoskeletal deformities (1 source)Other specified disorders of bone density and structure, right lower leg; Translations: [OTH D/O BONE DEN STRUCT RT LOW LEG]Onset: 87-87-3618Eoebuvvt Other connective tissue disease (4 sources)Pain in right foot; Translations: [PAIN IN RIGHT FOOT]Onset: 38-02-5306GmlzgpyeUiedb connective tissue disease (1 source)Cramp and spasm; Translations: [Cramp and spasm]Onset: 10-25-2024 EpisodicOther connective tissue disease (1 source)Repeated falls; Translations: [Repeated falls]Onset: 10-25-2024 EpisodicOther diseases of kidney and ureters (20 sources)Cyst of kidney; Translations: [Cyst of kidney, acquired]Onset: 909936-96-2660NkodevmnDcufe gastrointestinal disorders (1 source)Dysphagia, oropharyngeal phase; Translations: [DYSPHAGIA OROPHARYNGEAL PHASE]Onset: 96-63-4334QdvtfmztSrqpx gastrointestinal disorders (1 source)Dysphagia, unspecified; Translations: [Dysphagia, unspecified]Onset: 08-13-9693LozynvzhWghvp injuries and conditions due to external causes (1 source)History of falling; Translations: [HISTORY OF FALLING]Onset: 54-00-0353KlkzoveyJgwen lower respiratory disease (20 sources)Wheezing; Translations: [Wheezing]Onset: EpisodicOther nervous system disorders (20 sources)Abnormal gait; Translations: [Unsteadiness on feet]Onset: 05-14-2022 00-35-4140DsjczfckNsfqq nervous system disorders (2 sources)Unsteadiness on feet; Translations: [Unsteadiness on feet]Onset: 77-78-5089AbvvmfnnUcxuz nervous system disorders (1 source)Other lack of coordination; Translations: [Other lack of coordination] Onset: 50-71-4733QtkoqxnzNurrg non-traumatic joint disorders (4 sources)Pain in right ankle and joints of right foot; Translations: [PAIN IN RIGHT ANKLE]Onset: 88-20-0214HgbfhvxoIpaaj screening for suspected conditions (not mental disorders or infectious disease) (20 sources)Patient encounter status; Translations: [Encounter for screening for malignant neoplasm of colon]Onset: 363168-63-7411ZfdublpwYhyjiryl codes; unclassified (20 sources)Poor short-term memory ; Translations: [Other amnesia]Onset: 530687-22-5339PczihaaqUeovnyoo codes; unclassified (10 sources)Cancer cervix screening - not needed; Translations: [Procedure and treatment not carried out for other reasons]Onset: 10-11-2024 Resolved: 111896-32-7776AmkcvawnKnwitjtn codes; unclassified (1 source)Other amnesia; Translations: [Other amnesia]Onset: 80-34-4501Ecthtmzk Unclassified (17 sources)Onset: 06-30-2023 Resolved: 873753-52-4982Fneuuixjstho (2 sources)Patient encounter -[id number] (2 sources)Weakness of both lower [id number] Results Test NameValueInterpretationReference RangeFacilityMR BRAIN W WO CONTon [id number] BRAIN W WO CONTMR BRAIN W WO CONT EXAM: MR BRAIN W WO CONT TECHNIQUE: [...] outflow obstruction. The sue-white matter differentiation is preserved. Thereis no restricted diffusion. The paranasal sinuses are [...] by Chato Membreno MD on 03/20/2025 3:16 PMNormalMain Campus Medical Center URINALYSISon [id number] Ql (U)NegativeNormalNegativeMain Campus Medical CenterComment on above:Order Comment: Urine received without preservative. Delays in transport may affect results. Interpret with caution. A clinical correlation is recommended.Performed By: #### UA #### [facility] ([facility]) [address] [place] [address] VIRBLOOD/HGBLargeAbnormalNegSelect Medical Specialty Hospital - [place] Comment on above:Order Comment: Urine received without preservative. Delays in transport may affect results. Interpret with caution. A clinical correlation is recommended.Performed By: #### UA #### [facility] ([address] [address] VIRCA OXALATE CRYSTALSPresentAbnWayne HealthCare Main CampusComment on above:Order Comment: Urine received without preservative. Delays in transport may affect results. Interpret with caution. A clinical correlation is recommended.Performed By: #### UA #### [facility] ([facility]) [address] [place] [address] VIRColor (U)YellowNormalYellowMain Campus Medical Center Comment on above:Order Comment: Urine received without preservative. Delays in transport may affect results. Interpret with caution. A clinical correlation is recommended.Performed By: #### UA #### [facility] ([facility]) [address] [place] [address] [place] [address] VIRGlucose Ql (U)NegativeNormalNegative, 250 mg/dLProMemorial Hermann The Woodlands Medical CenterComment on above:Order Comment: Urine received without preservative. Delays in transport may affect results. Interpret with caution. A clinical correlation is recommended.Performed By: #### UA #### [facility] ([address] [place] [address] VIRKetones Ql (U)TraceAbnormalNegativeMain Campus Medical CenterComment on above:Order Comment: Urine received without preservative. Delays in transport may affect results. Interpret with caution. A clinical correlation is recommended.Performed By: #### UA #### [facility] ([facility]) [address] [place] [address] [place] [address] VIRLeukocyte esterase Test strip Ql (U)ModerateAbnormal NegativeMain Campus Medical CenterComment on above:Order Comment: Urine received without preservative. Delays in transport may affect results. Interpret with caution. A clinical correlation is recommended.Performed By: #### UA #### [facility] ([address] [place] [address] VIRNitrite Ql (U)NegativeNormalNegativeMain Campus Medical CenterComfresenius medical care at [facility] on above:Order Comment: Urine received without preservative. Delays in transport may affect results. Interpret with caution. A clinical correlation is recommended.Performed By: #### UA #### [facility] ([address] [place] [address] VIRPH,URINE6.4Cqypay7.0-8.5ProMedica [facility] Creek Medical CenterComment on above:Order Comment: Urine received without preservative. Delays in transport may affect results. Interpret with caution. A clinical correlation is recommended.Performed By: #### UA #### [facility] ([address] [address] VIRProtein Ql (U)100 mg/dLAbnormalNegativeMain Campus Medical CenterComment on above:Order Comment: Urine received without preservative. Delays in transport may affect results. Interpret with caution. A clinical correlation is recommended.Performed By: #### UA #### [facility] ([address] [address] VIRR.B.SJKEP92Lcea6-4GwqPwrwwyBlanchard Valley Health System Bluffton HospitalComment on above:Order Comment: Urine received without preservative. Delays in transport may affect results. Interpret with caution. A clinical correlation is recommended.Performed By: #### UA #### [facility] ([address] [address] VIRSpecific gravity (U) [Rel density]1.917Llczkb0.003-1.035 Main Campus Medical CenterComment on above:Order Comment: Urine received without preservative. Delays in transport may affect results. Interpret with caution. A clinical correlation is recommended.Performed By: #### UA #### [facility] ([address] [address] VIRSQUAMOUS [id number] [facility] Comment on above:Order Comment: Urine received without preservative. Delays in transport may affect results. Interpret with caution. A clinical correlation is recommended.Performed By: #### UA #### [facility] ([address] [address] VIRTURBIDITYCloudyAbnormalClearMain Campus Medical Center Comment on above:Order Comment: Urine received without preservative. Delays in transport may affect results. Interpret with caution. A clinical correlation is recommended.Performed By: #### UA #### [facility] ([address] [address] VIRUROBILINOGEN1.0 eu/dLNormal0.2 eu/dL, 1.0 eu/dLProMedica John Muir Walnut Creek Medical CenterComment on above:Order Comment: Urine received without preservative. Delays in transport may affect results. Interpret with caution. A clinical correlation is recommended.Performed By: #### UA #### [facility] ([address] [address] VIRW.B.NLWDO88Kiip3-8LshWqcwsjBlanchard Valley Health System Bluffton HospitalComment on above:Order Comment: Urine received without preservative. Delays in transport may affect results. Interpret with caution. A clinical correlation is recommended.Performed By: #### UA #### [facility] ([address] [address] VIRURINE CULTUREon [id number] identified Cx Nom (U) CULTURE RESULTS ESCHERICHIA COLI >100,000 CFU/mL Escherichia coli [ S = SUSCEPTIBLE R = RESISTANT I = INTERMEDIATE S-DO = Susceptible-dose dependent NS = Non-suscceptible NO = No Interpretation ] Organism: ESCHERICHIA COLI Antibiotic Interpretation ELOINA Status Ampicillin R >=^32.0 F AMP/SULBACTAM I 16 F PIPERACIL/TAZOBACTAM S <=^4.0 F Cefazolin (non-urinary) I 4.0 F Cefazolin (urinary) S 4.0 F Ceftriaxone S <=^0.25 F Gentamicin R >=^16.0 F Ciprofloxacin S <=^0.06 F Levofloxacin S <=^0.12 F Nitrofurantoin S <=^16.0 F Trimethoprim + Sulfamethoxazole R >=^16.0 [facility] Comment on above:Performed By: #### UC #### [facility] ([facility]) [address] [place] [address] [facility] Urineon [id number] identified Cx Nom (U) Microbiology PROCEDURE: Urine Culture [R1] SOURCE: U CleanCatch BODY SITE: COLLECTED DATE/TIME: 02/14/2025 12:14 EDT RECEIVED DATE/TIME: 02/14/2025 13:12 EDT START DATE/TIME: 02/14/2025 13:12 EDT FREE TEXT SOURCE: Ed LOVETT, Lin Ward MD, Lin Casanova FINAL REPORTS Final Report [] Verified Date/Time: 02/16/2025 10:44 EDT >100,000 cfu/ml Escherichia coli SUSCEPTIBILITY RESULTS LEGEND: S=Susceptible, N/R=Not Reported, Blank=Data not available, or drug not advisable or tested, I=Intermediate, ESBL=Extended spectrum beta-lactamase, R=Resistant, TFG=Thymidine-dependent strain, NORMA=Beta-lactamase positive, ELOINA=mcg/m;(mg/L), S*=Predicted susceptible interp, R*=Predicted resistant interp EC Antibiotic ELOINA Dilutn ELOINA Interp Ampicillin >16 R Ampicillin/ 16/8 I Sulbactam Cefazolin <=2 S Cefepime <=2 S Ceftazidime/ <=8 S Avibactam Ceftriaxone <=1 S Cefuroxime <=4 S Ciprofloxacin <=0.25 S Ertapenem <=0.5 S Gentamicin >8 R Levofloxacin <=0.5 S Meropenem <=1 S Nitrofurantoin <=32 S Piperacillin/ <=8 S Tazobactam Tetracycline >8 R Tobramycin 4 S Trimethoprim/ >2/38 R Sulfa Performing Locations R1: This test was performed at: [facility], [address] [place] [address], [phone] , , XpgqyuLbcyrlFirelands Regional Medical CenterComment on above:Performed By: #### [id number] #### [facility] [address] [place] [id number] OR Intraoperative Recordon [id number] OR Intraoperative RecordMain OR Intraoperative Record IntraOp Document Type FT Summary Primary Physician: Lin Ward MD Finalized Date/Time: 02/15/25 10:48:12 Pt. Name: ITZELDENISSE/Sex: 1970 Female Med Rec #: [id number] Physician: Lin Ward MD Financial #: [id number] Pt. Type: A Room/Bed: [place] [address] Admit/Disch: 02/14/25 10:15:48 - 02/14/25 13:30:00 Institution: Case Times FT Entry 1 Patient Times In Room 02/14/25 12:25:00 Out Room 02/14/25 12:51:00 Procedure Times Start 02/14/25 12:38:00 Stop 02/14/25 12:48:00 Anesthesia Times Last Modified By: Bin Hobbs Ii 02/14/25 13:07:30 Case Attendance FT Entry 1 Entry 2 Entry 3 Case Attendee Ed LOVETT, Lin Hatfield, María Elena Glaser Role Performed Surgeon - Primary Scrub - Primary Staff - Other Time In 02/14/25 12:25:00 02/14/25 12:25:00 02/14/25 12:25:00 Time Out 02/14/25 12:51:00 02/14/25 12:51:00 02/14/25 12:51:00 Procedure CYSTOSCOPY(.) CYSTOSCOPY(.) CYSTOSCOPY(.) Comments POSITIONING HELP Last Modified By: Bin Hobbs Ii, Alfons Ii F Letrondo, Alfons Ii F 02/14/25 14:09:34 02/14/25 14:09:34 02/14/25 14:09:34 Entry 4 Entry 5 Case Attendee Adrienne Medel CST, Alfons Ii F Role Performed Staff - Other Staff Occupational Therapist - Primary Time In 02/14/25 12:25:00 02/14/25 12:25:00 Time Out 02/14/25 12:51:00 02/14/25 12:51:00 Procedure CYSTOSCOPY(.) CYSTOSCOPY(.) Comments POSITIONING HELP Last Modified By: Bin Hobbs Ii, Alfons Ii F 02/14/25 14:09:34 02/14/25 14:09:34 Perioperative Protocols FT Pre-Care Text: Implements protective measures prior to operative or invasive procedure, confirms identity before the operative or invasive procedure, verifies operative procedure, surgical site, and laterality Entry 1 Procedure(s) CYSTOSCOPY(.) Patient Identity Birthday, ID Band Verified (select at Check, Patient least 2): Participation Consents / H and P H&P, Surgery/Procedure Operative Site N/A Verified Consent Marking Verified Surgical Site Yes Laterality Verified n/a Verified Procedure Verified Yes Correct Patient Yes Position Verified Availability Equipment, Medication Prep Dry No Verified (If Applicable) PreOp Antibiotic No Time Out Lin Ward MD, Given Participants Ke Hatfield, María Elena Bae, Adrienne Medel CST Time Out Complete 02/14/25 12:38:00 Outcomes Met? Yes Last Modified By: Bin Hobbs Ii 02/14/25 14:09:21 Post-Care Text: The patient is free from signs and symptoms of injury caused by extraneous objects Allergy Information FT Pre-Care Text: Verifies allergies Entry 1 Allergies Reviewed? Yes Allergies Reviewed Self/Patient With Outcomes Met? Yes Last Modified By: Bin Hobbs Ii 02/14/25 14:09:26 Post-Care Text: The patient received appropriate medication(s) safely administered during the perioperative period Surgical Procedures FT Entry 1 Procedure Description Procedure CYSTOSCOPY Modifiers . Surgeon Description CYSTO BOTOX 100 UNITS UNDER LOCAL Primary Procedure Yes Primary Surgeon Lin Ward MD Start 02/14/25 12:38:00 Stop 02/14/25 12:48:00 Anesthesia Type Local Surgical Service Urology Wound Class 2 - Clean-Contaminated Last Modified By: Bin Hobbs Ii 02/14/25 14:09:33 General Case Data FT Pre-Care Text: Classifies surgical wound, implements aseptic technique, initiates traffic control Entry 1 Case Information OR OR 1 FT Case Level Level 2 Wound Class 2 - Clean-Contaminated Specialty Urology Preop Diagnosis URGE INCONTENENCE Postop Same As Preop Yes Postop Diagnosis URGE INCONTENENCE Outcomes Met? Yes Last Modified By: Bin Hobbs Ii 02/14/25 14:09:38 Post-Care Text: The patient is free from signs and symptoms of infection Skin Assessment (Pre Procedure) FT Pre-Care Text: Implements protective measures to prevent skin/ tissue injury due to thermal or mechanical sources Evaluates for signs and symptoms of physical injury to skin and tissue Entry 1 Skin Integrity Intact, Alianza, Warm, & Skin Abnormality No Dry Outcomes Met? Yes Last Modified By: Bin Hobbs Ii 02/14/25 14:09:57 Post-Care Text: The patient is free from signs and symptoms of injury caused by extraneous objects Patient Positioning FT Pre-Care Text: Identifies physical alterations that require additional precautions for procedure-specific positioning, verifies presence of prosthetics or corrective devices, positions the patient, evaluates the patient for signs and symptoms of injury as a result of positioning Entry 1 Procedure CYSTOSCOPY(.) Body Position Frog Legged Feet Uncrossed? Yes Left Arm Position Resting at Side Right Arm Position Resting at Side Left Leg Position Other/See Comments Right Leg Position Other/See Comments Positioning Device Safety Strap, Pillow Under Head Large Press Points Checked Yes By Bin Hobbs Ii, (more content not included)...[facility] CenterDischarge Instructionson 02-14-2025 Discharge InstructionsDischarge Instructions DENISSE GALARZA :1970 Visit Date:02/14/2025 Inpatient Discharge Instructions Your Care Team Admitting Physician - Lin Ward MD Referring Physician - Lin Ward MD Reason for Your Visit URGE INCONTENENCE Your Diagnosis Urge incontinence Tests Performed Urine Culture -- Results Pending -- Please visit your patient portal for your results or contact your primary care physician. This Is Your Medications List [facility] Prescription (baclofen 10 mg tablet) aspirin (aspirin 81 mg oral capsule) buPROPion (BuPROPion (Eqv-Wellbutrin SR) 150 mg/12 hours oral tablet, extended release) cefuroxime (cefuroxime 500 mg oral tablet) cephalexin (Keflex 500 mg Cap) cholecalciferol (Vitamin D3 2000 intl units oral tablet) diroximel fumarate (Vumerity 231 mg oral delayed release capsule) fluoxetine (FLUoxetine 40 mg Cap) ibuprofen (Motrin IB 200 mg oral tablet) modafinil (modafinil 200 mg Tab) montelukast (montelukast 10 mg Tab) Procedure History Injection of botulinum toxin type A into detrusor muscle of urinary bladder (02/16/2023), Ablation (09/01/2014), Ovarian cystectomy (2014), Breast augmentation. Discharge Vitals Temperature (Oral) 36.5 ???C Heart Rate (Monitored) 90 Blood Pressure 116/74 What to do next Instructions From Your Doctor Event Name Event Result Discharge Activity Resume normal activities in 24 hours, Expect mild pain, Expect minimal amount of drainage and/or bleeding, Activity as tolerated Discharge Diet(s) Regular Call Your Doctor For Persistent or heavy bleeding, Temperature above 101.5 degrees Discharge Instructions Discharge Instructions New Follow Up Appointments after Discharge Follow Up with Lin Ward When: Comments: Office to call to schedule your follow up in 1 month for ta exchange if unable to be done by home health nurse Where: [facility] [place], [address] [phone] Business (1) Medications What How Much When Instructions Next Dose New cephalexin (Keflex 500 mg Cap) 1 Capsules By Mouth Every 12 hours Duration: 5 Days start immediately after botox Pickup at [facility] Unchanged aspirin (aspirin 81 mg oral capsule) By Mouth Every 24 hours Unchanged buPROPion (BuPROPion (Eqv-Wellbutrin SR) 150 mg/ 12 hours oral tablet, extended release) Unchanged cefuroxime (cefuroxime 500 mg oral tablet) Unchanged cholecalciferol (Vitamin D3 2000 intl units oral tablet) Unchanged diroximel fumarate (Vumerity 231 mg oral delayed release capsule) By Mouth 2 times a day Unchanged fluoxetine (FLUoxetine 40 mg Cap) Unchanged ibuprofen (Motrin IB 200 mg oral tablet) By Mouth Every 6 hours Unchanged Misc Prescription (baclofen 10 mg tablet) 0 Unchanged modafinil (modafinil 200 mg Tab) Unchanged montelukast (montelukast 10 mg Tab) Pharmacy Information [facility]: [address] [place] [phone] Test Results No qualifying data available. Allergies No Known Medication Allergies Problems Ongoing - Any problem that you are currently receiving treatment for. Endometriosis History of UTI Multiple sclerosis Rash Urge incontinence [facility] [employer] [facility], Female A Ta catheter is a soft, flexible tube that is placed into the bladder to drain urine. The catheter has a balloon to hold it inside the bladder. A Ta catheter may be inserted if: ??? You leak urine or are not able to control when you urinate (urinary incontinence). ??? You are not able to urinate when you need to (urinary retention). ??? You had surgery. ??? You have certain medical conditions, such as multiple sclerosis, dementia, or a spinal cord injury. To Prevent Infection: 1. Wash your hands with soap and water before and after handling your catheter. 2. Using mild soap and warm water on a clean washcloth; twice a day. ??? Clean the area on your body closest to the catheter insertion site using a front to back motion, moving away from the catheter. Never wipe toward the catheter because this could sweep bacteria upinto the urethra and cause infection. ??? Remove all traces of soap. Pat the area dry with a clean towel. No tub baths. No lotions, powders, or sprays unless directed by your physician. 3. Keep the tube secure. Do not let the tube pull or catch when you are moving around. ??? Attach the catheter to your leg so there is no tension on the catheter. The bag can be wore on the thigh. Use adhesive tape or a leg strap. If you are using adhesive tape, remove any sticky residue left behind by the previous tape you used. 4. Replace wet leg straps with dry ones. 5. Wear cotton underwear to absorb moisture and keep impregnator and drier. 6. Keep the drainage bag below the level of the bladder, but keep it off the floor. 7. Check throughout the day to be sure the catheter is work (more content not included)...[facility] Medical CenterComment on above:Result Comment: Electronically Signed By: Sridevi SAWYER, Catalino Fernández.taty\Date and Time Signed: 02/14/25 13:19 EDTH&P Updateon 02-14-2025H&P UpdateH&P Update Patient: DENISSE GALARZA Age: 54 years Sex: Female : 1970 Associated Diagnoses: None Author: Lin Ward MD Basic Information I have reviewed prior notes, spoke with patient, no changes to history. Patient elects to proceed with surgery as planned. Health Status Procedure history: Cysto/Botox 100u ([id number]) on 02/16/2023 at 52 Years. Ablation ([id number]) on 09/01/2014 at 44 Years. Right Ovarian cystectomy ([id number]) in 2014 at 44 Years. Breast augmentation ([id number]). Social History Social & Psychosocial Habits Tobacco 02/01/2025 Tobacco Use: Never (less than 100 in l Smokeless tobacco use: Never . Allergies: Allergic Reactions (Selected) No Known Medication Allergies Current medications: (Selected) Documented Medications Documented BuPROPion (Eqv-Wellbutrin SR) 150 mg/12 hours oral tablet, extended release: Refills(s) 0 FLUoxetine 40 mg Cap: Refills(s) 0 Motrin IB 200 mg oral tablet: mg tab(s), Oral, q6hr, Refills(s) 0 Vitamin D3 2000 intl units oral tablet: Refills(s) 0 Vumerity 231 mg oral delayed release capsule: mg cap(s), Oral, BID, Refills(s) 0 aspirin 81 mg oral capsule: mg cap(s), Oral, q24hr, Refills(s) 0 baclofen 10 mg tablet: baclofen 10 mg tablet cefuroxime 500 mg oral tablet: Refills(s) 0 modafinil 200 mg Tab: Refills(s) 0 montelukast 10 mg Tab: Refills(s) 0 Problem list: All Problems Endometriosis / SNOMED CT 584956459 / Confirmed History of UTI / SNOMED CT 6736920063 / Confirmed Multiple sclerosis / SNOMED CT 59338591 / Confirmed Rash / SNOMED CT 113741183 / Confirmed Urge incontinence / SNOMED CT 201653574 / Confirmed Canceled: UTI (urinary tract infection) / SNOMED CT 731788866 Canceled: UTI symptoms / SNOMED CT 822944304QwzuynEjaaupFirelands Regional Medical Center Comment on above:Result Comment: Electronically Signed By: Ed LOVETT, Lin Casanova\.br\Date and Time Signed: 02/14/25 12:18EDTInpatient Patient Summaryon [id number] Patient SummaryInpatient Patient Summary [address] [address] [facility] Clinical Discharge Instructions PERSON INFORMATION Name: DENISSE GALARZA PHYSICIANS Admitting Physician: Lin Ward MD Attending Physician: Lin Ward MD PCP: THEA SOOD CNP Discharge Diagnosis: Urge incontinence Comment: PATIENT EDUCATION INFORMATION Instructions: Ta Catheter Care, Female-[facility] [place] ([facility]USTOM[place] EU - Cystoscopy with Botox Injection Discharge Instructions (CUSTOM) Medication Leaflets: Follow up: With: Address: When: Lin Ward [address] [place], [place] [phone] Business (1) Comments: Office to call to schedule your follow up in 1 month for ta exchange if unable to be done by home health nurse MEDICATION LIST New Medications [facility], [address], [place] [id number], [phone] cephalexin (Keflex 500 mg Cap) 1 Capsules By Mouth every 12 hours for 5 Days. start immediately after botox. Refills: 0. Medications to Continue with No Changes Other Medications aspirin (aspirin 81 mg oral capsule) By Mouth every 24 hours. buPROPion (BuPROPion (Eqv-Wellbutrin SR) 150 mg/12 hours oral tablet, extended release) cefuroxime (cefuroxime 500 mg oral tablet) cholecalciferol (Vitamin D3 2000 intl units oral tablet) diroximel fumarate (Vumerity 231 mg oral delayed release capsule) By Mouth 2 times a day. fluoxetine (FLUoxetine 40 mg Cap) ibuprofen (Motrin IB 200 mg oral tablet) By Mouth every 6 hours. Misc Prescription (baclofen 10 mg tablet) 0. modafinil (modafinil 200 mg Tab) montelukast (montelukast 10 mg Tab) Comment:Rosa MariaFormerly [facility]ard[facility] Un[facility] Health Carecase Med[facility] HospitalMain OR PACU II Recordon [id number] OR PACU II RecordMain OR PACU II Record PACU Phase II Document Type FT Summary Primary Physician: Lin Ward MD Finalized Date/Time: 02/14/25 13:35:27 Pt. Name: ITZELDENISSE D.O.B./Sex: 1970 Female Med Rec #: [id number] Physician: Lin Ward MD Financial #: [id number] Pt. Type: A Room/Bed: [place] [address] Admit/Disch: 02/14/25 10:15:48 - Institution: Case Times PACU II FT Pre-Care Text: Identifies barriers to communication and implements measures to provide psychological support and determines knowledge level Develops individualized plan of care, and ensures continuity of care Maintains patient's dignity and privacy, and maintains patient confidentiality Identifies and reports philosophical, cultural, and spiritual beliefs and values Identifies individual values and wishes concerning care administers prescribed antibiotic therapy and immunizing agents as ordered, Evaluates postoperative tissue perfusion Implements thermoregulation measures, and monitors body temperature Evaluates postoperative respiratory statusEvaluates postoperative cardiac status Evaluates postoperative neurological status Assesses pain control, collaborated in initiating patient-controlled analgesia and implements alternative methods of pain control Verifies allergies, administers prescribed medications and solutions, evaluates response to medications Entry 1 In PACU II 02/14/25 12:55:00 Discharge from PACU 02/14/25 13:30:00 II Outcomes Met? Yes Last Modified By: Catalino Laureano RN 02/14/25 13:35:26 Post-Care Text: The patient demonstrates knowledge of the expected response to the operative or invasive procedure The patient's care is consistent with the individualized perioperative plan of care The patient's rightto privacy is maintained The patient's value system, lifestyle, ethnicity, and culture are considered, respected, and incorporated into the perioperative plan of care The patient participates in decisions affecting his or her perioperative plan of care. The patient is free from signs and symptoms of infection The patient has wound/tissue perfusion consistent with or improved from baseline levels established preoperatively The patient is at or returning to normothermia at the conclusion of the immediate postoperative period The patient's respiratory function is consistent with or improved from baseline levels established preoperativelyThe patient's cardiovascular status is consistent with or improved from baseline levels established preoperatively The patient's neurological status is consistent with or improved from baseline levels established preoperatively The patient demonstrates and/or reports adequate pain control throughout the perioperative period The patient received appropriate medication(s), safely administered during the perioperativeperiod Finalized By: Catalino Laureano RN Document Signatures Signed By: Catalino Laureano RN 02/14/25 13:35NoBrecksville [facility] HospitalMain OR Preoperative Recordon [id number] OR Preoperative RecordMain OR Preoperative Record PreOp Document Type FT Summary Primary Physician: Lin Ward MD Finalized Date/Time: 02/14/25 14:06:50 Pt. Name: DENISSE GALARZA Iona DyeB./Sex: 1970 Female Med Rec #: [id number] Physician: Lin Ward MD Financial #: [id number] Pt. Type: Room/Bed: [place] [address] Admit/Disch: 02/14/25 10:15:48 - 02/14/25 13:30:00 Institution: Case Times PreOp FT Pre-Care Text: Verifies consent for planned procedure, identifies individual values and wishes concerning care, includes family members in perioperative teaching Entry 1 Patient Times. In Pre Surgery 02/14/25 11:30:00 Out Pre Surgery 02/14/25 12:23:00 Outcomes Met? Yes Last Modified By: Bin Hobbs Ii 02/14/25 14:06:49 Post-Care Text: The patient participates in decisions affecting his or her perioperative plan of care Finalized By: Bin Hobbs Ii Document Signatures Signed By: Bin Hobbs Ii 02/14/25 14:06NoBrecksville VA / [facility]ille HospitalOperative Reporton [id number] ReportOperative Report Patient: DENISSE GALARZA Age: 54 years Sex: Female : 1970 Associated Diagnoses: None Author: Lin Ward MD Procedure Operative Information Details: Date/ Time: 02/14/2025 13:07:00. Pre-Op Dx: Incont/Urge - N39.41. Post-Op Dx: Same. Anesthesia Type: Local. Procedure: Local Cystoscopy with botox injection. Complications: None. Risks/Benefits/Informed Consent: Surgical risks, benefits, details of the procedure have been explained to the patient, Full informed consent has been obtained. Intraoperative Information Prepped: Patient is brought back to the endoscopy suite, Urine Specimen Results Negative for infection, Patient prepped in the usual fashion with Betadine solution (Hibiclens), After waiting several minutes the Cystoscope is introduced. Procedure: Patient is very contracted. Required 2 people to hold each leg with gentle but manual retraction. Severe groin/suprapubic yeast infection. The trigone was identified and evaluated. The [...] the procedure. The cystoscope was removed and a 16fr silicone ta was inserted with somedifficulty due to angle of urethra and patient's contraction. The patient tolerated the procedure well without immediate complications. . The Urethra is: Normal. The Bladder is: Trabeculated (Moderate (2), Small capacity), No bladder tumors, lesions, stones or foreign bodies.. Postoperative Information Discharge: Patient is discharged home with antibiotic coverage, Follow up arranged, Ta placed per pt request due to severe incontinence. Needs follow up in 1 month for ta exchange. Will see if can be done by home health nurseBryanna. If not, will have to be done in a setting with significant assistance/Jam lift as patient does not have wheelchair that can lie flat, unable to transfer herself. She also very contracted which requires multiple people to retract. - Prophylactic Keflex sent today based on last urine culture. Follow-up straight cath specimen obtained today.[facility] Medical CenterComment on above: Result Comment: Electronically Signed By: Ed LOVETT, Lin Casanova\.br\Date and Time Signed: 02/14/25 13:11EDTOutpatient Surgery Discharge Instructionon 02-14-2025 Outpatient Surgery Discharge InstructionOutpatient Surgery Discharge Instruction [address] [address] Patient Discharge Instructions PERSON INFORMATION Name: DENISSE GALARZA Date of : 1970 Current Date: 02/14/2025 13:05:46 PHYSICIANS Admitting Physician: Lin Ward MD Discharge Diagnosis: Urge incontinence ITZELDENISSE Iona has been given the following list of follow-up instructions, prescriptions, and patient education materials: PATIENT FOLLOW-UP INFORMATION Diet: Regular Discharge Activity: Resume normal activities in 24 hours, Expect mild pain, Expect minimal amount of drainage and/or bleeding, Activity as tolerated Call Your Doctor For: Persistent or heavy bleeding, Temperature above 101.5 degrees IF UNABLE TO CONTACT YOUR PHYSICIAN AND YOU FEEL IT IS AN EMERGENCY, GO TO THE NEAREST EMERGENCY ROOM OR CALL 911 I, DENISSE GALARZA, have received the attached patient education materials/instructions and have verbalized understanding: May we do a follow up call? Yes No I was present when discharge instructions were given Patient Signature Date Clinican/Nurse Signature Date Follow up: With: Address: When: Lin Ward [address] [place] [address], [place] [address], [address] [address] [phone] Business (1) Comments: Office to call to schedule your follow up in 1 month for ta exchange if unable to be done by home health nurse Pharmacy Information: You may receive a survey from Nehemias Gonzalez asking you to rate your care experience. Your feedback is important and will help us understand what we do well and how we can improve the quality of care we provide to you, your loved ones and our community. It???s an honor to serve you. Thank you for choosing [facility] HERE ARE THE MEDICATION CHANGES THAT OCCURRED DURING YOUR HOSPITAL STAY New Medications [facility], [address] [place], [place] [id number], [phone] cephalexin (Keflex 500 mg Cap) 1 Capsules By Mouth every 12 hours for 5 Days. start immediately after botox. Refills: 0. Medications to Continue with No Changes Other Medications aspirin (aspirin 81 mg oral capsule) By Mouth every 24 hours. buPROPion (BuPROPion (Eqv-Wellbutrin SR) 150 mg/12 hours oral tablet, extended release) cefuroxime (cefuroxime 500 mg oral tablet) cholecalciferol (Vitamin D3 2000 intl units oral tablet) diroximel fumarate (Vumerity 231 mg oral delayed release capsule) By Mouth 2 times a day. fluoxetine (FLUoxetine 40 mg Cap) ibuprofen (Motrin IB 200 mg oral tablet) By Mouth every 6 hours. Misc Prescription (baclofen 10 mg tablet) 0. modafinil (modafinil 200 mg Tab) montelukast (montelukast 10 mg Tab) PATIENT EDUCATION INFORMATION Instructions: Ta Catheter Care, Female A Ta catheter is a soft, flexible tube that is placed into the bladder to drain urine. The catheter has a balloon to hold it inside the bladder. A Ta catheter may be inserted if: ??? You leak urine or are not able to control when you urinate (urinary incontinence). ??? You are not able to urinate when you need to (urinary retention). ??? You had surgery. ??? You have certain medical conditions, such as multiple sclerosis, dementia, or a spinal cord injury. To Prevent Infection: 1. Wash your hands with soap and water before and after handling your catheter. 2. Using mild soap and warm water on a clean washcloth; twice a day. ??? Clean the area on your body closest to the catheter insertion site using a front to back motion, moving away from the catheter. Never wipe toward the catheter because this could sweep bacteria upinto the urethra and cause infection. ??? Remove all traces of soap. Pat the area dry with a clean towel. No tub baths. No lotions, powders, or sprays unless directed by your physician. 3. Keep the tube secure. Do not let the tube pull or catch when you are moving around. ??? Attach the catheter to your leg so there is no tension on the catheter. The bag can be wore on the thigh. Use adhesive tape or a leg strap. If you are using adhesive tape, remove any sticky residue left behind by the previous tape you used. 4. Replace wet leg straps with dry ones. 5. Wear cotton underwear to absorb moisture and keep impregnator and drier. 6. Keep the drainage bag below the level of the bladder, but keep it off the floor. 7. Check throughout the day to be sure the catheter is working and urine is draining freely. Make sure the tubing does not become kinked or looped. 8. Do not pull on the catheter or try to remove it. Pulling could damage internal (more content notincluded)...NormalSt. Anthony'S HospitalUA with Cult Rflxon [id number] (U)YellowNormalYellowSt. Anthony'S Hospital Comment on above:Order Comment: Added by Discern ExpertResult Comment: Microscopic readings are only performed on those samples that meet specific criteria set forth by [facility].Performed By: #### [id number] #### [facility] [address], [place] [address]Gkxrqcn (U) [Mass/Vol]NegativeNormalNegativeSt. Anthony'S HospitalComment on above:Order Comment: Added by Michael ExpertPerformed By: #### [id number] #### [facility] [address], [place] [address]Dlzzvno Ql (U)NegativeNormalNegSelect Medical Specialty Hospital [facility] Comment on above:Order Comment: Added by Michael ExpertPerformed By: #### [id number] #### [facility] [address], [place] [address]BT BloodNegativeNormalNegSelect Medical Specialty Hospital [facility] Comment on above:Order Comment: Added by Michael ExpertPerformed By: #### [id number] #### [facility] [address], [place] [address]VE Bacteria4+ /HPFAbnormalTraceSt. Anthony'S Hospital Comment on above:Order Comment: Added by Michael ExpertPerformed By: #### [id number] #### [facility] [address], [place] [address]JM ClarityTurbidAbnormalCleMarion HospitalComment on above:Order Comment: Added by Michael ExpertPerformed By: #### [id number] #### [facility] [address], [place] [address]FD Hyal Jnlv8-6Gcettk8-8FbjlazWilson HealthComment on above:Order Comment: Added by Michael ExpertPerformed By: #### [id number] #### [facility] [address], [place] [address]XG Leuk EstNegativeNormalNegSelect Medical Specialty [facility] Comment on above:Order Comment: Added by Michael ExpertPerformed By: #### [id number] #### [facility] [address] [facility], [place] [address]HK MucousNegativeNormalNegSelect Medical Specialty Hospital [facility] Comment on above:Order Comment: Added by Michael ExpertPerformed By: #### [id number] #### [facility] [address], [place] [address]ZG NitriteNegativeNormalNegativeSt. Anthony'S Hospital Comment on above:Order Comment: Added by Michael ExpertPerformed By: #### [id number] #### [facility] [address], [place] [address]NS pH5.5Invalid Interpretation Code5.0-9.0St. Anthony'S HospitalComment on above:Order Comment: Added by Discern ExpertPerformed By: #### [id number] #### [facility] [address], [place] [address]TJ ProteinNegativeNormalNegativeSt. Anthony'S Hospital Comment on above:Order Comment: Added by Michael ExpertPerformed By: #### [id number] #### [facility] [address], [place] [address]TG HLJ4-7Ojawlf3-9Safsra [facility] HospitalComment on above: Order Comment: Added by Michael ExpertPerformed By: #### [id number] #### [facility] [address], [place] [address]GU Spec Grav1.030Invalid Interpretation Code1.005-1.030St. Anthony'S HospitalComment on above:Order Comment: Added by Discern Expert Performed By: #### [id number] #### [facility] [address], [place] [address]KG Squam Epithelial0-2Invalid Interpretation CodeSt. Anthony'S HospitalComment on above:Order Comment: Added by Michael ExpertPerformed By: #### [id number] #### [facility] [address], [place] [address]QN UrobilinogenNegativeNormalNegativeSt. Anthony'S HospitalComment on above:Order Comment: Added by Michael ExpertPerformed By: #### [id number] #### [facility] [address], [place] [address]TI VHP4-3Bpdkil8-2Dlaajf [facility] HospitalComment on above: Order Comment: Added by Michael ExpertPerformed By: #### [id number] #### [facility] [address], [place] [address]Skfxkzpkuolx (U) [Mass/Vol]NegativeNormalNegativeFisher [facility] HospitalComment on above:Order Comment: Added by Michael ExpertPerformed By: #### [id number] #### [facility] [address], [place] [address]XX with Cult Rflx SPon 65-01-3123ME Spec DescCatheterNormal St. Anthony'S HospitalComment on above:Order Comment: STRATIGHT CATH Performed By: #### [id number] #### [facility] [address], [place] [address]Vwrryeypnm Visit Summaryon [id number] Visit Summary Ambulatory Visit Summary DENISSE GALARZA :1970 Visit Date:02/01/2025 Ambulatory Visit Instructions Your Diagnosis Urge incontinence Multiple sclerosis Rash Your Care Team Attending Physician - Ed LOVETT, Lin Casanova Primary Care Physician - THEA SOOD CNP This Is Your Medications List nitrofurantoin (Macrobid 100 mg Cap) Contact prescribing physician if questions or concerns Misc Prescription (baclofen 10 mg tablet) aspirin (aspirin 81 mg oral capsule) buPROPion (BuPROPion (Eqv-Wellbutrin SR) 150 mg/12 hours oral tablet, extended release) cefuroxime (cefuroxime 500 mg oral tablet) cholecalciferol (Vitamin D3 2000 intl units oral tablet) diroximel fumarate (Vumerity 231 mg oral delayed release capsule) fluoxetine (FLUoxetine 40 mg Cap) ibuprofen (Motrin IB 200 mg oral tablet) modafinil (modafinil 200 mg Tab) montelukast (montelukast 10 mg Tab) Procedures Performed Injection of botulinum toxin type A into detrusor muscle of urinary bladder (02/16/2023), Ablation (09/01/2014), Ovarian cystectomy (2014), Breast augmentation. Discharge Vitals Temperature (Tympanic) 36.8 ???C Heart Rate (Peripheral) 70 Respiratory Rate 16 Blood Pressure 120/78 What to do next Scheduled Follow-Up Appointments Thursday 11:45 AM EDT Where: [facility] You Need to Schedule the Following Appointments Follow Up with Ed LOVETT, JUVE Glez, URO When: Where: Medications What How Much When Instructions New nitrofurantoin (Macrobid 100 mg Cap) 1 Capsules By Mouth 2 times a day Duration: 5 Days Start in the morning the day prior to procedure. Pickup at [facility] Unchanged aspirin (aspirin 81 mg oral capsule) By Mouth Every 24 hours Contact prescribing physician if questions or concerns Unchanged buPROPion (BuPROPion (Eqv-Wellbutrin SR) 150 mg/ 12 hours oral tablet, extended release) Contact prescribing physician if questions or concerns Unchanged cefuroxime (cefuroxime 500 mg oral tablet) Contact prescribing physician if questions or concerns Unchanged cholecalciferol (Vitamin D3 2000 intl units oral tablet) Contact prescribing physician ifquestions or concerns Unchanged diroximel fumarate (Vumerity 231 mg oral delayed release capsule) By Mouth 2 times a day Contact prescribing physician if questions or concerns Unchanged fluoxetine (FLUoxetine 40 mg Cap) Contact prescribing physician if questions or concerns Unchanged ibuprofen (Motrin IB 200 mg oral tablet) By Mouth Every 6 hours Contact prescribing physician if questions or concerns Unchanged Misc Prescription (baclofen 10 mg tablet) 0 Contact prescribing physician if questions orconcerns Unchanged modafinil (modafinil 200 mg Tab) Contact prescribing physician if questions or concerns Unchanged montelukast (montelukast 10 mg Tab) Contact prescribing physician if questions or concerns Pharmacy Information [facility]: [address] [place], [place] [id number] [phone] Allergies No Known Medication Allergies Problems Ongoing - Any problem that you are currently receiving treatment for. Endometriosis History of UTI Multiple sclerosis Rash Urge incontinence Patient Survey You may receive a survey via text or e-mail asking about your office visit. Please share your experience with us by completing your survey. We appreciate your feedback and thank you for choosing us for your care. Education Materials Botulinum Toxin Bladder Injection A botulinum toxin [...] including vitamins, herbs, eye drops, creams, and muva-jcc-ksmuiku medicines. ??? Any problems you or family [...] with a thin tube (urinary catheter). ??? Ble (more content not included)...[facility] CenterUrology Office/Clinic Noteon [id number] Office/Clinic NoteUrology Office/Clinic Note Chief Complaint Pt here for follow up with diary HPI Staff Pt is a 54 year old female here for follow up with diary cystoscopy with Botox done 03/07/24. Patient brought in bladder diary and dropped it off yesterday Dx: Urge incontinence and hx of UTI Denies hematuria, denies dysuria, denies abdominal pain/flank pain BBSQ: 20 Pt reports urgency and leakage Pt wearing pads and needs to change at leads 2 X daily Pt denies pain/burning denies visible blood denies flank pain Pt reports rash located in the groan, and had spread to the lower abd. Pt states that the rash is red in color and is not itching Pt states that she has not changed any products Pt unable to ambulate out of wheelchair to give urine sample and obtain weight History of Present Illness Tests reviewed: UA, op note, voiding diary I have reviewed the [...] HPI. Physical Exam Vitals & Measurements T: 36.8 ???C(Tympanic) HR: 70(Peripheral) RR: 16 BP: 120/78 General Appearance: alert, no distress, well nourished, well developed adult. Suprapubic erythematous flat rash extending to lower abd, not itchy per pt. Assessment/Plan 54 yo WF initially referred by Dr. Ramírez for urge incontinence here for follow- up with voiding diary. Hx of multiple sclerosis resulting in memory impairment, dysphagia, poor balance, b/l LE weakness. Currently in wheelchair. Sees Neurology ([facility]). Patient's partner/caregiver reports pt's neurologist does not think she has MS (believes it is neural scar tissue) [1] Present w/ partner today, POA, caregiver and historian. Pt does have home health but partner/caregiver voices it is becoming more difficult to care for her. Requires jam lift now 1. Urge incontinence (N39.41: Urge incontinence) PVR (cc): 01/13/23 - 83 04/15/23 - 131 12/02/23 - unable to perform bladder scan due to being out for maintenance 09/21/24 - 141 02/01/25 - not performed today Failed Myrbetriq 50mg qd due to cost. Took Vesicare previously. [1] S/p Botox 100u 02/16/23 and 03/07/24. Voiding diary after botox - Failed Myrbetriq 50mg qd due to cost. Took Vesicare previously. [2] Repeat voiding diary for this appt - Voiding q2-3hr. Small, med, large leaks. Nighttime having small leaks every hour wo voiding. Pt unable to provide urine sample today (wheelchair bound). BBS 20 (19) - UUI at least once a day, FI, feels she empties completely, MARCO. Pt was scheduled for botox a few mos ago but she fell and had a concussion. Partner voices her neurologist is ready to put her in a group home. Re- discussed [facility], would be difficult trial given her complex neurologic hx and inability to complete voiding diary properly. Discussed repeat botox instead, that she has yet to reschedule. She does not recall how beneficial this was in February. Pt's mobility has worsened and is now unable to transfer herself, would requirehoyer lift so procedure would need to be done at a hospital. Given her rash and leakage, could consider placing ta with monthly changes to help keep pt dry. However, again may have difficultly scheduling cath changes given she requires jam lift, can be done at group home. Has tried [facility] in the past but had difficulty with this. Discussed R/Bs of placing ta including bladder spasms, increased risk of infection from foreign body, no leakage/improveddryness, changes q4wks. May also need botox AND a catheter if she is having bladder spasms from ta. Pt elects to proceed with Botox. Pt opts for botox first. Will think about ta -Neurologist ordered ucx yesterday, sent Macrobid for botox, will check ucx to ensure macrobid is sensitive -Will schedule Botox 100U (needs jam lift). The procedural risks, benefits, details, and treatment [...] blood stream and causing neurological problems, which (more content not included)... [facility] CenterComment on above:Result Comment: Electronically Signed By: Lin Ward MD\.br\Date and Time Signed: 02/01/25 09:46 EDT\.br\Electronically Co-Signed By: Yesica Osorio\.br\Date and Time Co- Signed: 02/01/25 09:32 EDT\.br\Electronically Co-Signed By: Yesica Osorio\.br\Date and Time Co-Signed: 02/01/25 09:36 EDTURINALYSISon 01-31-2025 Bilirubin Ql (U)NegativeNormalNegSelect Medical Specialty Hospital - YoungstownComment on above:Order Comment: Urine received without preservative. Delays in transport may affect results. Interpret with caution. A clinical correlation is recommended.Performed By: #### UA #### [facility] ([facility]) [address] [place] [address] VIRBLOOD/HGBNegativeUniversity Hospitals TriPoint Medical Center Comment on above:Order Comment: Urine received without preservative. Delays in transport may affect results. Interpret with caution. A clinical correlation is recommended.Performed By: #### UA #### [facility] ([facility]) [address] [place] [address] VIRColor (U)OrangeAbnormalYellowMain Campus Medical Center Comment on above:Order Comment: Urine received without preservative. Delays in transport may affect results. Interpret with caution. A clinical correlation is recommended.Performed By: #### UA #### [facility] ([facility]) [address] [place] [address] VIRGlucose Ql (U)NegativeNormalNegSelect Medical Specialty Hospital - YoungstownComment on above:Order Comment: Urine received without preservative. Delays in transport may affect results. Interpret with caution. A clinical correlation is recommended.Performed By: #### UA #### [facility] ([facility]) [address] [place] [address] VIRKetones Ql (U)TraceAbnormalNegativeMain Campus Medical CenterComment on above:Order Comment: Urine received without preservative. Delays in transport may affect results. Interpret with caution. A clinical correlation is recommended.Performed By: #### UA #### [facility] ([facility]) [address] [place] [address] VIRLeukocyte esterase Test strip Ql (U)NegativeNormalNegative ProMSanta Teresita HospitalComfresenius medical care [facility] on above:Order Comment: Urine received without preservative. Delays in transport may affect results. Interpret with caution. A clinical correlation is recommended.Performed By: #### UA #### [facility] ([facility]) [address] [place] [address] VIRMUCOUSPresentAbnormalNonePBlanchard Valley Health System Bluffton HospitalComfresenius [facility] on above:Order Comment: Urine received without preservative. Delays in transport may affect results. Interpret with caution. A clinical correlation is recommended.Performed By: #### UA #### [facility] ([facility]) [address] [place] [address] VIRNitrite Ql (U)NegativeNormalNegativeMain Campus Medical CenterComfresenius medical [facility] on above:Order Comment: Urine received without preservative. Delays in transport may affect results. Interpret with caution. A clinical correlation is recommended.Performed By: #### UA #### [facility] ([facility]) [address] [place] [address] VIRPH,URINE6.7Amnsvx7.0-8.5PBlanchard Valley Health System Bluffton HospitalComfresenius [facility] on above:Order Comment: Urine received without preservative. Delays in transport may affect results. Interpret with caution. A clinical correlation is recommended.Performed By: #### UA #### [facility] ([facility]) [address] [place] [address] VIRProtein Ql (U)TraceAbnormalNegativeMain Campus Medical CenterComfresenius medical care at [facility] on above:Order Comment: Urine received without preservative. Delays in transport may affect results. Interpret with caution. A clinical correlation is recommended.Performed By: #### UA #### [facility] ([facility]) [address] [place] [address] VIRR.B.[id number] Valley Health System Bluffton HospitalComfresenius medical care at [facility] on above:Order Comment: Urine received without preservative. Delays in transport may affect results. Interpret with caution. A clinical correlation is recommended.Performed By: #### UA #### [facility] ([facility]) [address] [place] [address] VIRSpecific gravity (U) [Rel density]1.003Zxjvvx0.003-1.035 ProMcrenshaw community hospitala [facility] Medical CenterComfresenius medical care at [facility] on above:Order Comment: Urine received without preservative. Delays in transport may affect results. Interpret with caution. A clinical correlation is recommended.Performed By: #### UA #### [facility] ([facility]) [address] [place] [address] VIRSQUAMOUS [id number] [facility] Comment on above:Order Comment: Urine received without preservative. Delays in transport may affect results. Interpret with caution. A clinical correlation is recommended.Performed By: #### UA #### [facility] ([facility]) [address] [place] [address] VIRTURBIDITYHazyAbnormalClearPBlanchard Valley Health System Bluffton HospitalComfresenius medical [facility] on above:Order Comment: Urine received without preservative. Delays in transport may affect results. Interpret with caution. A clinical correlation is recommended.Performed By: #### UA #### [facility] ([facility]) [address] [place] [id number] VIRUROBILINOGEN<1.1 eu/dLNormal<1.1 eu/dLProMedica [facility] Wal[facility] Creek Medical CenterComment on above:Order Comment: Urine received without preservative. Delays in transport may affect results. Interpret with caution. A clinical correlation is recommended.Performed By: #### UA #### [facility] ([facility]) [address] [place] [address] VIRW.B.[id number] Valley Health System Bluffton HospitalComfresenius medical care at [facility] on above:Order Comment: Urine received without preservative. Delays in transport may affect results. Interpret with caution. A clinical correlation is recommended.Performed By: #### UA #### [facility] ([facility]) [address] [place] [address] VIRURINE CULTUREon [id number] identified Cx Nom (U) CULTURE RESULTS ESCHERICHIA COLI >100,000 CFU/mL Escherichia coli ESCHERICHIA COLI 10,000-50,000 CFU/mL Escherichia coli Variant [ S = SUSCEPTIBLE R = RESISTANT I = INTERMEDIATE S-DO = Susceptible-dose dependent NS = Non-suscceptible NO = No Interpretation ] Organism: ESCHERICHIA COLI Antibiotic Interpretation ELOINA Status Ampicillin R >=^32.0 F AMP/SULBACTAM I 16 F PIPERACIL/TAZOBACTAM S <=^4.0 F Cefazolin (non-urinary) I 4.0 F Cefazolin (urinary) S 4.0 F Ceftriaxone S <=^0.25 F Gentamicin R >=^16.0 F Ciprofloxacin S <=^0.06 F Levofloxacin S <=^0.12 F Nitrofurantoin S <=^16.0 F Trimethoprim + Sulfamethoxazole R >=^16.0 F [ S = SUSCEPTIBLE R = RESISTANT I = INTERMEDIATE S-DO = Susceptible-dose dependent NS = Non-suscceptible NO = No Interpretation ] Organism: ESCHERICHIA COLI Antibiotic Interpretation ELOINA Status Ampicillin R >=^32.0 F AMP/SULBACTAM I 16 F PIPERACIL/TAZOBACTAM S <=^4.0 F Cefazolin (non-urinary) I 4.0 F Cefazolin (urinary) S 4.0 F Ceftriaxone S <=^0.25 F Gentamicin R >=^16.0 F Ciprofloxacin S <=^0.06 F Levofloxacin S <=^0.12 F Nitrofurantoin S <=^16.0 F Trimethoprim + Sulfamethoxazole R >=^16.0 [facility] Comment on above:Order Comment: Urine received without preservative - delays in transport may affect results. Interpret with caution and clinical correlation is recommended.Performed By: #### UC #### [facility] ([facility]) [address] [place] [address] VIRUrinalysisOrdered By: Kelin Vu on 01-31-2025 Bilirubin Ql (U)NegativeNegativeProMedica Health SystemColor (U)OrangeAbnormal YellowProMedica Health SystemEpithelial cells Auto (Urine sed) [#/Area]72Ubpx7 - 5PMercy Health Fairfield HospitalGlucose (U) [Mass/Vol]NegativeNegativeGerman HospitalHemoglobin Auto test strip Ql (U)NegativeNegSalem Regional Medical Center Interpretation and review of laboratory resultsAbnormDayton Osteopathic Hospital Ketones (U) [Mass/Vol]TraceAbnormalNegSalem Regional Medical CenterLeukocyte esterase Auto test strip Ql (U)NegativeNegativeGerman HospitalMucus Ql (Urine sed)PresentAbnormHudson River Psychiatric CenterNitrite Auto test strip Ql (U)NegativeNegativeGerman HospitalpH (U)6.5 [pH]5.0 - 8.5PMercy Health Fairfield HospitalProtein (U) [Mass/Vol]TraceAbnormalNegSalem Regional Medical Center RBC Auto (Urine sed) [#/Area]30 - 5PNovant Health Matthews Medical Centerpecific gravity Refractometry automated (U) [Rel density]1.0251.003 - 1.035German HospitalTurbidity Ql (U)HazyAbnormalClearPMercy Health Fairfield HospitalUrobilinogen Qn (U){Yissel'U}/dL<1.1 eu/dLGerman HospitalWBC Auto (Urine sed) [#/Area] 47Wgvi7 - 5PMercy Health Fairfield HospitalUrine received without preservative. Delays in transport may affect results. Interpret with caution. A clinical correlation is recommended.[facility] MontgomeryALL CBC WITH AUTO DIFFon [id number] ABSOLUTE EGMY4QBDV HealthcareBasophils/100 WBC (Bld) 0.3 %0.2 - 2.0 %NOMS HealthcareEosinophils/100 WBC (Bld)1.8 %0.9 - 7.0 %NOMS HealthcareErythrocyte distribution width (RBC) [Ratio]13.2 %11.0 - 15.0 %NOMS HealthcareHematocrit (Bld) [Volume fraction]42.8 %36.0 - 48.0 %[facility] Hemoglobin (Bld) [Mass/Vol]14.6 g/dL12.0 - 16.0 g/dLNOMS HealthcareIMMATURE GRANULOCYTES ABS AUTO0.02NOMS HealthcareImmature granulocytes/100 WBC (Bld)0.3 % 0.0 - 0.5 %Progress West HospitalInterpretation and review of laboratory results AbnormalProgress West HospitalLYMPHOCYTES ABSOLUTE AUTO0.4LowProgress West Hospital Lymphocytes/100 WBC (Bld)5.7 %Low20.5 - 60.0 %[facility] University Medical CenterH (RBC) [Entitic mass]28.3 pg26.7 - 34.0 pgWashington University Medical CenterHC (RBC) [Mass/Vol]34.1 g/dL29.9 - 35.2 g/dLWashington University Medical CenterV (RBC) [Entitic vol]83.1 fL81.0 - 99.0 fLProgress West HospitalMONOCYTES ABSOLUTE AUTO0.3NOSaint John's Saint Francis HospitalMonocytes/100 WBC (Bld)4.5 % 1.7 - 12.0 %[facility] HospitalNEUTROPHILS ABSOLUTE SVIE6IPWMSaint John's Saint Francis Hospital Neutrophils/100 WBC (Bld)87.4 %High43.0 - 75.0 %[facility] West HospitalPlatelet mean volume (Bld) [Entitic vol]9.5 fL9.5 - 13.5 fLProgress West HospitalTB EO #0.1NOMS [facility] ZYK366HBJUBarton County Memorial Hospital RBC5.15NTwo [facility]iatric [facility] WBC6.8NOSaint John's Saint Francis HospitalCLINISYNCNFreeman Cancer InstituteALL LIPID PROFILE (FASTING)on 31-12-9031MGPV HDL RATIO5.2[facility] HealthcareComment on above:3.3 - 4.4 LOW RISK 4.4 - 7.1 AVERAGE RISK 7.1 - 11.0 MODERATE RISK >11.0 HIGH RISK Cholesterol [Mass/Vol]237 mg/dLHighNINF - 200 mg/dLProgress West HospitalCholesterol in HDL [Mass/Vol]46 mg/dL40 - 60 mg/dLENCOMPASS HEALTH HealthcareComment on above:> or =60 mg/dl - LOW CARDIOVASCULAR RISK <40 mg/dl - HIGH CARDIOVASCULAR RISK Interpretation and review of laboratory resultsAbnormalProgress West HospitalMagnesium [Mass/Vol]167 mg/dLENCOMPASS HEALTH HealthcareComment on above:<100 mg/dl OPTIMAL 100-129 mg/dl NEAR OR ABOVE OPTIMAL 130-159 mg/dl BORDERLINE HIGH 160-189 mg/dl HIGH >190 mg/dl VERY HIGH Triglyceride [Mass/Vol]123 mg/dLNINF - 150 mg/dLNOMS HealthcareVLDL CHOLESTEROL 24.6 mg/dLNOMS HealthcareALL MAGNESIUMon 25-79-9178Fgbgesbvg [Mass/Vol]1.8 mg/dL 1.8 - 2.4 mg/dLNOMS HealthcareALL THYROID STIM HORMONEon 17-31-2154BZN Qn2.336 m[IU]/LNOMS HealthcareCCF CMP (CMP) (FOR REMOTE [facility], [facility] USE)on 93-47-4149Ldywgdl [Mass/Vol]4.1 g/dL3.4 - 5.0 g/dLNOMS HealthcareALBUMIN GLOBULIN RATIO1.2NOMS HealthcareALP [Catalytic activity/Vol]105 U/L46 - 116 U/LNOMS HealthcareALT [Catalytic activity/Vol]31 U/L14 - 59 U/LNOMS HealthcareAnion gap [Moles/Vol] 12.8 mmol/LNOMS HealthcareAST [Catalytic activity/Vol]17 U/L15 - 37 U/LNOMS HealthcareBilirubin [Mass/Vol]0.5 mg/dL0.2 - 1.0 mg/dLNOMO HealthcareCalcium [Mass/Vol]9 mg/dL8.5 - 10.1 mg/dLNOMS HealthcareChloride [Moles/Vol]106 mmol/L98 - 107 mmol/LNOMS HealthcareCO2 [Moles/Vol]26.3 mmol/L21.0 - 32.0 mmol/LNOMS HealthcareCreatinine [Mass/Vol]0.59 mg/dL0.55 - 1.02 mg/dLNOMO Healthcare GFR/1.73 sq M.predicted CKD-EPI (S/P/Bld) [Vol rate/Area]>60>=60 mL/min/1.73m 2 NOMS HealthcareGlobulin (S) [Mass/Vol]3.5 g/dLNOMS HealthcareGlucose [Mass/Vol] 84 mg/dL74 - 106 mg/dLNOMS HealthcarePotassium [Moles/Vol]4.1 mmol/L3.5 - 5.1 mmol/LNOMS HealthcareProtein [Mass/Vol]7.6 g/dL6.4 - 8.2 g/dLNOMS Healthcare Sodium [Moles/Vol]141 mmol/L136 - 145 mmol/LNOMS HealthcareTBH EGFR-NON AF CAMEROONIAN>60>=60 mL/min/1.73m 2NOMS HealthcareUrea nitrogen [Mass/Vol]13 mg/dL7.0 - 18.0 mg/dLNOMS HealthcareUrea nitrogen/Creatinine [Mass ratio]22 mg/mgNOMS HealthcareNo Panel Informationon [id number] HealthcareMR CERVICAL SPINE W WO CONTon 09-01-1315UQ CERVICAL SPINE W WO CONTMR CERVICAL SPINE W WO CONT MR CERVICAL [...] notably at the C2 level and the C6- 7 levels. These are nearly stable but difficult [...] by Paul Adams MD on 12/10/2024 10:54 AMNormalWestern Reserve Hospitalca [facility]nut Creek Medical CenterMR Cervical spine WO and W contrast Radames [id number] CERVICAL SPINE W WO CONT: 12/05/2024 2:39 [...] notably at the C2 level and the C6- 7 levels. These are nearly stable but difficult [...] by Paul Adams MD on 12/10/2024 10:54 AMSPaul Rosenbaum MD - 12/10/2024 MR CERVICAL SPINE W WO CONT: 12/05/2024 [...] notably at the C2 level and the C6- 7 levels. These are nearly stable but difficult [...] Paul Adams MD on 12/10/2024 10:54 AM [facility] Broadcastr Brighton HospitalMR Cervical spine WO and W contrast IVOrdered By: Paul Adams on [id number] Heart Diagnostics Work Phone: MR BRAIN W WO CONTon [id number] BRAIN W WO CONTMR BRAIN W WO CONT MR BRAIN W WO CONT HISTORY: Increasing falls and incoordination with balance problems. Demyelinating disease. Follow-up examination. COMPARISON: 04/30/2023 TECHNIQUE: Multisequence, multiplanar MR images of the brain were obtained. 14.34 mL of IV ProHanceis used for the postcontrast part of the [...] to prior study. No focal restricted diffusion orpostcontrast pathologic enhancement to suggest active disease and no interval change since prior study. Somewhat limited examination due to significant motion artifacts. Finalized by Sarahi Ruiz MD on 12/09/2024 8:47 [facility] HospitalMR Brain WO and W contrast Radames [id number] BRAIN W WO CONT HISTORY: Increasing falls and incoordination with balance problems. Demyelinating disease. Follow-up examination. COMPARISON: 04/30/2023 TECHNIQUE: Multisequence, multiplanar MR images of the brain were obtained. 14.34 mL of IV ProHanceis used for the postcontrast part of the [...] to prior study. No focal restricted diffusion orpostcontrast pathologic enhancement to suggest active disease and no interval change since prior study. Somewhat limited examination due to significant motion artifacts. Finalized by Sarahi Ruiz MD on 12/09/2024 8:47 PMSECTRAPASarahi Espinosa MD - 12/09/2024 MR BRAIN W WO CONT HISTORY: Increasing falls and incoordination with balance problems. Demyelinating disease. Follow-up examination. COMPARISON: 04/30/2023 TECHNIQUE: Multisequence, multiplanar MR images of the brain were obtained. 14.34 mL of IV ProHanceis used for the postcontrast part of the [...] to prior study. No focal restricted diffusion orpostcontrast pathologic enhancement to suggest active disease and no interval change since prior study. Somewhat limited examination due to significant motion artifacts. Finalized by Sarahi Ruiz MD on 12/09/2024 8:47 PM [facility] HospitalZ[facility] Brain WO and W contrast IVOrdered By: Sarahi Ruiz on 86-29-1963YdzByzpur [facility] [employer] Work Phone: Brain WO and W contrast Radames [id number] Study observation (narrative)[facility] HospitalKidAdmit [facility] Cervical spine WO and W contrast Radames [id number] Study observation (narrative)VB Rags Brighton HospitalProvider Letteron [id number] LetterProvider Letter October 20, 2024 DENISSE GALARZA [address] [place] [address] [place] [address] : 1970 Dear Denisse , We have been trying to reach you with no success. It is important that you return our call regarding a message from your provider upon receiving this letter. Also, at the time of your call, please provide us with your current information. Thank you for your prompt attention to this matter. Sincerely, [facility] [address] [place] [address] JctjhwXvvxasFirelands Regional Medical CenterAmbulatory Visit Summaryon [id number] Visit SummaryAmbulatory Visit Summary DENISSE GALARZA :1970 Visit Date:09/15/2022 Ambulatory Visit Instructions Your [...] 231 mg oral delayed release capsule) ethinyl estradiol-norgestimate (Sprintec) fluoxetine (FLUoxetine 40 mg Cap) ibuprofen (Motrin IB 200 mg oral tablet) modafinil (modafinil 200 mg Tab) montelukast (montelukast 10 mg Tab) Procedures Performed Injection of botulinum toxin type A into detrusor muscle of urinary bladder (02/16/2023), Ablation (09/01/2014), Ovarian cystectomy (2014), Breast augmentation. What to do next Scheduled Follow-Up Appointments Thursday 9:30 AM EDT Where: [facility] Thursday 10:30 AM EDT Where: [facility] Medications What How Much [...] Mouth 2 times a day Unchanged ethinyl estradiol-norgestimate (Sprintec) By Mouth Every day Unchanged fluoxetine [...] you for choosing us for your care. [facility] CenterPatient Letter FTon 10-17-2024 [facility] Letter [facility] October 17, 2024 DENISSE GALARZA [address] [place] [address] [place] [address] : 1970 Dear Ms. Denisse Galarza, You missed your scheduled appointment on: 10/17/2024. Please note our appointment slots fill quickly. When you fail to cancel or reschedule an appointment the office is unable to fill the appointmentslot that was reserved for you. In the [...] appointment is urgent. Sincerely, [facility] [place] [phone] [phone] NoBrecksville VA / Crille HospitalUrology Office/Clinic Noteon [id number] Office/Clinic NoteUrology Office/Clinic Note Chief Complaint follow up from [...] impairment. Difficult for her to explain her symptoms,chronicity or bother. Educated pt and partner on [...] of urinary retention. Pt would like to proceedwith another Botox, no change in dose. -Repeat voiding diary over 3 days, will continue to reassess to see if she is able to do this appropriately -Will schedule Botox 100u. The procedural risks, benefits, details, and treatment alternatives havebeen discussed with the patient. These include bleeding, [...] Information Ed LOVETT, Lin Casanova, URL, [facility] [address] [place] [phone] Additional Instructions: sched Botox Patient Education Botulinum Toxin Bladder Injection Sacral Nerve Stimulator Implantation IBriseyda, personally scribed for Dr. Ward on 09/21/2024 11:13:33. . Documentation recorded by the Briseyda cooper, accurately reflects the services(s) I performed and decisions made by me. Authenticated by Dr. Ward on 09/21/2024 13:48:10. Problem List/Past Medical History Ongoing Endometriosis History of UTI Multiple sclerosis Urge incontinence Historical No qualifying data Procedure/Surgical History Injection of botulinum toxin type A into detrusor muscle of urinary bladder (02/16/2023), Ablation (09/01/2014), Ovarian cystectomy (2014), Breast augmentation. Medications alendr (more content not included)...[facility] Medical CenterComment on above:Result Comment: Electronically Signed By: Ed LOVETT, Lin Roblero.taty\Date and Time Signed: 09/21/24 13:49EDTInpatient Patient Summaryon [id number] Patient SummaryInpatient Patient Summary [place] [id number] Clinical Summary Person Information Name: DENISSE GALARZA Age: 53 Years : 1970 Sex: Female PCP: MARISEL VICTORIA Marital Status: Single Race: White Ethnicity: Non- or Language: [place]an Visit Id: Visit Reason: URGE INCONTINENCE Speciality: Acuity: Enc Type: Outpatient Med Service: Surgery Arrival: 03/07/2024 07:29:54 Discharge: Dispo Type: Address: [address] [place] [phone] Provider Notes: Diagnosis: Urge incontinence Problems Active [...] By Mouth 2 times a day. ethinyl estradiol-norgestimate (Sprintec) By Mouth every day. fluoxetine (FLUoxetine [...] Ward MD Follow up: With: Address: When: Linkelly Ward [address], [address], [employer] [address] [place] [phone] Business (1) Comments: Call for followup appointment to discuss Axonics if desired, bring voiding diary Patient Education Information: EU - Cystoscopy with Botox Injection Discharge Instructions (CUSTOM)[facility] CenterMain OR Intraoperative Recordon [id number] OR Intraoperative RecordMain OR Intraoperative Record IntraOp Document Type FTURO Summary Primary Physician: Lin Ward MD Finalized Date/Time: 03/07/24 09:20:19 Pt. Name: DENISSE GALARZAO.B./Sex: 1970 Female Med Rec #: [id number] Physician: Lin Ward MD Financial #: [id number] Pt. Type: O Room/Bed: / Admit/Disch: 03/07/24 [...] Elena Moeller Role Performed Surgeon - Primary Staff Occupational Therapist - Primary Scrub - Primary Time In 03/07/24 08:51:00 03/07/24 08:51:00 03/07/24 08:51:00 Time Out 03/07/24 09:14:00 03/07/24 09:14:00 03/07/24 09:14:00 Procedure CYSTOSCOPY LOCAL BOTOX CYSTOSCOPY LOCAL BOTOX CYSTOSCOPY LOCAL BOTOX INJECTION(.) INJECTION(.) INJECTION(.) Comments Last Modified By: John SAWYER, Tamela Lopez RN, Tamela Lopez RN, Tamela Fall 03/07/24 09:14:48 03/07/24 09:14:48 03/07/24 09:14:48 Surgical [...] General Comments: BOTOX 100 UNITS LOT # [id number], EXPIRES 11/2025. DIGNA BRAGA General Case Data [...] Position Verified Availability Equipment, Medication Time Out Lin Ward MD, Verified (If Participants Tamela Lopez RN, Applicable) María Elena Bae Time Out Complete 03/07/24 09:01:00 Allergies Reviewed? Yes Allergies Reviewed Self/Patient With Body Position Low Lithotomy Prep Area PERINEUM Prep Agents Betasept, Saline Rinse Skin. Condition Intact, Alianza, Warm, & Dry Additional None Specimens Collected [...] Signatures Signed By: Tamela Lopez RN 03/07/24 09:20[facility] CenterMain OR Preoperative Recordon [id number] OR Preoperative RecordMain OR Preoperative Record Holding Area Document Type FTURO Summary Primary Physician: Lin Ward MD Finalized Date/Time: 03/07/24 08:44:40 Pt. Name: DENISSE GALARZA/Sex: 1970 Female Med Rec #: [id number] Physician: Lin Ward MD Financial #: [id number] Pt. Type: O Room/Bed: / Admit/Disch: 03/07/24 [...] or her perioperative plan of care The patient'sright to privacy is maintained Surgery Checklist FTURO Entry 1 Patient Birthday, ID Band Procedure History and Physical, Identification: Check, Patient Verification: Surgical Consent, With Participation Patient NPO after Midnight: No Personal Items black purse Comment: Limitations: stand pivot/ whhelchair Complaints of Pain: No Skin Integrity Intact, Alianza, Warm, & Dry Vitals - EU Blood Pressure 124/70 Pulse 68 bpm Respirations 18 br/min SPO2 97 % Additional None RN Reviewed Yes Specimens Collected Last Modified By: Tamela Lopez RN 03/07/24 08:44:39 Finalized By: Tamela Lopez RN Document Signatures Signed By: Roxana Ivory LPN 03/07/24 08:11 Tamela Lopez RN 03/07/24 08:44NoBrecksville VA / Crille HospitalOperative Report on [id number] ReportOperative Report Patient: DENISSE GALARZA Age: 53 years Sex: Female : 1970 Associated Diagnoses: None Author: Lin Ward MD Procedure Operative Information Details: Date/ Time: 03/07/2024 09:11:00. Pre-Op Dx: Urge incontinence ([id number] N39.41, Discharge, Medical). Post-Op Dx: Same. Anesthesia Type: Local. Procedure: Local Cystoscopy with botox injection, 100 units. Complications: None. Risks/Benefits/Informed Consent: Surgical risks, benefits, details of the procedure have been explained to the patient, Full informed consent has been obtained. Intraoperative Information Prepped: Patient is brought back to the endoscopy suite, Female Prep (Patient is placed in modifieddorso/lithotomy position, 5 cc 2% Xylocaine Jelly is placed per Urethra, Straight cath inserted to obtain urine specimen, 60 cc 2% Xylocaine liquid inserted into bladder, 5 additional cc 2% XylocaineJelly is placed per Urethra, Patient in sitting position for 20 min dwell), Urine Specimen Results N egative for infection, Patient prepped in the usual fashion with Betadine solution, After waiting several minutes the Cystoscope is introduced. Procedure: The trigone was identified and evaluated. The bladder was instilled with enough saline to achieve adequate visualization for the injections. The needle was inserted approximately 2 mm intothe detrusor. A total of 11 injections with 1 ml volume was delivered at each site, total 100 unitsincluding 1 ml saline flush at the end, evenly spaced out throughout the bladder taking care to avoid the ureteral orficies. There was excellent hemostasis at the end of the procedure. The cystoscopewas removed and the patient tolerated the procedure well without immediate complications. . The Urethra is: Normal. The Bladder is: Normal, Trabeculated 2-3 trabeculations, right superior wide mouth diverticulum, Nobladder tumors, lesions, stones or foreign bodies.. Postoperative [...] medical consents due to pts poor memory. .[facility] CenterComment on above:Result Comment: Electronically Signed By: Lin Ward MD\.br\Date and Time Signed: 03/07/24 10:16EDTOutpatient Surgery Discharge Instructionon [id number] Surgery Discharge InstructionOutpatient Surgery Discharge Instruction [place] [id number] Patient Discharge Instructions PERSON INFORMATION Name: DENISSE GALARZA Date of : 1970 Current Date: 03/07/2024 09:10:18 PHYSICIANS Admitting Physician: Lin Ward MD Comment: Discharge Diagnosis: Urge incontinence ITZEL DENISSE Iona has been given the following list of follow-up instructions, prescriptions, and patient education materials: IF UNABLE TO CONTACT YOUR PHYSICIAN AND YOU FEEL IT IS AN EMERGENCY, GO TO THE NEAREST EMERGENCY ROOM OR CALL 911 Follow up: With: Address: When: Lin Ward [address], [address], [facility] [address] [place] [phone] [facility] (1) Comments: Call for followup appointment to discuss Axonics if desired, bring voiding diary Comment: PATIENT EDUCATION INFORMATION Instructions: Cystoscopy with Botox injection ? Voiding after the procedure: there may be some pain, burning, urgency, frequency and blood tingedurine following the procedure. These symptoms usually resolve [...] you have a fever over 100 degrees. IITZEL RENEE M, have received the attached patient education materials/instructions and have verbalized understanding: May we do a follow up call? Yes No I was present when discharge instructions were given Patient Signature Date Clinican/Nurse Signature Date You may receive a survey from [employer] asking you to rate your care experience. Your feedback is important and will help us understand what we do well and how we can improve the quality of care we provide to you, your loved ones and our community. It?s an honor to serve you. Thank you for choosing [facility] Medical CenterProvider Letteron [phone] LetterProvider Letter March 04, 2024 [address]ZA [address] [place] [id number] : 1970 Dear Denisse Galarza, We have been trying to reach you with no success. It is important that you return our call regarding your results upon receiving this letter. Also, at the time of your call, please provide us with your current information. Thank you for your prompt attention to this matter. Sincerely, Lin Ward M.D. [facility] [address] [place] [id number] [phone] Regional Medical CenterC Urineon [id number] identified Cx Nom (U)Microbiology PROCEDURE: Urine Culture [R1] SOURCE: U CleanCatch [...] or tested, I=Intermediate, ESBL=Extended spectrum beta-lactamase, R=Resistant, TFG=Thymidine-dependent strain, NORMA=Beta-lactamase positive, ELOINA=mcg/m;(mg/L), S*=Predicted susceptible interp, [...] Locations R1: This test was performed at: [facility], [address] [place] [address], [address] , , VoaoqjFejbtrFirelands Regional Medical CenterComment on above:Performed By: #### [id number] #### [facility] [address] [place] [id number] By: #### [id number] ####[facility] [address] [place], [place] [address]Aipzqdivwyptnbnpd Note - Social Workeron [id number] Note - Social WorkerInterdisciplinary Note - Nurse Case Management Consult for positive depression screen received. Chart notes that patient wanted a referral to psych, however referral is not seen in chart. This SW sent referral to [facility] for followup. SW will remain available.Normal St. [facility]'S HospitalMM TOMOSYNTHESIS SCREENING BIon 05-77-3098AksKettering Health Preble [address] [place] [address] Mammography Report Signed Patient: DENISSE GALARZA MR#: [id number] : 1970 Acct:[id number] Age/Sex: 53 / F ADM Date: 12/14/23 Loc: MAMMO Attending Dr: Shaikh Desiree Gaston Ordering Physician: Shaikh Alek Ramírez Results: Date of Service: 12/14/23 Follow Up: Procedure(s): MM tomosynthesis screening BI Accession Number(s): [id number] cc: Shaikh Alek Ramírez Patient Name: DENISSE GALARZA MR#: [id number] : 1970 Exam Date: 12/14/2023 Ordering Doctor: SHAIKH Karen RAMÍREZ . RADIOLOGY REPORT PROCEDURE: MM TOMOSYNTHESIS SCREENING BI COMPARISON: MG MAMM SCREEN CHARLINE W CAD, 06/18/2017. MG MAMM SCREEN CHARLINE W CAD, 06/17/2016. INDICATIONS: Screening Calculator Name NCI Breast Cancer Risk Assessment Tool 5 Year Breast Cancer Risk Not Reported. Lifetime Breast Cancer Risk Not Reported. Personal Breast Cancer No Personal Ovarian Cancer No Treatments None Family Cancers None LOCATION: [facility] BREAST COMPOSITION: The breasts are heterogeneously [...] PALPABLE LUMP SHOULD BE BIOPSIED. Dictated by: Srinath Guevara M.D. on 12/14/2023 at 16:25 Approved by: Srinath Guevara M.D. on 12/14/2023 at 16:28 Dictated By: Srinath Guevara M.D. Signed By: 12/15/23 0947 DD/ 1628 TD/TT: Chiropractic Teacher:TBHRadiology, Radiologist, MD - 12/15/2023 [place] [address] Mammography Report Signed Patient: DENISSE GALARZA MR#: [id number] : 1970 Acct:[id number] Age/Sex: 53 / F ADM Date: 12/14/23 Loc: MAMMO Attending Dr: Shaikh Desiree Gaston Ordering Physician: Shaikh Alek Ramírez Results: Date of Service: 12/14/23 Follow Up: Procedure(s): MM tomosynthesis screening BI Accession Number(s): [id number] cc: Shaikh Alek Ramírez Patient Name: DENISSE GALARZA MR#: [id number] : 1970 Exam Date: 12/14/2023 Ordering Doctor: SHAIKH Karen RAMÍREZ . RADIOLOGY REPORT PROCEDURE: MM TOMOSYNTHESIS SCREENING BI COMPARISON: MG MAMM SCREEN CHARLINE W CAD, 06/18/2017. MG MAMM SCREEN CHARLINE W CAD, 06/17/2016. INDICATIONS: Screening Calculator Name NCI Breast Cancer Risk Assessment Tool 5 Year Breast Cancer Risk Not Reported. Lifetime Breast Cancer Risk Not Reported. Personal Breast Cancer No Personal Ovarian Cancer No Treatments None Family Cancers None LOCATION: [facility] BREAST COMPOSITION: The breasts are heterogeneously [...] PALPABLE LUMP SHOULD BE BIOPSIED. Dictated by: Srinath Guevara M.D. on 12/14/2023 at 16:25 Approved by: Srinath Guevara M.D. on 12/14/2023 at 16:28 Dictated By: Srinath Guevara M.D. Signed By: 12/15/23 0947 DD/ 1628 TD/TT: Chiropractic Teacher: [facility] TOMOSYNTHESIS SCREENING BIOrdered By: Radiologist Radiology on [id number] West Hospital Work Phone: mm TOMOSYNTHESIS SCREENING BIon 40-29-6823Qyahkeujp Study observation (narrative)[facility] Urineon 10-99-2528Nutcuvve identified Cx Nom (U)Microbiology PROCEDURE: Urine Culture [R1] SOURCE: U Random [...] or tested, I=Intermediate, ESBL=Extended spectrum beta-lactamase, R=Resistant, TFG=Thymidine-dependent strain, NORMA=Beta-lactamase positive, ELOINA=mcg/m;(mg/L), S*=Predicted susceptible interp, [...] Locations R1: This test was performed at: [facility], [address] [place] [address], [address]- , , DxwjlxPvmcmzFirelands Regional Medical CenterComment on above:Performed By: #### [id number] #### [facility] [address] [place], [place] [address]Urology Office/Clinic Noteon 72-45-3584Lvtsgtw Office/Clinic NoteUrology Office/Clinic Note Chief Complaint 6m HPI Staff 53 year old female patient presents today for a 8 month follow up. Previous Dx: urge incontinence, history of UTIs. S/P Botox 100 u 02/16/23 *VESIcakenya pandey'd at time of last encounter. Does not [...] Does want to have referral to Psych. (Director Of Occupational Health should be reaching out to her based [...] to cost. Stopped Vesicare at prior OV. [place] Botox helped initially but is starting to [...] for urgency urinary incontinence. Advised pt a vo iding diary would need done prior. -Will schedule repeat Botox 100U. The procedural risks, benefits, details, and treatment alternatives have been discussed with the patient. These include bleeding, infection, continued problems with overactive bladder, inability to empty the bladder which could require an indwelling catheter or need for in/out catheterization to empty the bladder, and need for repeat procedures over time (usuallylasts up to six months), as well as [...] Information Ed LOVETT, Lin Casanova, URL, [facility] [address] [place] [phone] Additional Instructions: sched Botox Patient Education Botulinum Toxin Bladder Injection Urinary Incontinence I, Briseyda Mejia, personally scribed for Dr. Ward on (more content not included)... [facility] CenterComment on above:Result Comment: Electronically Signed By: Ed LOVETT, Lin Roblero.br\Date and Time Signed: 12/02/23 12:02EDT URINALYSISOrdered By: Jessica Negron on 76-90-7642Ahpdomih LM Ql (Urine sed)3+ /HPF Invalid Interpretation CodeTrace/HPFFT UA Auto SSBilirubin Ql (U)Negative (02/09/23 11:42 AM)NormalNegativeATOKA [facility] UA Auto SSClarity (U)Cloudy *ABN* (02/09/23 11:42 AM)Invalid Interpretation CodeClearFCHOCTAW NATION HEALTH [facility]ARE [facility] UA Auto SSColor (U)Yellow (02/09/23 11:42 AM)NormalYellowATOKA COUNTY MEDICAL CENTER – [facility] UA Auto SSCrystals LM Ql (Urine sed)Present (02/09/23 11:42 AM)NormalATOKA COUNTY MEDICAL CENTER – [facility] UA Auto SSEpithelial cells.squamous LM.HPF (Urine sed) [#/Area]3-4 /HPFNormal0-2/HPFATOKA COUNTY MEDICAL CENTER – [facility] UA Auto SSGlucose Test strip (U) [Mass/Vol]Negative (02/09/23 11:42 AM)NormalNegativeATOKA COUNTY MEDICAL [facility]ENTER [facility] UA Auto SSHemoglobin Ql (U)Negative (02/09/23 11:42 AM)NormalNegativeATOKA COUNTY MEDICAL [facility]ENTER [facility] UA Auto SSKetones (U) [Mass/Vol]Negative (02/09/23 11:42 AM)NormalNegativeATOKA COUNTY MEDICAL [facility] UA Auto SSLithium.plasma/[place].RBC (Bld) [Mass ratio]0-3 /HPFNormal0-3/HPFMC UA Auto SSMucus Ql (Urine sed)Trace (02/09/23 11:42 AM)NormalATOKA COUNTY MEDICAL CENTER – [facility] UA Auto SSNitrite Ql (U)Positive *ABN* (02/09/23 11:42 AM)Invalid Interpretation CodeNegativeATOKA COUNTY MEDICAL [facility]ENTER [facility] UA Auto SSpH (U)7.0 *NA* (02/09/23 11:42 AM)Invalid Interpretation Code5.0 - 9.0[facility] UA Auto SSProtein (U) [Mass/Vol]Negative (02/09/23 11:42 AM)NormalNegativeATOKA COUNTY MEDICAL CENTER – [facility] UA Auto SSSpecific gravity (U) [Rel density]1.020 *NA* (02/09/23 11:42 AM)Invalid Interpretation Code1.005 - 1.030[facility] UA Auto SSUA Spec DescClean Catch (02/09/23 11:42 AM)NormalATOKA COUNTY MEDICAL CENTER – ATOK[facility] UA Auto SSUrobilinogen Qn (U)0.7560876 {Yissel'U}/dLNormal0.0 - 1.0 EU/dLATOKA COUNTY MEDICAL CENTER – [facility] UA Auto SSWBC Auto Ql (U)Negative (02/09/23 11:42 AM)NormalNegativeATOKA COUNTY MEDICAL [facility]ENTER [facility] UA Auto SSWBC LM.HPF (Urine sed) [#/Area]6- 15 /HPFInvalid Interpretation Code0-5/HPFATOKA COUNTY MEDICAL CENTER – [facility]OKA UA Auto SSCULTURE URINEon 86-37-9108ZQYMJWR URINEIsolate 1 Escherichia coli >100,000 cfu/mL of ORGANISM 1 Escherichia coli ANTIBIOTIC M.I.C RX STATUS Ampicillin <=2 S F Ampicillin/Sulbactam <=2 S F Piperacillin/Tazobactam <=4 S F Cefazolin <=4 S F Ceftazidime <=1 S F Ceftriaxone <=1 S F Ertapenem <=0.5 S F Imipenem <=0.25 S F Amikacin 4 S F Gentamicin <=1 S F Tobramycin <=1 S F Ciprofloxacin <=0.25 S F Levofloxacin <=0.12 S F Nitrofurantoin <=16 S F Trimethoprim/Sulfamethoxazole <=20 S FNormalThe [facility] HospitalComment on above:Performed By: #### URCX ####[facility] [address] [place], [place] [address]GpDr. Robby Reyes AUTO DIFFon 67-79-3955PKJS #0.0 103/ulNormal0.0-0.1The [facility] HospitalComment on above:Performed By: #### CBC #### [facility] [address] [place], [place] [address] Dr. Robby Gordonsophils/100 WBC (Bld)0.6 %Normal0.2-2.0The [facility] Comment on above:Performed By: #### CBC #### [facility] [address] [place] [address] Dr. Robby Aguirre #0.2 103/ulNormal0.0-0.7The [facility] HospitalComment on above: Performed By: #### CBC #### [facility] [address] [place] [address] Dr. Robby Casillasosinophils/100 WBC (Bld)7.0 %Normal0.9-7.0The [facility] Comment on above:Performed By: #### CBC #### [facility] [address] [place] [address] Dr. Robby Casillasrythrocyte distribution width (RBC) [Ratio]13.2 %Hlthru99.0-15.0 The [facility] HospitalComment on above:Performed By: #### CBC #### [facility] [address] [place] [address] Dr. Robby GeorgeHematocrit (Bld) [Volume fraction]43.5 %Xdcupk41.0-48.0The [facility] HospitalComment on above:Performed By: #### CBC #### [facility] [address] [place] [address] Dr. Robby GeorgeHemoglobin (Bld) [Mass/Vol]14.8 g/tWYnanxx27.0-16.0The [facility] HospitalComment on above:Performed By: #### CBC #### [facility] [address] [place] [address] Dr. Robby Yanez #0.01 10e3/ulNormal0.00-0.03The [facility] HospitalComment on above:Performed By: #### CBC #### [facility] [address] [place] [address] Dr. Robby Yanez %0.3 %Normal0.0-0.5The [facility] HospitalComment on above: Performed By: #### CBC #### [facility] [address] [place] [address] Dr. Robby Hastings #0.4 103/ulCritically low1.2-3.8The [facility] Comment on above:Performed By: #### CBC #### [facility] [address] [place] [address] Dr. Robby Vazmphocytes/100 WBC (Bld)11.3 %Critically low20.5-60.0The [facility] HospitalComment on above:Performed By: #### CBC #### [facility] [address] [place] [address] Dr. Robby Rivera DIFF REQNONormalThe [facility] HospitalComment on above: Performed By: #### CBC #### [facility] [address] [place] [address] Dr. Robby Concepcion (RBC) [Entitic mass]28.0 efVxmyfa29.7-34.0The [facility] HospitalComment on above:Performed By: #### CBC #### [facility] [address] [place] [address] Dr. Robby Concepcion (RBC) [Mass/Vol]34.0 g/kYZizdhc92.9-35.2The [facility] HospitalComment on above:Performed By: #### CBC #### [facility] [address] [place] [address] Dr. Robby Dia (RBC) [Entitic vol]82.4 rRDegkle77.0-99.0The [facility] HospitalComment on above:Performed By: #### CBC #### [facility] [address] [place] [address] Dr. Robby Yee #0.4 103/ulNormal0.3-0.8The [facility] HospitalComment on above:Performed By: #### CBC #### [facility] [address] [place] [address] Dr. Robby Espinozaocytes/100 WBC (Bld)11.6 %Normal1.7-12.0The [facility] Comment on above:Performed By: #### CBC #### [facility] [address] [place] [address] Dr. Yilan ChangNEUT #2.3 103/ulNormal1.4-6.5The [facility] HospitalComment on above:Performed By: #### CBC #### [facility] [address] [place] [address] Dr. Robby Monsonutrophils/100 WBC (Bld)69.2 %Tvazsh04.0-75.0The [facility] HospitalComment on above:Performed By: #### CBC #### [facility] [address] [place] [address] Dr. Robby Denislet mean volume (Bld) [Entitic vol]8.4 fLCritically low 9.5-13.5The [facility] HospitalComment on above:Performed By: #### CBC #### [facility] [address] [place] [address] Dr. Robby MayberryT235 103/khZjvshf798-719Auj [facility] HospitalComment on above: Performed By: #### CBC #### [facility] [address] [place] [address] Dr. Robby GeorgeRBC5.28 106/ulNormal4.20-5.40The [facility] HospitalComment on above:Performed By: #### CBC #### [facility] [address] [place] [address] Dr. Robby GeorgeWBC3.3 103/ulCritically low4.0-11.0The [facility] HospitalComment on above:Performed By: #### CBC #### [facility] [address] [place] [address] Dr. Robby GeorgePROF 14(COMP METB)on 94-19-2855Ofapufa [Mass/Vol]4.2 g/dLNormal 3.4-5.0The [facility] HospitalComment on above:Performed By: #### CMP #### [facility] [address] [place] [address] Dr. Robby GeorgeAlbumin/Globulin [Mass ratio]1.1 {ratio}NormalThe [facility] HospitalComment on above:Performed By: #### CMP #### [facility] [address] [place] [address] Dr. Robby Yu [Catalytic activity/Vol]118 U/LCritically bptx97-751Gbh [facility] HospitalComment on above:Performed By: #### CMP #### [facility] [address] [place] [address] Dr. Robby ManceraT [Catalytic activity/Vol]37 U/PPsgich81-57Emo [facility] HospitalComment on above:Performed By: #### CMP #### [facility] [address] [place] [address] Dr. Robby Gutierrezon gap [Moles/Vol]9.0 mmol/LNormalThe [facility] HospitalComment on above:Performed By: #### CMP #### [facility] [address] [place] [address] Dr. Robby GeorgeAST [Catalytic activity/Vol]20 U/JLswckc82-15Ero [facility] HospitalComment on above:Performed By: #### CMP #### [facility] [address] [place] [address] Dr. Robby GeorgeBilirubin [Mass/Vol]0.4 mg/dLNormal0.2-1.0The [facility] Comment on above:Performed By: #### CMP #### [facility] [address] [place] [address] Dr. Robby GeorgeCalcium [Mass/Vol]9.4 mg/dLNormal8.5-10.1The [facility] Comment on above:Performed By: #### CMP #### [facility] [address] [place] [address] Dr. Robby GeorgeChloride [Moles/Vol]101 mmol/PIzycvn62-081Ljf [facility] Comment on above:Performed By: #### CMP #### [facility] [address] [place] [address] Dr. Robby GeorgeCO2 [Moles/Vol]30.6 mmol/CFhtxep16.0-32.0The [facility] Comment on above:Performed By: #### CMP #### [facility] [address] [place] [address] Dr. Robby GeorgeCreatinine [Mass/Vol]0.66 mg/dLNormal0.55-1.02K[facility]tering Health PrebleComment on above:Performed By: #### CMP #### [facility] [address] [place] [address] Dr. Robby CasillasGFR-AF CAMEROONIAN>60Normal>=60The [facility] HospitalComment on above:Performed By: #### CMP #### [facility] [address] [place] [address] [address] Robby CasillasGFR-NON AF CAMEROONIAN>60Normal>=60The [facility] HospitalComment on above:Performed By: #### CMP #### [facility] [address] [place] [address] Dr. Robby GeorgeGlobulin (S) [Mass/Vol]3.9 g/dLNormalThLancaster Municipal HospitalComment on above:Performed By: #### CMP #### [facility] [address] [place] [address] Dr. Robby GeorgeGlucose [Mass/Vol]84 mg/xAQvfzvf12-620StyKettering Health Preble Comment on above:Performed By: #### CMP #### [facility] [address] [place] [address] Dr. Robby GeorgePotassium [Moles/Vol]3.6 mmol/LNormal3.5-5.1[facility] Comment on above:Performed By: #### CMP #### [facility] [address] [place] [address] Dr. Robby GeorgeProtein [Mass/Vol]8.1 g/dLNormal6.4-8.2The [facility] Comment on above:Performed By: #### CMP #### [facility] [address] [place] [address] [address] Robby GeorgeSodium [Moles/Vol]137 mmol/MKcduxw110-984EzkKettering Health Preble Comment on above:Performed By: #### CMP #### [facility] [address] [place] [address] Dr. Robby GeorgeUrea nitrogen [Mass/Vol]18.0 mg/dLNormal7.0-18.0[facility] Health PrebleComment on above:Performed By: #### CMP #### [facility] [address] [place] [address] [address] Robby GeorgeUrea nitrogen/Creatinine [Mass ratio]27.3 mg/mgCleveland Clinic Euclid HospitalComment on above:Performed By: #### CMP #### [facility] [address] [place] [address] [address] Robby Golden RANDOMon 11-77-9342Hzhwihafv Ql (U)NegativeNormalNEGATIVEJoint Township District Memorial Hospital HospitalComment on above:Performed By: #### UA ####[facility] [address] [place] [address]Dr. Robby GeorgeClarity (U) CLOUDYAbnormalCLESt. John of God HospitalComment on above:Performed By: #### UA ####[facility] [address] [place] [address]Dr. Y sim GeorgeColor (U)LT. YELLOWNormalYELLOWKettering Health PrebleComment on above: Performed By: #### UA ####[facility] [address] [place], [place] [address]Dr. Robby GeorgeGlucose Ql (U)NegativeNormalNEGATIVEKettering Health PrebleComment on above:Performed By: #### UA ####[facility] [address] [place] [address]Dr. Robby ChangHemoglobin Ql (U)NegativeNormalNEGSelect Medical Specialty Hospital - Boardman, IncComment on above:Performed By: #### UA ####[facility] [address] [place] [address]Dr. Carynlan ChangKetones Ql (U)NegativeNormalNEGSheltering Arms Hospital on above:Performed By: #### UA ####[facility] [address] [place] [address]Dr. Robby GeorgeLEUKOCYTESSMALLAbnormalNEGSelect Medical Specialty Hospital - Boardman, IncComment on above:Performed By: #### UA ####[facility] [address] [place], [place] [address]Dr. Robby GeorgeNitrite Ql (U) PositiveAbnormalNEGATIVEThe Thayer HospitalComment on above:Performed By: #### UA ####[facility] [address] [place] [address]Dr. Robby GeorgepH (U)6.0 [pH]Normal5-9The [facility] HospitalComment on above: Performed By: #### UA ####[facility] [address] [place] [address]Dr. Robby GeorgeSPEC GRAVITY1.409Pzefez2.005-<=1.025The [facility] HospitalComment on above:Performed By: #### UA ####[facility] [address] [place], [place] [address]Dr. Robby GeorgeUA PROTEIN NegativeNormalNEGATIVE/ TRACEThe [facility] HospitalComment on above:Performed By: #### UA ####[facility] [address] [place], [place] [address]Dr. Robby GeorgeUrobilinogen Qn (U)0.2 {Yissel'U}/dLNormal0.2 - 1.0The [facility] HospitalComment on above:Performed By: #### UA ####[facility] [address] [place], [place] [address]Dr. Robby GeorgeXR DEXA BONE DENSITYon 57-83-8076BE DEXA BONE DENSITYEXAMINATION: XR DEXA BONE DENSITY, 10/31/2021 8:07 AM EDT HISTORY: [...] Electronically authenticated by: SRINATH GUEVARA Date: 2021-10-31 16:24NoParkview Health Bryan HospitalXR MODIFIED BARIUM SWALLOWon 60-80-5971WB MODIFIED BARIUM SWALLOWEXAMINATION: XR MODIFIED BARIUM SWALLOW HISTORY: Oropharyngeal dysphagia [...] Electronically authenticated by: SRINATH GUEVARA Date: 2021-10-31 16:26[facility] W MANUAL DIFFon 94-71-7647WTEJOFAX LYMPH #NormalKettering Health PrebleComfresenius medical care at [facility] on above:Performed By: #### KESHAWN #### [place] [address] Dr[address] Robby GeorgeATYPICAL LYMPH %NormalThe [facility] HospitalComment on above: Performed By: #### KESHAWN #### [facility] [address] [place] [address] Dr. Robby Oreilly #Normal0.0-0.3The [facility] HospitalComment on above: Performed By: #### KESHAWN #### [facility] [address] [place] [address] Dr. Robby Oreilly %Normal0-5The [facility] HospitalComment on above:Performed By: #### KESHAWN #### [facility] [address] [place] [address] Dr. Robby Soni #0.00 103/ulNormal0.00-0.10The [facility] HospitalComment on above:Performed By: #### KESHAWN #### [facility] [address] [place] [address] Dr. Robby Soni %0.0 %Critically low0.2-2.0The [facility] HospitalComment on above:Performed By: #### KESHAWN #### [facility] [address] [place] [address] Dr. Robby Centeno #NormalThe [facility] HospitalComment on above:Performed By: #### KESHAWN #### [facility] [address] [place] [address] Dr. Robby GeorgeBLAST %NormalThe [facility] HospitalComment on above:Performed By: #### KESHAWN #### [facility] [address] [place] [address] Dr. Robby GeorgeCORRECTED WBCNormal4.0-11.0The [facility] HospitalComment on above: Performed By: #### KESHAWN #### [facility] [address] [place] [address] Dr. Robby Lazaro #0.15 103/ulNormal0.00-0.70The [facility] HospitalComment on above:Performed By: #### KESHAWN #### [facility] [address] [place] [address] Dr. Robby Lazaro%4.0 %Normal0.9-7.0The [facility] HospitalComment on above: Performed By: #### KESHAWN #### [facility] [address] [place] [address] Dr. Robby GeorgeHCT42.0 %Wfjqdl43.0-48.0The [facility] HospitalComment on above: Performed By: #### KESHAWN #### [facility] [address] [place] [address] Dr. Robby GeorgeHGB14.3 g/llNsnrds70.0-16.0The [facility] HospitalComment on above: Performed By: #### KESHAWN #### [facility] [address] [place] [address] Dr. Robby Morgan #0.52 103/ulCritically low1.20-3.80The [facility] Comment on above:Performed By: #### KESHAWN #### [facility] [address] [place] [address] Dr. Robby Morgan%14.0 %Critically low20.5-60.0The [facility] HospitalComment on above:Performed By: #### KESHAWN #### [facility] [address] [place] [address] Dr. Robby ConcepcionH28.5 lsNqoqkv38.7-34.0The [facility] HospitalComment on above: Performed By: #### KESHAWN #### [facility] [address] [address] [address] Robby ConcepcionHC34.0 g/lgHtstvp67.9-35.2The [facility] HospitalComment on above:Performed By: #### KESHAWN #### [facility] [address] [place] [address] Dr. Robby ConcepcionV83.7 iAQijgis61.0-99.0The [facility] HospitalComment on above: Performed By: #### KESHAWN #### [facility] [address] [place] [address] Dr. Robby ChenOCYTE #NormalThe [facility] HospitalComment on above: Performed By: #### KESHAWN #### [facility] [address] [place] [address] Dr. Robby ChenOCYTE %NormalThe [facility] HospitalComment on above: Performed By: #### KESHAWN #### [facility] [address] [place] [address] Dr. Robby Wellington#0.41 103/ulNormal0.30-0.80The [facility] HospitalComment on above:Performed By: #### KESHAWN #### [facility] [address] [place] [address] Dr. Robby Wellington%11.0 %Normal1.7-12.0The [facility] HospitalComment on above: Performed By: #### KESHAWN #### [facility] [address] [place] [address] Dr. Robby Santa8.6 fLCritically low9.5-13.5The [facility] HospitalComment on above:Performed By: #### KESHAWN #### [facility] [address] [place] [address] Dr. Robby XiongOCYTE #NormalThe [facility] HospitalComment on above:Performed By: #### KESHAWN #### [facility] [address] [place] [address] Dr. Robby WoodELOCYTE %NormalKettering Health PrebleComment on above:Performed By: #### KESHAWN #### [facility] [address] [place] [address] Dr. Robby HuBCNormalThe [facility] HospitalComfresenius [facility] on above:Performed By: #### KESHAWN #### [facility] [address] [place] [address] Dr. Robby GeorgePLT220 103/jgRwnesm171-244Ovw [facility] HospitalComfresenius [facility] on above: Performed By: #### KESHAWN #### [facility] [address] [place] [address] Dr. Robby GeorgeRBC5.02 106/ulNormal4.20-5.40The [facility] on above:Performed By: #### KESHAWN #### [facility] [address] [place] [address] Dr. Robby GeorgeRDW13.4 %Gueuiv04.0-15.0The [facility] on above: Performed By: #### KESHAWN #### [facility] [address] [place] [address] Dr. Robby Zavala #2.63 103/ulNormal1.40-6.50The [facility] on above:Performed By: #### KESHAWN #### [facility] [address] [place] [address] Dr. Robby Zavala %71.0 %Wvejvx86.0-75.0The [facility] HospitalComfresenius [facility] on above: Performed By: #### CBCKJ #### [facility] [address] [place] [address] Dr. Robby ChenBC3.7 103/ulCritically low4.0-11.0The [facility] on above:Performed By: #### KESHAWN #### [facility] [address] [place] [address] Dr. Robby Harden 14(COMP METB)on 02-96-5582Fjpepra [Mass/Vol]4.3 g/dLNormal 3.4-5.0The [facility] HospitalComment on above:Performed By: #### CMP #### [facility] [address] [address] [address] Robby GeorgeAlbumin/Globulin [Mass ratio]1.2 {ratio}NormalThe [facility] HospitalComment on above:Performed By: #### CMP #### [facility] [address] [address] [address] Robby ManceraP [Catalytic activity/Vol]126 U/LCritically njvm05-993Qfx [facility] HospitalComment on above:Performed By: #### CMP #### [facility] [address] [place] [address] Dr. Robby ManceraT [Catalytic activity/Vol]39 U/ECouzgb49-63Fzo [facility] HospitalComment on above:Performed By: #### CMP #### [facility] [address] [place] [address] Dr. Robby Gutierrezon gap [Moles/Vol]15.2 mmol/LNormalThe [facility] Comment on above:Performed By: #### CMP #### [facility] [address] [place] [address] Dr. Robby GeorgeAST [Catalytic activity/Vol]16 U/BLzmojg58-33Evy [facility] HospitalComment on above:Performed By: #### CMP #### [facility] [address] [place] [address] Dr. Robby GeorgeBilirubin [Mass/Vol]0.4 mg/dLNormal0.2-1.0The [facility] Comment on above:Performed By: #### CMP #### [facility] [address] [place] [address] Dr. Robby GeorgeCalcium [Mass/Vol]9.3 mg/dLNormal8.5-10.1The [facility] Comment on above:Performed By: #### CMP #### [facility] [address] [place] [address] Dr. Robby GeorgeChloride [Moles/Vol]103 mmol/ZKsuhes22-631Oqz [facility] Comment on above:Performed By: #### CMP #### [facility] [address] [address] [address] Robby GeorgeCO2 [Moles/Vol]25.6 mmol/WWqzhvl22.0-32.0[facility] Comment on above:Performed By: #### CMP #### [facility] [address] [address] [address] Robby GeorgeCreatinine [Mass/Vol]0.58 mg/dLNormal0.55-1.02The [facility] HospitalComment on above:Performed By: #### CMP #### [facility] [address] [address] [address] Robby CasillasGFR-AF CAMEROONIAN>60Normal>=60The [facility] HospitalComment on above:Performed By: #### CMP #### [facility] [address] [place] [address] Dr. Robby CasillasGFR-NON AF CAMEROONIAN>60Normal>=60The [facility] HospitalComment on above:Performed By: #### CMP #### [facility] [address] [place] [address] Dr. Robby GeorgeGlobulin (S) [Mass/Vol]3.5 g/dLNormalThe [facility] HospitalComment on above:Performed By: #### CMP #### [facility] [address] [place] [address] Dr. Robby GeorgeGlucose [Mass/Vol]84 mg/oAZdvhxq63-689UwtKettering Health Preble Comment on above:Performed By: #### CMP #### [facility] [address] [place] [address] Dr. Robby GeorgePotassium [Moles/Vol]3.8 mmol/LNormal3.5-5.1The [facility] Comment on above:Performed By: #### CMP #### [facility] [address] [place] [address] Dr. Robby GeorgeProtein [Mass/Vol]7.8 g/dLNormal6.4-8.2The [facility] Comment on above:Performed By: #### CMP #### [facility] [address] [address] [address] Robby GeorgeSodium [Moles/Vol]140 mmol/BWwthdx365-264TwvKettering Health Preble Comment on above:Performed By: #### CMP #### [facility] [address] [address] [address] Robby GeorgeUrea nitrogen [Mass/Vol]13.0 mg/dLNormal7.0-18.0The [facility] HospitalComment on above:Performed By: #### CMP #### [facility] [address] [address] [address] Robby Arroyo nitrogen/Creatinine [Mass ratio]22.4 mg/mgNoParkview Health Bryan HospitalComment on above:Performed By: #### CMP #### [facility] [address] [address] [address] Robby GeorgeCT ANKLE RT WO CONon [id number] ANKLE RT WO CONEXAMINATION: CT ANKLE RT WO CON HISTORY: Traumatic dislocation of [...] Electronically authenticated by: SRINATH GUEVARA Date: 2021-10-04 16:40NoParkview Health Bryan HospitalPREG HCG QUALon [id number], QUALNegativeNormalNEGATIVE [facility] PrebleComment on above:Performed By: #### PREG ####[facility] [address] [place], [place] [address]Lz. Robby GeorgeXR FOOT RT MIN 3 VIEWSon 97-59-6121QL FOOT RT MIN 3 VIEWSEXAM: XR FOOT RT MIN 3 VIEWS HISTORY: [...] Electronically authenticated by: BERTO CARROLL Date: 2021-09-19 18:08[facility] HospitalXR TIB_FIB RT 2Von 64-36-9647CV TIB_FIB RT 2VEXAM: XR TIB_FIB RT 2V HISTORY: Unspecified fall [...] Electronically authenticated by: BERTO CARROLL Date: 2021-09-19 18:03[facility] HospitalComplete Blood Count Auto Diffon [id number] (Bld) [#/Vol]0.0 10*3/uLNormal0.0-0.2FMansfield HospitalComment on above:Result Comment: PERFORMED BY: [place] [address] PATHOLOGIST JUMPBASTING ARMHOLE BASTER ALBARO UNGER M.D.Performed By: #### CBC, CMP #### [place] [address] USABasophils/100 WBC (Bld)0.7 %Normal.[facility]ultman HospitalComment on above:Performed By: #### CBC, CMP #### [place] [address] USAEosinophils (Bld) [#/Vol]0.1 10*3/uLNormal0.0-0.45 [facility] HospitalComfresenius [facility] on above:Performed By: #### CBC, CMP #### [place] [address] USAEosinophils/100 WBC (Bld)2.9 %Normal.[facility]ultman HospitalComment on above:Performed By: #### CBC, CMP #### [place] [address] USAErythrocyte distribution width (RBC) [Ratio]13.6 %Normal 11.9-15.3FMansfield HospitalComment on above:Performed By: #### CBC, CMP #### [place] [address] USAHematocrit (Bld) [Volume fraction]41.9 %Kepejt31.0-46.4 [facility] HospitalComment on above:Performed By: #### CBC, CMP #### [place] [address] USAHemoglobin (Bld) [Mass/Vol]14.2 g/mLNblylb56.8-15.4 [facility] HospitalComfresenius medical [facility] at [facility] on above:Performed By: #### CBC, CMP #### [place] [address] USALymphocytes (Bld) [#/Vol]0.8 10*3/uLLow1.00-4.8[facility] HospitalComment on above:Performed By: #### CBC, CMP #### [facility] [address] [place] [address] USALymphocytes/100 WBC (Bld)18.2 %Normal.[facility]ultman HospitalComment on above:Performed By: #### CBC, CMP #### [facility] [address] [place] [address] USAMCH (RBC) [Entitic mass]28.0 qdEaevup47.7-34.3FMansfield HospitalComment on above:Performed By: #### CBC, CMP #### [facility] [address] [place] [address] USAMCV (RBC) [Entitic vol]82.5 fYJrrfif17-667ZculaixswAultman HospitalComment on above:Performed By: #### CBC, CMP #### [facility] [address] [place] [address] USAMean Corpuscular HGB Conc33.9 g/vIYchnav56.0-35.0[facility] HospitalComment on above:Performed By: #### CBC, CMP #### [facility] [address] [place] [address] USAMonocytes (Bld) [#/Vol]0.5 10*3/uLNormal0.0-0.8[facility] HospitalComment on above:Performed By: #### CBC, CMP #### [facility] [address] [place] [address] USAMonocytes/100 WBC (Bld)11.5 %Normal.[facility]ultman HospitalComment on above:Performed By: #### CBC, CMP #### [facility] [address] [place] [address] USANeutrophils (Bld) [#/Vol]3.1 10*3/uLNormal1.8-7.7FMansfield HospitalComment on above:Performed By: #### CBC, CMP #### [facility] [address] [place] [address] USANeutrophils/100 WBC (Bld)66.7 %Normal.[facility]ultman HospitalComment on above:Performed By: #### CBC, CMP #### [place] [address] USANucleated RBC/100 WBC (Bld) [Ratio]0.1 %Normal0-0.5 [facility] HospitalComment on above:Performed By: #### CBC, CMP #### [place] [address] USAPlatelet mean volume (Bld) [Entitic vol]6.7 fLNormal 6.3-10.7FMansfield HospitalComment on above:Performed By: #### CBC, CMP #### [place] [address] USAPlatelets (Bld) [#/Vol]265 10*3/zHPkitzt020-870FgkcqkrskAultman HospitalComment on above:Performed By: #### CBC, CMP #### [place] [address] USARBC (Bld) [#/Vol]5.08 10*6/uLHigh3.60-5.00[facility] HospitalComment on above:Performed By: #### CBC, CMP #### [place] [address] USAWBC (Bld) [#/Vol]4.6 10*3/uLNormal4.5-11.0[facility] HospitalComment on above:Performed By: #### CBC, CMP #### [place] [address] USAComprehensive Metabolic Panelon 72-38-2916Jvpnbtb [Mass/Vol]4.1 g/dLNormal3.2-5.5FMansfield HospitalComment on above:Performed By: #### CBC, CMP #### [place] [address] USAAlbumin/Globulin [Mass ratio]1.5 {ratio}NormalAultman HospitalComment on above:Performed By: #### CBC, CMP #### [address] [place] [address] USAALP [Catalytic activity/Vol]97 U/IKkkj94-90PaxrhgeboAultman HospitalComment on above:Performed By: #### CBC, CMP #### [facility] [address] [place] [address] USAALT [Catalytic activity/Vol]18 U/NEgfldr06-48RsgsivzzrAultman HospitalComment on above:Performed By: #### CBC, CMP #### [facility] [address] [place] [address] USAAST [Catalytic activity/Vol]18 U/SLqppbr89-88XromhiucjAultman HospitalComment on above:Performed By: #### CBC, CMP #### [facility] [address] [place] [address] USABilirubin [Mass/Vol]0.7 mg/dLNormal0.3-1.2FMansfield HospitalComment on above:Performed By: #### CBC, CMP #### [facility] [address] [place] [address] USACalcium [Mass/Vol]9.6 mg/dLNormal8.2-10.2FMansfield HospitalComment on above:Performed By: #### CBC, CMP #### [facility] [address] [place] [address] USAChloride [Moles/Vol]101 mmol/LJbsmry00-575MuqxcvqupAultman HospitalComment on above:Performed By: #### CBC, CMP #### [facility] [address] [place] [address] USACO2 [Moles/Vol]22.7 mmol/DZahryj17.0-30.0[facility] HospitalComment on above:Performed By: #### CBC, CMP #### [facility] [address] [place] [address] USACreatinine [Mass/Vol]0.63 mg/dLNormal0.44-1.03[facility]man HospitalComment on above:Performed By: #### CBC, CMP #### [facility] [address] [place] [address] USACreatinine Clr Calc Kytdkpca94.99NoPeoples HospitalComment on above:Result Comment: PERFORMED BY: [place] [address] PATHOLOGIST JUMPBASTING ARMHOLE BASTER ALBARO UNGER M.D.Performed By: #### CBC, CMP #### [place] [address] USAEstimated GFR ( Loree> 60Cl[facility]ont County HospitalComment on above:Result Comment: GFR estimated reference range: According to KDOQI guidelines, <60 ml/min/1.73m2 is sufficient to diagnose a patient with chronic kidney disease.Performed By: #### CBC, CMP #### [place] [address] USAEstimated GFR (Non- Am> 60[facility] County HospitalComment on above:Performed By: #### CBC, CMP #### [place] [address] USAGlobulin (S) [Mass/Vol]2.7 g/dLNoPeoples HospitalComment on above:Performed By: #### CBC, CMP #### [place] [address] USAGlucose [Mass/Vol]97 mg/eJJgpbcl96-056LwoukqguqAultman HospitalComment on above:Result Comment: Random Glucose Reference Range is dependent on time and content of last meal. Glucose of more than 200 mg/dL in a nonstressed, ambulatory subject supports the diagnosis of Diabetes Mellitus. ADA recommended reference rangePerformed By: #### CBC, CMP #### [place] [address] USAPotassium [Moles/Vol]4.0 mmol/LNormal3.5-5.1FMansfield HospitalComment on above:Performed By: #### CBC, CMP #### [place] [address] USAProtein [Mass/Vol]6.8 g/dLNormal6.1-7.9[facility] HospitalComment on above:Performed By: #### CBC, CMP #### [facility] [address] [place] [address] USASodium [Moles/Vol]136 mmol/VPkevsl148-337PiszvafniAultman HospitalComment on above:Performed By: #### CBC, CMP #### [facility] [address] [place] [address] USAUrea nitrogen [Mass/Vol]13 mg/dLNormal9-23Aultman HospitalComment on above:Performed By: #### CBC, CMP #### [facility] [address] [place] [address] USAMR thoracic spine wo/w conon 14-36-5975YH thoracic spine wo/w [facility] [address] [place] [address] MRI Report Signed Patient: Denisse Galarza MR#: [id number] 56 : 1970 Acct:[id number] Age/Sex: 50 / F ADM Date: 12/11/20 Loc: MR Room: Type: [facility] Attending Dr: Lauren Leigh PA-C Ordering Provider: Lauren PANDYA Date of Service: 12/11/20 MR/MR thoracic spine wo/w con: G35 Copies to: Lauren Leigh [facility] MR thoracic spine wo/w con 12/11/2020 1:23 [...] Jason Harding M.D.12/11/2020 4:20 PM Dictation Location: [place] [address] Transcribed By: SUZY 12/11/20 1620 Dictated By: Jason Harding II, MD 12/11/20 4931 Signed By: 12/11/201619[facility] head/brain wo/w stacey [id number] head/brain wo/[place] [address] MRI Report Signed Patient: Denisse Galarza MR#: [id number] 56 : 1970 Acct:[id number] Age/Sex: 50 / F ADM Date: 12/08/20 Loc: MR Room: Type: [facility] Attending Dr: Lauren Leigh PA-C Ordering Provider: Lauren PANDYA Date of Service: 12/08/20 MR/MR head/brain wo/w con: G35 Copies to: Lauren Leigh PAC MR head/brain wo/w con 12/08/2020 [...] Jason Harding M.D.12/08/2020 10:29 AM Dictation Location: [place] [address] Transcribed By: [facility] 12/08/20 1029 Dictated By: Jason Harding II, MD 12/08/20 1022 Signed By: 12/08/20 1029Cl[facility] HospitalXR pre/post mri xrayon 52-27-2206WZ pre/post mri xrayMAR[facility]ETTA [facility] [address] [place] [address] MRI Report Signed Patient: Denisse Galarza MR#: [id number] 56 : 1970 Acct:[id number] Age/Sex: 50 / F ADM Date: 12/08/20 Loc: MR Room: Type: [facility] Attending Dr: Lauren Leigh PA-C Ordering Provider: Lauren Leigh PAC Date of Service: 12/08/20 MR/MR cervical spine wo/w con: G35 ([id number]) XR/XR pre/post mri xray: G35 Copies to: [...] approximately 5 mm in length at the C5- C6 intervertebral disc level. No evidence of disease progression. No abnormal postcontrast enhancement. Degenerative changes are noted similar to the prior exam. Impression dictated by: Jason Harding M.D.12/08/2020 10:16 AM Dictation Location: [place] [address] Transcribed By: [facility] 12/08/20 1016 Dictated By: Jason Harding II, MD 12/08/20 1009 Signed By: 12/08/20 1016NoPeoples Hospital Vital Signs Date TimeVital SignValuePerforming UzeyjwpfyHclgmlgw61-26-0602 10:13040Body ozozkx341.4 cmJessica Emily DO Work Phone: [phone] [place], [place] [address]109-17-2025 10:13-0400 Body mass index (BMI) [Ratio]29.2 kg/s3Fxiyrwk Emily DO Work Phone: [phone] [place], [place] 6604509-17-2025 10:13-040 Body zjpsbgseapl40.9 [degF]Roxana Emily DO Work Phone: [phone] [place], [place] [address]109-17-2025 10:13040 Body ouivon10.03 kgJessica Emily DO Work Phone: 1([phone])195-[address] [place], [place] [address]109-17-2025 10:13-040 Diastolic blood iyyubkcd97 mm[Hg]Roxana Emily DO Work Phone: [facility]09-17-2025 10:13-0400 Heart rate77 /minJessica Emily DO Work Phone: [facility]09-17-2025 10:13-0400 SaO2% (BldA) [Mass fraction]96 %Roxana Diaz DO Work Phone: [facility]09-17-2025 10:13-0400 Systolic blood xdcrzijt954 mm[Hg]Roxana Diaz DO Work Phone: [facility]09-16-2025 14:17-0400 Body xliiig586.8 James Canales MD Work Phone: [facility]09-16-2025 14:17-0400Diastolic blood ehjgqbki91 mm[Hg]Aquiles Canales MD Work Phone: [facility]09-16-2025 14:17-0400Heart rate 94 /minEnelida Canales MD Work Phone: [facility]09-16-2025 14:17-0400Systolic blood otbwtnri875 mm[Hg]Aquiles Canales MD Work Phone: [facility]08-25-2025 13:06-0400Body gavwvndaszg03.1 [degF]Thea Sood SENIOR TRAINING AND DEVELOPMENT REP Work Phone: [facility] HospitalOtbqxijebo04-90-0765 13:06-0400Diastolic blood wuvrwxvx09 mm[Hg]Thea [place] SENIOR TRAINING AND DEVELOPMENT REP Work Phone: [facility] HospitalVmdusojzjm35-21-3827 13:06-0400Heart rate85 /min Thea [place] SENIOR TRAINING AND DEVELOPMENT REP Work Phone: [facility] HospitalLajwtxgwkm80-65-2880 13:06-0400Respiratory rate18 /minThea Sood SENIOR TRAINING AND DEVELOPMENT REP Work Phone: [facility] HospitalDvdzdbcjtx09-83-2110 13:06-1373LjT1% (BldA) [Mass fraction]95 %Thea Sood SENIOR TRAINING AND DEVELOPMENT REP Work Phone: [facility] HospitalKjmktgbukf21-21-9503 13:06-0400Systolic blood yyryueja931 mm[Hg]Thea [place] SENIOR TRAINING AND DEVELOPMENT REP Work Phone: [facility] HospitalNmrqfuagcq02-78-2121 15:26-0400Body ccyxln680.4 James Canales MD Work Phone: [facility]06-10-2025 15:26-0400Body mass index (BMI) [Ratio]30.86 kg/m2Aquiles Canales MD Work Phone: [facility]06-10-2025 15:26-0400Body vxruzc01.67 kgAquiles Canales MD Work Phone: [facility]05-27-2025 13:47-0400Body wdygvykzimp28.81 [degF]Thea [place] SENIOR TRAINING AND DEVELOPMENT REP Work Phone: [facility] HospitalRbicpgpnan54-09-2737 13:47-0400Diastolic blood yutseeli64 mm[Hg]Thea [place] SENIOR TRAINING AND DEVELOPMENT REP Work Phone: [facility] HospitalVzfxswcwrw21-40-8355 13:47-0400Heart rate91 /min Thea [place] SENIOR TRAINING AND DEVELOPMENT REP Work Phone: [facility] HospitalSnqjusxzod01-03-9788 13:47-0400Respiratory rate18 /minLi [place] SENIOR TRAINING AND DEVELOPMENT REP Work Phone: [facility] HospitalJgzsgbldgz82-46-8584 13:47-9067StV0% (BldA) [Mass fraction]98 %Thea [place] SENIOR TRAINING AND DEVELOPMENT REP Work Phone: [facility] HospitalDsdlendmae50-75-0567 13:47-0400Systolic blood mm[Hg]Thea [place] SENIOR TRAINING AND DEVELOPMENT REP Work Phone: [facility] HospitalAwaxttuxkw72-40-1210 08:28-0500Body dxcaoe463.4 cmMarisel Victoria SENIOR TRAINING AND DEVELOPMENT REP Work Phone: [facility] HospitalPcuqdlcnct45-51-0521 08:28-0500Body mass index (BMI) [Ratio]29.29 kg/h8EogtbwyhMarisel Starkk SENIOR TRAINING AND DEVELOPMENT REP Work Phone: [facility] HospitalUdxbierjkn55-54-5036 08:28-0500Body temperature 96.69 [degF]Marisel Victoria SENIOR TRAINING AND DEVELOPMENT REP Work Phone: [facility] HospitalRkmvratpjh21-66-7601 08:28-0500Body ypoysw98.04 kgBrittany Victoria SENIOR TRAINING AND DEVELOPMENT REP Work Phone: [facility] HospitalXuhaiemudf43-24-2943 08:28-0500Diastolic blood upqtjtcf68 mm[Hg]Marisel Victoria SENIOR TRAINING AND DEVELOPMENT REP Work Phone: [place] [address]Hhnqrguzqk37-54-3381 08:28-0500Heart rate84 /min Marisel Victoria SENIOR TRAINING AND DEVELOPMENT REP Work Phone: [facility] HospitalVwdspvuxap63-89-6404 08:28-0500Respiratory rate16 /minBrittany Victoria SENIOR TRAINING AND DEVELOPMENT REP Work Phone: [facility] HospitalAyizxxcevd16-34-0105 08:28-6935BgY4% (BldA) [Mass fraction]95 %Marisel Victoria SENIOR TRAINING AND DEVELOPMENT REP Work Phone: [place] [address]Hlmhqvyvcs96-22-9974 08:28-0500Systolic blood cvwjdtaa486 mm[Hg]Marisel Victoria SENIOR TRAINING AND DEVELOPMENT REP Work Phone: [facility] HospitalQtvyimrboz99-34-0610 13:25-0400Body temperature 97.7 [degF]Marisel Victoria SENIOR TRAINING AND DEVELOPMENT REP Work Phone: [facility] HospitalNrmsugtemu99-32-9867 13:25-0400Diastolic blood mm[Hg]Marisel Victoria SENIOR TRAINING AND DEVELOPMENT REP Work Phone: [place] [address]Zmvxssqphv91-46-7336 13:25-0400Heart rate81 /min Marisel Victoria SENIOR TRAINING AND DEVELOPMENT REP Work Phone: [place] [address]Qflndppwre25-02-2058 13:25-6489EkW1% (BldA) [Mass fraction]97 %Marisel Victoria SENIOR TRAINING AND DEVELOPMENT REP Work Phone: [facility] HospitalGetixldjhv32-68-8068 13:25-0400Systolic blood ubbsdzrg916 mm[Hg]Marisel Victoria SENIOR TRAINING AND DEVELOPMENT REP Work Phone: [facility] HospitalUasoiukovt94-37-3306 11:04-0400Blood Pressure LocationKathy Lue [facility]07-17-2024 11:04-0400Diastolic blood wuiqfcqf86 mm[Hg]Lin Lue [facility]07-17-2024 11:04-0400Heart rate84 /minKathy Lue [facility]07-17-2024 11:04-0400Respiratory rate16 /minKathy Lue [facility]07-17-2024 11:04-0400Systolic blood olchiwyv703 mm[Hg]Lin Lue [facility]02-13-2024 12:50-0500Body etlzpe515.4 James Canales MD Work Phone: [facility]02-13-2024 12:50-0500Body mass index (BMI) [Ratio]30.47 kg/m2Aquiles Canales MD Work Phone: [facility]02-13-2024 12:50-0500Body sqfanc04.76 kgAquiles Canales MD Work Phone: [facility]02-13-2024 12:50-0500Diastolic blood uhjewjwg04 mm[Hg]Aquiles Canales MD Work Phone: [facility]02-13-2024 12:50-0500Heart rate 84 /Donny Canales MD Work Phone: [facility]02-13-2024 12:50-0500Systolic blood wsrizfdo200 mm[Hg]Aquiles Canales MD Work Phone: [facility] Broadcastr Gmlolv86-47-2026 11:26-0500Blood Pressure LocationKathy Lue [facility]11-29-2023 11:26-0500Diastolic blood nfwpxtup50 mm[Hg]Lin Lue [facility]11-29-2023 11:26-0500Heart rate80 /minKathy Lue [facility]11-29-2023 11:26-0500Respiratory rate16 /minKathy Lue [facility]11-29-2023 11:26-0500Systolic blood xmeqoyja987 mm[Hg]Lin Lue [facility]08-29-2023 10:37-0400Blood Pressure LocationJENNIFER BRANDON [facility]08-29-2023 10:37-0400Diastolic blood mm[Hg]ALLA BRANDON [facility]08-29-2023 10:37-0400Heart rate73 /minJENNIFER BRANDON [facility]08-29-2023 10:37-0400Systolic blood jddrfyio228 mm[Hg]ALLA BRANDON [facility] Encounters Encounter DateEncounter TypeCare ProviderFacilityStart: 03-20-2025 End: 87-44-3859yctsimnodrUTEIFreeman Regional Health Services HospitalStart: 03-13-2025 End: 09-50-4988Uhxrxglnx department patient visitAD MARQUISMercy Medical Center HospitalStart: 03-13-2025 End: 32-26-9361tgfsopcmwcITNCProvidence Hospitaltart: 02-14-2025 End: 85-88-4746avssnpoopfOrrli M. LueFacility:FTMCStart: 02-08-2025 End: 61-62-8259Jspzzndhd encounterMercy General Hospitalroderick [facility] Neurology, A Department of [facility] HospitalStart: 02-01-2025 End: 15-46-3801cuzbbyypmkXjwkpao Rapp DO Work Phone: [facility] Work Phone: Start: 02-01-2025 End: 78-71-3654Yfroyue encounter procedureNatty Monson APRPLAT[facility] Work Phone: Start: 02-01-2025 End: 04-91-7682sqibrrxhauOdjqd M. LueFacility:EU BellevueStart: 02-01-2025 End: 13-97-6407Vqdpudk encounter Shruthi Ward [facility] start: 24-19-8549aboiezawxzCVSQAvera Dells Area Health Center HospitalStart: 01-31-2025 End: 62-87-4809Zsvcpt outpatient visit 40 Layne Canales MD Work Phone: [facility]ca [facility] Neurology FremontComment on above:Demyelinating disease of central nervous system (CMS-HCC) (Primary Dx); Dysphagia, unspecified type; Neurogenic bladder; Wheelchair confinement status; Gait instability; Sensory ataxia; Chronic fatigue; Spasticity; Immunosuppressed due to chemotherapy; Depressed mood; Falls frequently; Short-term memory loss; Weakness of both lower extremities; Multiple sclerosis (CMS-HCC); DysuriaStart: 01-31-2025 End: 73-99-7148ujwplfkpzlLXVQAdventHealth Lake Wales Ambulatory PPGStart: 01-09-2025 End: 93-30-4469Lzlbnx flowsheetThea Sood SENIOR TRAINING AND DEVELOPMENT REP Work Phone: [facility] CWM FMStart: 01-09-2025 End: 69-79-9442Xyizraoaf Result EncounterLisa Indigo SENIOR TRAINING AND DEVELOPMENT REP Work Phone: noms External Department UnsolicitedStart: 01-09-2025 End: 70-84-9253Nclgbahia Result EncounterLisa Indigo SENIOR TRAINING AND DEVELOPMENT REP Work Phone: noms External Department UnsolicitedStart: 01-09-2025 End: 80-48-1847udsizamkjwSUAZ AICHHOLZNot AvailableStart: 01-09-2025 End: 23-10-1565Xgebrc outpatient visit 25 minutesLisa Sood SENIOR TRAINING AND DEVELOPMENT REP Work Phone: noms CWM FMComment on above:Muscle spasms of both lower extremities (Primary Dx); Multiple sclerosis (HCC); Neurogenic bladder; Recurrent major depressive disorder, in full remission ; Wheelchair dependenceStart: 12-24-2024 End: 32-01-9372XedllbMxzd Aichholz SENIOR TRAINING AND DEVELOPMENT REP Work Phone: noms CWM FMComment on above:Neurogenic bladderStart: 12-13-2024 End: 25-68-2216Ighdozcvy encounterMilly GaribayStonewall Jackson Memorial Hospital Neurology, A Department of [facility] HospitalComment on above:Med RefillStart: 12-12-2024 End: 85-06-5292Focozd-up encounterEhsailaja Canales MD Work Phone: [facility]ellstar kennestone hospitaltComment on above:MR brain with and without contrast, MR cervical spine with and without contrastStart: 12-05-2024 End: 04-36-0079cfbyqbvclsJBAGFreeman Regional Health Services HospitalStart: 11-14-2024 End: 97-89-5588DlcgjbFqdq Aichholz SENIOR TRAINING AND DEVELOPMENT REP Work Phone: noms CWM FMComment on above:Osteopenia, unspecified location; Recurrent major depressive disorder, in full remission ; Major depressive disorder, single episode, in full remission ; Non-seasonal allergic rhinitis, unspecified trigger; Neurogenic bladderStart: 10-25-2024 End: 64-66-2666Duiyxz outpatient visit 40 minutesAquiles Canales MD Work Phone: [facility] Frewellstar kennestone hospitaltComment on above:Demyelinating disease of central nervous system (CMS-HCC) (Primary Dx); Multiple sclerosis; Obesity (BMI 30-39.9); Dysphagia, unspecified type; Neurogenic bladder; Wheelchair confinement status; Gait instability; Sensory ataxia; Chronic fatigue; Spasticity; Immunosuppressed due to chemotherapy; Urologic disorder; Depressed mood; Falls frequently; Blurred vision, right eyeStart: 10-25-2024 End: 37-12-0900butnxseiecYXVZFranciscan Health Indianapolis Ambulatory PPGStart: 10-18-2024 End: 87-82-9088sgivnhrphmIbocb M. LueFacility:EU BellevueStart: 10-18-2024 End: 06-84-7172Lzuaceh encounter Shruthi Ward [facility] start: 81-36-2609dwkyxzjzxjOwvmf M. LueFacility:EU MorenaueStart: 10-12-2024 End: 09-34-4279GbxfilSihf Aichholz NP Work Phone: noms CWM FMComment on above:Neurogenic bladder; Recurrent major depressive disorder, in full remission (CMS/HCC)Start: 10-11-2024 End: 00-86-0122qjlqrjxqplIEUM AICHHOLZNot AvailableStart: 10-11-2024 End: 11-47-2275Vwlobt outpatient visit 25 minutesThea Sood NP Work Phone: noms CWM FMComment on above:Multiple sclerosis (CMS/HCC) (Primary Dx); Neurogenic bladder; Osteoporosis, unspecified osteoporosis type, unspecified pathological fracture presence (CMS/HCC); Recurrent major depressive disorder, in full remission ([facility]); Screening mammogram, encounter for; Encounter for wellness examination; Pap smear for cervical cancer screening; Wheelchair dependenceStart: 10-11-2024 End: 23-60-6536Areqiqm encounter Jaylin Sood NP Work Phone: noms HealthcareStart: 09-26-2024 End: 21-83-0455RtlmolAuee Naderer MD Work Phone: noms CWM FMComment on above:Neurogenic bladder; Osteopenia, unspecified location; Recurrent major depressive disorder, in full remission ([facility])Start: 09-21-2024 End: 89-01-1836Mlz-admission Viki Ward [facility] Start: 09-21-2024 End: 59-29-4359gmpfywwbloRkawo M. LueFacility:EU BellevueStart: 09-12-2024 End: 02-32-4598EuaokgSseapuxkaShayan [place] Neurology, A Department of [facility] HospitalComment on above:Multiple sclerosis ([facility]); Chronic fatigueStart: 08-09-2024 End: 13-25-8626Hggquzkhk encounterSerenity Lopes CMAMount Ascutney HospitalMedica Neurology, A Department of [facility] Hospitaltart: 07-18-2024 End: 40-86-0475SbuxunWajkGeorgia ForteAdams County Hospital Physicians NeurologyComment on above:Multiple sclerosis ([facility])Start: 06-30-2024 End: 58-97-8512KbawetXxogxkajKenyon Victoria NP Work Phone: noms CWM FMComment on above:Neurogenic bladderStart: 06-28-2024 End: 47-71-1199JjriofZjpsBetty KENDRICK CWM FMComment on above:Non-seasonal allergic rhinitis, unspecified triggerStart: 06-26-2024 End: 66-71-7472XbbrlrWdiqqbxyKenyon Victoria NP Work Phone: noms CWM FMComment on above:Major depressive disorder, single episode, in full remission (CMS/HCC)Start: 04-07-2024 End: 56-32-1792IlesqbYdebleqe Victoria SENIOR TRAINING AND DEVELOPMENT REP Work Phone: noms CWM FMComment on above:Major depressive disorder, single episode, in full remission (CMS/HCC)Start: 04-04-2024 End: 68-32-9675Cnkfru flowsheetBrtaylor Victoria SENIOR TRAINING AND DEVELOPMENT REP Work Phone: N[facility] CWM FMStart: 04-04-2024 End: 13-27-9222Rfntmf flowsheetMarisel Victoria SENIOR TRAINING AND DEVELOPMENT REP Work Phone: noMS CWM FMStart: 04-04-2024 End: 64-62-6221Bvyikq outpatient visit 15 minutesBrtaylor Victoria SENIOR TRAINING AND DEVELOPMENT REP Work Phone: noms CWM FMComment on above:Multiple sclerosis ([facility]) (Primary Dx); Recurrent major depressive disorder, in full remission ([facility]); Osteopenia, unspecified location; Major depressive disorder, single episode, in full remission ([facility]); Non-seasonal allergic rhinitis, unspecified trigger; Neurogenic bladderStart: 04-04-2024 End: 93-68-7019sjpkzgcfvvKHQLCISH FITZPATRICKNot AvailableStart: 03-07-2024 End: 75-05-9404jiasgbmetsIvncd M. LueFacility:FTMCStart: 03-07-2024 End: 68-53-2250Bukmssc encounter procedureLin Ward [facility] Start: 02-29-2024 End: 03-82-0525dmsxxdnklhSGAVVNOL FITZPATRICKFacility:FTMCStart: 02-29-2024 End: 61-58-2848Apr Drop offLin Ward [facility] Start: 02-29-2024 End: 47-28-2704zggjxgahecCSDVHCJY FITZPATRICKFacility:EU BellevueStart: 02-29-2024 End: 95-45-5706Ffwzpzi encounter procedureLin Ward [facility] Carl start: 02-22-2024 End: 98-33-7209Amuuzk flowsheetBrtaylor Victoria SENIOR TRAINING AND DEVELOPMENT REP Work Phone: NOAB CWM FMStart: 02-22-2024 End: 06-94-9190Fwddij flowsheetBrtaylor Victoria SENIOR TRAINING AND DEVELOPMENT REP Work Phone: NOFO CWM FMStart: 02-22-2024 End: 99-31-1882Vxjptlx encounter procedureMarisel Starkk SENIOR TRAINING AND DEVELOPMENT REP Work Phone: NOOA CWM FMComment on above:Encounter for medication refill (Primary Dx); Encounter for Medicare annual wellness exam; Osteopenia, unspecified location; Multiple sclerosis (CMS/HCC); Recurrent major depressive disorder, in full remission (CMS/HCC); Major depressive disorder, single episode, in full remission (CMS/HCC); Non-seasonal allergic rhinitis, unspecified trigger; WheezingStart: 02-22-2024 End: 21-61-3250npejsgdlsvRGVOROLMGracie Wood AvailableStart: 02-16-2024 End: 86-56-5776XvapjsRccyLauren Darby MD Work Phone: [facility] NeurologyComment on above: Multiple sclerosis (CMS-HCC) (Primary Dx); Chronic fatigueStart: 02-02-2024 End: 36-35-9846Gmbwpmdjh encounterKaren Cardona [facility] Neu[facility] Comment on above:05/06 AfreenStart: 01-12-2024 End: 24-21-9606YessbpBnChanning NickersonMedica Physicians NeurologyComment on above:Multiple sclerosis (CMS-HCC); Chronic fatigueMed RefillStart: 12-14-2023 End: 70-20-8611Murytzrbp Result EncounterSmark Ramírez MD Work Phone: noms External Department UnsolicitedStart: 12-14-2023 End: 15-51-4739Gpyxnktpx Result EncounterSmark Ramírez MD Work Phone: noms External Department UnsolicitedStart: 12-02-2023 End: 22-11-3973Gvr-admission assessmentRizwanakelly MonsonEstefany Martinezjohnson [facility] Start: 12-02-2023 End: 38-76-6805qjswnnczdlNsyxa IonaEstefany LueFacility:FTMCStart: 12-02-2023 End: 30-44-0573Fwc Drop offLin Ward [facility] Start: 12-02-2023 End: 36-33-2810nprzhokgfiTrvtz M. LueFacility:EU BellevueStart: 12-02-2023 End: 91-73-0277Rttgema encounter procedureRizwanakelly MonsonEstefany Martinezjohnson [facility]ayer start: 11-04-2023 End: 87-22-7387Qwuumqsvy encounterKredilia SoSacharoMedica Physicians Neurology Comment on above:12/24 AfreenStart: 09-30-2023 End: 70-74-3460Azbaicuht encounterTa-Jasmin NickersonMedica Physicians NeurologyComment on above:Valid Contact InfoStart: 09-22-2023 End: 92-56-2828YxfjcgDmmxpl Witte CMAProMedica Physicians NeurologyComment on above:Multiple sclerosis ([facility])Start: 09-03-2092Bpvtse Ranjeet Ramírez MD Work Phone: noms CWM IMComment on above:Osteopenia, unspecified location (Primary Dx)Start: 11-64-1309PsbvfyOkbghmns Burdine [facility] ERIEProMedica Physicians NeurologyComment on above:Multiple sclerosis ([facility]); Chronic fatigueStart: 06-30-2023 End: 76-10-9938Hpcuzw outpatient visit 40 minutesAquiles Canales MD Work Phone: [facility] NeurologyComment on above: Multiple sclerosis ([facility]) (Primary Dx); Obesity (BMI 30-39.9); Dysphagia, unspecified type; Demyelinating disease of central nervous system ([facility]); Neurogenic bladder; Wheelchair confinement status; Gait instability; Sensory ataxia; Chronic fatigue; Short-term memory loss; Spasticity; 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[facility]) ; Demyelinating disease of the spinal cord ([facility]); Urologic disorderStart: 04-15-2023 End: 46-25-7841Slszpnz encounter procedureLin Ward [facility] start: 03-18-2023 End: 54-47-6578Ohxyxhh encounter procedureLin Ward [facility] start: 02-16-2023 End: 48-20-7728Eunfizt encounter procedureLin Ward [facility] Start: 02-09-2023 End: 20-47-8941Www Drop Arcadio TAYLOR [facility] Start: 02-09-2023 End: 95-41-0784Buogter encounter procedureLin Ward [facility] start: 01-13-2023 End: 57-92-3847Totgbvq encounter procedureJENNIFER E BRANDON [facility] start: 11-04-2022 End: 98-21-1062Cqqrjkn encounter procedureJENNIFER E BRANDON [facility] start: 04-28-2022 End: 99-67-5762tilsxwfldxHJWF LACOURFacility:W1Hdcjp: 60-63-1187fqmdasdtxvTFDLJQ H FAWWADFacility:P9Kssfy: 01-09-2022 End: 40-51-1624ubnffqkekwLiynjm ZieberFacility:N8Fdloq: 12-11-2021 End: 13-46-2607zrgffiabpfWA JUVENAL Meng WESTFacility:R4Xrdfz: 11-01-2021 End: 98-34-6259iibhcvprxhCddzrg ZieberFacility:Z4Xzwem: 10-31-2021 End: 76-12-5436gjldcikswdXnuwrg ZieberFacility:F9Knsxm: 10-22-2021 End: 29-95-5147qwfdzogpwiIKPM LACOURFacility:E9Yvaqd: 10-04-2021 End: 18-40-4173jxacezvuhiEposfp ZieberFacility:Y0Ygwlz: 09-19-2021 End: 39-43-8917bbhmhsbqzrCT CHANTAL CASTILLO .Facility: Procedures DateProcedureProcedure DetailPerforming ClinicianStart: 77-44-5988KUJ CBC WITH AUTO DIFFLisa Indigo SENIOR TRAINING AND DEVELOPMENT REP Work Phone: Start: 04-08-7619ANG LIPID PROFILE (FASTING)Thea Indigo SENIOR TRAINING AND DEVELOPMENT REP Work Phone: Start: 40-19-6356WNM MAGNESIUMLisa Aichholz SENIOR TRAINING AND DEVELOPMENT REP Work Phone: Start: 68-30-4297RKV THYROID STIM HORMONELisa Indigo SENIOR TRAINING AND DEVELOPMENT REP Work Phone: Start: 52-37-8283ITV CMP (CMP) (FOR REMOTE [facility] USE) Thea Indigo SENIOR TRAINING AND DEVELOPMENT REP Work Phone: Start: 19-65-8551Lmesph-up visitFollow-upEHAD BEE Start: 69-50-5194Fisaz depression screening assessmentTina Nowashtabula county medical centerkiStart: 15-03-1957WV TOMOSYNTHESIS SCREENING Lauro Ramírez MD Work Phone: Start: 96-10-4518LuspheahlhqTugwelhv Fitzpatrick SENIOR TRAINING AND DEVELOPMENT REP Work Phone: Start: 22-79-4970Adoix depression screening assessment Ehsailaja Canales MD Work Phone: Start: 32-12-3428Iuwwdesif of botulinum toxin type A into detrusor muscle of urinary bladderKathy Lue Start: 22-83-6211JlacrxmrzcbTkbbdq Fawwad MD Work Phone: Start: 77-65-3732Ieantdfxwjk procedureJENNIFER BRANDON Start: 04-75-6851Cdhuzorw of cyst of ovaryJENNIFER BRANDON Augmentation mammoplastyJENNIFER BRANDON Plan of Treatment DateCare ActivityDetailAuthorStart: 56-62-0201Lgfyctu ScreeningTobacco Screening [facility] SystemStart: 88-07-9765Qtgujlw ScreeningTobacco Screening [facility] SystemStart: 63-31-6449Jmkfj BMI ScreeningAdult BMI Screening [facility] SystemStart: 01-80-7914Cxqihyndfj ScreeningDepression Screening [facility] SystemStart: 93-64-9444Oynrfeu ScreeningTobacco Screening [facility] SystemStart: 03-20-2025 End: 38-60-9282Bopsdml encounter dvnmddoij69/03/2025 1:45 PM EST Appointment [facility] [address] [place] [address] Aquiles Canales MD [address] [facility], [address] [place] [address] [facility] - MRI ImagingStart: 03-13-2025 End: 76-61-3842Infsodq encounter procedureACMC Healthcare System - MRI ImagingStart: 10-07-2025Medicare Annual Wellness (AWV)Medicare Annual Wellness (AWV)[facility] HealthcareStart: 01-31-2025 End: 28-68-4045Ofjfqtu encounter mwnhagrke47/16/2025 2:30 PM EDT Office Visit [facility] [place] [phone] Aquiles Canales MD [address] [place] [address] [address] [place] [address] [facility] Diegotart: 01-31-2025 End: 75-34-0454UC Brain WO and W contrast IVMR brain with and without contrast Imaging Routine Demyelinating disease of central nervous system (CMS-HCC) Neurogenic bladder Weakness of both lower extremities Expected: 01/31/2025, Expires: 01/31/2026ProMercy Health [facility] Hospital SystemComment on above:Expected: 01/31/2025, Expires: 01/31/2026Start: 01-31-2025 End: 34-16-8216DY Cervical spine WO and W contrast IVMR cervical spine with and without contrast Imaging Routine Demyelinating disease of central nervous system (CMS-HCC) Neurogenic bladder Weakness of both lower extremities Expected: 01/31/2025, Expires: 01/31/2026ProMercy Health [facility] Hospital SystemComment on above:Expected: 01/31/2025, Expires: 01/31/2026Start: 01-31-2025 End: 16-33-5510OR Lumbar spine WO and W contrast IVMR lumbar spine with and without contrast Imaging Routine Demyelinating disease of central nervous system (CMS-HCC) Neurogenic bladder Gait instability Expected: 01/31/2025, Expires: 01/31/2026[facility] SystemComment on above:Expected: 01/31/2025, Expires: 01/31/2026Start: 01-31-2025 End: 64-52-6304AN Thoracic spine WO and W contrast IVMR thoracic spine with and without contrast Imaging Routine Demyelinating disease of central nervous system (CMS-HCC) Neurogenic bladder Gait instability Expected: 01/31/2025, Expires: 01/31/2026[facility] Work Phone: Comment on above:Expected: 01/31/2025, Expires: 01/31/2026Start: 49-53-0429UASQX-19 Vaccine ( season)COVID-19 Vaccine ()[facility] SystemStart: 84-35-8968Tyuwxqiip vaccinationGuernsey Memorial Hospital SystemStart: 01-09-2025 End: 02-66-2722Mjrvkvwic [Mass/volume] in Serum or PlasmaMagnesium Lab Routine Muscle spasms of both lower extremities Expected: 01/09/2025 (Approximate), Ex patito: 01/09/2026[facility] Work Phone: Comment on above:Expected: 01/09/2025 (Approximate), Expires: 01/09/2026Start: 01-09-2025 End: 59-22-8095Lmpmrje encounter xkpcytltv61/25/2025 1:00 PM EDT Office Visit [facility] [address] [place] [address] Thea Sood NP [address] [place] [address] NOMLucy QUICK FMStart: 12-14-2024 End: 23-38-4284DP Breast - bilateral ScreeningBilateral screening mammogram Imaging Routine Screening mammogram, encounter for Expected: 12/14/2024 (Approximate), Expires: 12/11/2025[facility] HealthcareComment on above:Expected: 12/14/2024 (Approximate), Expires: 12/11/2025Start: 12-13-2024 End: 21-49-7648BFU Skeletal system Views for bone densityDEXA bone density Imaging Routine Osteoporosis, unspecified osteoporosis type, unspecified pathological fracture presence ([facility]) Expected: 12/13/2024 (Approximate), Expires: 10/11/2025N[facility] HealthcareComment on above:Expected: 12/13/2024 (Approximate), Expires: 10/11/2025Start: 08-67-3986Hiokmalln for malignant neoplasm of breastMammogramNOMS HealthcareStart: 11-28-2024 End: 28-78-8918Llyruel encounter qewhasftp66/14/2025 1:20 PM EDT Office Visit [facility] [address] [place] [phone] Jason Engle DO [address] [place] [address] N[facility] BCP OBStart: 12-22-0678Jegmwbxkc vaccination Influenza Vaccine (#1)[facility] HealthcareComment on above:Postponed from 01/17/2024 (Patient Refused)Start: 10-25-2024 End: 98-62-9978Nwrtpua encounter procedureProMedica Physicians [facility] [place] Start: 10-11-2024 End: 33-31-1199IUR W Auto Differential panel - BloodCBC and differential Lab Routine Encounter for wellness examination Expected: 10/11/2024 (Approximate), Expires: 10/11/2025[facility] Work Phone: Comment on above:Expected: 10/11/2024 (Approximate), Expires: 10/11/2025Start: 10-11-2024 End: 58-75-7218Pqsqfxrdgxypb metabolic 2000 panel - Serum or PlasmaComprehensive metabolic panel Lab Routine Encounter for wellness examination Expected: 10/11/2024 (Approximate), Expires: 10/11/2025[facility] HealthcareComment on above: Expected: 10/11/2024 (Approximate), Expires: 10/11/2025Start: 10-11-2024 End: 41-87-5586Vigvr 1996 panel - Serum or PlasmaLipid panel Lab Routine Encounter for wellness examination Expected: 10/11/2024 (Approximate), Expires: 10/11/2025[facility] HealthcareComment on above:Expected: 10/11/2024 (Approximate), Expires: 10/11/2025Start: 10-11-2024 End: 94-00-2560Djogrhltbbb [Units/volume] in Serum or PlasmaTSH Lab Routine Encounter for wellness examination Expected: 10/11/2024 (Approximate), Expires: 10/11/2025N[facility] HealthcareComment on above:Expected: 10/11/2024 (Approximate), Expires: 10/11/2025Start: 10-11-2024 End: 70-88-1701Fbwokbo encounter wyuoxcerp08/27/2025 1:20 PM EDT Office Visit [facility] [address] [place] [address] Thea Sood NP [address] [place] [address] [facility]Lucy [facility] FMStart: 10-03-2024 End: 76-31-9036Xpzxxsi encounter wqejpqgyd45/19/2025 9:00 AM EDT Office Visit [facility] [address] [place] [address] Marisel Victoria, BRYCE [address] [place] [address] [facility]S [facility] FMStart: 36-34-7665Hyqqr BMI Follow Up PlanAdult BMI Follow Up PlanProMercy Health Lor[facility] Hospital SystemStart: 15-26-0714Zglms BMI ScreeningAdult BMI ScreeningGuernsey Memorial Hospital SystemStart: 84-54-4438Uvmsuff ScreeningTobacco ScreeningProMercy Health Lor[facility] Hospital SystemStart: 05-06-2024 End: 47-98-2959Cpluwyr encounter damcpymlv65/20/2024 2:00 PM EST Office Visit [facility] [address] [place] [address] Aquiles Canales MD [address] [place] [address], [address] [place] [phone] [facility] NeurologyStart: 04-04-2024 End: 27-01-9731Tkuegzp encounter yqkhfiqlc45/18/2024 8:30 AM EST Office Visit [facility] [address] [place] [address] Marisel Victoria, SENIOR TRAINING AND DEVELOPMENT REP [address] [place] [address] NOM[facility] CWM FMStart: 14-10-7188Hhics BMI Follow Up PlanAdult BMI Follow Up PlanProMercy Health Lor[facility] Hospital SystemStart: 81-19-3523Pzzbuedauo Screening Depression ScreeningGuernsey Memorial Hospital SystemStart: 02-22-2024 End: 96-56-4546Plihljk encounter qxhlpqnez82/07/2024 1:30 PM EDT Office Visit [facility] [address] [place] [address] Marisel Victoria, SENIOR TRAINING AND DEVELOPMENT REP [address] [place] [address] ArrivedNOMS CWM FMComment on above:ArrivedStart: 01-17-2024 COVID-19 Vaccine ( season)COVID-19 Vaccine ( season) [facility] SystemStart: 77-60-4009WPPXR-19 Vaccine ( season) COVID-19 Vaccine ( season)[facility] SystemStart: 01-17-2024 Influenza vaccinationNOMO HealthcareStart: 12-25-2023 End: 60-36-4016Ahnvbog encounter svgadmdrk34/09/2024 2:00 PM EDT Office Visit [facility] [address] [place] [address] Aquiles Canales MD [address] [place] [address], [address] [address] [facility] NeurologyStart: 08-10-2023 End: 26-79-0282Hqmllqh encounter fkldsyohz62/25/2024 1:30 PM EDT Office Visit NOMLu[facility] QU[facility] [address] [place] [address] Shaikh Ramírez MD [address] [place] [address] [facility]MAN IMStart: 18-94-0246IMVAU-19 Vaccine ( season)COVID-19 Vaccine ( season)[facility]Start: 10-20-6524Rssqsietg vaccinationNOMS HealthcareStart: 82-17-7757Bsjgugaxmcfmex of varicella zoster vaccineZoster (Shingles) Vaccine (1 of 2)[facility]Start: 28-68-8172GKVEY-19 Vaccine (3 - Moderna risk series)COVID-19 Vaccine (3 - Moderna risk series)[facility] HealthcareStart: 43-19-1882Muqvrffpq for malignant neoplasm of breastMammogramNOMS HealthcareStart: 50-39-0312Omwnzeulr for malignant neoplasm of cervixNOMS HealthcareStart: 62-01-9421Bpofccpiq for malignant neoplasm of cervixPap SmearNOMS HealthcareStart: 33-64-7008ICoI,Tdap and Td Vaccines (1 - Tdap)DTaP,Tdap and Td Vaccines (1 - Tdap)[facility] SystemStart: 39-05-0953Femexysno B Vaccines (1 of 3 - 19+ 3-dose series) Hepatitis B Vaccines (1 of 3 - 19+ 3-dose series)[facility] HealthcareStart: 31-00-8434Nkjghwdglsvq Vaccine: Pediatrics (0 to 5 Years) and At-Risk Patients (6 to 64 Years) (1 of 2 - PCV)Pneumococcal Vaccine: Pediatrics (0 to 5 Years) and At-Risk Patients (6 to 64 Years) (1 of 2 - PCV)[facility] HealthcareStart: 29-17-4338EZwK/Tdap/Td Vaccines (1 - Tdap)DTaP/Tdap/Td Vaccines (1 - Tdap)[facility] HealthcareStart: 76-25-8662EHU Vaccines (1 of 1 - Standard series)MMR Vaccines (1 of 1 - Standard series)[facility] HealthcareStart: 02-24-1973Medicare Annual Wellness (AWV)Medicare Annual Wellness (AWV)[facility] HealthcareStart: 1970 Screening for malignant neoplasm of colonENCOMPASS HEALTH Healthcare End: 52-76-5089Dmxrpgye identified in Urine by CultureUrine culture Microbiology Routine Dysuria 1 Occurrences starting 01/31/2025 until 01/31/2026[facility] SystemComment on above:1 Occurrences starting 01/31/2025 until 01/31/2026 Bacteria identified in Urine by CultureUrine culture Microbiology Routine Dysuria 01/31/2025 4:16 PM [facility] Auto Differential panel - BloodCBC and differential Lab Routine Multiple sclerosis (CMS/HCC) Neurogenic bladder Ordered: 04/04/2024[facility] Work Phone: Comment on above:Ordered: 04/04/2024omprehensive metabolic 2000 panel - Serum or PlasmaComprehensive metabolic panel Lab Routine Multiple sclerosis (CMS/HCC) Neurogenic bladder Ordered: 04/04/2024[facility] Hospital[facility] on above:Ordered: 04/04/2024 Immunizations Immunization DateImmunizationNotesCare VepxpqvfImvelecr79-02-1430nuubpsqdy virus vaccine, unspecified formulationALLA TAYLOR [facility]12-12-2021Influenza, injectable, Madin Aurora Canine Kidney, preservative free, quadrivalentBrittany Victoria SENIOR TRAINING AND DEVELOPMENT REP Work Phone: [facility] HospitalZatckojdss36-14-9732HOIA-LfP-7 (COVID-19) mRNA- 1273 vaccineJENNIFER BRANDON [facility]05-14-2021SARS-CoV-2 (COVID-19) mRNA-1273 vaccineMELYNNIFER BRANDON [facility] Payers DatePayer CategoryPayerPolicy [id number] HMO [id number] 2024Medicare [id number] Health Insurance [id number] Health Insurance [id number] [id number] 2023Medicare (Managed Care) [id number] 1.2.840.990513.1.13.693.2.7.3.068[id number] 2..840.1.175936.3.57[id number] 2..840.1.211004.3.57[id number] 2.16.840.1.471319.3.57[id number] 2.16.840.1.208948.3.579.[id number] 2.16.840.1.489517.3.57[id number] 2.16840.1.771267.3.57[id number] 2.840.1.263931.3.57[id number] 2.840.1.247348.3.579.2.34103-65-1804Gtmzyca9987611 2.840.1.021057.3.57[id number] 2.840.1.848711.3.579.[id number] 2.840.1.187275.3.57[id number] 2.0.1.502575.3.57[id number] 2.840.1.756372.3.57[id number] 2.0.1.032536.3.579.2.593755-08-4109Eteiywg2856017 2.0.1.679083.3.57[id number] 2..1.467579.3.579.2.208381-57-1024Zrdjmmz2304149 2.0.1.506641.3.579.2.6[id number] 2.0.1.698178.3.579.2.249996-50-2124Kcnztqh847084348 2.840.1.272092.3.579.2.015478-60-1094Cfxvtfw38455653 2.840.1.352700.3.579.2.07052-72-7979Czowgbh39526041 2.840.1.439145.3.579.2.06950-57-8747Chuwpzd91393669 2.840.1.617479.3.579.2.60001-65-4868Fozqgfc94554465 2.840.1.460598.3.579.2.00609-56-0347Butznol14152890 2.840.1.971459.3.579.[id number] 2.0.1.625572.3.579.2.99660-32-0799Vhbghpj44588932 2.0.1.074251.3.579.2.8[id number] 2.0.1.424101.3.579.2.810723-36-4439Wozbjlq304037054 2.0.1.619827.3.579.2.053554-75-7314Emgjpor929237592 2.0.1.292783.3.579.2.665520-46-9192Snjyyjl796940056 2.0.1.149747.3.579.2.[id number] 2.0.1.192664.3.579.2.313586-71-2865Wfpqbuq984885031 2.0.1.218452.3.579.2.178251-51-4662Tddvfje632719021 2.840.1.519789.3.579.2.517585-47-7006Sxlvnps255243768 2.840.1.043811.3.57[id number] [facility] [id number] Social History DateTypeDetailFacilityTobacco smoking statusExec[facility] start: 06-29-2023 End: 29-60-2633Xjs [facility]: 01-13-2023 End: 58-76-5092Bdcwjee smoking statusNever smoked tobacco (finding)[facility]: 33-55-5060Lcaawex smoking statusNeverExecutive [facility]rology of [facility] Northtart: 06-29-2023 End: 91-36-5622Xpcluxm of Social functionNOMS HealthcareStart: 54-14-2272Fwh Assigned At BirthNot on fileProTanner Medical Center [facility] SystemStart: 05-14-2022 End: 12-58-7390Sphbfev use and exposureSmokeless tobacco non-userAdams County Hospital Health SystemStart: 11-09-2023 End: 41-25-5612Tkapcmtqd beverage intakeLifetime non-drinker (finding)[facility] SystemStart: 76-85-5969DdpTmsxhs (finding)[facility] SystemStart: 10-74-7641Hbr Assigned At [facility] HospitalNEGATED: Highlighted rowStart: NINFHistory of tobacco usePassive smokerNOMS Healthcare Functional Status XxmtZyqaodcztzXkvdpeBgffngbe32-01-0124Vtwvenbyjm StatusN/[facility]10-07-2024Patient Health Questionnaire 2 item (PHQ-2) [Reported][facility] HospitalTqjxutfdmx69-95-6287Ppk difficult have these problems made it for you to do your work, take care of things at home, or get along with other people?Not difficult at all 02/22/2024 1:00 PM Marisel Alexandra NP Not difficult at all [facility] HospitalQqcbwxyrrq29-46-3647Nifbynxqzr StatusN/AExec[facility]11-29-2023Functional StatusN/A[facility]08-29-2023Functional StatusN/A[facility] Clinical Notes 11-01-2021 to 02-14-2025 Note Date & YmrrMxinPpvgvobj29-35-3150 NotePatient Education - Text Ta Catheter Care, Female A Ta catheter is a soft, flexible tube that is placed into the bladder to drain urine. The catheter has a balloon to hold it inside the bladder. A Ta catheter may be inserted if: ??? You leak urine or are not able to control when you urinate (urinary incontinence). ??? You are not able to urinate when you need to (urinary retention). ??? You had surgery. ??? You have certain medical conditions, such as multiple sclerosis, dementia, or a spinal cord injury. To Prevent Infection: 1. Wash your hands with soap and water before and after handling your catheter. 2. Using mild soap and warm water on a clean washcloth; twice a day. ??? Clean the area on your body closest to the catheter insertion site using a front to back motion, moving away from the catheter. Never wipe toward the catheter because this could sweep bacteria upinto the urethra and cause infection. ??? Remove all traces of soap. Pat the area dry with a clean towel. No tub baths. No lotions, powders, or sprays unless directed by your physician. 3. Keep the tube secure. Do not let the tube pull or catch when you are moving around. ??? Attach the catheter to your leg so there is no tension on the catheter. The bag can be wore on the thigh. Use adhesive tape or a leg strap. If you are using adhesive tape, remove any sticky residue left behind by the previous tape you used. 4. Replace wet leg straps with dry ones. 5. Wear cotton underwear to absorb moisture and keep impregnator and drier. 6. Keep the drainage bag below the level of the bladder, but keep it off the floor. 7. Check throughout the day to be sure the catheter is working and urine is draining freely. Make sure the tubing does not become kinked or looped. 8. Do not pull on the catheter or try to remove it. Pulling could damage internal tissues. TAKING CARE OF THE DRAINAGE BAGS You will be given two drainage bags to take home. One is a large overnight drainage bag, and the other is a smaller leg bag that fits underneath clothing. You may wear the overnight bag at any time, but you should never wear the smaller leg bag at night, unless directed by your physician. Follow the instructions below for how to empty and change your drainage bags. Emptying the Drainage Bag You must empty your drainage bag when it is ? full. 1. Wash your hands with soap and water before and after handling your catheter. 2. Keep the drainage bag below your hips, below the level of your bladder. This stops urine from going back into the tubing and into your bladder. 3. Hold the dirty bag over the toilet or a clean container. 4. Open the pour spout at the bottom of the bag and empty the urine into the toilet or container. Do not let the pour spout touch the toilet, container, or any other surface. Doing so can place bacteria on the bag, which can cause an infection. 5. Clean the pour spout with a gauze pad or cotton ball that has rubbing alcohol on it. 6. Close the pour spout. 7. Attach the bag to your leg with adhesive tape or a leg strap. Changing the Drainage Bag 1. Wash your hands with soap and water before and after handling your catheter. 2. Pinch off the rubber catheter so that urine does not spill out. 3. Disconnect the catheter tube from the drainage tube at the connection valve. Do not let the tubes touch any surface. 4. Clean the end of the catheter tube with an alcohol wipe. Use a different alcohol wipe to clean the end of the drainage tube. 5. Connect the catheter tube to the drainage tube of the clean drainage bag. 6. Attach the new bag to the leg with adhesive tape or a leg strap. Avoid attaching the new bag tootightly. 7. Place a cap on the drainage bag not in use and store in a clean towel. SEEK MEDICAL CARE IF: ??? Your urine is cloudy or smells. ??? Your catheter starts to leak. ??? Your catheter falls out or is pulled out. ??? You have pain, swelling, redness, or pus where the catheter enters the body. ??? You have pain in the abdomen, legs, lower back, or bladder. ??? You have a fever of 100.4 F (38 C) or higher ??? You see pink, red, dark, coffee colored, or pus-like urine. ??? You have nausea, vomiting, or chills. ??? You are not feeling better in 2 to 3 days or you are feeling worse. ??? You are not draining urine into the bag or your bladder feels full. MAKE SURE YOU: ??? Understand the reason you have the catheter. ??? Understand and follow these instructions to care for the catheter. ??? Will watch your condition. ??? Drink 6-8 glasses of water or liquids per day to keep your urine clear. ??? Avoid Caffeinated drinks. They can irritate the bladder and cause bladder spasms. ??? Keep your follow up appointments and call with any concerns. Cystoscopy with Botox injection ??? Voiding after the procedure: there may be some pain, burning, urgency, frequency and blood tinged urine following the proc (more content not included)...[facility]09-24-2025 Miscellaneous Notes* Telephone Encounter - Lady Metcalf - 02/08/2025 12:54 PM EDT Received referral for patient to have botox for LE spasticity. Please call to schedule * Telephone Encounter - Marleny Torres LPN - 02/08/2025 12:54 PM EDT Received request for botox injections for spasticity. We do not accept her insurance in the botox clinic * Telephone Encounter - Hortensia Lucero MD - 02/08/2025 12:54 PM EDT Please find out if patient is interested in getting Botox for spasticity, if unsure, we can schedule regular clinic visit first. She was seen by Dr. Canales previously for MS. If she would like to proceed with botox, then referral will need to faxed to [facility] and I will let the MA know to schedule forbotox. I do not see her in the [facility] epic. * Telephone Encounter - Ct Kunz - 02/08/2025 12:54 PM EDT Nurse attempted to contact patient by phone with below message from Dr. Lucero. Nurse requesting a return call. [facility] Telephone encounter Note* Telephone Encounter - Lady Metcalf - 02/08/2025 12:54 PM EDT Received referral for patient to have botox for LE spasticity. Please call to schedule [facility]09-24-2025 Telephone encounter Note* Telephone Encounter - Marleny Torres LPN - 02/08/2025 12:54 PM EDT Received request for botox injections for spasticity. We do not accept her insurance in the botox clinic [facility]09-24-2025 Telephone encounter Note* Telephone Encounter - Hortensia Lucero MD - 02/08/2025 12:54 PM EDT Please find out if patient is interested in getting Botox for spasticity, if unsure, we can schedule regular clinic visit first. She was seen by Dr. Canales previously for MS. If she would like to proceed with botox, then referral will need to faxed to [facility] and I will let the MA know to schedule forbotox. I do not see her in the [facility] epic. [facility] Work Phone: [phone] 239-982309-24-2025 Telephone encounter Note* Telephone Encounter - Ct Kunz - 02/08/2025 12:54 PM EDT Nurse attempted to contact patient by phone with below message from Dr. Lucero. Nurse requesting a return call. [facility]09-17-2025 Hospital Discharge instructions Patient Education 02/01/2025 09:31:33 Botulinum Toxin Bladder Injection Botulinum Toxin Bladder [...] including vitamins, herbs, eye drops, creams, and tvxw-csx-vxdyvyg medicines. Any problems you or family members [...] provider tells you to take them. Taking egdu-jdv-zjvovur medicines, vitamins, herbs, and supplements. General instructions [...] Follow these instructions at home: Medicines Take ikes-nuf-vgsjunh and prescription medicines only as told by your health care provider. If you were prescribed an antibiotic medicine, take it as told by your health care provider. Do notstop using the antibiotic even if you start [...] provider. Document Revised: 11/08/2021 Document Reviewed: 11/08/2021 [employer] Patient Education 2023 [employer] Follow Up Care 01/31/2025 12:41:10 With:Ed LOVETT, JUVE Glez, URO Address: When: Unknown [facility] 09-17-2025 NotePatient Education Urology Botulinum Toxin Bladder Injection A [...] including vitamins, herbs, eye drops, creams, and tove-cwm-mwyjaku medicines. ??? Any problems you or family [...] need to have your bladder emptied with athin tube (urinary catheter). ??? Bleeding. ??? Urinary [...] tells you to take them. ??? Taking lclh-bxu-dmwzwpd medicines, vitamins, herbs, and supplements. General instructions [...] into your bladder through the part of thebody that carries urine from your bladder (urethra). [...] these instructions at home: Medicines ??? Take nytg-ijo-enurjkj and prescription medicines only as told by your health care provider. ??? If you were prescribed an antibiotic medicine, take it as told by your health care provider. Donot stop using the antibiotic even if you start to feel better. General instructions ??? If you were given a sedative during the procedure, (more content not included)...[facility]09-[facility]-2025 History of Present illness Narrative* Aquiles Canales MD - 01/31/2025 2:30 PM EDT Images from the original note were not included. [address] [facility] [id number] Patient: Denisse Galarza Date of : 1970 Encounter Date: 01/31/2025 Patient Care Team: Ashley Gale MD as PCP - General (Family Medicine) Jason Parker MD as Referring Physician (Neurology) DEDRICK Blas as Nurse Practitioner (Neurology) Johnson Lorenz MD as Referring Physician (Family Medicine) History of Present Illness: The patient is a 54 y.o. female, an established patient, and is here for management of central demyelination syndrome. She is currently accompanied to the clinic by her significant other. She was last seen in clinic on 10/25/2024. Summary of Condition: The patient is a 54 years old right-handed female with past medical history of osteoporosis, anxiety, depression, who presents to the neurology clinic today for management of central nervous system demyelination syndrome. Pertinent PMH: Patient reports being diagnosed with MS based off clinical history and radiographic evidence in 2016. She reports subacute onset of gait instability and short-term memory problems roughly 10 years ago. The problem seemed to get worse gradually with the passage of time, however patient denies havingacute or subacute clinical exacerbations as far she remembers. About 5-6 years ago she apparently had subacute onset of right-sided weakness, worsening of gait and short-term memory. Subsequently sawa neurologist at [facility], diagnosed her with multiple sclerosis based off MRI brain and spine findings.MRI brain with without contrast from October 2015 showed moderate to severe burden of demyelinating les ions within the supratentorial(ovoid lesions perpendicular to the [...] 2015 shows multifocal signal abnormalities within the thoracicspine. No enhancing lesion was present to suggest [...] been following up with Dr. Ford at [facility], however recently requested [facility] neurologists. Was eventually referred to me by her PCP. MS checklist 01/31/2025: - Dx: [id number]. Based off clinical history and MRI scans. No csf studies have been performed, per patient. - initial symptoms: Subacute onset of gait instability/stumbling, and short-term memory problems roughly 10 years ago. - MS DMT: Currently on Vumerity p.o. 462 mg b.i.d., has been on it since 2020. Currently getting the medication through Free drug program. Without the drug program her co-pay per month would be an estimated 450 dollars. She would not be able [...] count normalized, she was started on Vemurity in-2020. There was 2 periods, in early 2020 and between December 2017 and September 2018, where she was off all DMT's. - Currently having some problems with getting Vemurity approved by her insurance. Per the spouse, the supplies are frequently arriving a few days after the patient has run out of the medicine. In addition it also appears the patient has been missing a few doses of Vemurity every week. He reports this has been going on for a few months now, however I was not informed of this at the last clinic visit. Unfortunately, the patient and the spouse reports significant worsening of gait instability, lower extremity weakness over the last few weeks. At this point the patient is unable to ambulate on her own, and requires significant help just to use the restroom. As a result she has been unable to use the restroom on her own, is frequently found incontinent of urine, soils her clothes, furniture inbed frequently. She denies any significant weakness, worsening symptoms affecting the upper extremities. Does report significant worsening of muscle cramping and spasticity affecting the lower extremities. Per the spouse, whenever he tries to move the patient her legs cramp up and assume a scissoring position very frequently. Her legs appear to be fixed in semi flexion at the knee frequently. Thepatient currently denies any visual impairment, double vision, upper extremity weakness, incoordination, lightheadedness, seizure-like activity, fever, constitutional symptoms. Does report some perineal/pelvic discomfort with urination. She did see her PCP recently who ordered some labs, however has not heard back about the results. Per the patient, she does not think a urinary sample was requested at the time. And also the PCP was concerned about a UTI, no antibiotics were prescribed either. - At the last clinic visit, the patient was recommended to get repeat MRI brain and cervical spine which she subsequently had on 12/05/2024 which did not show any evidence of active inflammation/demyelination or other acute intracranial pathology. - Memory/cognition/fatigue/depression: Reports subacute onset of short-term memory problems erqhgxw25 years ago. Seemed to get significantly worse roughly 5 years ago, with the last reported exacerbation for MS. Her significant other helps her with keeping track of appointments, and other tasks. Has longstanding history of depression and anxiety, currently on fluoxetine 40 mg q.h.s., bupropion SR 150 mg bid. Patient's reports mood has been better over the last 6 months. Patient has notbeen able to establish care with a psychologist/psychiatrist still. - Gait/falls/motor: Patient uses a wheelchair and automated scooter for outdoor ambulation, was able to use a walker for indoor ambulation however with a past few weeks has been requiring her husbandto help with almost every activity including grooming, toileting, bathing. Significant increase in weakness, spasticity affecting the lower extremities over the last few weeks. The PCP did increase the patient's baclofen dose to 10 mg t.i.d., however no significant improvement relief from spasticity of the lower extremities has been noticed with the increased dose. - Bowel/bladder: Has had Hyperactive/neurogenic bladder for more than 5 years. Is currently taking solifenacin 10 mg q.d., was previously on oxybutynin, tolterodine which seemed to help mildly at best. The patient reports significant worsening of urinary urgency and incontinence over the last few weeks. Also reports having mild discomfort affecting the pelvic/perineal area with the same time. Denies any fever, constitutional symptoms.. Patient has continued to wear diapers for involuntary urinary leakage, however she is frequently soiling herself, for initial in bed due to urgency and inability to get to the restroom in time. Is going to see her urologist tomorrow for further evaluation. - chronic fatigue/lethargy: Reports worsening over the last few weeks. - Dysphagia: Reports having difficulty swallowing with [...] PT/OT with home health care services. - Patient was able to see Dr Granados in the [facility] on 12/04/2022. Patient was identified to have Mild decrease in retinal nerve fiber layer suggestive of optic nerve atrophy, bilaterally. He documents presence of dysconjugate pursuit and a bilateral internuclear ophthalmoplegia..No specific treatments are available. Visual acuity OD [...] abnormal postcontrast enhancement is noted to suggest activedemyelination. * hyperintensity in the left cerebral peduncle [...] the T4 vertebral body is again noted. MRI cervical spine with and without contrast 12/05/2024: Impression:* Multifocal cervical spinal cord signal changes from known demyelinating disease is relatively stable but difficult to compare dueto extensive motion artifact. No convincing areas of abnormal enhancement. MRI brain with and without contrast 12/05/2024: IMPRESSION: Stable multiple sclerosis inactive plaques similar to prior study. No focal restricted diffusion or postcontrast pathologic enhancement to suggest active disease and no interval change since prior study. Somewhat limited examination due to significant motion artifacts. Review records from previous neurologist([facility]); - Patient [...] matter lesions. Subsequent MRI scans(latest from November 2020)of the brain, C-spine and T-spine not shown [...] HIT 6: No data to display PHQ-9: 10/25/2024 3:33 PM 02/24/2023 10:01 AM 10/24/2022 9:43 AM 05/14/2022 1:14 PM PM AMB PHQ 9 Little interest or pleasure in doing things 0 1 1 1 Feeling down, depressed, or hopeless 0 1 1 0 Trouble falling or staying asleep, or sleeping too much 0 1 0 1 Feeling tired or having little energy 0 1 0 1 Poor appetite or overeating 0 0 0 1 Feeling bad about yourself - or that you are a failure or have let yourself or your family down 0 00 0 Trouble concentrating on things, such as reading the newspaper or watching television 0 0 1 0 Moving or speaking so slowly that other people could have noticed. Or the opposite - being so fidgety or restless that you have been moving around a lot more than usual 0 0 1 0 Thoughts that you would be better off , or of hurting yourself in some way 0 0 0 0 Total Score 0 4 4 4 If you checked off any problems, how difficult have these problems made it for you to do your work,take care of things at home, or get along with other people? Not difficult at all Not difficult at all Not difficult at all Not difficult at all PHQ-15: No data to display TOMÁS-7: No data to display PTSD: No data to display [place]: No data to display MELIA-10: No data to display Past Medical, Family, Surgical, and Social History Update: The following portions of the patient's history were reviewed and updated as appropriate: allergies, current medications, past family history, past medical history, past social history, past surgicalhistory and problem list. Past Medical History: Diagnosis Date Cholelithiases Depression MS (multiple sclerosis) ([facility]) Ovarian cyst Renal cyst Urge incontinence History reviewed. No pertinent family history. Past Surgical History: Procedure Laterality Date BREAST SURGERY augmentation SECTION Current Outpatient Medications Medication Sig Dispense Refill aspirin (KHALIF LOW DOSE ASPIRIN) 81 mg Take 1 tablet (81 mg total) by mouth in the morning. buPROPion SR (WELLBUTRIN SR) 150 mg 12 [...] mouth in the morning. 60 tablet 5 alendronate (FOSAMAX) 35 mg tablet Take 1 tablet (35 mg total) by mouth once a week. (Patient not taking: Reported on 01/31/2025) baclofen (LIORESAL) 10 mg tablet Take 2 tablets (20 mg total) by mouth 3 (three) times a day. 60 tablet 5 No current facility-administered medications [...] in HPI . Physical Exam: Vitals: Vitals: 01/31/25 1417 BP: 122/80 Pulse: 94 Height: 177.8 cm (5' 10 ) Patient consulted for exercise: encouragement to exercise. [...] and left eye. Pupils: Relative afferent pupillary defectabsent. CN III, IV, : CN III: PERRLA, [...] present. Left lower extremity spasticity present. Power: Right arm pronator drift. Bradykinesia: None. Muscle Strength: Strength appears to be normal in the upper extremities, without significant spasticity. However lower extremities appeared to be extremely spastic, and seem to be stuck in semi flexion at the knee. Any involuntary movement at the feet or the knees, seems to induce severe spasms resulting in flexion at the knee and dorsiflexion of the ankle. Passive range of motion at the knee andankle seemed to be decreased due to extreme spasticity. Hip flexion and extension appeared to be relatively intact.. Fasciculations: No Myotonia: No myotonia. Sensory: Light [...] Right biceps 3+ Left biceps 2+ Right triceps 3+ Left triceps 3+ Right patellar 4+ Left patellar 4+ Right achilles 4+ Left achilles 4+ Right plantar upgoing Left plantar upgoing Right Osorio reflex absent and left Osorio reflex absent Left ankle clonus present. Right ankle clonus absent. Right pendular knee jerk [...] Diagnoses and all orders for this visit: Demyelinating disease of central nervous system (CMS-HCC) - MR thoracic spine with and without contrast; Future - MR lumbar spine with and without contrast; Future - MR brain with and without contrast; Future - MR cervical spine with and without contrast; Future - baclofen (LIORESAL) 10 mg tablet; Take 2 tablets (20 mg total) by mouth 3 (three) times a day. - Ambulatory referral to Neurology ([facility]); Future - Ambulatory referral to Social Work ([facility]); Future Dysphagia, unspecified type Neurogenic bladder - MR thoracic spine with and without contrast; Future - MR lumbar spine with and without contrast; Future - MR brain with and without contrast; Future - MR cervical spine with and without contrast; Future Wheelchair confinement status Gait instability - MR thoracic spine with and without contrast; Future - MR lumbar spine with and without contrast; Future Sensory ataxia Chronic fatigue Spasticity - baclofen (LIORESAL) 10 mg tablet; Take 2 tablets (20 mg total) by mouth 3 (three) times a day. - Ambulatory referral to Neurology ([facility]); Future Immunosuppressed due to chemotherapy Depressed mood Falls frequently Short-term memory loss Weakness of both lower extremities - MR brain with and without contrast; Future - MR cervical spine with and without contrast; Future Multiple sclerosis ([facility]) - baclofen (LIORESAL) 10 mg tablet; Take 2 tablets (20 mg total) by mouth 3 (three) times a day. Dysuria - Urinalysis; Future - Urine culture; Future The patient is a 54-year-old right-handed female with past medical history of [...] C-spine and T-spine had shown evidence of mo derate to severe white matter disease suggestive of [...] Tecfidera was eventually resumed and she has nothad any clinical exacerbations since that time. The Tecfidera had to be switched to Vemurity mid-2020, due to persistent lymphopenia/leukopenia, last CBC from October 2020 showed WBC count of 2.5 x10E9/L, absolute neutrophil count 1.5 x10E9/L, absolute lymphocyte count 0.7 x10E9/L. Per notes from his previous neurologist, subsequent MRI brain, C and T-spine(most recent ones from October-November 2020) had n ot shown evidence of worsening demyelination radiographically. The [...] not see a significant change in white mat ter lesions compared to the MRI brain scan from 2015. Unfortunately the MRI scans between 2015 and 2022 are not available the PACS system, however the reports are available under the medial link. Radiologist suggest new lesion in the left cerebral peduncle in the midbrain, however a less prominent h yperintensity was present in the left cerebral peduncle the scan on 2015 as well. Based on the reports from 12/08/2020 of the MRI brain with without contrast, ordered by the previous neurologist at [facility], the patient had midbrain lesions at that time. In addition, clinically the patient denies new mk rological symptoms or worsening of previous neurological deficits since the last clinic visit to suggest that she had an exacerbation. MRI brain from May 2022 does not show evidence of active inflammation/abnormal enhancement. The patient had repeat MRI brain and MRI cervical spine on 04/30/2023 which did not show any evidence of it matter disease progression or active inflammation. Unfortunately, it appears the patient has been having problems with getting Vemurity approved by her insurance. Per the spouse, the supplies are frequently arriving a few days after the patient has run out of the medicine. In addition it also appears the patient has been missing a few doses of Vemurity every week. He reports this has been going on for a few months now, however I was not informed of this at the last clinic visit. Unfortunately, the patient and the spouse reports significant worsening of gait instability, lower extremity weakness over the last few weeks. At this point the patient is unable to ambulate on her own, and requires significant help just to use the restroom. As a result she has been unable to use the restroom on her own, is frequently found incontinent of urine, soils her clothes, furniture in bed frequently. She denies any significant weakness, worsening symptoms affecting the upper extremities. Does report significant worsening of muscle cramping and spasticity affecting the lower extremities. Per the spouse, whenever he tries to move the patient her legs cramp up and assume a scissoring position very frequently. Her legs appear to be fixed in semi flexion at the knee frequently. The patient currently denies any visual impairment, double vision, upper extremity weakness, incoordination, lightheadedness, seizure-like activity, fever, constitutional symptoms. Does report some perineal/pelvic discomfort with urination. She did see her PCP recently whoordered some labs, however has not heard back about the results. Per the patient, she does not think a urinary sample was requested at the time. And also the PCP was concerned about a UTI, no antibiotics were prescribed either. At the last clinic visit, the patient was recommended to get repeat MRIbrain and cervical spine which she subsequently had on 12/05/2024 which did not show any evidence of active inflammation/demyelination or other acute intracranial pathology. Current neurological examination shows significant worsening in spasticity and weakness affecting bilateral lower extremities, sustained ankle clonus bilaterally. There appears to has been a significant change in her clinical examination over the last few weeks. Clinical impression: MS exacerbation from lack of compliance with disease modifying therapy versus pseudo exacerbation secondary to UTI Recommendations: - given the significant clinical change will repeat MRI brain, and the entire spine with and without contrast for further evaluation. - UA and urine culture - the patient also appears to have intertriginous rash in the pelvic region for which she is applying cortisol ointment. She has been recommended touch base with the PCP for further management. Wouldprobably benefit from seeing an ID specialists for this. - given the amount of care she is requiring at this time, believe she would benefit from being transferred to a usp facility or assisted living facility for management, at least in the short-term. - continue Vemurity EC, PO, 462 mg b.i.d. with compliance. - will follow up with the urologist tomorrow - continue solifenacin 10 mg q.d.. Regular follow-up with urology Clinic for Botox for overactive bladder and urinary urgency. - advised regular exercise, avoiding sedentary lifestyle. Patient has been strongly encouraged to avoid sedentary lifestyle and try to be more mobile at home. - patient reminded to see psychiatrist/psychologist at [facility]. - after discussing pros and cons will increase the dose of baclofen to 20 mg t.i.d. p.r.n.. Side-effect profile was discussed with the patient in detail. We will also refer the patient to Botox Clinic for management of significant increased spasticity affecting lower extremities. - supportive care. - continue modafinil 200 mg q.d.. - regular follow-up with PCP. - return to neurology clinic in 2 months months. Problem List Digestive Dysphagia Nervous and Auditory Multiple sclerosis ([facility]) Relevant Medications baclofen (LIORESAL) 10 mg tablet Demyelinating disease of central nervous system ([facility]) - Primary Relevant Medications baclofen (LIORESAL) 10 mg tablet Other Relevant Orders MR thoracic spine with and without contrast MR lumbar spine with and without contrast MR brain with and without contrast MR cervical spine with and without contrast Ambulatory referral to Neurology ([facility]) Ambulatory referral to Social Work ([facility]) Weakness of both lower extremities Relevant Orders MR brain with and without contrast MR cervical spine with and without contrast Genitourinary Neurogenic bladder Overview ==== 07/23/2016 ==== has MS. ==== 09/08/2016 ==== urinary incontinence. Workup demonstrated hyperactive or overactive bladder with uncontrolled uninhibited bladder contractions. Lower volumes. She is on Detrol 2 mg. Urodynamic study reviewed. Unreliable study. Ultrasound within the last year no hydro. Plan: Increased Detrol to 4 mg. Return to clinic. Could be headed toward Botox. Relevant Orders MR thoracic spine with and without contrast MR lumbar spine with and without contrast MR brain with and without contrast MR cervical spine with and without contrast Other Wheelchair confinement status Overview replacing diagnoses that were inactivated after the 02/15 regulatory import Gait instability Relevant Orders MR thoracic spine with and without contrast MR lumbar spine with and without contrast Sensory ataxia Chronic fatigue Short-term memory loss Falls frequently Depressed mood Follow-up: 2 months. Aquiles Canales MD Vascular Neurologist [facility] Neurology ([facility]) I have personally participated in the care of this patient. I have reviewed all pertinent clinical information, including history, physical exam, investigation results and plan. I spent 50 minutes caring for this patient, and more than 50% of that time was spent on counseling the patient/videotape recording engineer/care team and coordinating care. Important Notice: This note was created with the assistance of a speech recognition program. While intending to generate a timely document that accurately reflects the content of the encounter, no guarantee can be provided that every grammatical or spelling mistake has been or will be identified or corrected. Thank you for your understanding. documented in this encounterGerman Hospital08-25-2025 History of Present illness Narrative* Thea Sood NP - 01/09/2025 2:39 PM EDTAssociated Problem(s): Muscle spasms of both lower extremities Will get the bacolfen ordered correctly, not sure if she has been getting this or not Will reach out to Neurology as well * NICOLASA CRANDALL - 01/09/2025 1:00 PM EDT Pt would like to discuss a muscle relaxer- pt has been having a lot of muscle spasms. Pt has troubles with getting brief and pads up/on Pt is unsure if the spasms are related the MS or not Leg spasms periodically- with any change of routine, changing positions, getting in and out of the w/c * Thea Sood NP - 01/09/2025 1:00 PM EDT Images from the original note were not included. Denisse Galarza is a 54 y.o. female presents with chief complaint of Follow-up HPI: Hx of MS, has noted over the last few months an increase in her muscle spasms, mostly bilat LE fromhip down To the point that significant other has difficulty putting on brief Some descrepency of freq of baclofen was taking TID, but he thinks now only once a day. Has also had 2 episodes that neighbors have had to help her up: One was on front porch, and second one in the back yard. She remembers front porch, thinks she could not get her WC up into the house, and may have fell over Does not remember being in the back yard which S.O. states neighbor had to help her up from. Possible some intermittent periods of confusion, but the pt is not a good historian and her S. O. Tries toprovide as best as he can SUBJECTIVE: MEDICATIONS: Current Outpatient Medications Medication Instructions albuterol HFA (Ventolin HFA) 90 mcg/act inhaler 2 puffs, Inhalation, Every 4 hours PRN alendronate (FOSAMAX) 35 mg, Oral, Every 7 days, Take in the morning with a full glass of water, perry empty stomach, and do not take anything else by mouth or lie down for the next 30 min. aspirin 81 mg, Daily baclofen (LIORESAL) 10 mg, Oral, 3 times daily buPROPion XL (WELLBUTRIN XL) 150 mg, Oral, Daily, Do not crush, chew, or split. cholecalciferol (VITAMIN D-3) 50 mcg, Oral, Daily FLUoxetine (PROZAC) 40 mg, Oral, Daily modafinil (PROVIGIL) 200 mg, Daily montelukast (SINGULAIR) 10 mg, Oral, Nightly solifenacin (VESICARE) 5 mg, Oral, Daily, Swallow tablet whole; do not crush, chew, or split. Vumerity 231 MG capsule delayed-release ALLERGIES: No Known Allergies REVIEW OF SYMPTOMS: Review of Systems Constitutional: Negative for appetite change, chills and fever. HENT: Negative for congestion, ear pain and sore throat. Eyes: Negative for pain, discharge, redness and visual disturbance. Respiratory: Negative for cough, shortness of breath and wheezing. Cardiovascular: Negative for chest pain, palpitations and leg swelling. Gastrointestinal: Negative for abdominal pain, blood in stool, constipation, diarrhea, nausea and vomiting. Genitourinary: Negative for difficulty urinating, dysuria and frequency. Musculoskeletal: Positive for arthralgias and myalgias. Negative for back pain and joint swelling. Skin: Negative for rash and wound. Neurological: Negative for dizziness, tremors, seizures, syncope and headaches. Psychiatric/Behavioral: Negative for behavioral problems, self-injury and suicidal ideas. The patient is not nervous/anxious. Possible cognitive impairment Hematological: Does not bruise/bleed easily. Endocrine: Negative for polydipsia, polyphagia and polyuria. Allergic/Immunologic: Negative for environmental allergies and food allergies. PAST MEDICAL HISTORY Past Medical History: Diagnosis Date Allergic rhinitis Ambulatory dysfunction At high risk for falls Bipolar disorder ([facility]) Depression Endometriosis Fatigue Lisfranc dislocation, right, subsequent encounter Memory impairment Multiple sclerosis ([facility]) Oropharyngeal dysphagia Osteoporosis Other closed fracture of distal end of [...] in her mother. OBJECTIVE: Visit Vitals BP 108/80 (BP Location: Left arm, Patient Position: Sitting, BP Cuff Size: Adult long) Pulse 85 Temp 98.1 F (Temporal) Resp 18 SpO2 95% OB Status No Periods Smoking Status Never [...] Normal pulses. Heart sounds: Normal heart sounds. No murmur heard. Pulmonary: Effort: Pulmonary effort is normal. Breath sounds: Normal breath sounds. No wheezing or rhonchi. Abdominal: General: Bowel sounds are normal. There is no distension. Palpations: Abdomen is soft. There is no mass. Tenderness: There is no abdominal tenderness. Musculoskeletal: General: Normal range of motion. Cervical back: Normal range of motion and neck supple. Right lower leg: Edema present. Left lower leg: Edema present. Comments: Trace LE edema, MMT 4/5 bilat LE She is sitting in the wheel chair, is unable to stand on scale today to be weighed Skin: General: Skin is warm and dry. Capillary Refill: Capillary refill takes 2 to 3 seconds. Findings: No rash. Neurological: General: No focal deficit present. Mental Status: She is alert. Comments: Is oriented to month, not year, knew POT, as well as next several holidays coming up aswell. Follows commands Psychiatric: Mood and Affect: Mood normal. Behavior: Behavior normal. Thought Content: Thought content normal. Judgment: Judgment normal. ASSESSMENT AND PLAN: No follow-ups on file. Problem List Items Addressed This Visit Multiple sclerosis (HCC) - Primary Under the care of dr Bains Current meds: lioresal, Vumerity Relevant Medications baclofen (Lioresal) 10 MG tablet Neurogenic bladder Has seen urology, Lin Nair tmeds: [facility] S.O. states that used to take this 2-3 times daily will need to look at med records Wheelchair dependence Recurrent major depressive disorder, in full remission Current meds: wellbutrin XL, fluoxetine as well Muscle spasms of both lower extremities Will get the bacolfen ordered correctly, not sure if she has been getting this or not Will reach out to Neurology as well Relevant Orders Magnesium * Thea Sood NP - 01/09/2025 6:43 [...] Current meds: lioresal, Vumerity documented in this encounterProgress West [id number] Instructions* Patient Instructions* Thea Sood NP - 01/09/2025 1:00 PM EDT Restarted baclofen 10mg three times daily Need labs checked too documented in this encounterProgress West [id number] Miscellaneous Notes* Telephone Encounter - Milly Reich - 12/13/2024 1:22 PM EDT Medication Refill request: Medication Name and Strength: diroximel fumarate (VUMERITY) 231 mg capsule,delayed release(/EC) Current dose & Frequency: Patient takes 462 mg by mouth in the morning and 462 mg before bedtime Pharmacy Name: [facility] Mail Delivery Request was made by: Patient's roommate Len Follow up appointment: 01/31/2025 * Telephone Encounter - Alla Chi CMA - 12/13/2024 1:22 PM EDT Please review, Thanks * Telephone Encounter - Aquiles Canales MD - 12/13/2024 1:22 PM EDT Refills were sent! documented in this encounterGerman Hospital07-29-2025 Telephone encounter Note* Telephone Encounter - Milly Reich - 12/13/2024 1:22 PM EDT Medication Refill request: Medication Name and Strength: diroximel fumarate (VUMERITY) 231 mg capsule,delayed release(DR/EC) Current dose & Frequency: Patient takes 462 mg by mouth in the morning and 462 mg before bedtime Pharmacy Name: [facility] Mail Delivery Request was made by: Patient's roommate Len Follow up appointment: 01/31/2025 [facility] Telephone encounter Note* Telephone Encounter - Alla Chi CMA - 12/13/2024 1:22 PM EDT Please review, Thanks [facility]07-29-[facility] Telephone encounter Note* Telephone Encounter - Aquiles Canales MD - 12/13/2024 1:22 PM EDT Refills were sent! [facility]06-10-[facility] History of Present illness Narrative* Aquiles Canales MD - 10/25/2024 3:30 PM EDT Images from the original note were not included. [address] [facility] [id number] Patient: Denisse Galarza Date of : 1970 Encounter Date: 10/25/2024 Patient Care Team: Ashley Gale MD as PCP - General (Family Medicine) Jason Parker MD as Referring Physician (Neurology) DEDRICK Blas as Nurse Practitioner (Neurology) Johnson Lorenz MD as Referring Physician (Family Medicine) History of Present Illness: The patient is a 54 y.o. female, an established patient, and is here for management of MS. She is currently accompanied to the clinic by her significant other. She was last seen in clinic on 06/30/2023. Summary of Condition: The patient is a 54 years old right-handed female with past medical history of [...] short-term memory. Subsequently saw a neurologist at [facility], diagnosed her with multiple sclerosis based off [...] 2015 shows multifocal signal abnormalities within the thoracicspine. No enhancing lesion was present to suggest [...] been following up with Dr. Ford at [facility], however recently requested [facility] neurologists. Was eventually referred to me by her PCP. MS checklist 10/25/2024: - Dx: [id number]. Based off clinical history and MRI scans. No csf studies have been performed, per patient.. - initial symptoms: Subacute onset of gait instability/stumbling, and short-term memory problems roughly 10 years ago. - MS DMT: Currently on Vumerity p.o. 462 mg b.i.d., has been on it since 2020. Currently getting the medication through Free drug program. She would not be able to afford the medication if the drug program stops covering for it. Was previously on Tecfidera, which had to be switched as the free drugprogram ran out. After reviewing previous neurology notes, it seems she was having significant leukopenia with Tecfidera. She was taken off of it, and as soon as her WBC count normalized, she was started on Vemurity in mid-2020. There was 2 periods, in early 2020 and between December 2017 and September 2018, where she was off all DMT's. - reports worsening balance and gait over the last few months. Reports increased number of falls over that time period. Most of these falls have occurred indoors. currently on disability. Patient uses a wheelchair and automated scooter for outdoor ambulation, uses a walker for indoor ambulation.. Does not drive. Is fairly independent with ADLs and IADLs, except for managing finances, outdoor transportation. - Memory/cognition/fatigue/depression: Reports subacute onset of short-term memory problems [id number] years ago. Seemed to get significantly worse roughly 5 years ago, with the last reported exacerbation for MS. Her significant other helps her with keeping track of appointments, and other tasks. Has longstanding history of depression and anxiety, currently on fluoxetine 40 mg q.h.s., bupropion SR 150 mg bid. Patient's reports mood has been better over the last 6 months. Patient has notbeen able to establish care with a psychologist/psychiatrist. The clinic for which the referral wasprovided a few months ago, was not accepting new patients anymore. Gait/falls/motor: Patient uses a wheelchair and automated scooter for outdoor ambulation, uses a walker for indoor ambulation.. Does not drive. Since starting baclofen 10 mg b.i.d. has reported mild improvement in ease of walking. Reports worsening balance, and as a result a few falls since the last clinic visit. Previously had home health care services with PT/OT. However the sessions eventuallyexpired. Bowel/bladder: Has had Hyperactive/neurogenic bladder for more than 5 years. Is currently taking solifenacin 10 mg q.d., was previously on oxybutynin, tolterodine which seemed to help mildly at best.Since increasing the dose of solifenacin, the frequency and severity of urgency and associated incontinence has decreased significantly. Patient has continued to wear diapers for involuntary urinary leakage, which is usually not that much in quantity. Hyperactive bladder does not seem to cause significant pain for the patient. Patient has established care with a urologist in [place], and had her1st session of Botox for bladder spasms on [...] of dysconjugate pursuit and a bilateral internuclear ophthalmoplegia..No specific treatments are available. Visual acuity OD [...] abnormal postcontrast enhancement is noted to suggest activedemyelination. * hyperintensity in the left cerebral peduncle [...] compare the current examination with the prior 2015 examination, which was of lower technical quality. [...] matter lesions. Subsequent MRI scans(latest from November 2020)of the brain, C-spine and T-spine not shown [...] HIT 6: No data to display PHQ-9: 10/25/2024 3:33 PM 02/24/2023 10:01 AM 10/24/2022 9:43 AM 05/14/2022 1:14 PM PM AMB PHQ 9 Little interest or pleasure in doing things 0 1 1 1 Feeling down, depressed, or hopeless 0 1 1 0 Trouble falling or staying asleep, or sleeping too much 0 1 0 1 Feeling tired or having little energy 0 1 0 1 Poor appetite or overeating 0 0 0 1 Feeling bad about yourself - or that you are a failure or have let yourself or your family down 0 00 0 Trouble concentrating on things, such as reading the newspaper or watching television 0 0 1 0 Moving or speaking so slowly that other people could have noticed. Or the opposite - being so fidgety or restless that you have been moving around a lot more than usual 0 0 1 0 Thoughts that you would be better off , or of hurting yourself in some way 0 0 0 0 Total Score 0 4 4 4 If you checked off any problems, how difficult have these problems made it for you to do your work,take care of things at home, or get along with other people? Not difficult at all Not difficult at all Not difficult at all Not difficult at all PHQ-15: No data to display TOMÁS-7: No data to display PTSD: No data to display [place]: No data to display MELIA-10: No data to display Past Medical, Family, Surgical, and Social History Update: The following portions of the patient's history were reviewed and updated as appropriate: allergies, current medications, past family history, past medical history, past social history, past surgicalhistory and problem list. Past Medical History: Diagnosis Date Cholelithiases Depression MS (multiple sclerosis) Ovarian cyst Renal cyst Urge incontinence History reviewed. No pertinent family history. Past Surgical History: Procedure Laterality Date BREAST SURGERY augmentation SECTION Current Outpatient Medications Medication Sig Dispense Refill aspirin (KHALIF LOW DOSE ASPIRIN) 81 mg Take 1 tablet (81 mg total) by mouth in the morning. buPROPion SR (WELLBUTRIN SR) 150 mg 12 hr tablet Take 1 tab twice daily. 60 tablet 5 calcium carbonate (OS-DARRELL) 600 mg (1,500 mg) tablet Take 1 tablet (600 mg total) by mouth in the morning. cholecalciferol, vitamin D3, 2,000 units tablet Take 1 tablet (2,000 Units total) by mouth in the morning. FLUoxetine (PROzac) 40 mg capsule Take 1 [...] mouth in the morning. 60 tablet 5 alendronate (FOSAMAX) 35 mg tablet Take 1 tablet (35 mg total) by mouth once a week. (Patient not taking: Reported on 01/31/2025) baclofen (LIORESAL) 10 mg tablet Take 2 tablets (20 mg total) by mouth 3 (three) times a day. 60 tablet 5 diroximel fumarate (VUMERITY) 231 mg capsule,delayed release(DR/EC) Take 462 mg by mouth in the morning and 462 mg before bedtime. 360 capsule 3 No current facility-administered medications for this visit. [...] in HPI . Physical Exam: Vitals: Vitals: 10/25/24 1526 Weight: 71.7 kg (158 lb) Height: 152.4 cm (5') Patient consulted [...] and left eye. Pupils: Relative afferent pupillary defectabsent. CN III, IV, : CN III: PERRLA, [...] Diagnoses and all orders for this visit: Demyelinating disease of central nervous system ([facility]) - Ambulatory referral to Neuroophthalmology ([facility]); Future - MR brain with and without contrast; Future - MR cervical spine with and without contrast; Future Multiple sclerosis - MR brain with and without contrast; Future - MR cervical spine with and without contrast; Future Obesity (BMI 30-39.9) Dysphagia, unspecified type Neurogenic bladder Wheelchair confinement status Gait instability Sensory ataxia Chronic fatigue Spasticity Immunosuppressed due to chemotherapy Urologic disorder Depressed mood Falls frequently Blurred vision, right eye - Ambulatory referral to Neuroophthalmology ([facility]); Future The patient is a 54-year-old right-handed female with past medical history of [...] C-spine and T-spine had shown evidence of mo derate to severe white matter disease suggestive of central demyelination. She was started on disease modifying therapy, Tecfidera at the time and had been on it since mid 2019. There were 2 periods of [...] Tecfidera had to be switched to Vemurity mid- 2020, due to persistent lymphopenia/leukopenia, last CBC from [...] the neurology clinic on 05/14/2022. At the clinic visit in February 2023, she was recommended to get a repeat MRI brain and cervical spine with & without contrast which she subsequently did in April 2023. I personally reviewed the MRI brain and cervical spine scans, and did not see a significant change in white matter lesions compared to the MRI scans from May 2022. The MRI scans between 2015 and 2022 are not available the PACS system, however the reports are available under the medial link. Radiologist suggest new lesion in the left cerebral peduncle in the midbrain, however a less prominent hyperintensity was present in the left cerebral peduncle the scan [id number] as well. Based on the reports from 12/08/2020 of the MRI brain with without contrast, ordered by the previous neurologist at [facility], the patient had midbrain lesions at that time. In addition, clinically the patient denies new neurological symptoms or worsening of previous neurological deficits since the last clinic visit to suggest that she had an exacerbation. MRI brain and cervical spine from April 2023 did not show evidence of active inflammation/abnormal enhancement. The patient had repeat MRI brain and MRI cervical spine on 04/30/2023 which did not show any evidence of it matter dis ease progression or active inflammation. However since the last clinic visit the patient is reporting worsening balance, gait instability and right-sided monocular visual blurriness. We repeat get MRI of the brain with and without contrast, MRI cervical spine with and without contrast for further evaluation. Also refer to neuro crane hoist or lift operator further evaluation of blurry vision for optic neuritis. * Has longstanding history of depression and anxiety, Currently on fluoxetine 40 mg q.h.s., bupropion SR 150 mg bid. Patient's reports mood has been better over the last 3 months. Patient hasnot been able to establish care with a psychologist/psychiatrist. Was reminded to do that as soon as possible. * Has had Hyperactive/neurogenic bladder for more than 5 years. Has had Hyperactive/neurogenic bladder for more than 5 years. Is currently taking solifenacin 10 mg q.d., was previously on oxybutynin,tolterodine which seemed to help mildly at best. Since increasing the dose of solifenacin, the frequency and severity of urgency and associated incontinence has decreased significantly. Patient has continued to wear diapers for involuntary urinary leakage, which is usually not that much in quantity. Hyperactive bladder does not seem to cause significant pain for the patient. Patient has established care with a urologist in [place], and had her 1st session of Botox for bladder spasms on the February. Since that time the patient and have reported decreased urgency/urinary incontinence in to the adult diapers. Has been recommended to follow up with Urology. * over the last 5 years has noticed spasticity/muscle spasms affecting the right upper and lower extremity which tend to come on as the patient tries to use the right-sided extremities. Is currently on baclofen 10 mg b.i.d. p.r.n. and reports mild improvement in spasticity after starting the medication. Current neurological examination has been stable and continues to shows mild right-sided facial droop, normal strength and sensation in all 4 extremities, mild left upper extremity dysmetria on pahzrw-cy-eirr testing, mild to moderate spasticity in right upper/right lower/left lower extremities, significant sensory ataxia on standing up. She is currently on a wheelchair, however can use a walker and/or an automated scooter at home. She is fairly independent with ADLs and IADLs, can bathe herself and dress herself. Is currently not driving. Needs some assistance from her significant other, formanaging finances, medications supervision, remembering appointments and other tasks. Clinical impression: Relapsing remitting MS versus secondary progressive MS Recommendations: - continue Vemurity EC, PO, 462 mg b.i.d.. Patient does not appear to have any side effects at thistime. - will get MRI brain and cervical spine with and without contrast for further evaluation of worsening balance and sided visual impairment. - referral to neuro crane hoist or lift operator for detailed ophthalmological/funduscopy examination - continue solifenacin 10 mg q.d.. Regular follow-up with urology Clinic for Botox for overactive bladder and urinary urgency. - advised regular exercise, avoiding sedentary lifestyle. Patient has been strongly encouraged to avoid sedentary lifestyle and try to be more mobile at home. - patient reminded to see psychiatrist/psychologist at [facility]. - continue baclofen 10 mg b.i.d. p.r.n. for spasticity. - supportive care. - continue modafinil 200 mg q.d.. - regular follow-up with PCP. - return to neurology clinic in 3 months. Problem List Digestive Obesity (BMI 30-39.9) Dysphagia Nervous and Auditory Multiple sclerosis Relevant Orders MR brain with and without contrast (Completed) MR cervical spine with and without contrast (Completed) Demyelinating disease of central nervous system (CMS-HCC) - Primary Relevant Orders Ambulatory referral to Neuroophthalmology ([facility]) MR brain with and without contrast (Completed) MR cervical spine with and without contrast (Completed) Genitourinary Urologic disorder Overview +++++++++ 07/14/2016 ALLSCRIPTS [...] import Gait instability Sensory ataxia Chronic fatigue Falls frequently Depressed mood Blurred vision, right eye Relevant Orders Ambulatory referral to Neuroophthalmology ([facility]) Follow-up: 3 months. Aquiles Canales MD Vascular Neurologist [facility] Neurology ([facility]) I have personally participated in the care of this patient. I have reviewed all pertinent clinical information, including history, physical exam, investigation results and plan. I spent 40 minutes caring for this patient, and more than 50% of that time was spent on counseling the patient/videotape recording engineer/care team and coordinating care. Important Notice: This note was created with the assistance of a speech recognition program. While intending to generate a timely document that accurately reflects the content of the encounter, no guarantee can be provided that every grammatical or spelling mistake has been or will be identified or corrected. Thank you for your understanding. documented in this encounterWestern Reserve HospitalPrimus Power [id number] History of Present illness Narrative* NICOLASA CRANDALL - 10/11/2024 1:20 PM EDT Botox procedure next week. Pt is suppose to get atb from dr tino ward and start that the day before her procedure Pt is needing refill on all medications. Solifenacin 5mg was 2 tablets daily now 1 tablet daily can pt go back to two * Thea Segurakadythu, SENIOR TRAINING AND DEVELOPMENT REP - 10/11/2024 1:20 PM EDT Images from the original note were not [...] morning with a full glass of water, perry empty stomach, and do not take anything [...] List Items Addressed This Visit Multiple sclerosis ([facility]) - Primary Under the care of dr [...] Recurrent major depressive disorder, in full remission ([facility]) Current meds: wellbutrin XL, fluoxetine as well PHQ 9=4 Screening mammogram, encounter for Due November 2024 Relevant Orders Bilateral screening mammogram Osteoporosis ([facility]) Current meds: fosamax DEXA: will order with mammogram in December Relevant Orders DEXA bone density Encounter for wellness examination No exam, just labs Relevant Orders CBC and differential Comprehensive metabolic panel Lipid panel TSH Pap smear for cervical cancer screening Relevant Orders Ambulatory referral to Obstetrics / Gynecology * Thea Sood NP - 10/11/2024 7:17 AM EDTAssociated Problem(s): Encounter for wellness examination No exam, just labs * Thea Sood NP - 10/11/2024 7:15 AM EDTAssociated Problem(s): Screening mammogram, encounter for Due November 2024 * Thea Sood NP - 10/11/2024 7:15 AM EDTAssociated Problem(s): Encounter for screening for malignant neoplasm [...] cancer, colon polyps) Patient has elected to: * Thea Sood NP - 10/11/2024 7:12 AM EDTAssociated Problem(s): Recurrent major depressive disorder, in full remission (CMS/HCC) Current meds: wellbutrin XL, fluoxetine as well PHQ 9=4 * Thea Sood NP - 10/11/2024 7:11 AM EDTAssociated Problem(s): Osteoporosis (CMS/HCC) Current meds: fosamax DEXA: will order with mammogram in December * Thea Sood NP - 10/11/2024 7:11 AM EDTAssociated Problem(s): Neurogenic bladder Has seen urology, Lin Nair tmeds: vesicare S.O. states that used to take this 2-3 times daily will need to look at med records * Thea Sood NP - 10/11/2024 7:10 AM EDTAssociated Problem(s): Multiple sclerosis ([facility]) Under the care of dr Bains Current meds: lioresal, Vumerity documented in this [facility]05-27-2025 Instructions* Patient Instructions* Thea Sood NP - 10/11/2024 1:20 PM EDT I will send orders for Bone Density test and Mammogram: due late November ([facility]) I will order Home Health for evaluation Referred to FRANKFURTER INSPECTOR: Dr Engle in [place] for PAP smear Labs: fasting 8 hours documented in this [facility]05-07-2025 NotePatient Education Urology Botulinum Toxin Bladder Injection A [...] including vitamins, herbs, eye drops, creams, and hsjf-gdh-ttixhlu medicines. ??? Any problems you or family [...] need to have your bladder emptied with athin tube (urinary catheter). ??? Bleeding. ??? Urinary [...] tells you to take them. ??? Taking ttgd-jlu-dccxnsp medicines, vitamins, herbs, and supplements. General instructions [...] into your bladder through the part of thebody that carries urine from your bladder (urethra). [...] these instructions at home: Medicines ??? Take blkj-xic-yiejidx and prescription medicines only as told by your health care provider. ??? If you were prescribed an antibiotic medicine, take it as told by your health care provider. Donot stop using the antibiotic even if you start to feel better. General instructions ??? If you were given a sedative during the procedure, (more content not included)...[facility]04-28-2025 Miscellaneous Notes* Telephone Encounter - La John - 09/12/2024 8:59 AM EDT Medication Refill request: Medication Name and Strength:modafiniL (PROVIGIL) 200 mg tablet Current dose & Frequency:Take 1 tablet (200 mg total) by mouth in the morning. actually taking - not what is listed on the prescription label 30 day or 90 day supply preferred:30 Pharmacy Name:[facility] [address] If already on preferred pharmacy list - name only If new pharmacy - specify address & phone number Request was made by: Roxana with pharmacy [phone] * Telephone Encounter - Ruthann Mera RN - 09/12/2024 8:59 AM EDT RN reviewed refill request for Provigil. Dosage and directions verified. Prescription pended for physician to review and sign. Last appt: 06/30/23 Next appt: 10/25/24 ([place] patient) Last refilled: 08/02/24 Last prescription: 02/17/24 30 day supply with 5 refills documented in this encounterGerman Hospital04-28-2025 Telephone encounter Note* Telephone Encounter - La John - 09/12/2024 8:59 AM EDT Medication Refill request: Medication Name and Strength:modafiniL (PROVIGIL) 200 mg tablet Current dose & Frequency:Take 1 tablet (200 mg total) by mouth in the morning. actually taking - not what is listed on the prescription label 30 day or 90 day supply preferred:30 Pharmacy Name:[facility] - [place], [place] - [address] If already on preferred pharmacy list - name only If new pharmacy - specify address & phone number Request was made by: Roxana with pharmacy [phone] [facility]04-28-2025 Telephone encounter Note* Telephone Encounter - Ruthann Mera RN - 09/12/2024 8:59 AM EDT RN reviewed refill request for Provigil. Dosage and directions verified. Prescription pended for physician to review and sign. Last appt: 06/30/23 Next appt: 10/25/24 ([place] patient) Last refilled: 08/02/24 Last prescription: 02/17/24 30 day supply with 5 refills [facility]03-25-2025 Miscellaneous Notes* Telephone Encounter - Serenity Lopes CMA - 08/09/2024 12:04 PM EDT Faxed printed prescription of Vumerity 231 mg ER/EC to [facility] ([place], [place]) documented in this encounterGerman Hospital03-25-2025 Telephone encounter Note* Telephone Encounter - Serenity Lopes CMA - 08/09/2024 12:04 PM EDT Faxed printed prescription of Vumerity 231 [facility] ([place] [place]) [facility]03-03-2025 Miscellaneous Notes* Telephone Encounter - Jessica Forte - 07/18/2024 4:30 PM EST Medication Refill request: Medication Name and Strength:diroximel fumarate (VUMERITY) 231 mg capsule,delayed release(DR/EC) Current dose & Frequency: Take 462 mg by mouth in the morning and 462 mg before bedtime. 30 day or 90 day supply preferred: Pharmacy Name: [facility] [address] [address] Hours: Not open 24 hours Request was made by: Patient friend Len * Telephone Encounter - Ruthann Mera RN - 07/18/2024 4:30 PM EST RN reviewed refill request for Vumerity. Dosage and directions verified. Prescription pended for physician to review and sign. Last appt: 06/30/23 Next appt: 10/25/24 Last refilled: not listed Last prescription: 01/13/24 90 day with 3 refills documented in this encounterWestern Reserve HospitalKloudCatch03-03-2025 Telephone encounter Note* Telephone Encounter - Jessica Forte - 07/18/2024 4:30 PM EST Medication Refill request: Medication Name and Strength:diroximel fumarate (VUMERITY) 231 mg capsule,delayed release(DR/EC) Current dose & Frequency: Take 462 mg by mouth in the morning and 462 mg before bedtime. 30 day or 90 day supply preferred: Pharmacy Name: [facility] [address] [address] Hours: Not open 24 hours Request was made by: Patient friend Len [facility]03-[facility]25 Telephone encounter Note* Telephone Encounter - Ruthann Mera RN - 07/18/2024 4:30 PM EST RN reviewed refill request for Vumerity. Dosage and directions verified. Prescription pended for physician to review and sign. Last appt: 06/30/23 Next appt: 10/25/24 Last refilled: not listed Last prescription: 01/13/24 90 day with 3 refills [facility]11-18-2024 History of Present illness Narrative* Marisel Victoria NP - 04/04/2024 8:57 AM ESTAssociated Problem(s): Recurrent major depressive disorder, in full remission (CMS/HCC) Currently taking Prozac and Wellbutrin. Feels symptoms are well controlled. Denies SI/HI. * Marisel Victoria NP - 04/04/2024 8:56 AM ESTAssociated Problem(s): Multiple sclerosis (CMS/HCC) Follows with Dr. Canales, Neurology. Currently taking Vumerity and Modafinine. She is wheelchair bound - able to stand on her feet, but does not ambulate due to unsteady gait/fear of fall. Has cognitive slowing/chronic fatigue due to MS * Marisel Victoria NP - 04/04/2024 8:30 AM EST Images from the original note were not [...] Neurological: Negative for dizziness, tremors, syncope, weakness, light- headedness and headaches. Psychiatric/Behavioral: Negative for decreased concentration and suicidal ideas. The patient is notnervous/anxious. Hematological: Does not bruise/bleed easily. Endocrine: Negative [...] List Items Addressed This Visit Multiple sclerosis (CMS/HCC) - Primary Follows with Dr. Canales, Neurology. Currently taking Vumerity and Modafinine. She is wheelchair bound - able to stand on her feet, but does not ambulate due to unsteady gait/fear of fall. Has cognitive slowing/chronic fatigue due to MS Relevant Medications baclofen (Lioresal) 10 MG tablet Neurogenic bladder Relevant Medications solifenacin (VESIcare) 5 MG tablet Recurrent major depressive disorder, in full remission ([facility]) Currently taking Prozac and Wellbutrin. Feels symptoms are well controlled. Denies SI/HI. Relevant Medications buPROPion XL (Wellbutrin XL) 150 MG 24 hr tablet Other Visit Diagnoses Osteopenia, unspecified location Relevant Medications alendronate (Fosamax) 35 MG tablet Major depressive disorder, single episode, in full remission ([facility]) Relevant Medications cholecalciferol (Vitamin D-3) 50 MCG (1999 [place]) tablet FLUoxetine (PROzac) 40 MG capsule Non-seasonal allergic rhinitis, unspecified trigger Relevant Medications montelukast (Singulair) 10 MG tablet documented in this encounterProgress West [id number] Hospital Discharge instructions Patient Education 03/07/2024 09:10:16 [...] Up Care 02/01/2024 10:06:25 With:Lin Ward Address: [facility] [place] [address] [phone] Business (1) When: Unknown Comments:Call for followup appointment to discuss Axonics if desired, bring voiding diary [facility] 10-21-2024 NotePatient Education Cystoscopy with Botox injection ? Voiding after the procedure: there may be some pain, burning, urgency, frequency and blood tingedurine following the procedure. These symptoms usually resolve [...] if you have a fever over [address] 02-22-2024 History of Present illness Narrative* Marisel Victoria, BRYCE - 02/22/2024 1:30 PM EDT Images from the original note were not [...] in the morning and 1 tablet (10 mg)in the evening and 1 tablet (10 mg) [...] Neurological: Negative for dizziness, tremors, syncope, weakness, light- headedness and headaches. Psychiatric/Behavioral: Negative for decreased concentration and suicidal ideas. The patient is notnervous/anxious. Hematological: Does not bruise/bleed easily. Endocrine: Negative [...] apparent by direct observation [employer] Registration: Ximena [place], Finger Clock Drawing: Partial Clock - 1 Three Word Recall: 0 words correct - 0 Total Score (0-5 Points): 1 Cognitive Screening Not Completed: Cognitive impairment present Pain Assessment Pain Score: 0 - No pain Advance Care Planning Do you have a living will?: Yes Do you have a medical power of contracts attorney?: Yes Who is your medical power of contracts attorney?: Len Guadalupe Objective : BP 110/74 Pulse [...] on February 22, 2024 documented in this encounterProgress West [id number] Miscellaneous Notes* Telephone Encounter - Karen Pastor - 02/02/2024 4:03 PM EDT Patient's appointment needs to be rescheduled at this time due to provider out of clinic. Called and left message Date: 05/06 Provider: Dr Canales Rescheduling Instructions: move to same time on 05/03/24 * Telephone Encounter - Judie Fontanez - 02/02/2024 4:03 PM EDT 2nd attempt: Train System Operator attempted to contact patient once more and leave a voicemail instructing them to call us back at [phone] to reschedule their upcoming appointment that has been cancelled due to their provider being out of office this day. Unable to reach patient or leave a voicemail - received an automated message stating voicemail boxis full. documented in this encounterGerman Hospital09-17-2024 Telephone encounter Note* Telephone Encounter - Karen Pastor - 02/02/2024 4:03 PM EDT Patient's appointment needs to be rescheduled at this time due to provider out of clinic. Called and left message Date: 05/06 Provider: Dr Canales Rescheduling Instructions: move to same time on 05/03/24 [facility] CenterRaise [id number] Telephone encounter Note* Telephone Encounter - Judie Fontanez - 02/02/2024 4:03 PM EDT 2nd attempt: Train System Operator attempted to contact patient once more and leave a voicemail instructing them to call us back at [phone] to reschedule their upcoming appointment that has been cancelled due to their provider being out of office this day. Unable to reach patient or leave a voicemail - received an automated message stating voicemail boxis full. [facility]27-[facility]24 Miscellaneous Notes* Telephone Encounter - Venice Martins - 01/12/2024 12:04 PM EDT Medication Refill request: Medication Name and Strength: diroximel fumarate (VUMERITY) 231 mg capsule,delayed release(/EC) Current dose & Frequency: 2 tablets in the morning and two tablets in the afternoon 30 day or 90 day supply preferred: 90 Pharmacy Name: [facility] Request was made by: Len (YULY). Patient has 5 days left. * Telephone Encounter - La John - 01/12/2024 12:04 PM EDT [facility] called to confirm that a medication refill request was obtained. Train System Operator confirmed that the clinical staff is working on the medication refill. * Telephone Encounter - Hyun Darby MD - 01/12/2024 12:04 PM EDT Rx for modafinil 200 mg, 30 day supply with no refill sent electronically * Telephone Encounter - Edel Doran RN - 01/12/2024 12:04 PM EDT It looks like the initial request is for Vumerity * Telephone Encounter - Hyun Darby MD - 01/12/2024 12:04 PM EDT Rx for Vumerity printed and signed. * Telephone Encounter - Edel Doran RN - 01/12/2024 12:04 PM EDT Vumerity prescription faxed to [facility] at [phone]. Fax confirmation received. Message in routing comment: PA request received on [facility] under yo # [id number] * Telephone Encounter - Edel Doran RN - 01/12/2024 12:[address] is Dr Uriarte patient, Dr Pereira is covering for him. Apparently modafinil needs a PA. YO: [id number] * Telephone Encounter - Kristen Lees - 01/12/2024 12:04 PM EDT Received a call from [facility] in regards to previous message below. Pharmacy is requesting refill be sent over to them [facility] patient is currently almost out of medication. Please advise * Telephone Encounter - Edel Doran RN - 01/12/2024 12:04 PM EDT To clarify (since there are 2 medications mentioned below) [facility] was calling regarding Vumerity. Spoke with Dahlia at [facility] to inform them we faxed a prescription yesterday. Dahlia states they did not get it. Spoke with Henrietta [facility] to provide verbal order from the written prescription so patient care is not delayed: Vumerity 213 mg cap. Take 2 caps (462 mg ) BID, #360 for 90 days + 3 refills. documented in this encounterGerman Hospital08-27-2024 Telephone encounter Note* Telephone Encounter - Tika Martins - 01/12/2024 12:04 PM EDT Medication Refill request: Medication Name and Strength: diroximel fumarate (VUMERITY) 231 mg capsule,delayed release(/YULY) Current dose & Frequency: 2 tablets in the morning and two tablets in the afternoon 30 day or 90 day supply preferred: 90 [facility] Request was made by: Len JOHNSON). Patient has 5 days left. [facility] [employer] [id number] Telephone encounter Note* Telephone Encounter - La John - 01/12/2024 12:04 PM EDT [facility] called to confirm that a medication refill request was obtained. Train System Operator confirmed that the clinical staff is working on the medication refill. [facility]08-27-[facility] Telephone encounter Note* Telephone Encounter - Hyun Darby MD - 01/12/2024 12:04 PM EDT Rx for modafinil 200 mg, 30 day supply with no refill sent electronically [facility] Work Phone: [phone]) 676-125908-27-2024 Telephone encounter Note* Telephone Encounter - Edel Doran RN - 01/12/2024 12:04 PM EDT It looks like the initial request is for Vumerity [facility] [id number] Telephone encounter Note* Telephone Encounter - Hyun Darby MD - 01/12/2024 12:04 PM EDT Rx for Vumerity printed and signed. [facility] [id number] Telephone encounter Note* Telephone Encounter - Edel Doran RN - 01/12/2024 12:04 PM EDT Vumerity prescription faxed to [facility] at [phone]. Fax confirmation received. Message in routing comment: PA request received on [facility] under yo # [id number] [facility] [id number] Telephone encounter Note* Telephone Encounter - Edel Doran RN - 01/12/2024 12:[address] is Dr Uriarte patient, Dr Pereira is covering for him. Apparently modafinil needs a PA. YO: [id number] [facility]08-27-[facility] Telephone encounter Note* Telephone Encounter - Kristen Lees - 01/12/2024 12:04 PM EDT Received a call from [facility] in regards to previous message below. Pharmacy is requesting refill be sent over to them [facility] patient is currently almost out of medication. Please advise [facility]08-27-2024 Telephone encounter Note* Telephone Encounter - Edel Doran RN - 01/12/2024 12:04 PM EDT To clarify (since there are 2 medications mentioned below) [facility] Spoke with Dahlia at [facility] to inform them we faxed a prescription yesterday. Dahlia states they did not get it. Spoke with Henrietta [facility] to provide verbal order from the written prescription so patient care is not delayed: Vumerity 213 mg cap. Take 2 caps (462 mg ) BID, #360 for 90 days + 3 refills. [facility]08-27-2024 Miscellaneous Notes* Telephone Encounter - Abdullahi- Jasmin Martins - 01/12/2024 11:48 AM EDT Medication Refill request: Medication Name and Strength: modafiniL (PROVIGIL) 200 mg tablet Current dose & Frequency: One tablet once a day 30 day or 90 day supply preferred: 30 NEW Pharmacy Name: [facility] Request was made by: Len (YULY). Len stated patient only has one dosage left. documented in this encounterGerman Hospital08-27-2024 Telephone encounter Note* Telephone Encounter - Tika Martins - 01/12/2024 11:48 AM EDT Medication Refill request: Medication Name and Strength: modafiniL (PROVIGIL) 200 mg tablet Current dose & Frequency: One tablet once a day 30 day or 90 day supply preferred: 30 NEW Pharmacy Name: [facility] Request was made by: Len (YULY). Len stated patient only has one dosage left. [facility]07-17-2024 Hospital Discharge instructions Patient Education 12/02/2023 11:31:46 [...] including vitamins, herbs, eye drops, creams, and efcz-cfx-lezzbch medicines. Any problems you or family members [...] provider tells you to take them. Taking wcji-zoz-cgqoxct medicines, vitamins, herbs, and supplements. General instructions [...] Follow these instructions at home: Medicines Take sojl-dfm-ntrqgxs and prescription medicines only as told by your health care provider. If you were prescribed an antibiotic medicine, take it as told by your health care provider. Do notstop using the antibiotic even if you start [...] provider. Document Revised: 11/08/2021 Document Reviewed: 11/08/2021 [employer] Patient Education 2022 When You Wish. 12/02/2023 11:27:21 Urinary Incontinence Urinary Incontinence Urinary incontinence refers to a condition in which a person is unable to control where and when topass urine. A person with this condition will urinate involuntarily. This means that the person urinates when he or she does not mean to. What are the causes? This condition may be caused by: Medicines. Infections. Constipation. Overactive bladder muscles. Weak bladder muscles. Weak pelvic floor muscles. These muscles provide support for the bladder, intestine, and, in women,the uterus. Enlarged prostate in men. The prostate [...] a small amount, or constantly dribbling urine (overflowincontinence). Urinating because you cannot get to the [...] fiber include beans, whole grains, and fresh fruitsand vegetables. Behavioral changes, such as: ?Pelvic floor [...] nerve stimulation). ?For women, using a medical delivery technician to prevent urine leaks. This is a small, tampon-like, disposabledevice that is inserted into the urethra. ?Injecting [...] right after experiencing incontinence. General instructions Take eywo-cku-ugsoiwo and prescription medicines only as told by [...] important. Where to find more information National [place] of Diabetes and Digestive and Kidney Diseases: www.niddk.nih.gov [place] [employer]: www.urologyhealth.org Contact a health care [...] is unable to control where and when topass urine. This condition may be caused by medicines, infection, weak bladder muscles, weak pelvic floor muscles, enlargement of the prostate (in men), or surgery. Factors such as older age, obesity, and childbirth, menopause, neurological diseases, andchronic coughing may increase your risk for developing [...] provider. Document Revised: 12/07/2020 Document Reviewed: 12/07/2020 [employer] Patient Education 2022 When You Wish. Follow Up Care 04/15/2023 12:07:01 With:Ed LOVETT, JUVE Glez, URO Address: [address], [place] [address] [phone] When: Unknown Comments:bran Casillas [facility] Carl 07-17-2024 NotePatient Education Urology Botulinum Toxin Bladder Injection A [...] including vitamins, herbs, eye drops, creams, and txcp-pgj-fyxpaqw medicines. ? Any problems you or family [...] tells you to take them. ? Taking tola-bsq-uhkqrol medicines, vitamins, herbs, and supplements. General instructions ? Ask your health care provider what steps will be taken to help prevent infection. These steps mayinclude: ? Removing hair at the procedure site. [...] It may be injected into multiple areas ofyour bladder. ? The cystoscope will be removed and your bladder will be emptied with a urinary catheter. The procedure may vary among health care providers and hospitals. What can I expect after the procedure? After your procedure, it is common to have: ? Blood-tinged urine. ? Burning or soreness when you pass urine. Follow these instructions at home: Medicines ? Take dcvr-ejp-mzmpxqf and prescription medicines only as told by [...] or operate machinery (more content not included)... [facility]06-19-2024 Miscellaneous Notes* Telephone Encounter - Karen Pastor - 11/04/2023 10:14 AM EDT Patient's appointment needs to be rescheduled at this time due to provider out of clinic. Called and left message Date: 12/24 Provider: Dr Canales Rescheduling Instructions: next available * Telephone Encounter - Judie Fontanez - 11/04/2023 10:14 AM EDT 2nd attempt: Train System Operator attempted to contact patient once more and leave a voicemail instructing them to call us back at [phone] to reschedule their upcoming appointment that has been cancelled due to their provider being out of office this day. Patient answered call but call immediately disconnected. Please see scheduling instructions below. * Telephone Encounter - Judie Fontanez - 11/04/2023 10:14 AM EDT 3rd and final attempt: Train System Operator unable to make contact with patient by phone - Appointment has been cancelled / reschedule request letter mailed to patient requesting a call back so we are able to schedule them in for a follow up appointment and update their contact information. Letter mailed to patient on: 11/11/2023 - MMV. documented in this encounterGerman Hospital06-19-2024 Telephone encounter Note* Telephone Encounter - Karen Pastor - 11/04/2023 10:14 AM EDT Patient's appointment needs to be rescheduled at this time due to provider out of clinic. Called and left message Date: 12/24 Provider: Dr Canales Rescheduling Instructions: next available [facility]06-19-2024 Telephone encounter Note* Telephone Encounter - Judie Fontanez - 11/04/2023 10:14 AM EDT 2nd attempt: Train System Operator attempted to contact patient once more and leave a voicemail instructing them to call us back at [phone] to reschedule their upcoming appointment that has been cancelled due to their provider being out of office this day. Patient answered call but call immediately disconnected. Please see scheduling instructions below. [facility]06-19-2024 Telephone encounter Note* Telephone Encounter - Judie Fontanez - 11/04/2023 10:14 AM EDT 3rd and final attempt: Train System Operator unable to make contact with patient by phone - Appointment has been cancelled / reschedule request letter mailed to patient requesting a call back so we are able to schedule them in for a follow up appointment and update their contact information. Letter mailed to patient on: 11/11/2023 - MMV. [facility]05-15-2024 Miscellaneous Notes* Telephone Encounter - Venice Martins - 09/30/2023 9:34 AM EDT Monique, [facility], called to see if there was an additional phone# to contact patient. Train System Operator verified the phone# is the only contact information we have. Monique voiced understanding. documented in this encounterGerman Hospital05-15-2024 Telephone encounter Note* Telephone Encounter - Tika Martins - 09/30/2023 9:34 AM EDT Monique [facility], called to see if there was an additional phone# to contact patient. Train System Operator verified the phone# is the only contact information we have. Monique voiced understanding. [facility] [id number] Miscellaneous Notes* Telephone Encounter - Ramo Coleman CMA - 09/22/2023 12:07 PM EDT Medication refill request received via fax from [facility] Medication solifenacin 10 mg Last filled: 06/24/23 Last ssen: 07/01/23 Next appt: 12/25/23 documented in this encounterAdams [facility] [id number] Telephone encounter Note* Telephone Encounter - Ramo Coleman CMA - 09/22/2023 12:07 PM EDT Medication refill request received via fax from [facility] Medication solifenacin 10 mg Last filled: 06/24/23 Last ssen: 07/01/23 Next appt: 12/25/23 [facility] [id number] Miscellaneous Notes* Telephone Encounter - Alla Chi CMA - 07/01/2023 1:38 PM EST Prescription request received from patients pharmacy [facility] [place], [place]. Medication: MODAFINIL 200 MG TAB SIG: Take 1 tablet daily Patient last seen in clinic on 06/30/23 documented in this encounterWestern Reserve HospitalPrimus Power [id number] Telephone encounter Note* Telephone Encounter - Alla Chi CMA - 07/01/2023 1:38 PM EST Prescription request received from patients pharmacy [facility], [place], [place]. Medication: MODAFINIL 200 MG TAB SIG: Take 1 tablet daily Patient last seen in clinic on 06/30/23 VB Rags [id number] History of Present illness Narrative* Aquiles Canales MD - 06/30/2023 1:00 PM EST Images from the original note were not included. [address] [facility] [id number] Patient: Denisse Galarza Date of : 1970 [...] short-term memory. Subsequently saw a neurologist at [facility], diagnosed her with multiple sclerosis based off [...] 2015 shows multifocal signal abnormalities within the thoracicspine. No enhancing lesion was present to suggest [...] been following up with Dr. Ford at [facility], however recently requested [facility] neurologists. Was eventually referred to me by her PCP. MS checklist 06/30/2023: - Dx: [phone]. Based off clinical history and MRI scans. [...] medication if the drug program stops covering forit. Was previously on Tecfidera, which had to [...] with getting Vemurity approved by her insurance. [email or web address] recently changed certain policies, and it appears [...] except for managing finances, outdoor transportation. - Memory/cognition/fatigue/depression: Reports subacute onset of short-term memory problems [id number] years ago. Seemed to get significantly worse roughly 5 years ago, with the last reported exacerbation for MS. Her significant other helps her with keeping track of appointments, and other tasks. Has longstanding history of depression and anxiety, currently on fluoxetine 40 mg q.h.s., bupropion SR 150 mg bid. Patient's reports mood has been better over the last 6 months. Patient has notbeen able to establish care with a psychologist/psychiatrist. The clinic for which the referral wasprovided a few months ago, was not accepting new patients anymore. Gait/falls/motor: Patient uses a wheelchair and automated scooter for outdoor ambulation, uses a walker for indoor ambulation.. Does not drive. Is fairly independent with ADLs and IADLs, except for managing finances, outdoor transportation. Since starting baclofen 10 mg b.i.d. has reported mild impr ovement in ease of walking. Denies having any falls since the last clinic visit. Previously had home health care services with PT/OT. However the sessions eventually . Bowel/bladder: Has had Hyperactive/neurogenic bladder for more than 5 years. Is currently taking solifenacin 10 mg q.d., was previously on oxybutynin, tolterodine which seemed to help mildly at best.Since increasing the dose of solifenacin, the frequency and severity of urgency and associated incontinence has decreased significantly. Patient has continued to wear diapers for involuntary urinary leakage, which is usually not that much in quantity. Hyperactive bladder does not seem to cause significant pain for the patient. Patient has established care with a urologist in [place], and had her1st session of Botox for bladder spasms on [...] of dysconjugate pursuit and a bilateral internuclear ophthalmoplegia..No specific treatments are available. Visual acuity OD [...] abnormal postcontrast enhancement is noted to suggest activedemyelination. * hyperintensity in the left cerebral peduncle was also seen on the MRI brain from 2015 however it appears to be more prominent [...] compare the current examination with the prior 2015 examination, which was of lower technical quality. [...] matter lesions. Subsequent MRI scans(latest from November 2020)of the brain, C-spine and T-spine not shown [...] let yourself or your family down 0 00 Trouble concentrating on things, such as reading [...] made it for you to do your work,take care of things at home, or get along with other people? Not difficult at all Not difficult at all Not difficult at all PHQ-15: No data to display TOMÁS-7: No data to display PTSD: No data to display [place]: No data to display MELIA-10: No data to display Past Medical, Family, Surgical, and Social History Update: The following portions of the patient's history were reviewed and updated as appropriate: allergies, current medications, past family history, past medical history, past social history, past surgicalhistory and problem list. Past Medical History: Diagnosis Date Cholelithiases Depression MS (multiple sclerosis) ([facility]) Ovarian cyst Renal cyst Urge incontinence History [...] mouth 2 (two) times a day as neededfor muscle spasms (CC: spasticity from MS). 62 [...] and left eye. Pupils: Relative afferent pupillary defectabsent. CN III, IV, : CN III: PERRLA, [...] C-spine and T-spine had shown evidence of mo derate to severe white matter disease suggestive of central demyelination. She was started on disease modifying therapy, Tecfidera at the time and had been on it mid 2020. There were 2 periods of time, between [...] Tecfidera was eventually resumed and she has nothad any clinical exacerbations since that time. The Tecfidera had to be switched to Vemurity mid-2020, due to persistent lymphopenia/leukopenia, last CBC from October 2020 showed WBC count of 2.5 x10E9/L, absolute neutrophil count 1.5 x10E9/L, absolute lymphocyte count 0.7 x10E9/L. Per notes from his previous neurologist, subsequent MRI brain, C and T-spine(most recent ones from October-November 2020) had n ot shown evidence of worsening demyelination radiographically. The [...] not see a significant change in white matterlesions compared to the MRI brain scan from 2016. Unfortunately the MRI scans between 2015 and re not available the PACS system, however the reports are available under the medial link. Radiolog ist suggest new lesion in the left cerebral peduncle in the midbrain, however a less prominent hyperintensity was present in the left cerebral peduncle the scan on 2015 as well. Based on the reports from 12/08/2020 of the MRI brain with without contrast, ordered by the previous neurologist at [facility], the patient had midbrain lesions at that [...] disease progression or active inflammation. 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 * Has longstanding history of depression and anxiety, Currently on fluoxetine 40 mg q.h.s., bupropion SR 150 mg bid. Patient's reports mood has been better over the last 3 months. Patient hasnot been able to establish care with a psychologist/psychiatrist. Was reminded to do that as soon as possible. * Has had Hyperactive/neurogenic bladder for more than 5 years. Has had Hyperactive/neurogenic bladder for more than 5 years. Is currently taking solifenacin 10 mg q.d., was previously on oxybutynin,tolterodine which seemed to help mildly at best. Since increasing the dose of solifenacin, the frequency and severity of urgency and associated incontinence has decreased significantly. Patient has continued to wear diapers for involuntary urinary leakage, which is usually not that much in quantity. Hyperactive bladder does not seem to cause significant pain for the patient. Patient has established care with a urologist in [place], and had her 1st session of Botox for bladder spasms on the February. Since that time the patient and [...] with getting Vemurity approved by her insurance. [employer] recently changed certain policies, and it appears for the patient to obtain her current disease modifying therapy. For some weird reason, the patient was sent a letter advising that the patient does not enrollin next years patient assistance program as she [...] extremities, mild left upper extremity dysmetria on anlyms-is-kfqw testing, mild to moderate spasticity in right upper/right lower/left lower extremities, significant sensory ataxia on standing up. She is currently on a wheelchair, however can use a walker and/or an automated scooter at home. She is fairly independent with ADLs and IADLs, can bathe herself and dress herself. Is currently not driving. Needs some assistance from her significant other, formanaging finances, medications supervision, remembering appointments and other tasks Clinical impression: Relapsing remitting MS versus secondary progressive MS Recommendations: - continue Vemurity EC, PO, 462 mg b.i.d.. Patient does not appear to have any side effects at thistime. Unfortunately, at this point the patient is having some difficulty with continuing the current disease modifying therapy. I have reached out to Our manager social responsibility at [facility] to see if they can assist. I have advised the patient's fiancee to contact [employer]/insurance to get a concrete answer as to [...] - patient reminded to see psychiatrist/psychologist at [facility]. - continue baclofen 10 mg b.i.d. p.r.n. [...] 4 months. Aquiles Canales MD Vascular Neurologist [facility] Neurology ([facility]) I have personally participated in the care of this patient. I have reviewed all pertinent clinical information, including history, physical exam, investigation results and plan. I spent 40 minutes caring for this patient, and more than 50% of that time was spent on counseling the patient/videotape recording engineer/care team and coordinating care. Important Notice: This note was created with the assistance of a speech recognition program. While intending to generate a timely document that accurately reflects the content of the encounter, no guarantee can be provided that every grammatical or spelling mistake has been or will be identified or corrected. Thank you for your understanding. documented in this encounterWestern Reserve HospitalUnbabel [facility] [id number] Hospital Discharge instructions Patient Education 04/15/2023 11:48:50 [...] muscles. These are the same muscles you squeezewhen you try to stop the flow of [...] tight lift in your rectal area. If youare a female, you should also feel a [...] provider. Document Revised: 09/12/2021 Document Reviewed: 09/12/2021 [employer] Patient Education 2022 When You Wish. Follow Up Care 03/18/2023 10:02:42 With:Ed LOVETT, JUVE Glez, URO Address: When:Within 6 Month(s) [facility] Hospital Discharge instructions Patient Education 02/16/2023 08:47:48 [...] Up Care 01/22/2023 15:23:33 With:Lin Ward Address: [address] [place] [phone] Business (1) [address], [address] [phone] [phone] Business (1) When: Unknown Comments:Office to schedule follow up in 1 month with LUIS E [facility]08-29-2023 Hospital Discharge instructions Patient Education 01/13/2023 11:09:03 Urinary Incontinence Urinary Incontinence Urinary incontinence refers to a condition in which a person is unable to control where and when topass urine. A person with this condition will urinate involuntarily. This means that the person urinates when he or she does not mean to. What are the causes? This condition may be caused by: Medicines. Infections. Constipation. Overactive bladder muscles. Weak bladder muscles. Weak pelvic floor muscles. These muscles provide support for the bladder, intestine, and, in women,the uterus. Enlarged prostate in men. The prostate [...] a small amount, or constantly dribbling urine (overflowincontinence). Urinating because you cannot get to the [...] fiber include beans, whole grains, and fresh fruitsand vegetables. Behavioral changes, such as: ?Pelvic floor [...] nerve stimulation). ?For women, using a medical delivery technician to prevent urine leaks. This is a small, tampon-like, disposabledevice that is inserted into the urethra. ?Injecting [...] right after experiencing incontinence. General instructions Take jxxn-cxo-thsrbjw and prescription medicines only as told by [...] important. Where to find more information National [place] of Diabetes and Digestive and Kidney Diseases: www.niddk.nih.gov [place] [employer]: www.urologyhealth.org Contact a health care [...] is unable to control where and when topass urine. This condition may be caused by medicines, infection, weak bladder muscles, weak pelvic floor muscles, enlargement of the prostate (in men), or surgery. Factors such as older age, obesity, and childbirth, menopause, neurological diseases, andchronic coughing may increase your risk for developing [...] provider. Document Revised: 12/07/2020 Document Reviewed: 12/07/2020 [employer] Patient Education 2022 When You Wish. Follow Up Care 11/05/2022 14:34:58 With:ALLA TAYLOR PA-C, URL Address: [address] [place] [address] When: Unknown [facility] 08-26-2022 NotePROCEDURE: XR ANKLE RT MIN 3 VIEWS, XR [...] Electronically authenticated by: SRINATH GUEVARA Date: 2022-01-10 09:50[facility]08-26-2022 NotePROCEDURE: XR ANKLE RT MIN 3 VIEWS, XR [...] Electronically authenticated by: SRINATH GUEVARA Date: 2022-01-10 09:50[facility]07-28-2022 NotePROCEDURE: XR ANKLE RT MIN 3 VIEWS, XR [...] Electronically authenticated by: JUVENAL BAPTISTE Date: 2021-12-12 06:39[facility]07-28-2022 NotePROCEDURE: XR ANKLE RT MIN 3 VIEWS, XR [...] Electronically authenticated by: JUVENAL BAPTISTE Date: 2021-12-12 06:39[facility]06-17-2022 NotePROCEDURE: XR ANKLE RT MIN 3 VIEWS, XR [...] Electronically authenticated by: SRINATH GUEVARA Date: 2021-11-01 17:48[facility]06-17-2022 NotePROCEDURE: XR ANKLE RT MIN 3 VIEWS, XR [...] Electronically authenticated by: SRINATH GUEVARA Date: 2021-11-01 17:48[facility] No data available for this section [facility] evaluation + Plan note Future Appointments Appointment Date:03/10/2023 03:00:00 PM Scheduled Provider:ALLA TAYLOR PA-C Location:[facility] Appointment Type:URO Office Visit [facility] evaluation + Plan note Future Appointments Appointment Date:02/13/2023 08:15:00 AM Scheduled Provider: Location:[facility] Appointment Type:Urology CALL PAT FT Appointment Date:02/16/2023 08:30:00 AM Scheduled Provider: Location:[facility] Appointment Type:Urology FT [facility] evaluation + Plan note Future Appointments Appointment Date:02/13/2023 08:15:00 AM Scheduled Provider: Location:[facility] Appointment Type:Urology CALL PAT FT Appointment Date:02/16/2023 08:30:00 AM Scheduled Provider: Location:[facility] Appointment Type:Urology FT Diagnostic Tests Pending * Urine Culture [facility] Future Appointments Appointment Date:03/18/2023 10:45:00 AM Scheduled Provider:Lin Ward MD Location:[facility] Appointment Type:URO [facility] Future Appointments Appointment Date:04/15/2023 11:00:00 AM Scheduled Provider:Lin Ward MD Location:[facility] Appointment Type:URO Office Visit [facility] evaluation + Plan note Future Appointments Appointment Date:12/02/2023 10:45:00 AM Scheduled Provider:Lin Ward MD Location:[facility] Appointment Type:URO Office Visit [facility] evaluation + Plan note Future Appointments Appointment Date:12/18/2023 11:30:00 AM Scheduled Provider: Location:[facility] Appointment Type:Urology CALL PAT FT Appointment Date:12/21/2023 10:30:00 AM Scheduled Provider: Location:[facility] Appointment Type:Urology FT [facility] evaluation + Plan note Future Appointments Appointment Date:12/18/2023 11:30:00 AM Scheduled Provider: Location:[facility] Appointment Type:Urology CALL PAT FT Appointment Date:12/21/2023 10:30:00 AM Scheduled Provider: Location:[facility] Appointment Type:Urology FT Diagnostic Tests Pending * Urine Culture [facility]02[facility]23 [facility] Future Appointments Appointment Date:03/02/2024 11:00:00 AM Scheduled Provider: Location:[facility] Appointment Type:Urology CALL PAT FT Appointment Date:03/07/2024 08:30:00 AM Scheduled Provider: Location:[facility] Appointment Type:Urology FT Diagnostic Tests Pending * Urine Culture 02/29/24 [facility] Evaluation + Plan note Future Appointments Appointment Date:03/02/2024 11:00:00 AM Scheduled Provider: [facility] Appointment Type:Urology CALL PAT FT Appointment Date:03/07/2024 08:30:00 AM Scheduled Provider: Location:[facility] Appointment Type:Urology FT [facility] evaluation + Plan note Future Appointments Appointment Date:10/21/2024 09:30:00 AM Scheduled Provider: Location:[facility] Appointment Type:Urology CALL PAT FT Appointment Date:10/24/2024 10:30:00 AM Scheduled Provider: Location:[facility] Appointment Type:Urology FT [facility] evaluation + Plan note Future Appointments Appointment Date:02/14/2025 11:45:00 AM Scheduled Provider: Location:[facility] Appointment Type:Surgery FT [facility] evaluation note* Diagnosis Osteopenia, unspecified location- Primary [facility] Diagnosis Encounter for medication refill- Primary Encounter for Medicare annual wellness exam Osteopenia, unspecified location Multiple sclerosis ([facility]/HCC) Multiple sclerosis Recurrent major depressive disorder, in full remission ([facility]/HCC) Major depressive disorder, single episode, in full remission ([facility]/HCC) Major depressive disorder, single episode in full remission Non-seasonal allergic rhinitis, unspecified trigger Wheezing [facility]* Diagnosis Multiple sclerosis ([facility]/HCC)- Primary Multiple sclerosis Neurogenic bladder Neurogenic bladder, NOS Recurrent major depressive disorder, in full remission ([facility]/HCC) Chronic fatigue Other malaise and fatigue Screening mammogram, encounter for Encounter for screening for malignant neoplasm of colon Multiple sclerosis ([facility]/HCC)- Primary Multiple sclerosis Recurrent major depressive disorder, in full remission ([facility]/HCC) Osteopenia, unspecified location Major depressive disorder, single episode, in full remission ([facility]/HCC) Major depressive disorder, single episode in full [...] Neurogenic bladder, NOS documented in this encounter [facility]* Diagnosis Neurogenic bladder- Primary Neurogenic [...] Neurogenic bladder, NOS documented in this encounter [facility]* Diagnosis Neurogenic bladder- Primary Neurogenic bladder, NOS Neurogenic bladder- Primary Neurogenic bladder, NOS Renal cyst Unspecified congenital cystic kidney disease Neurogenic bladder- Primary Neurogenic bladder, NOS Renal cyst Unspecified congenital cystic kidney disease Neurogenic bladder- Primary Neurogenic bladder, NOS Multiple sclerosis ([facility]) Multiple sclerosis [facility]* Diagnosis Multiple sclerosis (HCC)- Primary [...] Neurogenic bladder, NOS documented in this encounter [facility]* Diagnosis Multiple sclerosis (HCC)- Primary [...] malignant neoplasm of the cervix Wheelchair dependence Muscle spasms of both lower extremities- Primary Multiple sclerosis (HCC) Multiple sclerosis Neurogenic bladder Neurogenic bladder, NOS Recurrent major depressive disorder, in full remission Wheelchair dependence [facility] Diagnosis Neurogenic bladder- Primary Neurogenic bladder, NOS Neurogenic bladder- Primary Neurogenic bladder, NOS Renal cyst Unspecified congenital cystic kidney disease Neurogenic bladder- Primary Neurogenic bladder, NOS Renal cyst Unspecified congenital cystic kidney disease Neurogenic bladder- Primary Neurogenic bladder, NOS Demyelinating disease of central nervous system (CMS-HCC)- Primary Unspecified demyelinating disease of central nervous system Dysphagia, unspecified type Neurogenic bladder Neurogenic bladder, NOS Wheelchair confinement status Wheelchair dependence Gait instability Abnormality of gait Sensory ataxia Lack of coordination Chronic fatigue Other malaise and fatigue Spasticity Abnormal involuntary movements Immunosuppressed due to chemotherapy Depressed mood Falls frequently Personal history of fall Short-term memory loss Memory loss Weakness of both lower extremities Multiple sclerosis (CMS-HCC) Multiple sclerosis Dysuria documented in this encounter [facility] noteNo assessment information available [facility] Work Phone: Evaluation note* Diagnosis Neurogenic bladder- Primary Neurogenic bladder, NOS Neurogenic bladder- Primary Neurogenic bladder, NOS Renal cyst Unspecified congenital cystic kidney disease Neurogenic bladder- Primary Neurogenic bladder, NOS Renal cyst Unspecified congenital cystic kidney disease Neurogenic bladder- Primary Neurogenic bladder, NOS Demyelinating disease of central nervous system (CMS-HCC)- Primary Unspecified demyelinating disease of central nervous system Multiple sclerosis Obesity (BMI 30-39.9) Dysphagia, unspecified type Neurogenic bladder Neurogenic bladder, NOS Wheelchair confinement status Wheelchair dependence Gait instability Abnormality of gait Sensory ataxia Lack of coordination Chronic fatigue Other malaise and fatigue Spasticity Abnormal involuntary movements Immunosuppressed due to chemotherapy Urologic disorder Unspecified disorder of urethra and urinary tract Depressed mood Falls frequently Personal history of fall Blurred vision, right eye Other specified visual disturbances Demyelinating disease of central nervous system (CMS-HCC) Unspecified demyelinating disease of central nervous system Multiple sclerosis Demyelinating disease of central nervous system (CMS-HCC) Unspecified demyelinating disease of central nervous system Multiple sclerosis documented in this encounter [facility] Dis[facility] instructions No data available for this section [facility] InstructionsNot on filedocumented in this encounter [...] available for this section [facility] reason for referral (narrative)No reason for referral information availablePromedica F[facility] Work Phone: Summary Purpose Family History No Family History [...] History Records FoundNo Family History Records Found Advance Directives No Advanced Directives Records FoundDocuments on File TypeDate RecordedPatient RepresentativeExplanationPower of Xgzeaupx75/7/2024 3:23 PMpower of attorneyTypeDate RecordedPatient RepresentativeExplanationPower of Kcvfbcvw47/7/2024 3:23 PMpower of contracts attorney Advance Directive Response Recorded Date/ Time Advance Directives No June 21, 2018 12:52pm Reason for Referral SpecialtyDiagnoses / ProceduresReferred By ContactReferred To Contact Diagnoses Multiple sclerosis ([facility]) Wheelchair dependence Demyelinating disease of the spinal cord ([facility]) Procedures Disability/Handicap Aquiles Zamarripa MD [address] [place] [address], [address] [address] Referral IDStatusReasonStart DateExpiration DateVisits RequestedVisits [id number] Review Chief Complaint and Reason for Visit Chief Complaint Admit Date Rash February 01, 2025 10:07am Additional Source Comments INFORMATION SOURCE (unrecogn ized section and content) DATE CREATED AUTHOR 06/16/2021 [facility] DATE CREATED AUTHOR AUTHOR'S ORGANIZ ATION 07/08/2022 [facility] DATE CREATED AUTHOR AUTHOR'S ORGANIZ ATION 12/07/2023 [facility] DATE CREATED AUTHOR AUTHOR'S ORGANIZ ATION 03/04/2024 [facility] DATE CREATED AUTHOR AUTHOR'S ORGANIZ ATION 03/06/2024 [facility] DATE CREATED AUTHOR AUTHOR'S ORGANIZ ATION 10/21/2024 [facility] DATE CREATED AUTHOR AUTHOR'S ORGANIZ ATION 01/10/2025 [facility] DATE CREATED AUTHOR AUTHOR'S ORGANIZ ATION 02/01/2025 [facility] DATE CREATED AUTHOR AUTHOR'S ORGANIZ ATION 02/19/2025 [facility] DATE CREATED AUTHOR AUTHOR'S ORGANIZ ATION 02/20/2025 [facility] DATE CREATED AUTHOR AUTHOR'S ORGANIZ ATION 02/21/2025 [facility] DATE CREATED AUTHOR AUTHOR'S ORGANIZ ATION 03/21/2025 [facility] Patient Care team informatio n (unrecognized section and content) Team MemberRelationshipSpecialtyStart DateEnd Date Shaikh Ramírez MD [address] [place] [address] PCP - Ujzyqca56/1/23 Shaikh Ramírez MD [address] [place] [address] PCP - [facility]06/23/23Team MemberRelationshipSpecialtyStart Date End Date Johnson Lorenz MD [address] [place] [address] PCP - [facility]12/28/23 Marisel Victoria NP [address] [place] [address] [facility]12/28/23Team MemberRelationshipSpecialtyStart DateEnd Date Johnson Lorenz MD [address] [place] [address] PCP - [facility]12/28/23 Marisel Victoria NP [address] [place] [address] Nurse [facility]212/28/23Team MemberRelationshipSpecialtyStart DateEnd Date Johnson Lorenz MD [address] [place] [address] PCP - [facility]04/04/24 Marisel Victoria NP [address] [place] [address] Nurse [facility]12/28/23Team MemberRelationshipSpecialtyStart DateEnd Date Johnson Lorenz MD [address] [place] [address] PCP - [facility]04/04/24 Marisel Victoria NP [address] [place] [address] Nurse Pract[facility]12/28/23Team MemberRelationshipSpecialtyStart DateEnd Date Johnson Lorenz MD [address] [place] [address] PCP - [facility]04/04/24 Marisel Victoria, RBYCE [address] [place] [address] Nurse Pract[facility]12/28/23Team MemberRelationshipSpecialtyStart DateEnd Date Ashley Gale MD [address] [place] [address] PCP - [facility]10/20/17Team MemberRelationshipSpecialtyStart DateEnd Date Ashley Gael MD [address] [place] [address] PCP - [facility]10/20/17Team MemberRelationshipSpecialtyStart DateEnd Date Ashley Gale MD [address] [place] [address] PCP - [facility]10/20/17am MemberRelationshipSpecialtyStart DateEnd Date Ashley Gale MD [address] [place] [address] PCP - [facility]10/20/17am MemberRelationshipSpecialtyStart DateEnd Date Ashley Gale MD [address] [place] [address] PCP - [facility]10/20/17 MemberRelationshipSpecialtyStart DateEnd Date Ashley Gale MD [address] [place] [address] PCP - [facility]10/20/17 MemberRelationshipSpecialtyStart DateEnd Date Ashley Gale MD [address] [place] [address] [facility]10/20/17am MemberRelationshipSpecialtyStart DateEnd Date Ashley Gale MD [address] [place] [address] PCP - [facility]10/20/17 MemberRelationshipSpecialtyStart DateEnd Date Johnson Lorenz MD [address] [place] [address] PCP - GeneralFamily Sojruqmj48/18/24 Marisel Victoria NP Nurse Pract[facility]12/28/23Team MemberRelationshipSpecialtyStart DateEnd Date Johnson Lorenz MD [address] [place] [address] PCP - [facility]04/04/24 Marisel Victoria, BRYCE Nurse Pract[facility]er[facility]12/28/23Team MemberRelationshipSpecialtyStart DateEnd Date Johnson Lorenz MD [address] [place] [address] PCP - [facility]04/04/24 Marisel Victoria NP [facility]12/28/23Team MemberRelationshipSpecialtyStart DateEnd Date Johnson Lorenz MD [address] [place] [address] PCP - [facility]04/04/24 Marisel Victoria NP Nurse [facility]212/28/23Team MemberRelationshipSpecialtyStart DateEnd Date Ashley Gale MD [address] [place] [address] PCP - [facility]10/20/17Team MemberRelationshipSpecialtyStart DateEnd Date Johnson Lorenz MD [address] [place] [address] PCP - [facility]04/04/24 Marisel Victoria NP [facility]12/28/23Team MemberRelationshipSpecialtyStart DateEnd Date Johnson Lorenz MD [address] [place] [address] PCP - [facility]04/04/24 Marisel Victoria NP [facility]12/28/23Team MemberRelationshipSpecialtyStart DateEnd Date Johnson Lorenz MD [address] [place] [address] PCP - [facility]04/04/24 Marisel Victoria NP [facility]12/28/23Team MemberRelationshipSpecialtyStart DateEnd Date Johnson Lorenz MD [address] [place] [address] PCP - [facility]04/04/24 Marisel Victoria NP [facility]12/28/23Team MemberRelationshipSpecialtyStart DateEnd Date Ashley Gale MD [address], [place] [phone] PCP - [facility]10/20/17 Team Status: Active Member Role Status Dates Roxana Diaz DO Primary Care Provider Active Team Status: Inactive Member Role Status Dates Roxana Diaz DO Primary Care Provider Active S tart: February 01, 2025 End: February 01faye Worrell RKCeci ProviderActiveStart: February 01, 2025 End: February 01, 2025Team MemberRelationshipSpecialtyStart DateEnd Date Ashley Gale MD [address] [place] [address] PCP - [facility]10/20/17Team MemberRelationshipSpecialtyStart DateEnd Date Ashley Gale MD [address] [place] [address] PCP - [facility]10/20/17Team MemberRelationshipSpecialtyStart DateEnd Date Shaikh Ramírez MD [address] [place] [address] PCP - [employer]/ Shaikh Ramírez MD [address] [place] [address] [facility] Johnson Lorenz MD [address] [place] [address] [facility] - [facility]12/27/2409 Johnson Lorenz MD [address] [place] [address] [facility] - [facility]12/18/24 Johnson Lorenz MD [address] [place] [address] PCP - [employer]12/17/23 Marisel Victoria NP [address] [place] [address] Nurse PractitionerFamily Medicine12/28/23 Reason for Visit (unrecogniz ed section and content) ReasonCommentsAnnual ExamMedicare wellnessReasonCommentsMed RefillReasonComments Follow-upReasonOnset DateCommentsMed Fayixh514ReasonOnset DateCommentsMed Ljhrnq0306/28/2024ReasonOnset DateCommentsValid Contact Info4Reason CommentsFollow-upPatient presents for follow up, Patient is starting to have left leg shake in the morning, would like to talk about prescriptions, and needs handicap placard. Patient has had Botox shot in bladder, it seemed to help some. Patient sees [facility] in [place].ReasonOnset DateCommentsMed Kwxzur35/4ReasonOnset DateComments8/ Aizlux68/4ReasonOnset Date CommentsMed [id number] DqdaWldfqunj01/20 Chbuko77/4Reason Onset DateCommentsMed Hwjmlu67/07/2024ReasonOnset DateCommentsMed Refill 09/12/2024ReasonOnset DateCommentsMed Thkqis3309/26/2024ReasonCommentsMultiple SclerosisReasonOnset DateCommentsMed Vfyiqk3810/12/2024ReasonOnset DateCommentsMed Bcomxo3211/14/2024ReasonOnset DateCommentsMed Fyjpyl8012/13/2024ReasonComments Follow-upPatient is here today for follow up on dx: Demyelinating disease of central nervous systemReasonCommentsFollow-upPatient is here today for follow up on dx: Multiple sclerosis, Patient stated she fell last week and has been very weak. Goals (unrecognized section and content) Goals may be documented in a n alternate section FOR RECORDS PERTAINING TO PATIENTS WHO ARE [...] BE BASED ON THE PRIMARY CLINICAL RECORDS. [facility]. provides no warranty or guarantee of the accuracy or completeness of information in this document.
[2025-04-11 12:18] LABS: Glucose Urine UA NEGATIVE (NEGATIVE)
[2025-04-11 12:26] LABS: Cast Seen? NONE SEEN #/LPF (NONE SEEN); Crystals Seen? None Seen #/HPF (None Seen); Urine Culture Indicated YES-FRMC
[2025-04-11] MEDS: FLUCONAZOLE 150 MG TABLET PO (12:49)
== END 2025-04-11 14:10 | disposition home or self-care (01) ==
PROVIDERS: Emergency Provider Emergency Medicine; PCP Nurse Practitioner
DX: T83.098A Other mechanical complication of other urinary catheter, initial encounter (principal); N39.0 Urinary tract infection, site not specified
CPT/HCPCS: 36415; 71045; 80048; 81001; 85007; 85027; 87086; 87088; 87186; 93005; 96365; 99285; J0696